=== PATIENT | male | born 1940 | race Caucasian/White ===

== ENCOUNTER 2018-01-19 05:56 | Observation (INO) | payer OTHER, MEDICARE ==
--- OUTSIDE RECORDS SUMMARY | 2018-01-19 06:02 | XMS REPORT | Clinical Summary ---
:1940 Author Organization [facility] Address [address] [place] [address] Care Team Providers Name Role Phone Boogie Fall MD Primary Care Provider Allergies No Known Allergies Medications Medication Sig Dispensed Refills Start Date End Date Status amLODIPine (NORVASC) 10 Take 10 mg by 0 Active mg tablet mouth daily. gabapentin (NEURONTIN) Take 100 mg by 0 Active 100 mg capsule mouth 3 (three) times a day. levothyroxine Take 100 mcg by 0 Active (SYNTHROID, LEVOXYL) 100 mouth daily. mcg tablet lisinopril-hydrochloroth Take 1 tablet by 0 Active iazide mouth daily. (PRINZIDE,ZESTORETIC) 20-25 mg per tablet metoprolol tartrate Take 50 mg by 0 Active (LOPRESSOR) 50 mg tablet mouth 2 (two) times a day. rivaroxaban (XARELTO Take by mouth. 0 Active ORAL) Active Problems Problem Noted Date Spinal stenosis of lumbar region 11/17/2017 Encounters Date Type Specialty Care Team Description 12/22/2017 Office Visit Orthopedic Peter Ellison Spinal Noemi GUZMAN MD lumbar region without neurogenic claudication (Primary Dx) 12/15/2017 Documentation Orthopedic Peter Ellison III, MD 12/15/2017 Documentation Orthopedic Peter Ellison III, MD 12/06/2017 Office Visit Orthopedic Peter Ellison III, MD lumbar region without neurogenic claudication (Primary Dx) 12/06/2017 Documentation Orthopedic Surgery Franchesca Morin MA 11/24/2017 Documentation Orthopedic Peter Ellison III, MD 11/19/2017 Documentation Orthopedic Surgery Franchesca Morin MA 11/17/2017 Office Visit Orthopedic Peter Ellison Spinal stenosis Pili GUZMAN MD lumbar region, unspecified whether neurogenic claudication present (Primary Dx) 11/10/2017 Documentation Orthopedic Surgery Peter Aden III, MD 11/03/2017 Documentation Orthopedic Surgery Franchesca Morin MA 11/02/2017 Hospital Encounter Radiology Peter Aden III, MD 11/02/2017 Office Visit Orthopedic Surgery Peter Aden Spinal stenosis of Dustin GUZMAN MD lumbar region, unspecified whether neurogenic claudication present (Primary Dx) after 01/18/2017 Family History Medical History Relation Name Comments Cancer Brother prostate cancer Heart disease Father Relation Name Status Comments Brother Father Social History Tobacco Use Types Packs/Day Years Used Date Never Smoker Smokeless Tobacco: Never Used Sex Assigned at Date Recorded Not on file Job Start Date Occupation Industry Not on file Not on file Not on file Travel History Travel Start Travel End No recent travel history available. Last Filed Vital Signs Vital Sign Reading Time Taken Blood Pressure 155/89 11/02/2017 2:20 PM CDT Pulse 62 11/02/2017 2:20 PM CDT Temperature - - Respiratory Rate - - Oxygen Saturation - - Inhaled Oxygen Concentration - - Weight 110 kg (243 lb) 11/02/2017 2:20 PM CDT Height 177.8 cm (5' 10") 11/02/2017 2:20 PM CDT Body Mass Index 34.87 11/02/2017 2:20 PM CDT Plan of Treatment Health Maintenance Due Date Last Done Comments SHINGRIX VACCINE (1 of 2) 1990 ZOSTER VACCINE 2000 PNEUMOCOCCAL POLYSACCHARIDE VACCINE AGE 65 AND OVER 2005 PNEUMOCOCCAL-13 2005 INFLUENZA VACCINE 2017 Procedures Procedure Name Priority Date/Time Associated Diagnosis Comments MRI SPINE EXTERNAL Routine 10/22/2017 12:59 PM Results for this STUDY CDT procedure are in the results section. after 01/18/2017 Results MRI Spine External Study (10/22/2017 12:59 PM CDT) Narrative Performed At This exam was not acquired at a [facility] facility and has not been [facility] interpreted by a [facility] Provider.The exam was imported into our imaging system for comparisons purposes. Performing Organization Address City/State/Zipcode Phone Number [facility] [address] [place] [address] after 01/18/2017 Insurance Payer Benefit Plan / Group Subscriber ID Type Phone Address MEDICARE MEDICARE PART A AND B xxxxxxxxxx Medicare [place], [place] AARP AARP SUPPLEMENT xxxxxxxxx Commercial Advance Directives Patient has advance care planning documents on file. For more information, please contact:Jesús Gupta[address] [place] [address]
[2018-01-19 06:32] LABS: Absolute Lymphocytes (CBC) 1.6 K/uL (0.7-4.9); Absolute Monocytes 1.3 K/uL (0.1-1.3); Absolute Neutrophil 7.5 K/uL (1.8-8.0); Basophils % 0.7 % (0-1.3); Eosinophils % 0.9 % (0-4.4); Hematocrit 40.2 % (39.6-49.0); Lymphocytes % 15.2 % (15.3-44.8); MCH 32.5 pg (27.0-35.0); MPV 10.7 fL (7.6-11.3); Monocytes % 11.9 % (3.3-12.3); RBC Red Blood Cell Count 4.19 M/uL (4.33-5.43)
[2018-01-19] MEDS ORDERED: ASPIRIN 81 MG CHEWABLE TABLET ONE (06:34)
[2018-01-19 06:43] LABS: Protime INR 2.13
[2018-01-19 06:46] LABS: ALT/SGPT 24 U/L (12-78); AST/SGOT 16 U/L (15-37); Albumin 3.3 g/dL (3.4-5.0); Alkaline Phosphatase 60 U/L (45-117); BUN Blood Urea Nitrogen 17 mg/dL (7-18); Bicarbonate 27 mmol/L (21-32); Bilirubin Direct 0.2 mg/dL (0-0.2); Bilirubin Total 0.6 mg/dL (0.2-1.0); Glucose Level 162 mg/dL (74-106); Magnesium 2.1 mg/dL (1.8-2.4); NT PRO-BNP 648 pg/mL (<450); Potassium 3.8 mmol/L (3.5-5.1); Protein, Total 7.9 g/dL (6.4-8.2); Sodium Level 141 mmol/L (136-145); Troponin (Emerg Dept Use Only) < 0.02 ng/mL (0.0-0.045)
--- NOTE | 2018-01-19 08:10 | RAD REPORT ---
EXAM DESCRIPTION: CT - Head Brain Wo Cont - 01/19/2018 6:56 am CLINICAL HISTORY: DIZZINESS Drowsiness COMPARISON: Sinus Wo Cont dated 07/05/2017; Head Brain Wo Cont dated 12/01/2016; Spine Lumbar Wo Con d ated 08/16/2017; Spine Lumbar W/Wo Cont dated 10/22/2017 TECHNIQUE: All CT scans are performed using dose optimization technique as appropriate and may inclu de automated exposure control or mA/KV adjustment according to patient size. FINDINGS: No intracranial hemorrhage, hydrocephalus or extra-axial fluid collection.Moderate general ized brain atrophy is present with moderate periventricular and deep white matter chronic microvascul ar ischemic changes.No areas of brain edema or evidence of midline shift. The paranasal sinuses and mastoids are clear. The calvarium is intact. Vertebrobasilar atherosclerosi s is noted. IMPRESSION: No acute intracranial abnormality. Prominent vertebrobasilar atherosclerosis.
--- NOTE | 2018-01-19 08:18 | ER ---
Nurse's Notes [facility] Name: Jose Armando Caldera Age: 77 yrs Sex: Male : 1940 Arrival Date: 01/19/2018 Time: 05:58 Bed 8 Private MD: LILA SPEARS Diagnosis: Chest pain, unspecified Presentation: 01/19 06:15 Presenting complaint: Patient states: he woke up this morning and was feeling a little bb dizzy with chest pain and has been having left shoulder pain for several days on arrival to ED chest pain has resolved but he is having really bad indigestion and is short of breath. Transition of care: patient was not received from another setting of care. Onset of symptoms was January 19, 2018. Risk Assessment: Do you want to hurt yourself or someone else? Patient reports no desire to harm self or others. Initial Sepsis Screen: Does the patient meet any 2 criteria? No. Patient's initial sepsis screen is negative. Does the patient have a suspected source of infection? No. Patient's initial sepsis screen is negative. Care prior to arrival: None. 06:15 Method Of Arrival: Ambulatory bb 06:15 Acuity: HARPER 3 bb Triage Assessment: 06:39 General: Appears in no apparent distress. Behavior is calm, cooperative. Respiratory: ak1 Reports shortness of breath at rest Onset: The symptoms/episode began/occurred this morning, the patient has mild shortness of breath. Historical: - Allergies: 06:20 No Known Allergies; bb - Home Meds: 06:42 amlodipine 10 mg tab 1 tab once daily [Active]; Crestor 5 mg Oral tab 1 tab once daily ak1 [Active]; lisinopril-hydrochlorothiazide 20-25 mg Oral tab 1 tab once daily [Active]; metoprolol tartrate 50 mg Oral tab 1 tab 2 times per day [Active]; Xarelto 20 mg Oral tab 1 tab once daily [Active]; - PMHx: 06:20 Atrial Fib; cardiac stent; Hyperlipidemia; Hypertension; Myocardial infarction; bb - PSHx: 06:20 bilateral TKR; back surgery; bb - Immunization history:: Adult Immunizations up to date. - Social history:: Smoking status: Patient/guardian denies using tobacco, Patient/guardian denies using alcohol, street drugs. - Ebola Screening: : No symptoms or risks identified at this time. Screenin:26 Abuse screen: Denies threats or abuse. Nutritional screening: No deficits noted. ea Tuberculosis screening: No symptoms or risk factors identified. Fall Risk None identified. Assessment: 06:24 General: Appears in no apparent distress. Pain: Denies pain. Neuro: Level of ea Consciousness is awake, alert, obeys commands, Oriented to person, place, time, situation. Cardiovascular: Heart tones S1 S2 present Patient's skin is warm and dry. Respiratory: Airway is patent Respiratory effort is even, unlabored, Respiratory pattern is regular, symmetrical, Breath sounds are clear bilaterally. GI: Abdomen is obese, Bowel sounds present X 4 quads. Derm: Skin is dry, Skin is pale, Skin temperature is warm. 06:40 Cardiovascular: Rhythm is. ak1 07:08 General: Appears comfortable, Behavior is calm, cooperative, Pt reports SOB had aa5 improved. Denies dizziness and chest pain at this time. Bruising that is yellow noted to left shoulder, pt states "I don't know how I got that bruise", denies fall. Awaiting radiology results at this time, pt notified of wait time. . Pain: Denies pain. Neuro: Level of Consciousness is awake, alert, obeys commands, Oriented to person, place, time, situation, Battery Checker are equal bilaterally Moves all extremities. Speech is normal, Facial symmetry appears normal, Pupils are PERRLA. Cardiovascular: Heart tones S1 S2 present Rhythm is sinus rhythm. Respiratory: Airway is patent Respiratory effort is even, unlabored, Respiratory pattern is regular, symmetrical, Breath sounds are clear bilaterally. GI: Abdomen is round Bowel sounds present X 4 quads. Abd is soft and non tender X 4 quads. : No signs and/or symptoms were reported regarding the genitourinary system. EENT: No signs and/or symptoms were reported regarding the EENT system. Derm: Skin is pink, warm \\T\\ dry. Musculoskeletal: Range of motion: intact in all extremities. 08:30 Reassessment: Patient is alert, oriented x 3, equal unlabored respirations, skin aa5 warm/dry/pink. Patient denies pain at this time. Pt sitting up in bed. Pt's family at bedside. Awaiting room assignment, pt notified of wait time. . 10:00 Reassessment: Patient is alert, oriented x 3, equal unlabored respirations, skin aa5 warm/dry/pink. Patient denies pain at this time. Breakfast tray given to pt, urinal provided. Awaiting room assignment at this time. Pt sitting up in bed. . 11:00 Reassessment: Patient is alert, oriented x 3, equal unlabored respirations, skin aa5 warm/dry/pink. Pt sitting up in bed. Awaiting room assignment. . 11:45 Reassessment: Report given to NEGRITA Duarte (admitting nurse). Pt currently in radiology. . aa5 12:10 Reassessment: Patient is alert, oriented x 3, equal unlabored respirations, skin aa5 warm/dry/pink. Vital Signs: 06:20 BP 110 / 63; Pulse 74; Resp 14; Pulse Ox 96% on R/A; Weight 104.33 kg (R); Height 5 ft. bb 10 in. (177.80 cm) (R); 06:38 Temp 98.6; ak1 07:10 BP 118 / 74; Pulse 65; Resp 18 S; Temp 97.8(O); Pulse Ox 96% on R/A; Pain 0/10; aa5 08:00 BP 137 / 78; Pulse 62; Resp 18 S; Pulse Ox 96% on R/A; Pain 0/10; aa5 09:00 BP 139 / 75; Pulse 66; Resp 16 S; Pulse Ox 96% on R/A; Pain 0/10; aa5 10:00 BP 155 / 74; Pulse 85; Resp 18 S; Temp 97.6(TE); Pulse Ox 96% on R/A; Pain 0/10; aa5 11:00 BP 136 / 68; Pulse 70; Resp 16 S; Pulse Ox 97% on R/A; aa5 06:20 Body Mass Index 33.00 (104.33 kg, 177.80 cm) bb ED Course: 05:58 Patient arrived in ED. am2 05:58 LILA SPEARS is Private Physician. am2 06:10 Inserted saline lock: 20 gauge in right antecubital area, using aseptic technique. ea Blood collected. 06:13 Nicole Carpenter FNP-C is PHCP. kb 06:13 Bassem Vo MD is Attending Physician. kb 06:18 Triage completed. bb 06:20 Arm band placed on Patient placed in an exam room, on a stretcher, on quality assurance monitor chassis, bb on pulse oximetry. Family accompanied patient. 06:26 Patient has correct armband on for positive identification. Placed in gown. Bed in low ea position. Call light in reach. Side rails up X2. 06:35 Vickie Shepard, RN is Primary Nurse. ak1 06:40 X-ray completed. Portable x-ray completed in exam room. Patient tolerated procedure kw well. 06:41 XRAY Chest (1 view) In Process Unspecified. EDMS 06:56 CT Head Brain wo Cont In Process Unspecified. EDMS 07:00 Report received from Vickie RN and NEGRITA Page. aa5 08:18 Robb Marquez MD is Hospitalizing Provider. kb 11:24 Patient taken to ultrasound. via wheelchair. aa4 12:00 No provider procedures requiring assistance completed. aa5 12:00 Patient admitted, IV remains in place. aa5 12:13 Ultrasound completed. Patient tolerated well. Patient moved back from ultrasound. aa4 Administered Medications: 06:37 Drug: Aspirin Chewable Tablet 324 mg Route: PO; ak1 Outcome: 08:18 Decision to Hospitalize by Provider. kb 12:10 Admitted to Tele accompanied by tech, via wheelchair, with chart. aa5 12:10 Condition: stable 12:10 Discharge instructions given to patient, Instructed on the need for admit, Demonstrated understanding of instructions. 12:14 Patient left the ED. aa5 Signatures: Dispatcher [employer] EDMS Nicole Carpenter, DECKHAND-C DECKHAND-CkNiyah Barnes RN RN Lora Chun aa4 Pat Escobedo RN RN aa5 Isabell Barragan Amber, RN RN ak1 Lora Lind am2 Kaylee Roca, NEGRITA RN ea Corrections: (The following items were deleted from the chart) 06:42 06:20 Home Meds: Unable to obtain; dinah ak1 12:03 11:45 Reassessment: Report given to NEGRITA Duarte. Pt currently in radiology. . aa5 aa5 12:06 08:30 Reassessment: Patient is alert, oriented x 3, equal unlabored respirations, skin aa5 warm/dry/pink. Patient denies pain at this time. Pt sitting up in bed. Pt's family at bedside. . aa5 15:12 10:00 Reassessment: Patient is alert, oriented x 3, equal unlabored respirations, skin aa5 warm/dry/pink. Breakfast tray given to pt, urinal provided. Awaiting room assignment at this time. Pt sitting up in bed. . aa5 15:12 08:30 Reassessment: Patient is alert, oriented x 3, equal unlabored respirations, skin aa5 warm/dry/pink. Patient denies pain at this time. Pt sitting up in bed. Pt's family at bedside. Awaiting room assignment, pt notified of wait time. . aa5
--- NOTE | 2018-01-19 08:19 | EDPHYS ---
Physician Documentation [facility] Name: Jose Armando Caldera Age: 77 yrs Sex: Male : 1940 Arrival Date: 01/19/2018 Time: 05:58 Bed 8 Private MD: LILA SPEARS ED Physician Bassem Vo HPI: 01/19 06:21 This 77 yrs old Male presents to ER via Ambulatory with complaints of kb Breathing Difficulty, Dizziness, Chest Pain. 06:24 The patient or guardian reports chest pain that is located primarily in the anterior kb chest wall, left. Onset: this morning. The pain does not radiate. Associated signs and symptoms: Pertinent positives: dizziness, shortness of breath, Pertinent negatives: abdominal pain, cough, diaphoresis, headache, lower extremity pain, lower extremity swelling, lightheadedness, nausea, near syncope, palpitations, recent travel, syncope, vomiting. The chest pain is described as a pressure. Duration: The patient or guardian reports a single episode, that is now resolved. Modifying factors: The symptoms are alleviated by nothing. the symptoms are aggravated by nothing. Severity of pain: At its worst the pain was moderate in the emergency department the pain has resolved and did so earlier today. The patient has not experienced similar symptoms in the past. The patient has not recently seen a physician. Pt reports he was getting dressed and started having chest pain, shortness of breath and dizziness. All symptoms have resolved at this time. Bulkhead Carpenter is Dr Chambers. Had CO 10 years ago and had a stent placed at that time. . Historical: - Allergies: 06:20 No Known Allergies; bb - Home Meds: 06:42 amlodipine 10 mg tab 1 tab once daily [Active]; Crestor 5 mg Oral tab 1 tab once daily ak1 [Active]; lisinopril-hydrochlorothiazide 20-25 mg Oral tab 1 tab once daily [Active]; metoprolol tartrate 50 mg Oral tab 1 tab 2 times per day [Active]; Xarelto 20 mg Oral tab 1 tab once daily [Active]; - PMHx: 06:20 Atrial Fib; cardiac stent; Hyperlipidemia; Hypertension; Myocardial infarction; bb - PSHx: 06:20 bilateral TKR; back surgery; bb - Immunization history:: Adult Immunizations up to date. - Social history:: Smoking status: Patient/guardian denies using tobacco, Patient/guardian denies using alcohol, street drugs. - Ebola Screening: : No symptoms or risks identified at this time. ROS: 06:22 Constitutional: Negative for fever, chills, and weight loss, ENT: Negative for injury, kb pain, and discharge, Neck: Negative for injury, pain, and swelling, Abdomen/GI: Negative for abdominal pain, nausea, vomiting, diarrhea, and constipation, Back: Negative for injury and pain, MS/Extremity: Negative for injury and deformity, Skin: Negative for injury, rash, and discoloration. 06:22 Cardiovascular: Positive for chest pain, Negative for edema, orthopnea, palpitations, paroxysmal nocturnal dyspnea. 06:22 Respiratory: Positive for shortness of breath, Negative for cough, dyspnea on exertion, hemoptysis, orthopnea, pleurisy, sputum production, wheezing. 06:22 Neuro: Positive for dizziness, Negative for altered mental status, gait disturbance, headache, hearing loss, loss of consciousness, numbness, seizure activity, speech changes, syncope, near syncope, tingling, tinnitus, tremor, visual changes, weakness. Exam: 06:24 Constitutional: This is a well developed, well nourished patient who is awake, alert, kb and in no acute distress. Head/Face: Normocephalic, atraumatic. ENT: Nares patent. No nasal discharge, no septal abnormalities noted. Tympanic membranes are normal and external auditory canals are clear. Oropharynx with no redness, swelling, or masses, exudates, or evidence of obstruction, uvula midline. Mucous membranes moist. Neck: Trachea midline, no thyromegaly or masses palpated, and no cervical lymphadenopathy. Supple, full range of motion without nuchal rigidity, or vertebral point tenderness. No Meningismus. Chest/axilla: Normal chest wall appearance and motion. Nontender with no deformity. No lesions are appreciated. Cardiovascular: Regular rate and rhythm with a normal S1 and S2. No gallops, murmurs, or rubs. Normal PMI, no JVD. No pulse deficits. Respiratory: Lungs have equal breath sounds bilaterally, clear to auscultation and percussion. No rales, rhonchi or wheezes noted. No increased work of breathing, no retractions or nasal flaring. Abdomen/GI: Soft, non-tender, with normal bowel sounds. No distension or tympany. No guarding or rebound. No evidence of tenderness throughout. Skin: Warm, dry with normal turgor. Normal color with no rashes, no lesions, and no evidence of cellulitis. MS/ Extremity: Pulses equal, no cyanosis. Neurovascular intact. Full, normal range of motion. Neuro: Awake and alert, GCS 15, oriented to person, place, time, and situation. Cranial nerves II-XII grossly intact. Motor strength 5/5 in all extremities. Sensory grossly intact. Cerebellar exam normal. Normal gait. Vital Signs: 06:20 BP 110 / 63; Pulse 74; Resp 14; Pulse Ox 96% on R/A; Weight 104.33 kg (R); Height 5 ft. bb 10 in. (177.80 cm) (R); 06:38 Temp 98.6; ak1 07:10 BP 118 / 74; Pulse 65; Resp 18 S; Temp 97.8(O); Pulse Ox 96% on R/A; Pain 0/10; aa5 08:00 BP 137 / 78; Pulse 62; Resp 18 S; Pulse Ox 96% on R/A; Pain 0/10; aa5 09:00 BP 139 / 75; Pulse 66; Resp 16 S; Pulse Ox 96% on R/A; Pain 0/10; aa5 10:00 BP 155 / 74; Pulse 85; Resp 18 S; Temp 97.6(TE); Pulse Ox 96% on R/A; Pain 0/10; aa5 11:00 BP 136 / 68; Pulse 70; Resp 16 S; Pulse Ox 97% on R/A; aa5 06:20 Body Mass Index 33.00 (104.33 kg, 177.80 cm) MDM: 06:13 Patient medically screened. kb 06:24 The patient was given aspirin in the Emergency Department. Data reviewed: vital signs, kb nurses notes. Data interpreted: Pulse oximetry: on room air is 96 %. Interpretation: normal. 08:17 Counseling: I had a detailed discussion with the patient and/or guardian regarding: the kb historical points, exam findings, and any diagnostic results supporting the discharge/admit diagnosis, lab results, radiology results, the need for further work-up and treatment in the hospital. Physician consultation: Robb Marquez MD was contacted at 08:17, regarding admission, to the telemetry unit. patient's condition, and will see patient in ED, shortly. 01/19 06:13 Order name: Basic Metabolic Panel; Complete Time: 06:47 kb 01/19 06:13 Order name: CBC with Diff; Complete Time: 06:41 kb 01/19 06:13 Order name: LFT's; Complete Time: 06:47 kb 01/19 06:13 Order name: Magnesium; Complete Time: 06:47 kb 01/19 06:13 Order name: NT PRO-BNP; Complete Time: 06:47 kb 01/19 06:13 Order name: PT-INR; Complete Time: 06:54 kb 01/19 06:13 Order name: Troponin (emerg Dept Use Only); Complete Time: 06:47 kb 01/19 06:13 Order name: XRAY Chest (1 view); Complete Time: 08:59 kb 01/19 06:13 Order name: EKG; Complete Time: 06:15 kb 01/19 06:13 Order name: Cardiac monitoring; Complete Time: 06:37 kb 01/19 06:13 Order name: EKG - Nurse/Tech; Complete Time: 06:37 kb 01/19 06:22 Order name: CT Head Brain wo Cont; Complete Time: 08:13 kb 01/19 08:44 Order name: Diet Heart Healthy; Complete Time: 08:44 aa5 01/19 06:13 Order name: IV Saline Lock; Complete Time: 06:37 kb 01/19 06:13 Order name: Labs collected and sent; Complete Time: 06:37 kb 01/19 06:13 Order name: O2 Per Protocol; Complete Time: 06:38 kb 01/19 06:13 Order name: O2 Sat Monitoring; Complete Time: 06:59 kb Administered Medications: 06:37 Drug: Aspirin Chewable Tablet 324 mg Route: PO; ak1 Disposition: 01/19/18 08:18 Hospitalization ordered by Robb Marquez for Observation. Preliminary diagnosis is Chest pain, unspecified. - Bed requested for Telemetry/MedSurg (observation). - Status is Observation. aa5 - Condition is Stable. - Problem is new. - Symptoms are resolved. UTI on Admission? No Addendum: 01/22/2018 06:44 Co-signature as Attending Physician, Bassem Vo MD. g s Signatures: Dispatcher [employer] EDNicole Whiting FNP-C AIRLINE MECHANIC-Ckb GeneLiz daniel bd Niyah Billy, RN RN bb Pat Escobedo, RN RN aa5 Vickie Shepard, RN RN ak1 Bassem Vo MD MD gs Corrections: (The following items were deleted from the chart) 01/19 06:42 06:20 Home Meds: Unable to obtain; dinah ak1 10:28 08:18 Hospitalization Ordered by Robb Marquez MD for Observation. Preliminary diagnosis bd is Chest pain, unspecified. Bed requested for Telemetry/MedSurg (observation). Status is Observation. Condition is Stable. Problem is new. Symptoms are resolved. UTI on Admission? No. kb 12:14 10:28 01/19/2018 08:18 Hospitalization Ordered by Robb Marquez MD for Observation. aa5 Preliminary diagnosis is Chest pain, unspecified. Bed requested for Telemetry/MedSurg (observation). Status is Observation. Condition is Stable. Problem is new. Symptoms are resolved. UTI on Admission? No. bd
--- NOTE | 2018-01-19 08:21 | RAD REPORT ---
EXAM DESCRIPTION: RAD - Chest Single View - 01/19/2018 7:02 am CLINICAL HISTORY: CHEST PAIN Chest pain. COMPARISON: Chest Single View dated 12/01/2016; Abdomen 1 View (KUB) dated 11/18/2015; CHEST SINGLE EW dated 08/19/2007; CHEST PA AND LAT 2 VIEW dated 08/05/2007 FINDINGS: Portable technique limits examination quality. The lungs are grossly clear. The heart is normal in size. No displaced fractures. IMPRESSION: No acute intrathoracic process suspected.
[2018-01-19] MEDS ORDERED: NITROGLYCERIN 0.4 MG/TAB SL PRN (09:11)
[2018-01-19] MEDS ORDERED: MORPHINE 4 MG/ML SYR IV PRN (09:11)
[2018-01-19] MEDS ORDERED: ACETAMINOPHEN 500 MG TAB PO PRN (09:11)
--- NOTE | 2018-01-19 10:09 | EKG ---
Test Date: 2018-01-19 Test Time: 06:08:44 Senior Operations Manager: JUAN MEASUREMENT RESULTS: Intervals: Rate: 74 UT: 174 QRSD: 96 QT: 408 QTc: 452 [place]: P: 41 UT: 174 QRS: 3 T: 65 INTERPRETIVE STATEMENTS: Normal sinus rhythm Normal ECG Compared to ECG 12/01/2016 12:35:41 Atrial fibrillation no longer present Electronically Signed On 01-19-18 10:08:44 SENIOR RESEARCH MANAGER by Panda Chambers
--- NOTE | 2018-01-19 12:27 | RAD REPORT ---
EXAM DESCRIPTION: USCarotid Artery Nlazdoucx51/14/2018 12:05 pm CLINICAL HISTORY: Syncope COMPARISON: None FINDINGS: The velocity of the right internal carotid artery equals 120 cm/sec. The right ICA/CCA ratio 0.8 The velocity of the left internal carotid artery equals 111 cm/sec. The left ICA/CCA ratio 0.8 Mild plaque is present within the carotid arteries. Vertebral arteries demonstrate antegrade flow. IMPRESSION: Mild plaque within the carotid arteries without evidence of a hemodynamically significan t stenosis NASCET criteria used. Mild 0-49% stenosis Moderate 50-69% stenosis Severe 70-99% stenosis
[2018-01-19 13:07] VITALS: BMI 33.0
--- NOTE | 2018-01-19 15:04 | RAD REPORT ---
EXAM DESCRIPTION: RAD - Shoulder Left 2 View - 01/19/2018 2:53 pm CLINICAL HISTORY: Left shoulder pain FINDINGS: No fracture or dislocation is seen. The bones are osteoporotic. The humeral head is high riding which may indicate a chronic rotator cuff tear. Mild osteoarthritis involves the AC joint
--- NOTE | 2018-01-19 15:15 | CON ---
CARDIOLOGY CONSULT Chief Complaint: Dizziness, near loss of consciousness. History Of Present Illness: Mr. Caldera was sleeping. He had awakened at 4 a.m. When he got out of b ed, his sensorium clouded and he felt very dizzy. He leaned against a wall, slumped to the floor, di d not actually fall and strike the floor or hurt himself. For a while he was unable to get up, then later he was able to stand. He has come to the emergency room and has had normal rhythm, normal look ing EKG, and feels pretty much back to normal. He has dementia with pretty severe memory loss. He h as had coronary heart disease with a stent placed in one of his arteries, very remotely. He has had intermittent AFib, but seems to be in sinus rhythm now. Home Medications: Amlodipine 10, Crestor 5, lisinopril 20, hydrochlorothiazide 25, metoprolol 50, Xa relto 20. Past Surgical History: He has had knee replacement bilaterally, back surgery. Social History: He was a cigarette smoker, but quit quite a few years ago. Physical Examination: General: He is alert, oriented to person, place, and time. Obese, not in distress. Vital Signs: Blood pressure is 154/70, heart rate 80, when I saw him. HEENT: Unremarkable. Lungs: Clear. Cardiac: Regular rate and rhythm. Laboratory Data: EKG normal. Laboratory exam reveals normal troponin and N-terminal proBNP is 648, blood sugar 162. Impression: The patient probably had relative hypotension, sleeping and then waking up at 4 a.m. and standing is a pretty severe stress on the autonomic nervous system and it seems to have failed him. We will monitor him. I will recommend, we do an echocardiogram and carotid Doppler and orthostatic vital signs. If nothing seems to come up on this, we might take him off the diuretic and leave him o n lisinopril, amlodipine, metoprolol, and Xarelto. SH/MODL Voice ID: [id number] Report ID: [id number]
--- NOTE | 2018-01-19 15:28 | ECHO ---
HEIGHT: 5 ft 10 in WEIGHT: 230 lb 0 oz DATE OF STUDY: 01/19/[address]: Robb Marquez MD 2-DIMENSIONAL: YES M.MODE: YES DOPPLER: YES COLOR FLOW: YES TDS: YES PORTABLE: NO DEFINITY: NO BUBBLE STUDY: NO DIAGNOSIS: CHEST PAIN, CORONARY ARTERY DISEASE CARDIAC HISTORY: CATHERIZATION: NO SURGERY: NO PROSTHETIC VALVE: NO PACEMAKER: NO MEASUREMENTS (cm) DIASTOLIC (NORMALS) SYSTOLIC (NORMALS) IVSd 1.1 (0.6-1.2) LA Diam 4.2 (1.9-4.0) LVEF 71% LVIDd 4.6 (3.5-5.7) LVIDs 2.7 (2.0-3.5) %FS 41% LVPWd 1.1 (0.6-1.2) Ao Diam 3.1 (2.0-3.7) 2 DIMENSIONAL ASSESSMENT: RIGHT ATRIUM: NORMAL LEFT ATRIUM: DILATED RIGHT VENTRICLE: NORMAL LEFT VENTRICLE: NORMAL TRICUSPID VALVE: NORMAL MITRAL VALVE: NORMAL PULMONIC VALVE: NORMAL AORTIC VALVE: NORMAL PERICARDIAL EFFUSION: NONE AORTIC ROOT: NORMAL LEFT VENTRICULAR WALL MOTION: NORMAL. DOPPLER/COLOR FLOW: IMPAIRED LEFT VENTRICULAR EJECTION FRACTION. COMMENTS: NORMAL LEFT VENTRICULAR EJECTION FRACTION. DILATED LEFT ATRIUM. IMPAIRED LEFT VENTRICULAR RELAXATION. TECHNOLOGIST: VERONICA SANZ
[2018-01-19] MEDS ORDERED: HYDRALAZINE HCL 20 MG/ML VIAL IV PRN (17:03)
[2018-01-19] MEDS ORDERED: ROSUVASTATIN 10 MG TAB PO SCH (21:00)
[2018-01-19] MEDS: METOPROLOL TAR 50 MG TAB PO SCH (21:00)
[2018-01-19] MEDS ORDERED: ATORVASTATIN 40 MG TAB PO SCH (21:00)
[2018-01-19] MEDS ORDERED: HOME MED 1 EA UNK (Rosuvastatin [Crestor*] 5 MG) PO SCH (21:00)
--- NOTE | 2018-01-20 00:57 | HP ---
Date of Admission: 01/19/2018 Chief Complaint: Chest pain, dizziness. Code Status: Full. History Of Present Illness: The patient is a 77-year-old male with past medical history of hypertension, hyperlipidemia, atrial fibrillation on Xarelto , pulmonary artery disease, status post stent, who was in his usual state of health until day of admission when the patient had onset of dizziness and shortness of breath. The patient felt that he was going to pass out. He did experience chest tightness on the left side, which was nonradiating. The patient has reported some nausea and headache. Denies any diaphoresis, palpitations. Did not fall and did not hit his head, the patient did not lose consciousness. The patient's symptoms are constant, moderate, progressively worsening. Therefore came into the ER for further evaluation. There are no alleviating factors. Upon arrival, the patient's workup revealed negative troponin level. White count was normal. The patient's EKG did not show any acute changes. Chest x-ray was normal. The patient was then referred for admission for chest pain. Dr. Chambers with Cardiology was also consulted. Of note, the patient's symptoms occurred after he took his blood pressure medication. Past Medical History: Hypertension, hyperlipidemia, coronary artery disease status post stent, history of NM, atrial fibrillation on Xarelto. Surgical History: Bilateral total knee replacement, back surgery. Allergies: NO KNOWN DRUG ALLERGIES. Medications: List reviewed. Social History: The patient denies any tobacco use, alcohol use, or illicit drug use. Family History: The patient denies any history of premature coronary artery disease in the family. Review of Systems: An 11-point system reviewed, negative except as per HPI. Physical Examination: Vital Signs: Blood pressure 110/62, respirations 14, pulse 74, O2 96% on room air, temperature 98.6. General: Awake, alert, oriented x3, in some mild distress. Elderly male. HEENT: Normocephalic, atraumatic. PERRLA. EOMI. Moist mucous membranes. Oropharynx is clear. Conjunctivae anicteric. Neck: Supple. No JVD. Trachea midline. CV: S1, S2. Irregularly irregular. Peripheral pulses present. No murmurs. Respiratory: Clear to auscultation bilaterally. No wheezing or stridor. No use of accessory muscles. Gastrointestinal: Abdomen is soft, nontender, nondistended. Positive bowel sounds. Extremities: No clubbing, cyanosis, or edema. No calf tenderness. NEURO: Cranial nerves 2 through 12 intact grossly. No focal neurological deficit. Speech is normal. Skin: No rashes, normal skin turgor. The patient does have some ecchymosis on the left shoulder. Musculoskeletal: Left shoulder tenderness to palpation. Decreased range of motion due to pain. Psych: Mood is okay. Affect is full. Insight and judgment are good. Laboratory Data: INR 2.13. Sodium 141, potassium 3.8, chloride 103, CO2 27, BUN 17, creatinine 1.2, glucose 162, calcium 8.6. Troponins less than 0.02. BNP 648. WBC 10.6, H and H 13.6/40.2, platelets 206. Arterial ultrasound shows mild plaque within the carotid arteries without evidence of hemodynamically significant stenosis. Chest x-ray, personally reviewed, shows no acute process identified. EKG shows normal sinus rhythm, rate of 74. When compared to previous atrial fibrillation, not present. Assessment And Plan: A 77-year-old male with: 1. Chest pain, rule out acute coronary syndrome. 2. Dizziness and near syncopal episode, likely related to medication side effect. We will continue to monitor. Carotid ultrasound is negative. We will check orthostatic vital signs. Blood pressure is improved since being in the ER. Continue with IV fluid hydration. Check echocardiogram. 3. Essential hypertension. 4. Mixed hyperlipidemia. Continue statin. 5. Coronary artery disease status post stent [place] artery, [place] heart with angina. 6. Gastrointestinal and deep venous thrombosis prophylaxis addressed. 7. Obesity, BMI 33. Plan: Admit the patient to [facility], [facility] as observation. Cardiology is being consulted. We will obtain echocardiogram. /CLEMENTINE Voice ID: [id number] MTDD
[2018-01-20 04:07] LABS: Absolute Lymphocytes (CBC) 1.8 K/uL (0.7-4.9); Absolute Monocytes 1.2 K/uL (0.1-1.3); Absolute Neutrophil 5.7 K/uL (1.8-8.0); Eosinophils % 1.8 % (0-4.4); Hematocrit 37.8 % (39.6-49.0); Lymphocytes % 20.6 % (15.3-44.8); MCH 32.5 pg (27.0-35.0); MCV 95.5 fL (80-100); MPV 10.8 fL (7.6-11.3); Monocytes % 13.1 % (3.3-12.3); RBC Red Blood Cell Count 3.95 M/uL (4.33-5.43)
[2018-01-20 04:20] LABS: Potassium 3.7 mmol/L (3.5-5.1)
[2018-01-20] MEDS ORDERED: LEVOTHYROXINE SOD 0.1 MG TAB PO SCH (06:00)
[2018-01-20] MEDS: METOPROLOL TAR 50 MG TAB PO SCH (08:35)
[2018-01-20] MEDS ORDERED: HOME MED 1 EA UNK (Lisinopril/Hydrochlorothiazide [Lisinopril-Hctz 20-12.5 Mg Tab] 1 TAB) PO SCH (09:00)
[2018-01-20] MEDS ORDERED: hydroCHLOROthiazide 12.5 MG CAP PO SCH (09:00)
[2018-01-20] MEDS ORDERED: TAMSULOSIN 0.4 MG SR CAP PO SCH (09:00)
[2018-01-20] MEDS ORDERED: ASPIRIN EC 81 MG TAB PO SCH (09:00)
[2018-01-20] MEDS ORDERED: LISINOPRIL 20 MG TAB PO SCH ×2 (09:00)
[2018-01-20] MEDS ORDERED: METOPROLOL TAR 50 MG TAB PO SCH (09:00)
[2018-01-20] MEDS ORDERED: AMLODIPINE 5 MG TAB PO SCH (09:00)
[2018-01-20 12:38] VITALS: BP 116/65; TEMP 98
[2018-01-20 12:57] VITALS: O2SAT 97
[2018-01-20] MEDS ORDERED: RIVAROXABAN 20 MG TABLET PO SCH (17:00)
--- NOTE | 2018-01-21 05:02 | DS ---
Date of Discharge: 01/20/2018 Safety Deposit Clerk: Panda Chambers M.D., with Cardiology. Procedures: None. Discharge Diagnoses: 1.Unstable angina. Acute coronary syndrome ruled out. 2.Dizziness with near-syncopal episode, resolved. 3.Essential hypertension, stable. 4.Hyperlipidemia. Statins. 5.Coronary artery disease, status post stent, robinson artery and robinson heart, with angina. 6.Obesity, body mass index 33. Hospital Course: The patient is a 77-year-old male who came in to the hospital with chest pain, dizz iness, and near-syncopal episode. The patient was admitted for further workup. The patient did repo rt some pain to the left side of his shoulder as he slid down the wall, but he did not have a fall or hit his head. The patient's workup revealed negative cardiac enzymes. His cholesterol panel was no rmal. WBC count was also normal. The patient was seen by [employer] outside sales representative, Dr. Chambers. Echocardiogram was done, which showed EF of 71%, did show some dilated left atrium and impaired left ventricular rel axation. The patient was ruled out for ACS. Regarding his dizziness and near-syncopal episode, this was likely thought to be due to orthostatic hypotension. Carotid artery ultrasound was done, which showed mild plaque, but no hemodynamically significant stenosis. The patient's medications were adju sted. He will no longer continue his diuretic. The patient was then cleared for discharge. His blo od pressure was stable. He was able to get up without difficulty. No further dizziness or near-sync opal episodes. Medications: Per medication reconciliation list. Followup: Follow up with primary care physician in 2 to 3 days. Follow up with [employer] outside sales representative, Dr. Camden reyes, in 2 weeks. Return to ER for worsening condition. Diet: Heart healthy. Activity: Fall precautions. Physical Examination: General: Awake, alert, oriented x3, obese, elderly male. CV: S1, S2. Peripheral pulses present. Respiratory: Moving air well bilaterally. No wheezing. Gastrointestinal: Abdomen is soft, nontender, nondistended. Positive bowel sounds. Extremities: No clubbing, cyanosis, or edema. Neurologic: Nonfocal. SA/MODL Voice ID: [id number] Report ID: [id number]
--- NOTE | 2018-01-24 10:58 | PN ---
Date of Progress Note: 01/20/2018 Mr. Caldera was admitted on 01/19/[address] Dr[address] Chambers for chest pain. The patient has a hi story of CAD, dementia, and atrial fibrillation. The echocardiogram that was done showed an ejection fraction that was normal. Decreased left ventricular compliance. No regional wall motion abnormali ties. A carotid Doppler that was done was also negative. I think, the patient can go home. We will suggest lowering the dose of diuretic. We will follow up with him as an outpatient. CHRISTOPH/CLEMENTINE Voice ID: [id number] Report ID: [id number]
== END 2018-01-20 13:00 | disposition home or self-care (01) ==
LOC: ER 05:56 → ERHOLD 08:22 → 4TH 11:37
PROVIDERS: ADMIT Family Medicine; ATTEND Family Medicine
DX: I25.110 Atherosclerotic heart disease of native coronary artery with unstable angina pectoris (principal); R42 Dizziness and giddiness; I10 Essential (primary) hypertension; E78.5 Hyperlipidemia, unspecified; E66.9 Obesity, unspecified; Z68.33 Body mass index [BMI] 33.0-33.9, adult; Z95.5 Presence of coronary angioplasty implant and graft; I48.91 Unspecified atrial fibrillation; Z79.01 Long term (current) use of anticoagulants; Z96.653 Presence of artificial knee joint, bilateral
CPT/HCPCS: 36415; 70450; 71045; 73030; 80048 ×2; 80061; 80076; 83735; 83880; 84484 ×2; 85025 ×2; 85610; 93005; 93306; 93880; 94760 ×3; 99285; G0378 ×2; J0360

== ENCOUNTER 2018-02-11 09:34 | Emergency (ER) | payer OTHER, MEDICARE ==
--- OUTSIDE RECORDS SUMMARY | 2018-02-11 09:36 | XMS REPORT | Clinical Summary ---
:1940 Author Organization [facility] Address [address] [place] [address] Care Team Providers Name Role Phone Boogie [...] whether neurogenic claudication present (Primary Dx) after 02/10/2017 Family History Medical History Relation Name Comments [...] procedure are in the results section. after 02/10/2017 Results MRI Spine External Study (10/22/2017 12:59 PM CDT) Narrative Performed At This exam was not acquired at a [facility] facility and has not been [facility] interpreted by a [facility] Provider.The exam was imported into our imaging system for comparisons purposes. Performing Organization Address City/State/Zipcode Phone Number [facility] [address] [place] [address] after 02/10/2017 Insurance Payer Benefit Plan / Group Subscriber ID Type Phone Address MEDICARE MEDICARE PART A AND B xxxxxxxxxx Medicare [place], [place] AARP AARP SUPPLEMENT xxxxxxxxx Commercial Advance Directives Patient has advance care planning documents on file. For more information, please contact:Jesús Gupta[address] [place] [address]
[2018-02-11 10:43] LABS: Protime INR 1.55
[2018-02-11 11:03] LABS: ALT/SGPT 22 U/L (12-78); AST/SGOT 15 U/L (15-37); Albumin 3.2 g/dL (3.4-5.0); Alkaline Phosphatase 52 U/L (45-117); BUN Blood Urea Nitrogen 34 mg/dL (7-18); Bicarbonate 27 mmol/L (21-32); Bilirubin Direct 0.2 mg/dL (0-0.2); Bilirubin Total 0.4 mg/dL (0.2-1.0); Glucose Level 146 mg/dL (74-106); Magnesium 1.8 mg/dL (1.8-2.4); NT PRO-BNP 2645 pg/mL (<450); Potassium 3.5 mmol/L (3.5-5.1); Protein, Total 7.3 g/dL (6.4-8.2); Sodium Level 141 mmol/L (136-145); Troponin (Emerg Dept Use Only) < 0.02 ng/mL (0.0-0.045)
[2018-02-11 11:09] LABS: Absolute Lymphocytes (CBC) 1.7 K/uL (0.7-4.9); Absolute Monocytes 0.9 K/uL (0.1-1.3); Absolute Neutrophil 4.7 K/uL (1.8-8.0); Basophils % 1.2 % (0-1.3); Eosinophils % 1.5 % (0-4.4); Hematocrit 38.8 % (39.6-49.0); Lymphocytes % 23.1 % (15.3-44.8); MCH 32.8 pg (27.0-35.0); MCV 93.9 fL (80-100); MPV 11.7 fL (7.6-11.3); Monocytes % 11.4 % (3.3-12.3); RBC Red Blood Cell Count 4.13 M/uL (4.33-5.43)
--- NOTE | 2018-02-11 11:16 | RAD REPORT ---
EXAM DESCRIPTION: RAD - Chest Single View - 02/11/2018 11:09 am CLINICAL HISTORY: Dizziness Chest pain. COMPARISON: Chest Single View dated 01/19/2018; Chest Single View dated 12/01/2016; Abdomen 1 View (K UB) dated 11/18/2015; CHEST SINGLE VIEW dated 08/19/2007 FINDINGS: Portable technique limits examination quality. The lungs are grossly clear. The heart is normal in size. No displaced fractures. IMPRESSION: No acute intrathoracic process suspected.
[2018-02-11 12:09] LABS: Urine Blood TRACE (NEG); Urine Glucose NEGATIVE (NEG); Urine Protein NEGATIVE (NEG); Urine pH 5.5 (5.0-7.0)
--- NOTE | 2018-02-11 12:49 | EDPHYS ---
Physician Documentation [facility] Name: Jose Armando Caldera Age: 77 yrs Sex: Male : 1940 Arrival Date: 02/11/2018 Time: 09:37 Bed 6 Private MD: LILA SPEARS ED Physician Simon Wilson HPI: 02/11 11:00 This 77 yrs old Male presents to ER via Ambulatory with complaints of pm1 Dizziness. 11:00 The patient presents to the emergency department with Dizziness. Onset: The pm1 symptoms/episode began/occurred 2 week(s) ago. Context: Reports dizziness onset after walking 30 yards. Associated signs and symptoms: Pertinent negatives: altered mental status, fever, nausea, syncope, near-syncope, vomiting, chest pain. Severity of symptoms: in the emergency department the symptoms have resolved Pain is currently a 0 / 10. Patient's baseline: Neuro: alert and fully oriented, Motor: no deficits, Ambulation: walks without assistance, Speech: normal. Current symptoms: Currently, the patient is not experiencing any symptoms. The patient has not experienced similar symptoms in the past. The patient has not recently seen a physician. Patient with dizziness after he walks approximately 30 yards. When the dizziness happens, he sits down and it goes away. No chest pain, shortness of breath, nausea, vomiting, sweating when dizziness starts. he has had the symptoms for 2 weeks but reports increased the past [address] Chambers' office yesterday and was instructed to hold the amlodipine. He was told the dizziness would improve in about 1-2 days. Patient came in to the ER today because the dizziness is still the same. Historical: - Allergies: :57 No Known Allergies; hb - Home Meds: :57 amlodipine 10 mg tab 1 tab once daily [Active]; Crestor 5 mg Oral tab 1 tab once daily hb [Active]; lisinopril-hydrochlorothiazide 20-25 mg Oral tab 1 tab once daily [Active]; metoprolol tartrate 50 mg Oral tab 1 tab 2 times per day [Active]; Xarelto 20 mg Oral tab 1 tab once daily [Active]; - PMHx: 09:57 Atrial Fib; cardiac stent; Hyperlipidemia; Hypertension; Myocardial infarction; hb - PSHx: : bilateral TKR; back surgery; hb - Immunization history:: Adult Immunizations up to date. - Social history:: Smoking status: Patient/guardian denies using tobacco. - Ebola Screening: : No symptoms or risks identified at this time. ROS: 11:00 Constitutional: Negative for fever, chills, and weight loss, Eyes: Negative for injury, pm1 pain, redness, and discharge, ENT: Negative for injury, pain, and discharge, Neck: Negative for injury, pain, and swelling, Cardiovascular: Negative for chest pain, palpitations, and edema, Respiratory: Negative for shortness of breath, cough, wheezing, and pleuritic chest pain, Abdomen/GI: Negative for abdominal pain, nausea, vomiting, diarrhea, and constipation, Back: Negative for injury and pain, : Negative for injury, bleeding, discharge, and swelling, MS/Extremity: Negative for injury and deformity, Skin: Negative for injury, rash, and discoloration. 11:00 Neuro: Positive for dizziness, Negative for altered mental status, headache, seizure activity, syncope, near syncope. Exam: 11:00 Constitutional: This is a well developed, well nourished patient who is awake, alert, pm1 and in no acute distress. Head/Face: Normocephalic, atraumatic. Eyes: Pupils equal round and reactive to light, extra-ocular motions intact. Lids and lashes normal. Conjunctiva and sclera are non-icteric and not injected. Cornea within normal limits. Periorbital areas with no swelling, redness, or edema. ENT: Nares patent. No nasal discharge, no septal abnormalities noted. Tympanic membranes are normal and external auditory canals are clear. Oropharynx with no redness, swelling, or masses, exudates, or evidence of obstruction, uvula midline. Mucous membranes moist. Neck: Trachea midline, no thyromegaly or masses palpated, and no cervical lymphadenopathy. Supple, full range of motion without nuchal rigidity, or vertebral point tenderness. No Meningismus. Chest/axilla: Normal chest wall appearance and motion. Nontender with no deformity. No lesions are appreciated. Cardiovascular: Regular rate and rhythm with a normal S1 and S2. No gallops, murmurs, or rubs. Normal PMI, no JVD. No pulse deficits. Respiratory: Lungs have equal breath sounds bilaterally, clear to auscultation and percussion. No rales, rhonchi or wheezes noted. No increased work of breathing, no retractions or nasal flaring. Abdomen/GI: Soft, non-tender, with normal bowel sounds. No distension or tympany. No guarding or rebound. No evidence of tenderness throughout. Back: No spinal tenderness. No costovertebral tenderness. Full range of motion. Skin: Warm, dry with normal turgor. Normal color with no rashes, no lesions, and no evidence of cellulitis. MS/ Extremity: Pulses equal, no cyanosis. Neurovascular intact. Full, normal range of motion. 11:00 Neuro: Orientation: is normal, Cranial nerves: CN II- XII are normal as tested, Motor: is normal, moves all fours, strength is normal, strength is 5/5 in all extremities, Sensation: is normal, no obvious gross deficits. Vital Signs: 09:53 BP 132 / 65; Pulse 82; Resp 20; Temp 97.8; Pulse Ox 96% on R/A; Pain 0/10; hb 11:00 BP 122 / 87; Pulse 74; Resp 16 S; Pulse Ox 96% on R/A; jl7 12:00 BP 141 / 92; Pulse 72; Resp 16 S; Pulse Ox 96% on R/A; jl7 13:00 BP 148 / 84; Pulse 74; Resp 14 S; Pulse Ox 96% on R/A; jl7 MDM: 10:02 Patient medically screened. pm1 11:00 Data reviewed: vital signs. Data interpreted: Pulse oximetry: on room air is 96 %. pm1 Interpretation: normal. 12:12 ED course: Patient without any urinary symptoms. Positive nitrites on urine dip. Will pm1 send sample for urine microscopic with reflex culture if needed. Will not provide patient with antibiotics pending culture results. 12:38 ED course: Patient ambulated around the ER without any difficulty. Reports slight pm1 dizziness that resolved with rest. V/S reassessed and within normal limits post exertion. Patient ambulated more than 30 yards in the ER. Patient offered admission to ER but patient wants to go home because he feels fine. Family, son and daughter present at bedside and support his decision. Instructed patient to follow up with Reyes on Wednesday. Given return precautions to ER for worsening of symptoms. 02/11 09:52 Order name: Glucose, Ancillary Testing; Complete Time: 10:02 EDMS 02/11 10:16 Order name: Basic Metabolic Panel; Complete Time: 11:06 pm1 02/11 10:16 Order name: CBC with Diff; Complete Time: 11:12 pm1 02/11 10:16 Order name: LFT's; Complete Time: 11:06 pm1 02/11 10:16 Order name: Magnesium; Complete Time: 11:06 pm1 02/11 10:16 Order name: NT PRO-BNP; Complete Time: 11:06 pm1 02/11 10:16 Order name: PT-INR; Complete Time: 11:06 pm1 02/11 10:16 Order name: Troponin (emerg Dept Use Only); Complete Time: 11:06 pm1 02/11 10:16 Order name: XRAY Chest (1 view); Complete Time: 11:32 pm1 02/11 10:16 Order name: EKG; Complete Time: 10:16 pm1 02/11 10:16 Order name: Cardiac monitoring; Complete Time: 10:26 pm1 02/11 10:16 Order name: EKG - Nurse/Tech; Complete Time: 10:26 pm1 02/11 12:06 Order name: Urine Dipstick--Ancillary (enter results); Complete Time: 12:10 bd 02/11 12:56 Order name: Urine Microscopic Only pm1 02/11 10:16 Order name: IV Saline Lock; Complete Time: 10:32 pm1 02/11 10:16 Order name: Labs collected and sent; Complete Time: 10:32 pm1 02/11 10:16 Order name: O2 Per Protocol; Complete Time: 10:32 pm1 02/11 10:16 Order name: O2 Sat Monitoring; Complete Time: 10:33 pm1 Administered Medications: No medications were administered Point of Care Testing: Blood Glucose: 09:52 Blood Glucose: 152 mg/dL; hb Ranges: Critical Glucose Levels:Adult <50 mg/dl or >400 mg/dl <40 mg/dl or >180 mg/dl Disposition: 17:39 Co-signature as Attending Physician, Simon Wilson MD I agree with the assessment and kdr plan of care. Disposition: 02/11/18 12:48 Discharged to Home. Impression: Dizziness and giddiness. - Condition is Stable. - Discharge Instructions: Dizziness. - Medication Reconciliation Form, Thank You Letter form. - Follow up: Emergency Department; When: As needed; Reason: Worsening of condition. Follow up: Panda Chambers MD; When: 2 - 3 days; Reason: Recheck today's complaints, Continuance of care, Re-evaluation by your physician. - Problem is new. - Symptoms have improved. Signatures: Dispatcher [employer] EDMS Simon Wilson MD MD [facility] Benja Brito, REVENUE TAX SPECIALIST REVENUE TAX SPECIALIST pm1 Chana Schaefer RN RN Petey Potts RN RN jl7 Corrections: (The following items were deleted from the chart) 13:12 12:48 02/11/2018 12:48 Discharged to Home. Impression: Dizziness and giddiness. jl7 Condition is Stable. Forms are Medication Reconciliation Form, Thank You Letter, Antibiotic Education, Prescription Opioid Use. Follow up: Emergency Department; When: As needed; Reason: Worsening of condition. Follow up: Panda Chambers; When: 2 - 3 days; Reason: Recheck today's complaints, Continuance of care, Re-evaluation by your physician. Problem is new. Symptoms have improved. pm1
--- NOTE | 2018-02-11 12:49 | ER ---
Nurse's Notes [facility] Name: Jose Armando Caldera Age: 77 yrs Sex: Male : 1940 Arrival Date: 02/11/2018 Time: 09:37 Bed 6 Private MD: LILA SPEARS Diagnosis: Dizziness and giddiness Presentation: 02/11 09:51 Presenting complaint: Patient states: Dizziness and intermittent headache x 2 weeks, hb worse over last 2 days. Transition of care: patient was not received from another setting of care. No acute neurological deficit is noted. The patients blood glucose was checked before arriving to the hospital and was found to be normal. Onset of symptoms is unknown. Risk Assessment: Do you want to hurt yourself or someone else? Patient reports no desire to harm self or others. Care prior to arrival: None. 09:51 Method Of Arrival: Ambulatory hb 09:51 Acuity: HARPER 3 hb 09:57 Initial Sepsis Screen: Does the patient meet any 2 criteria? No. Patient's initial hb sepsis screen is negative. Does the patient have a suspected source of infection? No. Patient's initial sepsis screen is negative. Stroke Activation: Symptom onset > 6 hours Physician: Stroke Attending; Name: ; Notified At: ; Arrived At: Physician: Chief Stroke Resident; Name: ; Notified At: ; Arrived At: Physician: Stroke Resident; Name: ; Notified At: ; Arrived At: Physician: ED Attending; Name: ; Notified At: ; Arrived At: Physician: ED Resident; Name: ; Notified At: ; Arrived At: Historical: - Allergies: :57 No Known Allergies; hb - Home Meds: :57 amlodipine 10 mg tab 1 tab once daily [Active]; Crestor 5 mg Oral tab 1 tab once daily hb [Active]; lisinopril-hydrochlorothiazide 20-25 mg Oral tab 1 tab once daily [Active]; metoprolol tartrate 50 mg Oral tab 1 tab 2 times per day [Active]; Xarelto 20 mg Oral tab 1 tab once daily [Active]; - PMHx: 09:57 Atrial Fib; cardiac stent; Hyperlipidemia; Hypertension; Myocardial infarction; hb - PSHx: :57 bilateral TKR; back surgery; hb - Immunization history:: Adult Immunizations up to date. - Social history:: Smoking status: Patient/guardian denies using tobacco. - Ebola Screening: : No symptoms or risks identified at this time. Screenin:57 Abuse screen: Denies threats or abuse. Denies injuries from another. Nutritional hb screening: No deficits noted. Tuberculosis screening: No symptoms or risk factors identified. Fall Risk Total Jiang Fall Scale indicates Low Risk Score (25-44 pts). Fall prevention measures have been instituted. Side Rails Up X 2 Frequent Obs/Assesments occuring Family Present and informed to notify staff if they need to leave bedside As available Patient and Family Educated on Fall Prevention Program and strategies. 10:41 Patient has been NPO before screening. The patient is alert, able to follow commands. hb The patient does not exhibit slurred or garbled speech The patient is not exhibiting difficulty speaking. The patient does not exhibit difficulty understanding words. The patient is able to swallow own secretions with no drooling or need for suction. Patient tolerated one teaspoon of water. No drooling, immediate coughing, gurgling, or clearing of the throat was noted. The patient tolerated 90mL of water. No drooling, immediate coughing, gurgling, or clearing of the throat was noted. The patient passed the bedside swallow screening. Oral medications may be given as ordered. Contact Physician for further diet orders. Assessment: 10:00 General: Appears in no apparent distress. Behavior is calm, cooperative. Pain: Denies hb pain. Neuro: Level of Consciousness is awake, alert, obeys commands, Oriented to person, place, time, situation. Neuro: Software Packaging Engineer are equal bilaterally Moves all extremities. Gait is steady, Speech is normal, Facial symmetry appears normal, Pupils are PERRLA, Intact. Cardiovascular: Heart tones S1 S2 present Capillary refill < 3 seconds Patient's skin is warm and dry. Respiratory: Airway is patent Trachea midline Respiratory effort is even, unlabored, Respiratory pattern is regular, symmetrical, Breath sounds are clear bilaterally. GI: No signs and/or symptoms were reported involving the gastrointestinal system. : No signs and/or symptoms were reported regarding the genitourinary system. EENT: No signs and/or symptoms were reported regarding the EENT system. Derm: Skin is intact, is healthy with good turgor, Skin is pink, warm \T\ dry. Musculoskeletal: No signs and/or symptoms reported regarding the musculoskeletal system. 11:00 Reassessment: Patient appears in no apparent distress at this time. Patient and/or jl7 family updated on plan of care and expected duration. Pain level reassessed. Patient is alert, oriented x 3, equal unlabored respirations, skin warm/dry/pink. 12:00 Reassessment: Patient appears in no apparent distress at this time. No changes from jl7 previously documented assessment. Patient and/or family updated on plan of care and expected duration. Pain level reassessed. Patient is alert, oriented x 3, equal unlabored respirations, skin warm/dry/pink. Vital Signs: 09:53 BP 132 / 65; Pulse 82; Resp 20; Temp 97.8; Pulse Ox 96% on R/A; Pain 0/10; hb 11:00 BP 122 / 87; Pulse 74; Resp 16 S; Pulse Ox 96% on R/A; jl7 12:00 BP 141 / 92; Pulse 72; Resp 16 S; Pulse Ox 96% on R/A; jl7 13:00 BP 148 / 84; Pulse 74; Resp 14 S; Pulse Ox 96% on R/A; jl7 ED Course: 09:37 Patient arrived in ED. mr 09:37 LILA SPEARS is Private Physician. mr 09:44 Petey Potts, NEGRITA is Primary Nurse. jl 09:52 Triage completed. hb 09:57 Arm band placed on. hb 09:57 Patient has correct armband on for positive identification. Placed in gown. Bed in low hb position. Call light in reach. Side rails up X 1. cardiac monitor on. Pulse ox on. NIBP on. 09:59 Initial lab(s) drawn, by wv, sent to lab. Inserted saline lock: 20 gauge in right jl7 forearm, using aseptic technique. Blood collected. 10:01 Benja Brtio NP is PHCP. pm1 10:01 Simon Wilson MD is Attending Physician. pm1 10:16 EKG done, by perinatal technician. reviewed by Benja Brito NP. at1 10:40 Chana Schaefer, NEGRITA is Primary Nurse. hb 11:09 XRAY Chest (1 view) In Process Unspecified. EDMS 11:16 X-ray completed. Portable x-ray completed in exam room. Patient tolerated procedure mh1 well. 11:18 Urine collected: clean catch specimen, cloudy. 5 11:19 Warm blanket given. [facility] 12:48 Panda Chambers MD is Referral Physician. pm1 13:08 No provider procedures requiring assistance completed. IV discontinued, intact, jl7 bleeding controlled, No redness/swelling at site. Pressure dressing applied. Administered Medications: No medications were administered Point of Care Testing: Blood Glucose: 09:52 Blood Glucose: 152 mg/dL; hb Ranges: Outcome: 12:48 Discharge ordered by MD. pm1 13:12 Discharged to home ambulatory. jl7 13:12 Condition: stable 13:12 Discharge instructions given to patient, family, Instructed on discharge instructions, follow up and referral plans. Demonstrated understanding of instructions, follow-up care. 13:12 Patient left the ED. jl7 Signatures: Dispatcher [employer] MARYCARMENStormy CasperYesenia mh1 Lora Morin, machine slat basket maker EKG Tat1 Benja Brito, LINING CLOSER LINING CLOSER pm1 Chana Schaefer RN RN hb Martinez, Maria 5 Petey Potts RN RN jl7
[2018-02-11 13:56] VITALS: TEMP 97.8; O2SAT 96
[2018-02-11 14:00] VITALS: BP 148/84
[2018-02-11 14:01] LABS: Urine Bacteria >50 /HPF (NONE SEEN)
[2018-02-11 14:07] LABS: Urine Culture Reflex Order REFLEXED; Urine RBC <5 /HPF (NONE SEEN)
--- NOTE | 2018-02-11 15:12 | EKG ---
Test Date: 2018-02-11 Test Time: 10:06:39 Sash Installer: BERNADINE MEASUREMENT RESULTS: Intervals: Rate: 89 RI: QRSD: 98 QT: 382 QTc: 464 [place]: P: RI: QRS: 16 T: 8 INTERPRETIVE STATEMENTS: Atrial fibrillation Abnormal ECG Compared to ECG 01/19/2018 06:08:44 Sinus rhythm no longer present Electronically Signed On 02-11-18 15:10:30 FACTORY MAINTENANCE MANAGER by Neno Ware
== END 2018-02-11 13:12 | disposition home or self-care (01) ==
LOC: ER 09:34
DX: R42 Dizziness and giddiness (principal); R94.31 Abnormal electrocardiogram [ECG] [EKG]; I48.91 Unspecified atrial fibrillation; E78.5 Hyperlipidemia, unspecified; I10 Essential (primary) hypertension; I25.2 Old myocardial infarction; Z79.01 Long term (current) use of anticoagulants; Z79.899 Other long term (current) drug therapy; Z95.5 Presence of coronary angioplasty implant and graft
CPT/HCPCS: 36415; 71045; 80048; 80076; 81003; 81015; 82962; 83735; 83880; 84484; 85025; 85610; 87077; 87086; 87088; 87186; 93005; 99284

== ENCOUNTER 2018-05-01 07:33 | Emergency (ER) | payer OTHER, MEDICARE ==
--- OUTSIDE RECORDS SUMMARY | 2018-05-01 07:36 | XMS REPORT | Clinical Summary ---
:1940 Author Organization [facility] Address [address] [place] [address] Care Team Providers Name Role Phone Boogie [...] whether neurogenic claudication present (Primary Dx) after 04/30/2017 Family History Medical History Relation Name Comments [...] Health Maintenance Due Date Last Done Comments SHINGLES VACCINES (#1) 1990 65+ PNEUMOCOCCAL VACCINE (1 of 2 - PCV13) 2005 PNEUMOCOCCAL POLYSACCHARIDE VACCINE AGE 65 AND OVER 2005 INFLUENZA VACCINE 2017 Procedures Procedure Name Priority Date/Time Associated Diagnosis Comments MRI SPINE EXTERNAL Routine 10/22/2017 12:59 PM Results for this STUDY CDT procedure are in the results section. after 04/30/2017 Results MRI Spine External Study (10/22/2017 12:59 PM CDT) Narrative Performed At This exam was not acquired at a [facility] facility and has not been [facility] interpreted by a [facility] Provider.The exam was imported into our imaging system for comparisons purposes. Performing Organization Address City/State/Zipcode Phone Number [facility] [address] [place] [address] after 04/30/2017 Insurance Payer Benefit Plan / Group Subscriber ID Type Phone Address MEDICARE MEDICARE PART A AND B xxxxxxxxxx Medicare [place], [place] AARP AARP SUPPLEMENT xxxxxxxxx Commercial Advance Directives Patient has advance care planning documents on file. For more information, please contact:Jesús Gupta[address] [place] [address]
[2018-05-01 08:08] LABS: Absolute Lymphocytes (CBC) 1.3 K/uL (0.7-4.9); Absolute Monocytes 0.7 K/uL (0.1-1.3); Eosinophils % 1.5 % (0-4.4); Hematocrit 40.7 % (39.6-49.0); MPV 11.1 fL (7.6-11.3); Monocytes % 9.6 % (3.3-12.3); RBC Red Blood Cell Count 4.34 M/uL (4.33-5.43)
[2018-05-01 08:12] LABS: Protime INR 1.78
[2018-05-01 08:28] LABS: ALT/SGPT 20 U/L (12-78); AST/SGOT 16 U/L (15-37); Albumin 3.4 g/dL (3.4-5.0); Alkaline Phosphatase 67 U/L (45-117); BUN Blood Urea Nitrogen 18 mg/dL (7-18); Bicarbonate 28 mmol/L (21-32); Bilirubin Direct 0.2 mg/dL (0-0.2); Bilirubin Total 0.5 mg/dL (0.2-1.0); C-Reactive Protein 4.46 mg/L (<3.00); Glucose Level 252 mg/dL (74-106); Magnesium 1.8 mg/dL (1.8-2.4); NT PRO-BNP 414 pg/mL (<450); Potassium 3.7 mmol/L (3.5-5.1); Protein, Total 7.9 g/dL (6.4-8.2); Sodium Level 139 mmol/L (136-145); Troponin (Emerg Dept Use Only) < 0.02 ng/mL (0.0-0.045)
--- NOTE | 2018-05-01 08:35 | RAD REPORT ---
EXAM DESCRIPTION: CT - Head Brain Wo Cont - 05/01/2018 8:23 am CLINICAL HISTORY: Right facial numbness/dizziness COMPARISON: January 2018 TECHNIQUE: Computed axial tomography of the head was obtained. IV contrast was not requested. All CT scans are performed using dose optimization technique as appropriate and may include automated exposure control or mA/KV adjustment according to patient size. FINDINGS: An intracranial bleed is not seen . The ventricles are normal in caliber. No extra-axial fluid collection is noted. Moderate low-density areas within periventricular, deep and subcortical white matter likely represent ischemic changes secondary to small vessel disease. Prominent vascular calcifications Fluid within the sinuses not seen. Partial opacification mastoids unchanged IMPRESSION: No acute intracranial abnormality is seen. If patient's symptoms persist MRI of the bra in would be recommended.
--- NOTE | 2018-05-01 08:37 | EDPHYS ---
Physician Documentation [facility] Name: Jose Armando Caldera Age: 77 yrs Sex: Male : 1940 Arrival Date: 05/01/2018 Time: 07:37 Bed 8 Private MD: ED Physician David Parks HPI: 05/01 08:08 This 77 yrs old Male presents to ER via Ambulatory with complaints of dizzy benedicto since last night , right face, arm and leg weak this morning. 08:08 The patient's problem is reported as a facial droop, paresthesias, in right upper benedicto extremity, weakness, in the right upper extremity, in the right lower extremity, in the right side of face. Onset: The symptoms/episode began/occurred 1 day(s) ago. Duration: The episode is continuous. Context: occurred at home. The patient presents with dizziness. Onset: The symptoms/episode began/occurred last night. Context: occurred at home. Historical: - Allergies: 07:47 No Known Allergies; hb - Home Meds: 07:47 amlodipine 10 mg tab 1 tab once daily [Active]; Crestor 5 mg Oral tab 1 tab once daily hb [Active]; lisinopril-hydrochlorothiazide 20-25 mg Oral tab 1 tab once daily [Active]; metoprolol tartrate 50 mg Oral tab 1 tab 2 times per day [Active]; Xarelto 20 mg Oral tab 1 tab once daily [Active]; - PMHx: 07:47 cardiac stent; Atrial Fib; Hyperlipidemia; Hypertension; Myocardial infarction; hb - PSHx: 07:47 bilateral TKR; back surgery; hb - Immunization history:: Adult Immunizations up to date. - Social history:: Smoking status: Patient/guardian denies using tobacco. - Ebola Screening: : No symptoms or risks identified at this time. - Family history:: not pertinent. ROS: 08:08 Constitutional: Negative for fever, chills, and weight loss, Eyes: Negative for injury, benedicto pain, redness, and discharge, ENT: Negative for injury, pain, and discharge, Neck: Negative for injury, pain, and swelling, Cardiovascular: Negative for chest pain, palpitations, and edema, Respiratory: Negative for shortness of breath, cough, wheezing, and pleuritic chest pain, Abdomen/GI: Negative for abdominal pain, nausea, vomiting, diarrhea, and constipation, Back: Negative for injury and pain, : Negative for injury, bleeding, discharge, and swelling, MS/Extremity: Negative for injury and deformity, Skin: Negative for injury, rash, and discoloration, Psych: Negative for depression, anxiety, suicide ideation, homicidal ideation, and hallucinations, Allergy/Immunology: Negative for hives, rash, and allergies, Endocrine: Negative for neck swelling, polydipsia, polyuria, polyphagia, and marked weight changes, Hematologic/Lymphatic: Negative for swollen nodes, abnormal bleeding, and unusual bruising. 08:08 Neuro: Positive for dizziness, gait disturbance, weakness. Exam: 08:08 Constitutional: This is a well developed, well nourished patient who is awake, alert, benedicto and in no acute distress. Head/Face: Normocephalic, atraumatic. Eyes: Pupils equal round and reactive to light, extra-ocular motions intact. Lids and lashes normal. Conjunctiva and sclera are non-icteric and not injected. Cornea within normal limits. Periorbital areas with no swelling, redness, or edema. ENT: Nares patent. No nasal discharge, no septal abnormalities noted. Tympanic membranes are normal and external auditory canals are clear. Oropharynx with no redness, swelling, or masses, exudates, or evidence of obstruction, uvula midline. Mucous membranes moist. Neck: Trachea midline, no thyromegaly or masses palpated, and no cervical lymphadenopathy. Supple, full range of motion without nuchal rigidity, or vertebral point tenderness. No Meningismus. Chest/axilla: Normal chest wall appearance and motion. Nontender with no deformity. No lesions are appreciated. Cardiovascular: Regular rate and rhythm with a normal S1 and S2. No gallops, murmurs, or rubs. Normal PMI, no JVD. No pulse deficits. Respiratory: Lungs have equal breath sounds bilaterally, clear to auscultation and percussion. No rales, rhonchi or wheezes noted. No increased work of breathing, no retractions or nasal flaring. Abdomen/GI: Soft, non-tender, with normal bowel sounds. No distension or tympany. No guarding or rebound. No evidence of tenderness throughout. Back: No spinal tenderness. No costovertebral tenderness. Full range of motion. Male : Normal genitalia with no discharge or lesions. Skin: Warm, dry with normal turgor. Normal color with no rashes, no lesions, and no evidence of cellulitis. MS/ Extremity: Pulses equal, no cyanosis. Neurovascular intact. Full, normal range of motion. Psych: Awake, alert, with orientation to person, place and time. Behavior, mood, and affect are within normal limits. 08:08 Neuro: Orientation: is normal, appropriate for stated age, no acute changes, Mentation: is normal, appropriate for stated age, no acute changes, Memory: is normal, appropriate for stated age, no acute changes, Cranial nerves: grossly normal, is grossly normal based on the patient's age, no acute changes, Cerebellar function: is grossly normal based on the patient's age, no acute changes, Motor: strength is 4/5 in the right leg, Sensation: no obvious gross deficits, appropriate Gait: not tested. seizure activity, is not displayed by the patient. 08:17 Radiologist reports: see report [facility] Vital Signs: 07:45 BP 185 / 94; Pulse 73; Resp 16; Temp 97.8; Pulse Ox 97% on R/A; Pain 0/10; hb 09:00 BP 172 / 88; Pulse 77; Resp 17; Pulse Ox 98% on R/A; Weight 104.33 kg (R); Pain 0/10; sg 10:30 BP 198 / 90; Pulse 64; Resp 18; Pulse Ox 97% on R/A; aj1 NIH Stroke Scale Scores: 08:30 NIHSS Score: 2 benedicto MDM: 07:44 Patient medically screened. [facility] 08:17 Data reviewed: vital signs, nurses notes, lab test result(s), EKG, radiologic studies, [facility] CT scan, plain films. 08:56 Physician consultation: dr arechiga, not a tpa candidate, symptoms upon awaking , dizzy benedicto at bedtime, on xarelto. 05/01 07:47 Order name: Basic Metabolic Panel 05/01 07:47 Order name: CBC with Diff 05/01 07:47 Order name: LFT's 05/01 07:47 Order name: Magnesium [facility] 05/01 07:47 Order name: NT PRO-BNP 05/01 07:47 Order name: PT-INR [facility] 05/01 07:47 Order name: Troponin (emerg Dept Use Only) benedicto 05/01 07:47 Order name: Sed Rate 05/01 07:47 Order name: CRP 05/01 07:47 Order name: Urine Culture [facility] 05/01 08:15 Order name: CBC with Automated Diff; Complete Time: 09:49 EDUT 05/01 08:17 Order name: Protime (+INR); Complete Time: 08:34 EDMS 05/01 08:28 Order name: Basic Metabolic Panel; Complete Time: 08:34 ED05/01 08:28 Order name: Liver (Hepatic) Function; Complete Time: 08:34 EDUT 05/01 07:47 Order name: XRAY Chest (1 view) 05/01 07:47 Order name: EKG; Complete Time: 07:48 [facility] 05/01 07:47 Order name: Cardiac monitoring; Complete Time: 08:04 [facility] 05/01 07:47 Order name: EKG - Nurse/Tech; Complete Time: 08:04 benedicto 05/01 07:47 Order name: CT Head Brain wo Cont 05/01 08:28 Order name: Troponin (Emerg Dept Use Only); Complete Time: 08:34 EDUT 05/01 08:28 Order name: NT PRO-BNP; Complete Time: 08:34 ED05/01 08:28 Order name: C-Reactive Protein; Complete Time: 08:34 EDUT 05/01 08:28 Order name: Magnesium; Complete Time: 08:34 EDUT 05/01 08:35 Order name: CT; Complete Time: 08:46 ED05/01 08:59 Order name: Sedimentation Rate, Westergren; Complete Time: 09:49 ED05/01 10:36 Order name: RAD UT 05/01 07:47 Order name: IV Saline Lock; Complete Time: 08:04 [facility] 05/01 07:47 Order name: Labs collected and sent; Complete Time: 08:04 [facility] 05/01 07:47 Order name: O2 Per Protocol; Complete Time: 08:04 [facility] 05/01 07:47 Order name: O2 Sat Monitoring; Complete Time: 08:04 [facility] 05/01 07:47 Order name: Urine Dipstick-Ancillary (obtain specimen); Complete Time: 10:01 [facility] Administered Medications: 08:48 Drug: foLIC Acid 1 mg Route: IVPB; Site: right forearm; sg 11:24 Follow up: IV Status: Completed infusion aj1 08:48 Drug: NS 0.9% 1000 ml Route: IV; Rate: 1 bolus; Site: right forearm; 11:24 Follow up: IV Status: Completed infusion; IV Intake: 1000ml 11:30 Not Given (Pt took PM dose): Xarelto 20 mg PO once hb Disposition: 05/01/18 08:36 Transfer ordered to [facility]. Diagnosis are Cerebral infarction, Dizziness and giddiness, Atrial fibrillation and flutter - hx of, on xarelto, Type 2 diabetes mellitus. - Reason for transfer: Higher level of care. - Accepting physician is to [facility], neuro tele. - Condition is Fair. - Problem is new. - Symptoms have improved. NIH Stroke Scale - NIH Stroke Score Date: 05/01/2018 Time: 08:30 Total Score = 2 1a. Level of Consciousness (LOC) - 0(Alert) 1b. Level of Consciousness (LOC) (Year \T\ Age) - 0(Both) 1c. LOC Commands (Open \T\ Closes Eyes/Unhairer) - 0(Both) 2. Best Gaze (Lateral Gaze Paresis) - 0(Normal) 3. Visual Field Loss - 0(No visual loss) 4. Facial Palsy - 1(Minor Paralysis) 5a. Left Arm: Motor (10-second hold) - 0(No drift) 5b. Right Arm: Motor (10-second hold) - 0(No drift) 6a. Left Leg: Motor (5-second hold - always test supine) - 0(No drift) 6b. Right Leg: Motor (5-second hold - always test supine) - 0(No drift) 7. Limb Ataxia (finger/nose \T\ heel/espino - test with eyes open) - 0(Absent) 8. Sensory Loss (pinprick arms/legs/face) - 1(Mild to moderate loss) 9. Best Language: Aphasia (description/naming/reading) - 0(No aphasia) 10. Dysarthria (speech clarity - read or repeat words) - 0(Normal) 11. Extinction and Inattention (visual/tactile/auditory/spatial/personal) - 0(No abnormality) Initials: benedicto Signatures: Dispatcher [employer] Haley Lopez RN RN aj1 Eusebio Franks RN RN sg Anderson, Corey, MD MD cha Baxter, Heather, RN RN Corrections: (The following items were deleted from the chart) 08:55 08:36 05/01/2018 08:36 Transfer ordered to [facility]. benedicto Diagnosis is Cerebral infarction; Dizziness and giddiness; Atrial fibrillation and flutter - hx of, on xarelto. Reason for transfer: Higher level of care. Accepting physician is to [facility], neuro [facility]. Condition is Fair. Problem is new. Symptoms have improved. benedicto 11:25 08:55 05/01/2018 08:36 Transfer ordered to [facility]. aj1 Diagnosis is Cerebral infarction; Dizziness and giddiness; Atrial fibrillation and flutter - hx of, on xarelto; Type 2 diabetes mellitus. Reason for transfer: Higher level of care. Accepting physician is to [facility], neuro [facility]. Condition is Fair. Problem is new. Symptoms have improved. benedicto
--- NOTE | 2018-05-01 08:37 | ER ---
Nurse's Notes [facility] Name: Jose Armando Caldera Age: 77 yrs Sex: Male : 1940 Arrival Date: 05/01/2018 Time: 07:37 Bed 8 Private MD: Diagnosis: Cerebral infarction;Dizziness and giddiness;Atrial fibrillation and flutter-hx of, on xarelto;Type 2 diabetes mellitus Presentation: 05/01 07:43 Presenting complaint: Dizziness and trouble walking upon waking this morning, right hb facial numbness and right hand numbness during breakfast today. Last known normal was last night at 1900. Transition of care: patient was not received from another setting of care. Onset of symptoms was May 01, 2018. Risk Assessment: Do you want to hurt yourself or someone else? Patient reports no desire to harm self or others. Care prior to arrival: None. 07:43 Method Of Arrival: Ambulatory hb 07:43 Acuity: HARPER 3 hb 11:21 Initial Sepsis Screen: Does the patient meet any 2 criteria? No. Patient's initial aj1 sepsis screen is negative. Does the patient have a suspected source of infection? No. Patient's initial sepsis screen is negative. Historical: - Allergies: 07:47 No Known Allergies; hb - Home Meds: 07:47 amlodipine 10 mg tab 1 tab once daily [Active]; Crestor 5 mg Oral tab 1 tab once daily hb [Active]; lisinopril-hydrochlorothiazide 20-25 mg Oral tab 1 tab once daily [Active]; metoprolol tartrate 50 mg Oral tab 1 tab 2 times per day [Active]; Xarelto 20 mg Oral tab 1 tab once daily [Active]; - PMHx: 07:47 cardiac stent; Atrial Fib; Hyperlipidemia; Hypertension; Myocardial infarction; hb - PSHx: 07:47 bilateral TKR; back surgery; hb - Immunization history:: Adult Immunizations up to date. - Social history:: Smoking status: Patient/guardian denies using tobacco. - Ebola Screening: : No symptoms or risks identified at this time. - Family history:: not pertinent. Screenin:14 Abuse screen: Denies threats or abuse. Denies injuries from another. Nutritional sg screening: No deficits noted. Tuberculosis screening: No symptoms or risk factors identified. Never had TB. Fall Risk None identified. Assessment: 08:10 General: Appears in no apparent distress. comfortable, well groomed, well developed, sg well nourished, Behavior is calm, cooperative, appropriate for age. Pain: Denies pain. Neuro: Level of Consciousness is awake, alert, obeys commands, Oriented to person, place, time, Cake Knocker are equal bilaterally Moves all extremities. Speech is normal, Reports dizziness. Cardiovascular: Capillary refill is brisk in bilateral fingers Patient's skin is warm and dry. Chest pain is denied. Respiratory: Airway is patent Respiratory effort is even, unlabored, Respiratory pattern is regular, symmetrical. GI: Abdomen is round non-distended, Reports normal bowel habits, tolerance of fluids, tolerance of food. : No signs and/or symptoms were reported regarding the genitourinary system. EENT: No signs and/or symptoms were reported regarding the EENT system. Derm: Skin is pink, warm \T\ dry. Bruising that is brown, green, yellow, on right jaw. Musculoskeletal: Circulation, motion, and sensation intact. Range of motion: intact in all extremities, Swelling absent. 08:59 Reassessment: Patient appears in no apparent distress at this time. Spoke with Nahun Caldera per pt request, updated on POC and need for transfer, Nahun to come to ER prior to pt leaving facility, pt stated understanding Patient denies pain at this time. 09:16 Reassessment: Patient appears in no apparent distress at this time. Patient and/or sg family updated on plan of care and expected duration. Pain level reassessed. Patient is alert, oriented x 3, equal unlabored respirations, skin warm/dry/pink. no dizziness or weakness reports at this time Patient denies pain at this time. Patient states feeling better. 09:18 Reassessment: updated pt attempt to call report to receiving facility, instructed by zhane Rainey to please call back to give report, pt stated understanding, will continue to monitor. 09:46 Reassessment: Felicia for room 2409 instructed me to call back to give pt report due to sg staffing issues within the department, pt updated on POC and reason for delay, approx wait time provided, pt stated understanding, will continue to monitor Patient denies pain at this time. 10:30 Reassessment: Patient and/or family updated on plan of care and expected duration. Pain aj1 level reassessed. General: Appears in no apparent distress. comfortable, Behavior is calm, cooperative, appropriate for age. Pain: Denies pain. Neuro: Level of Consciousness is awake, alert, obeys commands, Oriented to person, place, time, situation, Cake Knocker are equal bilaterally Speech is normal, Facial symmetry appears normal. Cardiovascular: Patient's skin is warm and dry. Respiratory: Airway is patent Respiratory effort is even, unlabored, Respiratory pattern is regular, symmetrical. GI: Abdomen is round non-distended. Derm: Bruising that is brown, green, yellow, on right jaw. Musculoskeletal: Range of motion: intact in all extremities. 10:50 Reassessment: Report given to NEGRITA Vargas at [facility]. aj1 11:19 Reassessment: Patient appears in no apparent distress at this time. No changes from aj1 previously documented assessment. Patient and/or family updated on plan of care and expected duration. Pain level reassessed. Patient is alert, oriented x 3, equal unlabored respirations, skin warm/dry/pink. Vital Signs: 07:45 BP 185 / 94; Pulse 73; Resp 16; Temp 97.8; Pulse Ox 97% on R/A; Pain 0/10; hb 09:00 BP 172 / 88; Pulse 77; Resp 17; Pulse Ox 98% on R/A; Weight 104.33 kg (R); Pain 0/10; sg 10:30 BP 198 / 90; Pulse 64; Resp 18; Pulse Ox 97% on R/A; aj1 NIH Stroke Scale Scores: 08:30 NIHSS Score: 2 benedicto ED Course: 07:37 Patient arrived in ED. sg 07:44 David Parks MD is Attending Physician. benedicto 07:45 Triage completed. hb 07:46 Arm band placed on. hb 07:59 Initial lab(s) drawn, by ia, sent to lab. Inserted saline lock: 20 gauge in right dh3 forearm, using aseptic technique. Blood collected. 08:19 X-ray completed. Portable x-ray completed in exam room. Patient tolerated procedure sg4 well. 08:22 Eusebio Franks, NEGRITA is Primary Nurse. sg 08:23 CT completed. Patient tolerated procedure well. Patient moved back from CT. bq 09:16 transfer transportation to receiving facility. sg 10:20 Report received from NEGRITA Kaplan. aj1 10:20 Patient has correct armband on for positive identification. aj1 11:21 No provider procedures requiring assistance completed. Patient transferred, IV remains aj1 in place. Administered Medications: 08:48 Drug: foLIC Acid 1 mg Route: IVPB; Site: right forearm; sg 11:24 Follow up: IV Status: Completed infusion aj1 08:48 Drug: NS 0.9% 1000 ml Route: IV; Rate: 1 bolus; Site: right forearm; sg 11:24 Follow up: IV Status: Completed infusion; IV Intake: 1000ml aj1 11:30 Not Given (Pt took PM dose): Xarelto 20 mg PO once hb Intake: 11:24 IV: 1000ml; Total: 1000ml. aj1 Outcome: 08:36 ER care complete, transfer ordered by . benedicto 11:23 Transferred by ground EMS to [facility]. aj1 11:23 Condition: stable 11:23 Discharge instructions given to patient, family, Instructed on the need for transfer, Demonstrated understanding of instructions. 11:25 Patient left the ED. aj1 NIH Stroke Scale - NIH Stroke Score Date: 05/01/2018 Time: 08:30 Total Score = 2 1a. Level of Consciousness (LOC) - 0(Alert) 1b. Level of Consciousness (LOC) (Year \T\ Age) - 0(Both) 1c. LOC Commands (Open \T\ Closes Eyes/Protocol Manager) - 0(Both) 2. Best Gaze (Lateral Gaze Paresis) - 0(Normal) 3. Visual Field Loss - 0(No visual loss) 4. Facial Palsy - 1(Minor Paralysis) 5a. Left Arm: Motor (10-second hold) - 0(No drift) 5b. Right Arm: Motor (10-second hold) - 0(No drift) 6a. Left Leg: Motor (5-second hold - always test supine) - 0(No drift) 6b. Right Leg: Motor (5-second hold - always test supine) - 0(No drift) 7. Limb Ataxia (finger/nose \T\ heel/espino - test with eyes open) - 0(Absent) 8. Sensory Loss (pinprick arms/legs/face) - 1(Mild to moderate loss) 9. Best Language: Aphasia (description/naming/reading) - 0(No aphasia) 10. Dysarthria (speech clarity - read or repeat words) - 0(Normal) 11. Extinction and Inattention (visual/tactile/auditory/spatial/personal) - 0(No abnormality) Initials: benedicto Signatures: Haley Alex RN RN aj1 Eusebio Franks RN RN sg David Parks MD MD cha Quilty, Betty bq Baxter, Heather, RN RN Mcdowell, Cydney 3 Lindsey Richards sg4 Corrections: (The following items were deleted from the chart) 07:46 07:43 Presenting complaint: Dizziness and trouble walking upon waking this morning, right facial numbness and right hand numbness during breakfast today. hb
[2018-05-01] MEDS ORDERED: NA CHLORIDE 0.9% 1,000 ML ONE (08:59)
[2018-05-01] MEDS ORDERED: FOLIC ACID 5 MG/ML VIAL ONE (08:59)
[2018-05-01] MEDS ORDERED: RIVAROXABAN 20 MG TABLET PO ONE (09:00)
--- NOTE | 2018-05-01 10:36 | RAD REPORT ---
EXAM DESCRIPTION: Derrick Single View05/01/2018 8:20 am CLINICAL HISTORY: cough COMPARISON: February 2018 FINDINGS: The lungs appear clear of acute infiltrate. The heart is normal size IMPRESSION: No acute abnormalities displayed
[2018-05-01 11:32] VITALS: TEMP 97.8
[2018-05-01 11:34] VITALS: BP 198/90; O2SAT 97
--- NOTE | 2018-05-01 12:34 | EKG ---
Test Date: 2018-05-01 Test Time: 08:00:33 Harness Preparer: SWG MEASUREMENT RESULTS: Intervals: Rate: 57 [place]: 154 QRSD: 100 QT: 448 QTc: 436 [place]: P: 38 [place]: 154 QRS: 38 T: 44 INTERPRETIVE STATEMENTS: Sinus bradycardia Otherwise normal ECG Compared to ECG 02/11/2018 10:06:39 Atrial fibrillation no longer present Electronically Signed On 05-01-18 12:33:40 TERRA COTTA SETTER by Panda Chambers
== END 2018-05-01 11:25 | disposition short-term general hospital (02) ==
LOC: ER 07:33
DX: I63.9 Cerebral infarction, unspecified (principal); I48.91 Unspecified atrial fibrillation; E11.9 Type 2 diabetes mellitus without complications; E78.5 Hyperlipidemia, unspecified; I10 Essential (primary) hypertension; I25.2 Old myocardial infarction; Z79.01 Long term (current) use of anticoagulants
CPT/HCPCS: 36415; 70450; 71045; 80048; 80076; 83735; 83880; 84484; 85025; 85610; 85652; 86140; 87086; 87088; 93005; J7030; 87077; 87186; 96365; 96366; 99285

== ENCOUNTER 2018-05-04 12:00 | Emergency (ER) | payer OTHER, MEDICARE ==
--- OUTSIDE RECORDS SUMMARY | 2018-05-04 12:03 | XMS REPORT | Clinical Summary ---
:1940 Author Organization [facility] Address [address] [place] [address] Care Team Providers Name Role Phone Unavailable Primary Care Provider Unavailable Allergies No Known Allergies Medications Medication Sig Dispensed Refills Start Date End Date Status lisinopril-hydroCHLOROt Take 1 tablet by 0 Active hiazide mouth daily. (PRINZIDE,ZESTORETIC) 20-25 mg per tablet metoprolol (LOPRESSOR) Take 50 mg by 0 Active 50 MG tablet mouth 2 (two) times daily. levothyroxine Take 100 mcg by 0 Active (SYNTHROID, LEVOTHROID) mouth Every 100 MCG tablet morning on an empty stomach. tamsulosin (FLOMAX) 0.4 Take 0.4 mg by 0 Active mg Cap 24 hr capsule mouth 2 (two) times daily. rosuvastatin (CRESTOR) Take 5 mg by 0 Active 5 MG tablet mouth nightly. rivaroxaban (XARELTO) Take 20 mg by 0 Active 20 mg Tab tablet mouth daily with dinner. Active Problems Problem Noted Date TIA (transient ischemic attack) 05/01/2018 Encounters Date Type Specialty Care Team Description 05/01/2018 - Hospital Encounter Cardiology Naty Mars TIA (transient ischemic attack); 05/03/2018 MD Jono Cerebrovascular accident (CVA), unspecified mechanism (HCC); Norma Kapoor MD Numbness of right hand; Alfredo, Right arm numbness; Evgeny Becerra MD Facial numbness 05/01/2018 Travel after 05/03/2017 Social History Tobacco Use Types Packs/Day Years Used Date Never Assessed Sex Assigned at Date Recorded Not on file Job Start Date Occupation Industry Not on file Not on file Not on file Travel History Travel Start Travel End No recent travel history available. Last Filed Vital Signs Vital Sign Reading Time Taken Blood Pressure 123/62 05/03/2018 11:00 AM [employer] Pulse 64 05/03/2018 11:00 AM [employer] Temperature 36.4 C (97.6 F) 05/03/2018 11:00 AM [employer] Respiratory Rate 18 05/03/2018 11:00 AM [employer] Oxygen Saturation 93% 05/03/2018 11:00 AM [employer] Inhaled Oxygen Concentration - - Weight 107.6 kg (237 lb 4.8 oz) 05/01/2018 1:00 PM [employer] Height 175.3 cm (5' 9") 05/01/2018 1:00 PM [employer] Body Mass Index 35.04 05/01/2018 1:00 PM [employer] Plan of Treatment Not on file Procedures Procedure Name Priority Date/Time Associated Comments Diagnosis BASIC METABOLIC PANEL Routine 05/03/2018 5:02 Results for this (7) AM [employer] procedure are in the results section. ECHOCARDIOGRAM REPORT - 05/02/2018 9:22 SCAN PM [employer] CT/CTA CAROTID STAT 05/02/2018 5:34 Results for this PM [employer] procedure are in the results section. CT/CTA BRAIN STAT 05/02/2018 5:34 Results for this PM [employer] procedure are in the results section. LIPID PANEL Routine 05/02/2018 6:00 Results for this AM [employer] procedure are in the results section. BASIC METABOLIC PANEL Routine 05/02/2018 6:00 Results for this (7) AM [employer] procedure are in the results section. MR BRAIN WITHOUT IV Routine 05/01/2018 10:03 Results for this CONTRAST PM [employer] procedure are in the results section. CBC W/PLT COUNT & AUTO Routine 05/01/2018 6:47 Results for this DIFFERENTIAL PM [employer] procedure are in the results section. HEMOGLOBIN A1C Routine 05/01/2018 6:47 Results for this PM [employer] procedure are in the results section. COMPREHENSIVE METABOLIC Routine 05/01/2018 6:47 Results for this PANEL PM [employer] procedure are in the results section. CBC W/PLT COUNT & AUTO Routine 05/01/2018 6:47 Results for this DIFFERENTIAL PM [employer] procedure are in the results section. 2D ECHO W/ DOPPLER STAT 05/01/2018 5:26 Results for this (CW/PW/COLOR) PM [employer] procedure are in the results section. after 05/03/2017 Results Basic metabolic panel (05/03/2018 5:02 AM [employer])Only the most recent of2 resultswithin the time period is included. Sodium 141 136 - 145 meq/L [facility] Potassium 3.8 3.5 - 5.1 meq/L [facility] Chloride 106 98 - 107 meq/L [facility] CO2 25 22 - 29 meq/L [facility] BUN 21 7 - 21 mg/dL [facility] Creatinine 0.96 0.57 - 1.25 mg/dL [facility] Glucose 150 (H) 70 - 105 mg/dL [facility] Calcium 9.1 8.4 - 10.2 mg/dL [facility] EGFR 76Comment: ESTIMATED GFR IS mL/min/1.73 sq m [facility] NOT ACCURATE CREATININE [facility] CLEARANCE IN PREDICTING GLOMERULAR FILTRATION RATE. ESTIMATED GFR IS NOT APPLICABLE FOR DIALYSIS PATIENTS. Specimen Blood - Line, Venous Performing Organization Address City/State/Zipcode Phone Number [facility] [address] [place] [address] CENTER ECHOCARDIOGRAM REPORT - SCAN (05/02/2018 9:22 PM [employer]) Narrative Performed At CTA carotid (05/02/2018 5:34 PM [employer]) Narrative Performed At FINAL REPORT amBX CT angiogram of the upper chest, neck, and head Comparison:No priors Reason for exam: Stroke Discussion: Multiple axial CT images of the upper chest, neck, and head were obtained using CT angiography technique. 2-Dreconstructed images were provided.Please note that CTA is inherently insensitive in evaluating the cavernous and skullbase portions of the internal carotid arteries because of adjacent bone and venous opacification. This exam was performed according to our departmental dose optimization program which includes automated exposure control, adjustment of the mA and/or kV according to patient's size and/or use of iterative reconstructive technique. Evaluation of the lower neck and upper thorax is suboptimal due to motion degradation. There is mild vascular calcification at the aortic arch, great vessel origins are unremarkable. Heavy calcification is noted at the origin of the left vertebral artery, suspect mild or moderate degree of stenosis. The left vertebral artery is dominant. The right vertebral artery essentially terminates in PICA. There are calcified plaques at the carotid bifurcation bilaterally, causing mild (approximately 25% or less by NASCET criteria) narrowing of the ICA origins bilaterally. Intracranially, there is calcification of the carotid siphons bilaterally, causing mild multifocal narrowing. There is also mild to moderate stenosis of the mid to distal distal intracranial portion of the left vertebral artery, and mild narrowing of the proximal basilar artery due to calcified plaques. No evidence of major branch vessel occlusion or aneurysm. There is no mass or abnormal enhancement. No evidence for lymphadenopathy. The salivary glands and thyroid gland are unremarkable There is involutional, and chronic microvascular ischemic changes in the supratentorial brain. No evidence of acute hemorrhage, hydrocephalus, or extra-axial collection. The visualized orbits, paranasal sinuses are without worrisome finding. Moderate to severe degenerative changes are present in the cervical spine with mild reversal of the cervical lordosis. The visualized lung apices are unremarkable. There is a protuberant skin lesion arising from the right frontal scalp. Impression: Mild stenosis of the ICA origins bilaterally. Suspect mild or moderate stenosis at the left vertebral artery origin. There is also [id number] stenosis of the mid to distal intracranial left vertebral artery and mild narrowing of the proximal basilar artery. Multifocal mild narrowing of the carotid siphons. Involutional, and chronic microvascular ischemic changes of the brain. Small exophytic skin lesion arising from the right frontal scalp. Signed: Stone Rivera MD Report Verified Date/Time:05/02/2018 18:07:55 Reading Location: [facility] Radiology Reading Room Procedure Note Interface, External Ris In - 05/02/2018 6:10 PM [employer] FINAL REPORT CT angiogram of the upper chest, neck, and head Comparison: No priors Reason for exam: Stroke Discussion: Multiple axial CT images of the upper chest, neck, and head were obtained using CT angiography technique. 2-D reconstructed images were provided. Please note that CTA is inherently insensitive in evaluating the cavernous and skullbase portions of the internal carotid arteries because of adjacent bone and venous opacification. This exam was performed according to our departmental dose optimization program which includes automated exposure control, adjustment of the mA and/or kV according to patient's size and/or use of iterative reconstructive technique. Evaluation of the lower neck and upper thorax is suboptimal due to motion degradation. There is mild vascular calcification at the aortic arch, great vessel origins are unremarkable. Heavy calcification is noted at the origin of the left vertebral artery, suspect mild or moderate degree of stenosis. The left vertebral artery is dominant. The right vertebral artery essentially terminates in PICA. There are calcified plaques at the carotid bifurcation bilaterally, causing mild (approximately 25% or less by NASCET criteria) narrowing of the ICA origins bilaterally. Intracranially, there is calcification of the carotid siphons bilaterally, causing mild multifocal narrowing. There is also mild to moderate stenosis of the mid to distal distal intracranial portion of the left vertebral artery, and mild narrowing of the proximal basilar artery due to calcified plaques. No evidence of major branch vessel occlusion or aneurysm. There is no mass or abnormal enhancement. No evidence for lymphadenopathy. The salivary glands and thyroid gland are unremarkable There is involutional, and chronic microvascular ischemic changes in the supratentorial brain. No evidence of acute hemorrhage, hydrocephalus, or extra-axial collection. The visualized orbits, paranasal sinuses are without worrisome finding. Moderate to severe degenerative changes are present in the cervical spine with mild reversal of the cervical lordosis. The visualized lung apices are unremarkable. There is a protuberant skin lesion arising from the right frontal scalp. Impression: Mild stenosis of the ICA origins bilaterally. Suspect mild or moderate stenosis at the left vertebral artery origin. There is also [id number] stenosis of the mid to distal intracranial left vertebral artery and mild narrowing of the proximal basilar artery. Multifocal mild narrowing of the carotid siphons. Involutional, and chronic microvascular ischemic changes of the brain. Small exophytic skin lesion arising from the right frontal scalp. Signed: Stone Rivera MD Report Verified Date/Time: 05/02/2018 18:07:55 Reading Location: [facility] Radiology Reading Room Performing Organization Address City/State/Zipcode Phone Number [email or web address] CTA brain (05/02/2018 5:34 PM [employer]) Narrative Performed At FINAL REPORT amBX CT angiogram of the upper chest, neck, and head Comparison:No priors Reason for exam: Stroke Discussion: Multiple axial CT images of the upper chest, neck, and head were obtained using CT angiography technique. 2-Dreconstructed images were provided.Please note that CTA is inherently insensitive in evaluating the cavernous and skullbase portions of the internal carotid arteries because of adjacent bone and venous opacification. This exam was performed according to our departmental dose optimization program which includes automated exposure control, adjustment of the mA and/or kV according to patient's size and/or use of iterative reconstructive technique. Evaluation of the lower neck and upper thorax is suboptimal due to motion degradation. There is mild vascular calcification at the aortic arch, great vessel origins are unremarkable. Heavy calcification is noted at the origin of the left vertebral artery, suspect mild or moderate degree of stenosis. The left vertebral artery is dominant. The right vertebral artery essentially terminates in PICA. There are calcified plaques at the carotid bifurcation bilaterally, causing mild (approximately 25% or less by NASCET criteria) narrowing of the ICA origins bilaterally. Intracranially, there is calcification of the carotid siphons bilaterally, causing mild multifocal narrowing. There is also mild to moderate stenosis of the mid to distal distal intracranial portion of the left vertebral artery, and mild narrowing of the proximal basilar artery due to calcified plaques. No evidence of major branch vessel occlusion or aneurysm. There is no mass or abnormal enhancement. No evidence for lymphadenopathy. The salivary glands and thyroid gland are unremarkable There is involutional, and chronic microvascular ischemic changes in the supratentorial brain. No evidence of acute hemorrhage, hydrocephalus, or extra-axial collection. The visualized orbits, paranasal sinuses are without worrisome finding. Moderate to severe degenerative changes are present in the cervical spine with mild reversal of the cervical lordosis. The visualized lung apices are unremarkable. There is a protuberant skin lesion arising from the right frontal scalp. Impression: Mild stenosis of the ICA origins bilaterally. Suspect mild or moderate stenosis at the left vertebral artery origin. There is also [id number] stenosis of the mid to distal intracranial left vertebral artery and mild narrowing of the proximal basilar artery. Multifocal mild narrowing of the carotid siphons. Involutional, and chronic microvascular ischemic changes of the brain. Small exophytic skin lesion arising from the right frontal scalp. Signed: Stone Rivera MD Report Verified Date/Time:05/02/2018 18:07:55 Reading Location: [facility] Radiology Reading Room Procedure Note Interface, External Ris In - 05/02/2018 6:10 PM [employer] FINAL REPORT CT angiogram of the upper chest, neck, and head Comparison: No priors Reason for exam: Stroke Discussion: Multiple axial CT images of the upper chest, neck, and head were obtained using CT angiography technique. 2-D reconstructed images were provided. Please note that CTA is inherently insensitive in evaluating the cavernous and skullbase portions of the internal carotid arteries because of adjacent bone and venous opacification. This exam was performed according to our departmental dose optimization program which includes automated exposure control, adjustment of the mA and/or kV according to patient's size and/or use of iterative reconstructive technique. Evaluation of the lower neck and upper thorax is suboptimal due to motion degradation. There is mild vascular calcification at the aortic arch, great vessel origins are unremarkable. Heavy calcification is noted at the origin of the left vertebral artery, suspect mild or moderate degree of stenosis. The left vertebral artery is dominant. The right vertebral artery essentially terminates in PICA. There are calcified plaques at the carotid bifurcation bilaterally, causing mild (approximately 25% or less by NASCET criteria) narrowing of the ICA origins bilaterally. Intracranially, there is calcification of the carotid siphons bilaterally, causing mild multifocal narrowing. There is also mild to moderate stenosis of the mid to distal distal intracranial portion of the left vertebral artery, and mild narrowing of the proximal basilar artery due to calcified plaques. No evidence of major branch vessel occlusion or aneurysm. There is no mass or abnormal enhancement. No evidence for lymphadenopathy. The salivary glands and thyroid gland are unremarkable There is involutional, and chronic microvascular ischemic changes in the supratentorial brain. No evidence of acute hemorrhage, hydrocephalus, or extra-axial collection. The visualized orbits, paranasal sinuses are without worrisome finding. Moderate to severe degenerative changes are present in the cervical spine with mild reversal of the cervical lordosis. The visualized lung apices are unremarkable. There is a protuberant skin lesion arising from the right frontal scalp. Impression: Mild stenosis of the ICA origins bilaterally. Suspect mild or moderate stenosis at the left vertebral artery origin. There is also [id number] stenosis of the mid to distal intracranial left vertebral artery and mild narrowing of the proximal basilar artery. Multifocal mild narrowing of the carotid siphons. Involutional, and chronic microvascular ischemic changes of the brain. Small exophytic skin lesion arising from the right frontal scalp. Signed: Stone Rivera MD Report Verified Date/Time: 05/02/2018 18:07:55 Reading Location: [facility] Radiology Reading Room Performing Organization Address City/State/Zipcode Phone Number [email or web address] Lipid panel (05/02/2018 6:00 AM [employer]) Triglycerides 93 mg/dL [facility] Cholesterol 137 mg/dL [facility] HDL 43 mg/dL [facility] LDL Calculated 75 mg/dL [facility] Specimen Blood Narrative Performed At Triglyceride Reference Range: [facility] Low Risk <150 [id number] High Risk 200-499 Very High Risk>=500 Cholesterol Reference Range: Low Risk <200 [id number] High Risk>240 HDL Cholesterol Reference Range: Low Risk >=60 High Risk <40 LDL Cholesterol Reference Range: Optimal<100 Near [id number] Very High >=190 Performing Organization Address City/State/Zipcode Phone Number [facility] [phone] [place] [address] CENTER MR brain without IV contrast (05/01/2018 10:03 PM [employer]) Narrative Performed At FINAL REPORT amBX MRI Brain without contrast Clinical History: Stroke Technique: MRI of the brain utilizing axial T2, FLAIR, GRE, DWI; sagittal and coronal T1-weighted images. Comparisons: None Findings: Examination limited by motion artifact on multiple sequences. There is no evidence of acute infarct or hemorrhage. Multiple bilateral T2 and FLAIR hyperintense white matter foci likely represent chronic white matter microvascular disease.. Generalized parenchymal volume loss.There is no hydrocephalus or midline shift. There are no extra-axial fluid collections. The craniocervical junction is preserved. The major intracranial flow-voids appear patent. Paranasal sinuses are clear. Middle ears and mastoid air cells are clear. Intraorbital contents are unremarkable. No aggressive osseous or soft tissue lesions identified. 7 mm soft tissue nodule over the right frontal scalp, may represent an epidermal inclusion cyst however correlate with physical exam. IMPRESSION: Examination limited by motion artifact on multiple sequences. No evidence of acute infarct, hemorrhage, or hydrocephalus. Chronic ischemic and embolization changes as described above. 7 mm soft tissue nodule over the right frontal scalp, may represent an epidermal inclusion cyst however correlate with physical exam. Signed: Radha Enriquez MD Report Verified Date/Time:05/02/2018 01:55:42 Reading Location: [address] Transitional Reading Room Procedure Note Interface, External Ris In - 05/02/2018 1:57 AM [employer] FINAL REPORT MRI Brain without contrast Clinical History: Stroke Technique: MRI of the brain utilizing axial T2, FLAIR, GRE, DWI; sagittal and coronal T1-weighted images. Comparisons: None Findings: Examination limited by motion artifact on multiple sequences. There is no evidence of acute infarct or hemorrhage. Multiple bilateral T2 and FLAIR hyperintense white matter foci likely represent chronic white matter microvascular disease.. Generalized parenchymal volume loss. There is no hydrocephalus or midline shift. There are no extra-axial fluid collections. The craniocervical junction is preserved. The major intracranial flow-voids appear patent. Paranasal sinuses are clear. Middle ears and mastoid air cells are clear. Intraorbital contents are unremarkable. No aggressive osseous or soft tissue lesions identified. 7 mm soft tissue nodule over the right frontal scalp, may represent an epidermal inclusion cyst however correlate with physical exam. IMPRESSION: Examination limited by motion artifact on multiple sequences. No evidence of acute infarct, hemorrhage, or hydrocephalus. Chronic ischemic and embolization changes as described above. 7 mm soft tissue nodule over the right frontal scalp, may represent an epidermal inclusion cyst however correlate with physical exam. Signed: Radha Enriquez MD Report Verified Date/Time: 05/02/2018 01:55:42 Reading Location: [address] Transitional Reading Room Performing Organization Address City/State/Zipcode Phone Number [facility] CBC with platelet count + automated diff (05/01/2018 6:47 PM [employer]) WBC 11.0 (H) 3.5 - 10.5 K/L [facility] RBC 4.30 (L) 4.63 - 6.08 M/L [facility] Hemoglobin 13.5 (L) 13.7 - 17.5 GM/DL [facility] Hematocrit 41.0 40.1 - 51.0 % [facility] MCV 95.3 (H) 79.0 - 92.2 fL [facility] MCH 31.4 25.7 - 32.2 pg [facility] MCHC 32.9 32.3 - 36.5 GM/DL [facility] RDW 14.3 11.6 - 14.4 % [facility] Platelets 179 150 - 450 K/CU MM [facility] MPV 12.1 9.4 - 12.4 fL [facility] nRBC 0 0 - 0 /100 WBC [facility] % Neutros 73 % [facility] % Lymphs 15 % [facility] % Monos 10 % [facility] % Eos 1 % [facility] % Baso 1 % [facility] # Neutros 7.95 (H) 1.78 - 5.38 K/L [facility] # Lymphs 1.66 1.32 - 3.57 K/L [facility] # Monos 1.12 (H) 0.30 - 0.82 K/L [facility] # Eos 0.09 0.04 - 0.54 K/L [facility] # Baso 0.08 0.01 - 0.08 K/L [facility] Immature Granulocytes-Relative 1 0 - 1 % [facility] Specimen Blood Performing Organization Address City/State/Zipcode Phone Number [facility] [address] [place] [address] [place] Hemoglobin A1c (05/01/2018 6:47 PM [employer]) Hemoglobin A1C 8.0 (H) 4.3 - 6.1 % [facility] Specimen Blood Performing Organization Address City/State/Zipcode Phone Number [facility] [phone] [place] [address] [place] Comprehensive metabolic panel (05/01/2018 6:47 PM [employer]) Protein, Total 8.0 6.0 - 8.3 gm/dL [facility] Albumin 4.0 3.5 - 5.0 g/dL [facility] Alkaline Phosphatase 59 40 - 150 U/L [facility] Total Bilirubin 0.6 0.2 - 1.2 mg/dL [facility] Sodium 143 136 - 145 meq/L [facility] Potassium 3.5 3.5 - 5.1 meq/L [facility] Chloride 106 98 - 107 meq/L [facility] CO2 24 22 - 29 meq/L [facility] BUN 14 7 - 21 mg/dL [facility] Creatinine 0.81 0.57 - 1.25 mg/dL [facility] Glucose 136 (H) 70 - 105 mg/dL [facility] Calcium 9.3 8.4 - 10.2 mg/dL [facility] AST 17 5 - 34 U/L [facility] ALT 17 6 - 55 U/L [facility] EGFR 92Comment: ESTIMATED GFR mL/min/1.73 sq m [facility] IS NOT ACCURATE [facility] CREATININE CLEARANCE IN PREDICTING GLOMERULAR FILTRATION RATE. ESTIMATED GFR IS NOT APPLICABLE FOR DIALYSIS PATIENTS. 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 Needs to be Pre Physician Read John Parr MD Procedure Type of Study TTE procedure:2DECHO W DOPPLER(CW/PW/COLOR) (STAT) Indications:Shortness of breath. Clinical History Atrial Fibrillation/flutter Hyperlipidemia Hypertension Myocardial Infarction Contrast Medium: Definity. Amount - 2 ml Height: 70 inches Weight: 107.5 kg (237 lbs) BSA: 2.24 m^2 BMI: 34.01 kg/m^2 HR: 61 bpm BP: 220/99 mmHg Summary The left ventricle is chamber size (by PSLAX dimension) is normal (male - LVIDd 4.2-5.8cm) . Mfvu-ma-kfozzlwx concentric LV hypertrophy. All of the LV segments contract normally . Estimated LVEF by qualitative assessment is normal (>60%) . Grade 1 diastolic dysfunction (impaired relaxation and low-normal LA pressure). Unable to estimate peak systolic PA pressure; inadequate TR velocity signal. No pericardial effusion is visualized. Signature Findings Left Ventricle The left ventricle is chamber size (by PSLAX di mension) is normal (male - LVIDd 4.2-5.8cm) . Mi iy-gh-zcqjdmcw concentric LV hypertrophy. All of th e LV segments contract normally . Estimated LVEF by qualitative assessment is normal (>60%) . Gr doug 1 diastolic dysfunction (impaired relaxation an d low-normal LA pressure). Left AtriumLA size is normal (16-34 ml/m2) . Right VentricleThe right ventricular chamber size and systolic fu nction are within normal limits. Right Atrium RA size is normal. Aortic Valve Mild AoV cusp thickening. Mi ld AoV cusp calcification. Mitral Valve Mild MV leaflet thickening. Mi ld mitral annular calcification. Tricuspid ValveTV is partially visualized. Un able to estimate peak systolic PA pressure; in adequate TR velocity signal. Pulmonic Valve PV is not well visualized; function appears normal by Doppler visualized. AortaAortic root size (SInus of Valsalva diameter) is mi ldly dilated . PericardiumNo pericardial effusion is visualized. IVC/SVC/PA/PV/PleuralThe estimated RA pressure by IVC dynamics 5-10mmHg . Chambers/Structures Left Atrium LA Dimension: 4.29 cmLA Area: 21.75 cm^2 LA Volume: 67.36 ml LA Vol. Index: 30 ml/m^2 Left Ventricle LVIDd: 4.34 cm LVIDs: 2.54 cm LV Septum Diastolic: 1.54 cm LV PW Diastolic: 1.28 cm LV FS: 41.5 % LVOT Diameter: 2.13 cm Aorta Ao Root S of Lucrecia.: 3.62 cm Doppler/Quantitative Measurements LVOT Peak Velocity: 1.32 m/s Peak Gradient: 6.95 mmHg Mean Velocity: 0.84 m/s Mean Gradient: 3.37 mmHg LVOT Diameter: 2.13 cmLVOT VTI: 30.99 cm LVOT Area: 3.56 cm^2LVOT SV:110.37 ml LVOT CO: 6.73 l/min LVOT CI: 3 l/min/m^2 Procedure Note Interface, External Ris In - 05/02/2018 10:18 AM [employer] WINDER MACHINE Transthoracic Echocardiography Report (TTE) Demographics Patient Name KATY ACOSTA Date of Study 05/01/2018 A Gender Male Visit Number [id number] Race Unknown Room Number [id number] Number Date of 1940 Referring Physician Age 77 year(s) Closing Supervisor Esteban Babb RDCS Interpreting [facility] Needs to be Pre Physician Read John Parr MD Procedure Type of Study TTE procedure:2DECHO W DOPPLER(CW/PW/COLOR) (STAT) Indications:Shortness of breath. Clinical History Atrial Fibrillation/flutter Hyperlipidemia Hypertension Myocardial Infarction Contrast Medium: Definity. Amount - 2 ml Height: 70 inches Weight: 107.5 kg (237 lbs) BSA: 2.24 m^2 BMI: 34.01 kg/m^2 HR: 61 bpm BP: 220/99 mmHg Summary The left ventricle is chamber size (by PSLAX dimension) is normal (male - LVIDd 4.2-5.8cm) . Jcfn-yc-rulupkxp concentric LV hypertrophy. All of the LV segments contract normally . Estimated LVEF by qualitative assessment is normal (>60%) . Grade 1 diastolic dysfunction (impaired relaxation and low-normal LA pressure). Unable to estimate peak systolic PA pressure; inadequate TR velocity signal. No pericardial effusion is visualized. Signature Findings Left Ventricle The left ventricle is chamber size (by PSLAX dimension) is normal (male - LVIDd 4.2-5.8cm) . Gqyi-ef-cmyvgzso concentric LV hypertrophy. All of the LV segments contract normally . Estimated LVEF by qualitative assessment is normal (>60%) . Grade 1 diastolic dysfunction (impaired relaxation and low-normal LA pressure). Left Atrium LA size is normal (16-34 ml/m2) . Right Ventricle The right ventricular chamber size and systolic function are within normal limits. Right Atrium RA size is normal. Aortic Valve Mild AoV cusp thickening. Mild AoV cusp calcification. Mitral Valve Mild MV leaflet thickening. Mild mitral annular calcification. Tricuspid Valve TV is partially visualized. Unable to estimate peak systolic PA pressure; inadequate TR velocity signal. Pulmonic Valve PV is not well visualized; function appears normal by Doppler visualized. Aorta Aortic root size (SInus of Valsalva diameter) is mildly dilated . Pericardium No pericardial effusion is visualized. IVC/SVC/PA/PV/Pleural The estimated RA pressure by IVC dynamics 5-10mmHg . Chambers/Structures Left Atrium LA Dimension: 4.29 cm LA Area: 21.75 cm^2 LA Volume: 67.36 ml LA Vol. Index: 30 ml/m^2 Left Ventricle LVIDd: 4.34 cm LVIDs: 2.54 cm LV Septum Diastolic: 1.54 cm LV PW Diastolic: 1.28 cm LV FS: 41.5 % LVOT Diameter: 2.13 cm Aorta Ao Root S of Lucrecia.: 3.62 cm Doppler/Quantitative Measurements LVOT Peak Velocity: 1.32 m/s Peak Gradient: 6.95 mmHg Mean Velocity: 0.84 m/s Mean Gradient: 3.37 mmHg LVOT Diameter: 2.13 cm LVOT VTI: 30.99 cm LVOT Area: 3.56 cm^2 LVOT SV:110.37 ml LVOT CO: 6.73 l/min LVOT CI: 3 l/min/m^2 Performing Organization Address City/State/Zipcode Phone Number [facility] after 05/03/2017 Insurance Payer Benefit Plan / Group Subscriber ID Type Phone Address MEDICARE MEDICARE A B xxxxxxxxxx Medicare Advance Directives For more information, please contact:[address] [phone] Code Status Date Activated Date Inactivated Comments Full Code 05/01/2018 1:27 PM 05/03/2018 5:15 PM This code status was determined by: Patient
--- OUTSIDE RECORDS SUMMARY | 2018-05-04 12:03 | XMS REPORT | Clinical Summary ---
:1940 Author Organization [facility] Address [address] [place] [address] Care Team Providers Name Role Phone Boogie [...] whether neurogenic claudication present (Primary Dx) after 05/03/2017 Family History Medical History Relation Name Comments [...] in the results section. after 05/03/2017 Results MRI Spine External Study (10/22/2017 12:59 PM CDT) Narrative Performed At This exam was not acquired at a [facility] facility and has not been [facility] interpreted by a [facility] Provider.The exam was imported into our imaging system for comparisons purposes. Performing Organization Address City/State/Zipcode Phone Number [facility] [address] [place] [address] after 05/03/2017 Insurance Payer Benefit Plan / Group Subscriber ID Type Phone Address MEDICARE MEDICARE PART A AND B xxxxxxxxxx Medicare [place], [place] AARP AARP SUPPLEMENT xxxxxxxxx Commercial Advance Directives Patient has advance care planning documents on file. For more information, please contact:Jesús Gupta[address] [place] [address]
--- NOTE | 2018-05-04 12:31 | RAD REPORT ---
EXAM DESCRIPTION: RAD - Chest Single View - 05/04/2018 12:26 pm CLINICAL HISTORY: SOB Chest pain. COMPARISON: Chest Single View dated 05/01/2018; Chest Single View dated 02/11/2018; Chest Single View dated 01/19/2018; Chest Single View dated 12/01/2016 FINDINGS: Portable technique limits examination quality. The lungs are grossly clear. The heart is normal in size. No displaced fractures. IMPRESSION: No acute intrathoracic process suspected.
[2018-05-04 12:36] LABS: Absolute Lymphocytes (CBC) 1.2 K/uL (0.7-4.9); Absolute Monocytes 0.8 K/uL (0.1-1.3); Absolute Neutrophil 5.5 K/uL (1.8-8.0); Basophils % 0.9 % (0-1.3); Eosinophils % 1.4 % (0-4.4); Hematocrit 41.7 % (39.6-49.0); Lymphocytes % 16.1 % (15.3-44.8); MPV 11.2 fL (7.6-11.3); Monocytes % 10.4 % (3.3-12.3); RBC Red Blood Cell Count 4.37 M/uL (4.33-5.43)
[2018-05-04 12:44] LABS: Protime INR 1.22
[2018-05-04 13:01] LABS: ALT/SGPT 19 U/L (12-78); AST/SGOT 15 U/L (15-37); Albumin 3.4 g/dL (3.4-5.0); Alkaline Phosphatase 66 U/L (45-117); BUN Blood Urea Nitrogen 24 mg/dL (7-18); Bicarbonate 27 mmol/L (21-32); Bilirubin Direct 0.2 mg/dL (0-0.2); Bilirubin Total 0.6 mg/dL (0.2-1.0); Glucose Level 170 mg/dL (74-106); NT PRO-BNP 137 pg/mL (<450); Potassium 3.7 mmol/L (3.5-5.1); Protein, Total 7.9 g/dL (6.4-8.2); Sodium Level 143 mmol/L (136-145); Troponin (Emerg Dept Use Only) < 0.02 ng/mL (0.0-0.045)
--- NOTE | 2018-05-04 14:02 | RAD REPORT ---
EXAM DESCRIPTION: CT - Head Brain Wo Cont - 05/04/2018 1:53 pm CLINICAL HISTORY: CONFUSED Drowsiness, headache, syncope. COMPARISON: Head Brain Wo Cont dated 05/01/2018; Head Brain Wo Cont dated 01/19/2018 TECHNIQUE: All CT scans are performed using dose optimization technique as appropriate and may inclu de automated exposure control or mA/KV adjustment according to patient size. FINDINGS: No intracranial hemorrhage, hydrocephalus or extra-axial fluid collection.Mild generalized brain atrophy is present with mild periventricular and deep white matter chronic microvascular ische tutu changes.No areas of brain edema or evidence of midline shift. The paranasal sinuses and mastoids are clear. Vertebrobasilar atherosclerosis. The calvarium is intac t. IMPRESSION: No acute intracranial abnormality.
--- NOTE | 2018-05-04 15:45 | EKG ---
Test Date: 2018-05-04 Test Time: 12:03:00 Barbed Wire Machine Operator: BERNADINE MEASUREMENT RESULTS: Intervals: Rate: 91 IN: QRSD: 90 QT: 372 QTc: 457 [place]: P: IN: QRS: 1 T: 30 INTERPRETIVE STATEMENTS: Atrial fibrillation Cannot rule out Inferior infarct, age undetermined Abnormal ECG Compared to ECG 05/01/2018 08:00:33 Myocardial infarct finding now present Sinus bradycardia no longer present Electronically Signed On 05-04-18 15:44:33 ANIMAL SERVICES OFFICER by Panda Chambers
--- NOTE | 2018-05-04 16:41 | ER ---
Nurse's Notes [facility] Name: Jose Armando Caldera Age: 77 yrs Sex: Male : 1940 Arrival Date: 05/04/2018 Time: 12:02 Bed 3 Private MD: Diagnosis: Unresponisve Presentation: 05/04 12:08 Presenting complaint: EMS states: He was eating breakfast with his when he aj1 suddenly passed out and became unresponsive. Patient was still unresponsive upon EMS arrival, but woke up shortly there after and was alert and oriented x4. Patient was recently transferred to [facility] for possible CVA, was discharged yesterday. They told him they believe his symptoms are due to his blood pressure dropping. Patient's BP was 80/30 upon EMS arrival. Patient reports "I have some indigestion." Reports substernal pain that he describes as "burning". Transition of care: patient was not received from another setting of care. Onset of symptoms was May 04, 2018. Risk Assessment: Do you want to hurt yourself or someone else? Patient reports no desire to harm self or others. Initial Sepsis Screen: Does the patient meet any 2 criteria? HR > 90 bpm. No. Patient's initial sepsis screen is negative. Does the patient have a suspected source of infection? No. Patient's initial sepsis screen is negative. Care prior to arrival: IV initiated. 20 GA, in the left forearm. 12:08 Acuity: HARPER 2 aj1 12:08 Method Of Arrival: EMS: [facility] aj1 Triage Assessment: 12:13 General: Appears in no apparent distress. comfortable, Behavior is calm, cooperative, aj1 appropriate for age. Pain: Complains of pain in mid-sternal area. Historical: - Allergies: 12:13 No Known Allergies; aj1 - Home Meds: 12:13 amlodipine 10 mg tab 1 tab once daily [Active]; Crestor 5 mg Oral tab 1 tab once daily aj1 [Active]; lisinopril-hydrochlorothiazide 20-25 mg Oral tab 1 tab once daily [Active]; metoprolol tartrate 50 mg Oral tab 1 tab 2 times per day [Active]; Xarelto 20 mg Oral tab 1 tab once daily [Active]; - PMHx: 12:13 Atrial Fib; cardiac stent; Hyperlipidemia; Hypertension; Myocardial infarction; aj1 - Immunization history:: Adult Immunizations up to date. - Social history:: Smoking status: Patient/guardian denies using tobacco. - Ebola Screening: : Patient denies travel to an Ebola-affected area in the 21 days before illness onset. Screenin:20 The patient has not been NPO before screening. The patient is alert, able to follow sg commands. The patient does not exhibit slurred or garbled speech The patient is not exhibiting difficulty speaking. The patient does not exhibit difficulty understanding words. The patient is able to swallow own secretions with no drooling or need for suction. Patient tolerated one teaspoon of water. No drooling, immediate coughing, gurgling, or clearing of the throat was noted. The patient tolerated 90mL of water. No drooling, immediate coughing, gurgling, or clearing of the throat was noted. The patient passed the bedside swallow screening. Oral medications may be given as ordered. Contact Physician for further diet orders. Provider notified of bedside swallow screening results: David Parks MD. 12:19 Abuse screen: Denies threats or abuse. Denies injuries from another. Nutritional aj1 screening: No deficits noted. Tuberculosis screening: No symptoms or risk factors identified. 19:41 Fall Risk Fall in past 12 months (25 points). Secondary diagnosis (15 points) syncope, aj1 hypotension. IV access (20 points). Ambulatory Aid- None/Bed Rest/Nurse Assist (0 pts). Gait- Weak (10 pts.). Mental Status- Oriented to own ability (0 pts). Total Jiang Fall Scale indicates High Risk Score (45 or more points). As available patient and family educated on Fall Prevention Program and Strategies. Assessment: 12:19 General: Appears in no apparent distress. comfortable, Behavior is calm, cooperative, aj1 appropriate for age. Pain: Complains of pain in mid-sternal area Pain does not radiate. Pain currently is 7 out of 10 on a pain scale. Quality of pain is described as burning. Neuro: Level of Consciousness is awake, alert, obeys commands, Oriented to person, place, time, situation. Cardiovascular: Reports chest pain, Denies shortness of breath, Heart tones S1 S2 S4 Patient's skin is warm and dry. Rhythm is atrial fibrillation. Respiratory: Airway is patent Respiratory effort is even, unlabored, Respiratory pattern is regular, symmetrical, Breath sounds are clear bilaterally. GI: No signs and/or symptoms were reported involving the gastrointestinal system. : No signs and/or symptoms were reported regarding the genitourinary system. EENT: No signs and/or symptoms were reported regarding the EENT system. Derm: Bruising that is bright red, green, yellow, on right jaw. Musculoskeletal: No signs and/or symptoms reported regarding the musculoskeletal system. Circulation, motion, and sensation intact. 13:20 Reassessment: Patient appears in no apparent distress at this time. No changes from aj1 previously documented assessment. Patient and/or family updated on plan of care and expected duration. Pain level reassessed. Patient is alert, oriented x 3, equal unlabored respirations, skin warm/dry/pink. 14:23 Reassessment: No changes from previously documented assessment. General: Appears in no aj1 apparent distress. comfortable, Behavior is calm, cooperative, appropriate for age. Neuro: Level of Consciousness is awake, alert, obeys commands, Oriented to person, place, time, situation. Cardiovascular: Heart tones S1 S2 present Patient's skin is warm and dry. Respiratory: Airway is patent Respiratory effort is even, unlabored, Respiratory pattern is regular, symmetrical. Derm: Skin is pink, warm \\T\\ dry. Musculoskeletal: Circulation, motion, and sensation intact. 15:22 Reassessment: Patient appears in no apparent distress at this time. No changes from aj1 previously documented assessment. Patient and/or family updated on plan of care and expected duration. Pain level reassessed. Patient is alert, oriented x 3, equal unlabored respirations, skin warm/dry/pink. 16:26 Reassessment: Patient appears in no apparent distress at this time. No changes from aj1 previously documented assessment. Patient and/or family updated on plan of care and expected duration. Pain level reassessed. Patient is alert, oriented x 3, equal unlabored respirations, skin warm/dry/pink. 17:30 Reassessment: Patient and/or family updated on plan of care and expected duration. Pain aj1 level reassessed. General: Appears in no apparent distress. comfortable, Behavior is calm, cooperative, appropriate for age. Pain: Denies pain. Neuro: Level of Consciousness is awake, alert, obeys commands, Oriented to person, place, time, situation. Cardiovascular: Denies chest pain, Patient's skin is warm and dry. Rhythm is atrial fibrillation. Respiratory: Airway is patent Respiratory effort is even, unlabored, Respiratory pattern is regular, symmetrical. Derm: Skin is pink, warm \\T\\ dry. Musculoskeletal: Circulation, motion, and sensation intact. 18:30 Reassessment: Patient appears in no apparent distress at this time. No changes from aj1 previously documented assessment. Patient and/or family updated on plan of care and expected duration. Pain level reassessed. Patient is alert, oriented x 3, equal unlabored respirations, skin warm/dry/pink. 19:30 Reassessment: Patient appears in no apparent distress at this time. No changes from aj1 previously documented assessment. Patient and/or family updated on plan of care and expected duration. Pain level reassessed. Patient is alert, oriented x 3, equal unlabored respirations, skin warm/dry/pink. Vital Signs: 12:11 BP 112 / 67; Pulse 108; Resp 13; Temp 98.7; Pulse Ox 92% on R/A; Weight 105.23 kg (R); aj1 Height 5 ft. 8 in. (172.72 cm) (R); Pain 7/10; 12:56 BP 109 / 51; Pulse 94; Resp 18; Pulse Ox 97% on R/A; aj1 13:57 BP 111 / 83; Pulse 95; Resp 13; Pulse Ox 96% on R/A; aj1 14:26 BP 110 / 84; Pulse 88; Resp 18; Pulse Ox 95% on R/A; aj1 15:30 BP 122 / 93; Pulse 89; Resp 20; Pulse Ox 94% on R/A; aj1 16:27 BP 127 / 95; Pulse 91; Resp 22; Pulse Ox 95% on R/A; aj1 17:30 BP 147 / 94; Pulse 86; Resp 18; Pulse Ox 95% on R/A; aj1 18:30 BP 116 / 82; Pulse 89; Resp 18; Pulse Ox 95% on R/A; aj1 19:08 BP 96 / 81; Pulse 80; Resp 16; Pulse Ox 94% on R/A; mt 12:11 Body Mass Index 35.28 (105.23 kg, 172.72 cm) aj1 NIH Stroke Scale Scores: 10:20 NIHSS Score: 2 sg ED Course: 12:02 Patient arrived in ED. em1 12:08 Haley Alex, RN is Primary Nurse. aj1 12:10 Simon Wilson MD is Attending Physician. kdr 12:10 EKG done, by facilities operations technician. reviewed by Simon Wilson MD. at1 12:11 Triage completed. aj1 12:15 Arm band placed on. aj1 12:19 No provider procedures requiring assistance completed. aj1 12:19 Patient has correct armband on for positive identification. Bed in low position. Call aj1 light in reach. Side rails up X 1. patient monitor on. Pulse ox on. NIBP on. 12:24 Initial lab(s) drawn, by ky, sent to lab. 3 12:25 X-ray completed. Portable x-ray completed in exam room. Patient tolerated procedure mh1 well. 12:26 XRAY Chest (1 view) In Process Unspecified. EDMS 13:53 CT Head Brain wo Cont In Process Unspecified. EDMS 19:41 Patient transferred, IV remains in place. aj1 Administered Medications: No medications were administered Outcome: 16:40 ER care complete, transfer ordered by . kdr 19:42 Transferred by ground EMS to [facility]. aj1 19:42 Condition: stable 19:42 Discharge instructions given to patient, family, Instructed on the need for transfer, Demonstrated understanding of instructions. 19:43 Patient left the ED. aj1 NIH Stroke Scale - NIH Stroke Score Date: 05/04/2018 Time: 10:20 Total Score = 2 1a. Level of Consciousness (LOC) - 0(Alert) 1b. Level of Consciousness (LOC) (Year \\T\\ Age) - 0(Both) 1c. LOC Commands (Open \\T\\ Closes Eyes/Fuels Engineer) - 0(Both) 2. Best Gaze (Lateral Gaze Paresis) - 0(Normal) 3. Visual Field Loss - 0(No visual loss) 4. Facial Palsy - 1(Minor Paralysis) 5a. Left Arm: Motor (10-second hold) - 0(No drift) 5b. Right Arm: Motor (10-second hold) - 0(No drift) 6a. Left Leg: Motor (5-second hold - always test supine) - 0(No drift) 6b. Right Leg: Motor (5-second hold - always test supine) - 0(No drift) 7. Limb Ataxia (finger/nose \\T\\ heel/espino - test with eyes open) - 0(Absent) 8. Sensory Loss (pinprick arms/legs/face) - 1(Mild to moderate loss) 9. Best Language: Aphasia (description/naming/reading) - 0(No aphasia) 10. Dysarthria (speech clarity - read or repeat words) - 0(Normal) 11. Extinction and Inattention (visual/tactile/auditory/spatial/personal) - 0(No abnormality) Initials: sg Signatures: Dispatcher [employer] EDHaley Jackson RN RN aj1 Eusebio Franks RN RN sg Simon Wilson MD MD kdr Harvey, Martha mh1 Juan Manuel, Lora Cha, staff command and control officer EKG Tat1 Juan Antonio, Jessica Mcdowell, Cydney 3 Corrections: (The following items were deleted from the chart) 12:15 12:08 Care prior to arrival: None. aj1 aj1
--- NOTE | 2018-05-04 16:41 | EDPHYS ---
Physician Documentation [facility] Name: Jose Armando Caldera Age: 77 yrs Sex: Male : 1940 Arrival Date: 05/04/2018 Time: 12:02 Bed 3 Private MD: ED Physician Simon Wilson HPI: 05/04 16:25 This 77 yrs old Male presents to ER via EMS with complaints of kdr AMS/Unresponsive. 16:25 The patient presents with confusion, decreased responsiveness. Onset: The kdr symptoms/episode began/occurred suddenly, just prior to arrival. Possible causes: CVA or TIA, seizure, unknown. Associated signs and symptoms: Pertinent positives: headache, Pertinent negatives: abdominal pain, agitation, ataxia, blurred vision, chest pain, combativeness, confusion, diaphoresis, diarrhea, dizziness, lightheadedness. Current symptoms: In the emergency department the patient's symptoms have resolved, the patient is alert and fully oriented, has normal speech, has normal responsiveness, has no confusion. Patient's baseline: Neuro: alert and fully oriented, Motor: no deficits, Ambulation: walks without assistance, Speech: normal for age. The patient has not experienced similar symptoms in the past. The patient was discharged from [facility] yesterday after evaluation for possible CVA. Historical: - Allergies: 12:13 No Known Allergies; aj1 - Home Meds: 12:13 amlodipine 10 mg tab 1 tab once daily [Active]; Crestor 5 mg Oral tab 1 tab once daily aj1 [Active]; lisinopril-hydrochlorothiazide 20-25 mg Oral tab 1 tab once daily [Active]; metoprolol tartrate 50 mg Oral tab 1 tab 2 times per day [Active]; Xarelto 20 mg Oral tab 1 tab once daily [Active]; - PMHx: 12:13 Atrial Fib; cardiac stent; Hyperlipidemia; Hypertension; Myocardial infarction; aj1 - Immunization history:: Adult Immunizations up to date. - Social history:: Smoking status: Patient/guardian denies using tobacco. - Ebola Screening: : Patient denies travel to an Ebola-affected area in the 21 days before illness onset. ROS: 16:25 Constitutional: Negative for fever, chills, and weight loss, Eyes: Negative for injury, kdr pain, redness, and discharge, ENT: Negative for injury, pain, and discharge, Neck: Negative for injury, pain, and swelling, Cardiovascular: Negative for chest pain, palpitations, and edema, Respiratory: Negative for shortness of breath, cough, wheezing, and pleuritic chest pain, Abdomen/GI: Negative for abdominal pain, nausea, vomiting, diarrhea, and constipation, Back: Negative for injury and pain, : Negative for injury, bleeding, discharge, and swelling, MS/Extremity: Negative for injury and deformity, Skin: Negative for injury, rash, and discoloration, Psych: Negative for depression, anxiety, suicide ideation, homicidal ideation, and hallucinations, Allergy/Immunology: Negative for hives, rash, and allergies, Endocrine: Negative for neck swelling, polydipsia, polyuria, polyphagia, and marked weight changes, Hematologic/Lymphatic: Negative for swollen nodes, abnormal bleeding, and unusual bruising. 16:25 Neuro: Positive for headache, syncope, Negative for altered mental status, dizziness, gait disturbance, hearing loss, loss of consciousness, numbness, seizure activity, speech changes, tingling, tinnitus, tremor. Exam: 16:25 Constitutional: This is a well developed, well nourished patient who is awake, alert, kdr and in no acute distress. Head/Face: Normocephalic, atraumatic. Eyes: Pupils equal round and reactive to light, extra-ocular motions intact. Lids and lashes normal. Conjunctiva and sclera are non-icteric and not injected. Cornea within normal limits. Periorbital areas with no swelling, redness, or edema. Neck: Trachea midline, no thyromegaly or masses palpated, and no cervical lymphadenopathy. Supple, full range of motion without nuchal rigidity, or vertebral point tenderness. No Meningismus. Chest/axilla: Normal chest wall appearance and motion. Nontender with no deformity. No lesions are appreciated. Cardiovascular: Regular rate and rhythm with a normal S1 and S2. No gallops, murmurs, or rubs. Normal PMI, no JVD. No pulse deficits. Respiratory: Lungs have equal breath sounds bilaterally, clear to auscultation and percussion. No rales, rhonchi or wheezes noted. No increased work of breathing, no retractions or nasal flaring. Abdomen/GI: Soft, non-tender, with normal bowel sounds. No distension or tympany. No guarding or rebound. No evidence of tenderness throughout. Back: No spinal tenderness. No costovertebral tenderness. Full range of motion. Skin: Warm, dry with normal turgor. Normal color with no rashes, no lesions, and no evidence of cellulitis. MS/ Extremity: Pulses equal, no cyanosis. Neurovascular intact. Full, normal range of motion. Neuro: Awake and alert, GCS 15, oriented to person, place, time, and situation. Cranial nerves II-XII grossly intact. Motor strength 5/5 in all extremities. Sensory grossly intact. Cerebellar exam normal. Normal gait. Psych: Awake, alert, with orientation to person, place and time. Behavior, mood, and affect are within normal limits. Vital Signs: 12:11 BP 112 / 67; Pulse 108; Resp 13; Temp 98.7; Pulse Ox 92% on R/A; Weight 105.23 kg (R); aj1 Height 5 ft. 8 in. (172.72 cm) (R); Pain 7/10; 12:56 BP 109 / 51; Pulse 94; Resp 18; Pulse Ox 97% on R/A; aj1 13:57 BP 111 / 83; Pulse 95; Resp 13; Pulse Ox 96% on R/A; aj1 14:26 BP 110 / 84; Pulse 88; Resp 18; Pulse Ox 95% on R/A; aj1 15:30 BP 122 / 93; Pulse 89; Resp 20; Pulse Ox 94% on R/A; aj1 16:27 BP 127 / 95; Pulse 91; Resp 22; Pulse Ox 95% on R/A; aj1 17:30 BP 147 / 94; Pulse 86; Resp 18; Pulse Ox 95% on R/A; aj1 18:30 BP 116 / 82; Pulse 89; Resp 18; Pulse Ox 95% on R/A; aj1 19:08 BP 96 / 81; Pulse 80; Resp 16; Pulse Ox 94% on R/A; mt 12:11 Body Mass Index 35.28 (105.23 kg, 172.72 cm) aj1 NIH Stroke Scale Scores: 10:20 NIHSS Score: 2 sg MDM: 16:25 Data reviewed: vital signs, nurses notes, lab test result(s), radiologic studies. kdr Counseling: I had a detailed discussion with the patient and/or guardian regarding: the historical points, exam findings, and any diagnostic results supporting the discharge/admit diagnosis, lab results, radiology results, the need to transfer to another facility. ED course: The patient was discharged from [facility] yesterday. 16:40 Patient medically screened. [facility] 05/04 12:12 Order name: Basic Metabolic Panel; Complete Time: 13: [facility] 05/04 12:12 Order name: CBC with Diff; Complete Time: 13: [facility] 05/04 12:12 Order name: LFT's; Complete Time: : [facility] 05/04 12:12 Order name: Magnesium; Complete Time: : [facility] 05/04 12:12 Order name: NT PRO-BNP; Complete Time: 13: [facility] 05/04 12:12 Order name: PT-INR; Complete Time: : [facility] 05/04 12:12 Order name: Troponin (emerg Dept Use Only); Complete Time: : [facility] 05/04 12:12 Order name: XRAY Chest (1 view); Complete Time: 13: [facility] 05/04 12:12 Order name: EKG; Complete Time: 12:13 [facility] 05/04 12:12 Order name: Cardiac monitoring; Complete Time: 12:15 [facility] 05/04 12:12 Order name: EKG - Nurse/Tech; Complete Time: 12:16 [facility] 05/04 12:12 Order name: IV Saline Lock; Complete Time: 12: [facility] 05/04 12:12 Order name: Labs collected and sent; Complete Time: 12: [facility] 05/04 13:20 Order name: CT Head Brain wo Cont; Complete Time: 14:40 [facility] 05/04 12:12 Order name: O2 Per Protocol; Complete Time: 12:15 [facility] 05/04 12:12 Order name: O2 Sat Monitoring; Complete Time: 12:15 kdr Administered Medications: No medications were administered Disposition: 05/04/18 16:40 Transfer ordered to [facility]. Diagnosis is Unresponisve. - Reason for transfer: Higher level of care. - Accepting physician is Dr. Dimas. - Condition is Fair. - Problem is new. - Symptoms have improved. NIH Stroke Scale - NIH Stroke Score Date: 05/04/2018 Time: 10:20 Total Score = 2 1a. Level of Consciousness (LOC) - 0(Alert) 1b. Level of Consciousness (LOC) (Year \T\ Age) - 0(Both) 1c. LOC Commands (Open \T\ Closes Eyes/Five Piece Expansion Maker Hand) - 0(Both) 2. Best Gaze (Lateral Gaze Paresis) - 0(Normal) 3. Visual Field Loss - 0(No visual loss) 4. Facial Palsy - 1(Minor Paralysis) 5a. Left Arm: Motor (10-second hold) - 0(No drift) 5b. Right Arm: Motor (10-second hold) - 0(No drift) 6a. Left Leg: Motor (5-second hold - always test supine) - 0(No drift) 6b. Right Leg: Motor (5-second hold - always test supine) - 0(No drift) 7. Limb Ataxia (finger/nose \T\ heel/espino - test with eyes open) - 0(Absent) 8. Sensory Loss (pinprick arms/legs/face) - 1(Mild to moderate loss) 9. Best Language: Aphasia (description/naming/reading) - 0(No aphasia) 10. Dysarthria (speech clarity - read or repeat words) - 0(Normal) 11. Extinction and Inattention (visual/tactile/auditory/spatial/personal) - 0(No abnormality) Initials: sg Signatures: Dispatcher [employer] EDHaley Jackson RN RN aj1 Simon Wilson MD MD kdr Corrections: (The following items were deleted from the chart) 16:55 16:40 05/04/2018 16:40 Transfer ordered to [facility]. kdr Diagnosis is Unresponisve. Reason for transfer: Higher level of care. Accepting physician is [facility]. Condition is Fair. Problem is new. Symptoms have improved. kdr 19:43 16:55 05/04/2018 16:40 Transfer ordered to [facility]. aj1 Diagnosis is Unresponisve. Reason for transfer: Higher level of care. Accepting physician is Dr. Dimas. Condition is Fair. Problem is new. Symptoms have improved. kdr
[2018-05-04 19:59] VITALS: TEMP 98.7
[2018-05-04 20:08] VITALS: BP 96/81; O2SAT 94
== END 2018-05-04 19:43 | disposition short-term general hospital (02) ==
LOC: ER 12:00
DX: R40.4 Transient alteration of awareness (principal); R41.0 Disorientation, unspecified; I48.91 Unspecified atrial fibrillation; E78.5 Hyperlipidemia, unspecified; I10 Essential (primary) hypertension; I25.2 Old myocardial infarction; Z79.01 Long term (current) use of anticoagulants
CPT/HCPCS: 36415; 70450; 71045; 80048; 80076; 83735; 83880; 84484; 85025; 85610; 93005; 99285

== ENCOUNTER 2018-05-18 19:09 | Emergency (ER) | payer OTHER, MEDICARE ==
--- OUTSIDE RECORDS SUMMARY | 2018-05-18 19:11 | XMS REPORT | Clinical Summary ---
:1940 Author Organization [facility] Address [address] [place] [address] Care Team Providers Name Role Phone Boogie [...] whether neurogenic claudication present (Primary Dx) after 05/17/2017 Family History Medical History Relation Name Comments [...] procedure are in the results section. after 05/17/2017 Results MRI Spine External Study (10/22/2017 12:59 PM CDT) Narrative Performed At This exam was not acquired at a [facility] facility and has not been [facility] interpreted by a [facility] Provider.The exam was imported into our imaging system for comparisons purposes. Performing Organization Address City/State/Zipcode Phone Number [facility] [address] [place] [address] after 05/17/2017 Insurance Payer Benefit Plan / Group Subscriber ID Type Phone Address MEDICARE MEDICARE PART A AND B xxxxxxxxxx Medicare [place], [place] AARP AARP SUPPLEMENT xxxxxxxxx Commercial Advance Directives Patient has advance care planning documents on file. For more information, please contact:Jesús Gupta[address] [place] [address]
--- OUTSIDE RECORDS SUMMARY | 2018-05-18 19:11 | XMS REPORT | Clinical Summary ---
:1940 Author Organization [facility] Address [address] [place] [address] Care Team Providers Name Role Phone Unavailable Primary Care Provider Unavailable Allergies No Known Allergies Medications Medication Sig Dispensed Refills Start Date End Date Status lisinopril-hydroCHLORO Take 1 tablet 0 Active thiazide by mouth daily. (PRINZIDE,ZESTORETIC) 20-25 mg per tablet metoprolol (LOPRESSOR) Take 50 mg by 0 Active 50 MG tablet mouth 2 (two) times daily. levothyroxine Take 100 mcg by 0 Active (SYNTHROID, mouth Every LEVOTHROID) 100 MCG morning on an tablet empty stomach. tamsulosin (FLOMAX) Take 0.4 mg by 0 Active 0.4 mg Cap 24 hr mouth 2 (two) capsule times daily. rosuvastatin (CRESTOR) Take 5 mg by 0 Active 5 MG tablet mouth nightly. rivaroxaban (XARELTO) Take 20 mg by 0 Active 20 mg Tab tablet mouth daily with dinner. ciprofloxacin HCl Take 1 tablet 14 tablet 0 05/05/2018 05/12/2018 (CIPRO) 500 MG tablet (500 mg total) by mouth 2 (two) times daily for 7 days. Active Problems Problem Noted Date Syncope and collapse 05/05/2018 Foul smelling urine 05/05/2018 Syncope 05/05/2018 TIA (transient ischemic attack) 05/01/2018 Encounters Date Type Specialty Care Team Description 05/04/2018 - Hospital General Internal Itz Dimas MD Syncope and collapse (Primary Dx); 05/05/2018 Encounter Medicine Mandi Jernigan smelling urine; MD Claudia Syncope, unspecified syncope type; TIA (transient ischemic attack); Hypotension, unspecified hypotension type 05/04/2018 Travel 05/01/2018 - Hospital Cardiology Naty Mars TIA (transient ischemic attack); 05/03/2018 Encounter MD Jono Cerebrovascular accident (CVA), unspecified mechanism (HCC); Norma Kapoor MD Numbness of right hand; Alfredo, Right arm numbness; Evgeny Becerra Facial numbness 05/01/2018 Travel after 05/17/2017 Social History Tobacco Use Types Packs/Day Years Used Date Never Smoker Sex Assigned at Date Recorded Not on file Job Start Date Occupation Industry Not on file Not on file Not on file Travel History Travel Start Travel End No recent travel history available. Last Filed Vital Signs Vital Sign Reading Time Taken Blood Pressure 143/64 05/05/2018 12:07 PM [employer] Pulse 71 05/05/2018 12:07 PM [employer] Temperature 37.1 C (98.7 F) 05/05/2018 12:07 PM [employer] Respiratory Rate 18 05/05/2018 12:07 PM [employer] Oxygen Saturation 92% 05/05/2018 12:07 PM [employer] Inhaled Oxygen Concentration - - Weight 105 kg (231 lb 7.7 oz) 05/04/2018 9:00 PM [employer] Height 175.3 cm (5' 9") 05/04/2018 9:00 PM [employer] Body Mass Index 34.18 05/04/2018 9:00 PM [employer] Plan of Treatment Not on file Procedures Procedure Name Priority Date/Time Associated Comments Diagnosis RHYTHM STRIP - SCAN 05/10/2018 10:52 AM [employer] RHYTHM STRIP - SCAN 05/10/2018 10:52 AM [employer] REPORT OF PROCEDURE - 05/10/2018 10:52 ENDOSCOPY SCAN AM [employer] RHYTHM STRIP - SCAN 05/10/2018 10:52 AM [employer] RHYTHM STRIP - SCAN 05/06/2018 6:20 AM [employer] REPORT OF PROCEDURE - 05/06/2018 6:20 ENDOSCOPY SCAN AM [employer] URINALYSIS W/ Routine 05/05/2018 10:17 Results for this MICROSCOPIC AM [employer] procedure are in the results section. EEG AWAKE AND DROWSY Routine 05/05/2018 9:34 Results for this AM [employer] procedure are in the results section. CBC (HEMOGRAM ONLY) Routine 05/05/2018 4:49 Results for this AM [employer] procedure are in the results section. MAGNESIUM Routine 05/05/2018 4:49 Results for this AM [employer] procedure are in the results section. BASIC METABOLIC PANEL Routine 05/05/2018 4:49 Results for this (7) AM [employer] procedure are in the results section. POCT-GLUCOSE METER Routine 05/04/2018 10:09 Results for this PM [employer] procedure are in the results section. BASIC METABOLIC PANEL Routine 05/03/2018 5:02 Results for this (7) AM [employer] procedure are in the results section. ECHOCARDIOGRAM REPORT - 05/02/2018 9:22 SCAN PM [employer] CT/CTA CAROTID STAT 05/02/2018 5:34 Results for this PM [employer] procedure are in the results section. CT/CTA BRAIN STAT 05/02/2018 5:34 Results for this PM [employer] procedure are in the results section. LIPID PANEL Routine 05/02/2018 6:00 Results for this AM [employer] procedure are in the results section. BASIC METABOLIC PANEL Routine 05/02/2018 6:00 Results for this (7) AM [employer] procedure are in the results section. MR BRAIN WITHOUT IV Routine 05/01/2018 10:03 Results for this CONTRAST [facility] [employer] procedure are in the results section. CBC W/PLT COUNT & AUTO Routine 05/01/2018 6:47 Results for this DIFFERENTIAL [facility] [employer] procedure are in the results section. HEMOGLOBIN A1C Routine 05/01/2018 6:47 Results for this PM [employer] procedure are in the results section. COMPREHENSIVE METABOLIC Routine 05/01/2018 6:47 Results for this PANEL [facility] [employer] procedure are in the results section. CBC W/PLT COUNT & AUTO Routine 05/01/2018 6:47 Results for this DIFFERENTIAL PM [employer] procedure are in the results section. 2D ECHO W/ DOPPLER STAT 05/01/2018 5:26 Results for this (CW/PW/COLOR) PM [employer] procedure are in the results section. after 05/17/2017 Results RHYTHM STRIP - SCAN (05/10/2018 10:52 AM [employer])Only the most recent of4 resultswithin the time period is included. Narrative Performed At EKG-SCANNED (05/10/2018 10:52 AM [employer])Only the most recent of2 resultswithin the time period is included. Narrative Performed At Urinalysis w/Microscopic (05/05/2018 10:17 AM [employer]) Color, UA Yellow [facility] [place] Clarity, UA Hazy [facility] Specific [place], UA 1.014 1.001 - 1.[address] [facility] pH, UA 5.0 5.0 - 8.[address] [facility] [place] Protein, UA 10 mg/dL (A) Negative [facility] [place] Glucose, UA 50 mg/dL (A) Negative [facility] Ketones, UA Negative Negative [facility] [place] Bilirubin, UA Negative Negative [facility] [place] Blood, UA Trace (A) Negative [facility] [place] Nitrite, UA Positive (A) Negative [facility] [place] Leukocytes, UA Large (A) Negative [facility] Urobilinogen, UA 0.2 0.2 - 1.0 mg/dL [facility] RBC, UA 1 /HPF [facility] WBC, UA 127 /HPF [facility] [place] Bacteria, UA Occasional [facility] [place] Squam Epithel, UA <1 /HPF [facility] Specimen Source Urine, Voided [facility] [place] Specimen Urine - Urine, Voided Performing Organization Address City/State/Zipcode Phone Number [facility] [address] [place] [address] CENTER EEG AWAKE AND DROWSY (05/05/2018 9:34 AM [employer]) Narrative Performed At [facility] DATE OF REPORT: 05/05/18 Date(s) of Study: 05/05/18 ACC: [id number] Start time: 0913 hrs on 05/05/18 Stop time: 0934 hrs on 05/05/18 ICD-10: R56.9 CPT Code: 39748 HISTORY: 77 yo male with PMHx of AFib, HTN, HLD, RI admitted for syncope vs seizure. MEDICATIONS THAT COULD AFFECT EEG: None TECHNICAL SUMMARY: This is a digital video EEG recorded with 32 input channels reviewed with bipolar and referential montages using the modified combinatorial system nomenclature. DESCRIPTION OF RECORD: This recording primarily occurred during the drowsy state.During the maximally alert state there was a 7-8 Hz posterior dominant rhythm and anterior to posterior voltage/frequency gradient.The background was symmetric, primarily composed of 6-8 Hz activity. More anteriorly, similar as well as faster 18-22 Hz activity was present.During drowsiness there was loss of the posterior dominant rhythm, increased frontocentral theta, and symmetric vertex waves. Stage II sleep not observed. EVENTS: None HV: Hyperventilation was not performed. PS: Photic stimulation with various frequencies of flickering lights was performed; photic driving was not observed; no photoparoxysmal response was elicited. ELECTROCARDIOGRAM EVENTS: None. IMPRESSION: Abnormal Awake & Drowsy EEG due to: 1. Slow posterior dominant rhythm 2. Generalized theta range slowing of the background rhythm CLINICAL COMMENT:Generalized slowing as seen in this recording is suggestive of a mild encephalopathy of a nonspecific etiology.The lack of epileptiform discharges does not necessarily preclude a diagnosis of epilepsy; clinical correlation is recommended. Amanda Hassan MD Epilepsy/Neurophysiology Fellow Kota Riddle M.D., WILEY, FLAKO, MARY Professor of Neurology, [facility] [employer] [facility] Director, [facility] [place] [facility] Head, [facility] Neurophysiology Lab Procedure Note Interface, External Ris In - 05/05/2018 2:01 PM [employer] DATE OF REPORT: 05/05/18 Date(s) of Study: 05/05/18 ACC: [id number] Start time: 0913 hrs on 05/05/18 Stop time: 0934 hrs on 05/05/18 ICD-10: R56.9 CPT Code: 36465 HISTORY: 77 yo male with PMHx of AFib, HTN, HLD, RI admitted for syncope vs seizure. MEDICATIONS THAT COULD AFFECT EEG: None TECHNICAL SUMMARY: This is a digital video EEG recorded with 32 input channels reviewed with bipolar and referential montages using the modified combinatorial system nomenclature. DESCRIPTION OF RECORD: This recording primarily occurred during the drowsy state. During the maximally alert state there was a 7-8 Hz posterior dominant rhythm and anterior to posterior voltage/frequency gradient. The background was symmetric, primarily composed of 6-8 Hz activity. More anteriorly, similar as well as faster 18-22 Hz activity was present. During drowsiness there was loss of the posterior dominant rhythm, increased frontocentral theta, and symmetric vertex waves. Stage II sleep not observed. EVENTS: None HV: Hyperventilation was not performed. PS: Photic stimulation with various frequencies of flickering lights was performed; photic driving was not observed; no photoparoxysmal response was elicited. ELECTROCARDIOGRAM EVENTS: None. IMPRESSION: Abnormal Awake & Drowsy EEG due to: 1. Slow posterior dominant rhythm 2. Generalized theta range slowing of the background rhythm CLINICAL COMMENT: Generalized slowing as seen in this recording is suggestive of a mild encephalopathy of a nonspecific etiology. The lack of epileptiform discharges does not necessarily preclude a diagnosis of epilepsy; clinical correlation is recommended. Amanda Hassan MD Epilepsy/Neurophysiology Fellow Kota Riddle M.D., WILEY, FAAN, MARY Professor of Neurology, [facility] Director, [facility] [place] [facility] Head, [facility] Neuro[facility] Lab Performing Organization Address City/State/Zipcode Phone Number GE RIS CBC (Hemogram only) (05/05/2018 4:49 AM [employer]) WBC 7.3 3.5 - 10.5 K/L [facility] [place] RBC 4.40 (L) 4.63 - 6.08 M/L [facility] [place] Hemoglobin 13.6 (L) 13.7 - 17.5 GM/DL [facility] [place] Hematocrit 42.3 40.1 - 51.0 % [facility] [place] MCV 96.1 (H) 79.0 - 92.[address] [facility] [place] MCH 30.9 25.7 - 32.[address] [facility] MCHC 32.2 (L) 32.3 - 36.5 GM/DL [facility] [place] RDW 14.4 11.6 - 14.4 % [facility] Platelets 180 150 - 450 K/CU MM [facility] MPV 12.6 (H) 9.4 - 12.[address] [facility] nRBC 0 0 - 0 /[address] [facility] Specimen Blood Performing Organization Address City/State/Zipcode Phone Number [address] [address] CENTER Magnesium (05/05/2018 4:49 AM [employer]) Magnesium 1.8 1.6 - 2.6 mg/dL [facility] Specimen Blood Performing Organization Address City/[facility] Phone Number [address] [address] CENTER Basic metabolic panel (05/05/2018 4:49 AM [employer])Only the most recent of3 resultswithin the time period is included. Sodium 140 136 - 145 meq/L [facility] [place] Potassium 3.5 3.5 - 5.1 meq/L [facility] [place] Chloride 104 98 - 107 meq/L [facility] CO2 25 22 - 29 meq/L [facility] BUN 22 (H) 7 - 21 mg/dL [facility] Creatinine 0.87 0.57 - 1.25 mg/dL [facility] Glucose 155 (H) 70 - 105 mg/dL [facility] [place] Calcium 9.1 8.4 - 10.2 mg/dL [facility] EGFR 85Comment: ESTIMATED GFR IS mL/min/1.73 sq m [facility] NOT ACCURATE CREATININE [facility] CENTER CLEARANCE IN PREDICTING GLOMERULAR FILTRATION RATE. ESTIMATED GFR IS NOT APPLICABLE FOR DIALYSIS PATIENTS. Specimen Blood Performing Organization Address City/[facility] Cent[facility]ode Phone Number [address] [address] [place] POC-Glucose meter (05/04/2018 10:09 PM [employer]) POC-Glucose Meter 151 (H)Comment: TESTED AT 70 - 110 mg/dL [facility] [address] [place] [id number] Specimen Blood Performing Organization Address City/State/Zipcode Phone Number [facility] [address] [place] [address] CENTER ECHOCARDIOGRAM REPORT - SCAN (05/02/2018 9:22 PM [employer]) Narrative Performed At CTA carotid (05/02/2018 5:34 PM [employer]) Narrative Performed At Addendum Begins [employer] REPORT STATUS:A Technique: Additional 3D imaging series were created using volume rendering technique on an independent workstation for optimal visualization of cervical and intracranial vasculature. Signed: Stone Rivera MD Report Verified Date/Time:05/11/2018 18:21:26 Reading Location: [address] Ortho Consult Reading Room Addendum Ends FINAL REPORT CT angiogram of the upper [...] left vertebral artery origin. 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 Multifocal mild narrowing of the carotid siphons. Involutional, and chronic microvascular ischemic changes of the brain. Small exophytic skin lesion arising from the right frontal scalp. Signed: Stone Rivera MD Report Verified Date/Time:05/02/2018 18:07:55 Reading Location: [facility] Radiology Reading Room Procedure Note Interface, External Ris In - 05/11/2018 6:23 PM [employer] Addendum Begins REPORT STATUS:A Technique: Additional 3D imaging series were created using volume rendering technique on an independent workstation for optimal visualization of cervical and intracranial vasculature. Signed: Stone Rivera MD Report Verified Date/Time: 05/11/2018 18:21:26 Reading Location: [facility] [id number] Ortho Consult Reading Room Addendum Ends FINAL REPORT CT angiogram of the upper [...] left vertebral artery origin. 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 Multifocal mild narrowing of the carotid siphons. Involutional, and chronic microvascular ischemic changes of the brain. Small exophytic skin lesion arising from the right frontal scalp. Signed: Stone Rivera MD Report Verified Date/Time: 05/02/2018 18:07:55 Reading Location: [facility] Radiology Reading Room Performing Organization Address City/State/Zipcode Phone Number [facility] CTA brain (05/02/2018 5:34 PM [employer]) Narrative Performed At Addendum Begins GE RIS REPORT STATUS:A Technique: Additional 3D imaging series were created using volume rendering technique on an independent workstation for optimal visualization of cervical and intracranial vasculature. Signed: Stone Rivera MD Report Verified Date/Time:05/11/2018 18:21:26 Reading Location: [facility] [id number] Ortho Consult Reading Room Addendum Ends FINAL REPORT CT angiogram of the upper [...] left vertebral artery origin. 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 Multifocal mild narrowing of the carotid siphons. Involutional, and chronic microvascular ischemic changes of the brain. Small exophytic skin lesion arising from the right frontal scalp. Signed: tSone Rivera MD Report Verified Date/Time:05/02/2018 18:07:55 Reading Location: [facility] Radiology Reading Room Procedure Note Interface, External Ris In - 05/11/2018 6:23 PM [employer] Addendum Begins REPORT STATUS:A Technique: Additional 3D imaging series were created using volume rendering technique on an independent workstation for optimal visualization of cervical and intracranial vasculature. Signed: Stone Rivera MD Report Verified Date/Time: 05/11/2018 18:21:26 Reading Location: [facility] [id number] Ortho Consult Reading Room Addendum Ends FINAL REPORT CT angiogram of the upper [...] left vertebral artery origin. 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 Multifocal mild narrowing of the carotid siphons. Involutional, and chronic microvascular ischemic changes of the brain. Small exophytic skin lesion arising from the right frontal scalp. Signed: Stone Rivera MD Report Verified Date/Time: 05/02/2018 18:07:55 Reading Location: [facility] Radiology Reading Room Performing Organization Address City/[facility] Phone Number [employer] Lipid panel (05/02/2018 6:00 AM [employer]) Triglycerides 93 mg/dL [facility] [place] Cholesterol 137 mg/dL [facility] HDL 43 mg/dL [facility] [place] LDL Calculated 75 mg/dL [facility] Specimen Blood Narrative Performed At Triglyceride Reference Range: [facility] [place] Low Risk <150 [id number] High Risk 200-499 Very High Risk>=500 Cholesterol Reference Range: Low Risk <200 [id number] High Risk>240 HDL Cholesterol Reference Range: Low Risk >=60 High Risk <40 LDL Cholesterol Reference Range: Optimal<100 Near [id number] [id number] Nteg019-594 Very High >=190 Performing Organization Address City/State/Zipcode Phone Number [place] [id number] [place] [address] [phone] CENTER MR brain without IV contrast (05/01/2018 10:03 PM [employer]) Narrative Performed At FINAL REPORT [employer] MRI Brain without contrast Clinical History: Stroke [...] MD Report Verified Date/Time:05/02/2018 01:55:42 Reading Location: [address] Transitional Reading Room Procedure Note Interface, External Ris In - 05/02/2018 1:57 AM [employer] FINAL REPORT MRI Brain without contrast Clinical [...] Report Verified Date/Time: 05/02/2018 01:55:42 Reading Location: [place] [id number] Transitional Reading Room Performing Organization Address City/State/Zipcode Phone Number GE RIS CBC with platelet count + automated diff (05/01/2018 6:47 PM [employer]) WBC 11.0 (H) 3.5 - 10.5 K/L [facility] [place] RBC 4.30 (L) 4.63 - 6.08 M/L [facility] [place] Hemoglobin 13.5 (L) 13.7 - 17.5 GM/DL [facility] [place] Hematocrit 41.0 40.1 - 51.0 % [facility] [place] MCV 95.3 (H) 79.0 - 92.[address] [facility] MCH 31.4 25.7 - 32.[address] [facility] MCHC 32.9 32.3 - 36.5 GM/DL [facility] RDW 14.3 11.6 - 14.4 % [facility] Platelets 179 150 - 450 K/CU MM [facility] MPV 12.1 9.4 - 12.[address] [facility] nRBC 0 0 - 0 /[address] [facility] % Neutros 73 % [facility] % Lymphs 15 % [facility] % Monos 10 % [facility] % Eos 1 % [facility] % Baso 1 % [facility] # Neutros 7.95 (H) 1.78 - 5.38 K/L [facility] [place] # Lymphs 1.66 1.32 - 3.57 K/L [facility] [place] # Monos 1.12 (H) 0.30 - 0.82 K/L [facility] [place] # Eos 0.09 0.04 - 0.54 K/L [facility] [place] # Baso 0.08 0.01 - 0.08 K/L [facility] [place] Immature Granulocytes-Relative 1 0 - 1 % [facility] Specimen Blood Performing Organization Address City/State/Zipcode Phone Number [address] [address] [phone] [place] Hemoglobin A1c (05/01/2018 6:47 PM [employer]) Hemoglobin A1C 8.0 (H) 4.3 - 6.1 % [facility] Specimen Blood Performing Organization Address City/State/Zipcode Phone Number [address] [address] [place] Comprehensive metabolic panel (05/01/2018 6:47 PM [employer]) Protein, Total 8.0 6.0 - 8.3 gm/dL [facility] [place] Albumin 4.0 3.5 - 5.0 g/dL [facility] [place] Alkaline Phosphatase 59 40 - 150 U/L [facility] [place] Total Bilirubin 0.6 0.2 - 1.2 mg/dL [facility] Sodium 143 136 - 145 meq/L [facility] Potassium 3.5 3.5 - 5.1 meq/L [facility] Chloride 106 98 - 107 meq/L [facility] CO2 24 22 - 29 meq/L [facility] BUN 14 7 - 21 mg/dL [facility] Creatinine 0.81 0.57 - 1.25 mg/dL [facility] Glucose 136 (H) 70 - 105 mg/dL [facility] Calcium 9.3 8.4 - 10.2 mg/dL [facility] AST 17 5 - 34 U/L [facility] ALT 17 6 - 55 U/L [facility] EGFR 92Comment: ESTIMATED GFR mL/min/1.73 sq m [facility] IS NOT ACCURATE [facility] CREATININE CLEARANCE IN PREDICTING GLOMERULAR FILTRATION RATE. ESTIMATED GFR IS NOT APPLICABLE FOR DIALYSIS PATIENTS. Specimen Blood Performing Organization Address City/State/Zipcode Phone Number [facility] [address] [place] [address] [phone] CENTER 2D Echo W/Doppler(CW/PW/Color) (05/01/2018 5:26 PM [employer]) Ejection Fraction [facility] ECHO 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 Slux-cr-abxqhqqp concentric LV hypertrophy. All of the LV [...] normal (male - LVIDd 4.2-5.8cm) . Mi qx-mo-cmfxicei concentric LV hypertrophy. All of th e [...] External Ris In - 05/02/2018 10:18 AM [employer]OUNDER [employer] CEO Transthoracic Echocardiography Report (TTE) Demographics Patient Name KATY ACOSTA Date of Study 05/01/2018 A Gender Male Visit Number [id number] Race Unknown Room Number [id number] Number Date of 1940 Referring Physician Age 77 year(s) Flower Grower Esteban Babb CS Interpreting [facility] Needs to be Pre Physician Read John [...] is normal (male - LVIDd 4.2-5.8cm) . Tibk-ev-xngrpdei concentric LV hypertrophy. All of the LV [...] is normal (male - LVIDd 4.2-5.8cm) . Qhjr-iw-tjtpnldi concentric LV hypertrophy. All of the LV [...] City/State/Zipcode Phone Number [facility] CP[facility] after 05/17/2017 Insurance Payer Benefit Plan / Group Subscriber ID Type Phone Address MEDICARE MEDICARE A B xxxxxxxxxx Medicare Advance Directives For more information, please contact:[address] [phone] Code Status Date Activated Date Inactivated Comments Full Code 05/04/2018 10:14 PM 05/05/2018 7:04 PM This code status was determined by: Patient Full Code 05/01/2018 1:27 PM 05/03/2018 5:15 PM This code status was determined by: Patient
--- OUTSIDE RECORDS SUMMARY | 2018-05-18 19:12 | XMS REPORT ---
:1940 [facility] Address [address] [place] [address] Care Team Providers Name Role Phone MIROSLAVA MCNEIL Unavailable Unavailable CHLOE YON BLAKEANGELJusto Unavailable Unavailable Problems This patient has no known problems. Allergies, Adverse Reactions, Alerts This patient has no known allergies or adverse reactions. Medications This patient has no known medications. Results Test Description Test Time Test Comments Text Results Atomic Results Result Comments CT, CTANGIO BRAIN 2018-05-11 18:21:00 Addendum BeginsREPORT STATUS:A Technique: Additional 3D imaging series were created using volume rendering technique on an independent workstation for optimal visualization of cervical and intracranial vasculature. Signed: Stone Rivera MDReport Verified Date/Time: 05/11/2018 18:21:26 Reading Location: [address] Ortho Consult Reading RoomAddendum EndsFINAL REPORT CT angiogram of the upper chest, [...] left vertebral artery origin. 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 Multifocal mild narrowing of the carotid siphons. Involutional, and chronic microvascular ischemic changes of the brain. Small exophytic skin lesion arising from the right frontal scalp. Signed: Stone Rivera Verified Date/Time: 05/02/2018 18:07:55 Reading Location: [facility] Radiology Reading Room , CAROTID, ANGIO 2018-05-11 18:21:00 Addendum BeginsREPORT STATUS:A Technique: Additional 3D imaging series were created using volume rendering technique on an independent workstation for optimal visualization of cervical and intracranial vasculature. Signed: Stone Rivera Verified Date/Time: 05/11/2018 18:21:26 Reading Location: [facility] [id number] Ortho Consult Reading RoomAddendum EndsFINAL REPORT CT angiogram of the upper chest, [...] left vertebral artery origin. 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 Multifocal mild narrowing of the carotid siphons. Involutional, and chronic microvascular ischemic changes of the brain. Small exophytic skin lesion arising from the right frontal scalp. Signed: Stone Rivera Verified Date/Time: 05/02/2018 18:07:55 Reading Location: [facility] Radiology Reading Room AWAKE AND 2018-05-05 14:01:00 Reason for DATE OF REPORT: 2/28/19 DROWSY exam:->syncope vs Date(s) of Study: 05/05/18 seizure ACC: [id number] Start time: 0913 hrs on 05/05/18 Stop time: 0934 hrs on 05/05/18 ICD-10: R56.9 CPT Code: 73539 HISTORY: 77 yo male with PMHx of AFib, HTN, HLD, SC admitted for syncope vs seizure. MEDICATIONS THAT [...] recommended. Amanda Hassan MD Epilepsy/Neurophysiology Fellow Kota Koroma M.D., FACNS, FAAN, MARY Professor of Neurology, [facility] [employer] Director, [facility] Comprehensive Epilepsy [facility] Head[facility] ALYSIS W/ MICROSCOPIC 2018-05-05 10:55:00 Test Item Value Reference Range Comments COLOR (BEAKER) (test bsnl=856) Yellow CLARITY (BEAKER) (test tfmv=478) Hazy SPECIFIC GRAVITY UA (BEAKER) (test onqx=532) 1.014 1.001-1.035 PH UA (BEAKER) (test zcal=772) 5.0 5.0-8.0 PROTEIN UA (BEAKER) (test drtz=465) 10 mg/dL Negative GLUCOSE UA (BEAKER) (test irfv=615) 50 mg/dL Negative KETONES UA (BEAKER) (test aojc=768) Negative Negative BILIRUBIN UA (BEAKER) (test flqh=743) Negative Negative BLOOD UA (BEAKER) (test cggw=365) Trace Negative NITRITE UA (BEAKER) (test zsut=761) Positive Negative LEUKOCYTE ESTERASE UA (BEAKER) (test ywws=289) Large Negative UROBILINOGEN UA (BEAKER) (test kcmq=402) 0.2 mg/dL 0.2-1.0 RBC UA (BEAKER) (test wmoa=466) 1 /HPF WBC UA (BEAKER) (test cosf=538) 127 /HPF BACTERIA (BEAKER) (test iuik=979) Occasional SQUAMOUS EPITHELIAL (BEAKER) (test ayfr=094) < /HPF SOURCE(BEAKER) (test qrgk=3208) Urine, Voided [id number] 06:06:00 Test Item Value Reference Range Comments MAGNESIUM (BEAKER) (test qfnk=273) 1.8 mg/dL 1.6-2.6 BASIC METABOLIC [id number] 06:06:00 Test Item Value Reference Range Comments SODIUM (BEAKER) (test 140 meq/L 136-145 ftyq=337) POTASSIUM (BEAKER) (test 3.5 meq/L 3.5-5.1 npuq=784) CHLORIDE (BEAKER) (test 104 meq/L 98-107 ibxj=448) CO2 (BEAKER) (test 25 meq/L 22-29 yxjv=106) BLOOD UREA NITROGEN 22 mg/dL 7-21 (BEAKER) (test sogo=396) CREATININE (BEAKER) (test 0.87 mg/dL 0.57-1.25 uayw=722) GLUCOSE RANDOM (BEAKER) 155 mg/dL 70-105 (test wieq=710) CALCIUM (BEAKER) (test 9.1 mg/dL 8.4-10.2 poan=736) EGFR (BEAKER) (test 85 mL/min/1.73 sq m ESTIMATED GFR IS NOT jphw=1683) ACCURATE CREATININE CLEARANCE IN PREDICTING GLOMERULAR FILTRATION RATE. ESTIMATED GFR IS NOT APPLICABLE FOR DIALYSIS PATIENTS. CBC (HEMOGRAM ONLY)2018-05-05 05:36:00 Test Item Value Reference Range Comments WHITE BLOOD CELL COUNT (BEAKER) (test rjxm=529) 7.3 K/ L 3.5-10.5 RED BLOOD CELL COUNT (BEAKER) (test iufn=899) 4.40 M/ L 4.63-6.08 HEMOGLOBIN (BEAKER) (test grmz=366) 13.6 GM/DL 13.7-17.5 HEMATOCRIT (BEAKER) (test lwcz=298) 42.3 % 40.1-51.0 MEAN CORPUSCULAR VOLUME (BEAKER) (test plvy=239) 96.1 fL 79.0-92.2 MEAN CORPUSCULAR HEMOGLOBIN (BEAKER) (test 30.9 pg 25.7-32.2 gypu=315) MEAN CORPUSCULAR HEMOGLOBIN CONC (BEAKER) (test 32.2 GM/DL 32.3-36.5 tfqs=390) RED CELL DISTRIBUTION WIDTH (BEAKER) (test 14.4 % 11.6-14.4 pxcf=660) PLATELET COUNT (BEAKER) (test kuhs=271) 180 K/CU MM 150-450 MEAN PLATELET VOLUME (BEAKER) (test dopv=001) 12.6 fL 9.4-12.4 NUCLEATED RED BLOOD CELLS (BEAKER) (test 0 /100 WBC 0-0 ffqr=974) POCT-GLUCOSE [id number] 22:13:00 Test Item Value Reference Range Comments POC-GLUCOSE METER (BEAKER) 151 mg/dL 70-110 TESTED AT [address] (test wmil=6366) [facility] [address] BASIC METABOLIC [id number] 05:43:00 Test Item Value Reference Range Comments SODIUM (BEAKER) (test 141 meq/L 136-145 zqjl=924) POTASSIUM (BEAKER) (test 3.8 meq/L 3.5-5.1 ekyc=933) CHLORIDE (BEAKER) (test 106 meq/L 98-107 dvzx=678) CO2 (BEAKER) (test 25 meq/L 22-29 ntws=865) BLOOD UREA NITROGEN 21 mg/dL 7-21 (BEAKER) (test srys=906) CREATININE (BEAKER) (test 0.96 mg/dL 0.57-1.25 swfg=667) GLUCOSE RANDOM (BEAKER) 150 mg/dL 70-105 (test ifjp=164) CALCIUM (BEAKER) (test 9.1 mg/dL 8.4-10.2 ywmn=342) EGFR (BEAKER) (test 76 mL/min/1.73 sq m ESTIMATED GFR IS NOT usjk=3349) ACCURATE CREATININE CLEARANCE IN PREDICTING GLOMERULAR FILTRATION RATE. ESTIMATED GFR IS NOT APPLICABLE FOR DIALYSIS PATIENTS. HEMOGLOBIN [id number] 10:54:00 Test Item Value Reference Range Comments HEMOGLOBIN A1C (BEAKER) (test gcze=991) 8.0 % 4.3-6.1 LIPID [id number] 07:20:00 Test Item Value Reference Range Comments TRIGLYCERIDES (BEAKER) (test fegl=710) 93 mg/dL CHOLESTEROL (BEAKER) (test lvfq=626) 137 mg/dL HDL CHOLESTEROL (BEAKER) (test pwkm=872) 43 mg/dL LDL CHOLESTEROL CALCULATED (BEAKER) (test 75 mg/dL allg=536) Triglyceride Reference Range: Low Risk <150 Borderline 150- 199 High Risk 200-499 Very High Risk >=500Cholesterol Reference Range: Low Risk <200 Borderline 200-239 High Risk > 240HDL Cholesterol Reference Range: Low Risk >=60 High Risk <40LDL Cholesterol Reference Range: Optimal <100 Near Optimal 100-129 Borderline 130-159 High 160-189 Very High >=190BASIC METABOLIC [id number] 07:20:00 Test Item Value Reference Range Comments SODIUM (BEAKER) (test 141 meq/L 136-145 wyym=120) POTASSIUM (BEAKER) (test 3.7 meq/L 3.5-5.1 qigi=270) CHLORIDE (BEAKER) (test 107 meq/L 98-107 aqly=006) CO2 (BEAKER) (test 22 meq/L 22-29 uuco=608) BLOOD UREA NITROGEN 15 mg/dL 7-21 (BEAKER) (test iphj=927) CREATININE (BEAKER) (test 0.82 mg/dL 0.57-1.25 evqh=624) GLUCOSE RANDOM (BEAKER) 157 mg/dL 70-105 (test etkr=580) CALCIUM (BEAKER) (test 9.2 mg/dL 8.4-10.2 fjly=635) EGFR (BEAKER) (test 91 mL/min/1.73 sq m ESTIMATED GFR IS NOT nshi=9877) ACCURATE CREATININE CLEARANCE IN PREDICTING GLOMERULAR FILTRATION RATE. ESTIMATED GFR IS NOT APPLICABLE FOR DIALYSIS PATIENTS. MR, BRAIN, WITHOUT [id number] 01:55:00FINAL REPORT MRI Brain without contrast Clinical History: Stroke Technique: MRI of the brain utilizing axial T2, FLAIR, GRE, DWI; sagittal and coronal T1-weighted images. Comparisons: None Findings:Examination limited by motion artifact on multiple sequences.There is no evidenceof acute infarct or hemorrhage. Multiple bilateral T2 and FLAIR hyperintense white matter foci likely represent chronic white matter microvascular disease.. Generalized parenchymal volume loss. There is no hydrocephalus or midline shift. There are no extra-axial fluid collections. The craniocervical junction is preserved. The major intracranial flow-voids appear patent. Paranasal sinuses are clear.Middle ears and mastoid air cells are clear. Intraorbital contents are unremarkable. No aggressive osseous or soft tissue lesions identified. 7 mm soft tissue nodule over the right frontal scalp, may represent an epidermal inclusion cyst however correlate with physical exam. IMPRESSION:Examination limited by motion artifact on multiple sequences. No evidence of acute infarct, hemorrhage, or hydrocephalus. Chronic ischemic and embolization changes as described above. 7 mm soft tissue nodule over the right frontal scalp, may represent an epidermal inclusion cyst however correlate with physical exam. Signed: Radha Enriquez [facility] Verified Date/Time: 05/02/2018 01:55:42 Reading Location: [address] Transitional Reading Room COMPREHENSIVE METABOLIC [id number] 19:13:00 Test Item Value Reference Range Comments TOTAL PROTEIN (BEAKER) 8.0 gm/dL 6.0-8.3 (test twcv=103) ALBUMIN (BEAKER) (test 4.0 g/dL 3.5-5.0 smtk=4859) ALKALINE PHOSPHATASE 59 U/L 40-150 (BEAKER) (test yhlv=566) BILIRUBIN TOTAL (BEAKER) 0.6 mg/dL 0.2-1.2 (test nzdg=449) SODIUM (BEAKER) (test 143 meq/L 136-145 dpte=327) POTASSIUM (BEAKER) (test 3.5 meq/L 3.5-5.1 bqqg=119) CHLORIDE (BEAKER) (test 106 meq/L 98-107 hzao=907) CO2 (BEAKER) (test 24 meq/L 22-29 jppd=992) BLOOD UREA NITROGEN 14 mg/dL 7-21 (BEAKER) (test ioxj=011) CREATININE (BEAKER) (test 0.81 mg/dL 0.57-1.25 xtmy=311) GLUCOSE RANDOM (BEAKER) 136 mg/dL 70-105 (test ynoi=002) CALCIUM (BEAKER) (test 9.3 mg/dL 8.4-10.2 txdq=449) AST (SGOT) (BEAKER) (test 17 U/L 5-34 ayrg=889) ALT (SGPT) (BEAKER) (test 17 U/L 6-55 buxu=893) EGFR (BEAKER) (test 92 mL/min/1.73 sq m ESTIMATED GFR IS NOT fvnx=7908) ACCURATE CREATININE CLEARANCE IN PREDICTING GLOMERULAR FILTRATION RATE. ESTIMATED GFR IS NOT APPLICABLE FOR DIALYSIS PATIENTS. CBC W/PLT COUNT & AUTO [id number] 18:54:00 Test Item Value Reference Range Comments WHITE BLOOD CELL COUNT (BEAKER) (test eofg=369) 11.0 K/ L 3.5-10.5 RED BLOOD CELL COUNT (BEAKER) (test jcrl=431) 4.30 M/ L 4.63-6.08 HEMOGLOBIN (BEAKER) (test nhwz=893) 13.5 GM/DL 13.7-17.5 HEMATOCRIT (BEAKER) (test lypg=847) 41.0 % 40.1-51.0 MEAN CORPUSCULAR VOLUME (BEAKER) (test abnk=972) 95.3 fL 79.0-92.2 MEAN CORPUSCULAR HEMOGLOBIN (BEAKER) (test 31.4 pg 25.7-32.2 sfcn=920) MEAN CORPUSCULAR HEMOGLOBIN CONC (BEAKER) (test 32.9 GM/DL 32.3-36.5 paad=093) RED CELL DISTRIBUTION WIDTH (BEAKER) (test 14.3 % 11.6-14.4 wyep=797) PLATELET COUNT (BEAKER) (test gdto=149) 179 K/CU MM 150-450 MEAN PLATELET VOLUME (BEAKER) (test fqdj=969) 12.1 fL 9.4-12.4 NUCLEATED RED BLOOD CELLS (BEAKER) (test 0 /100 WBC 0-0 lfxs=473) NEUTROPHILS RELATIVE PERCENT (BEAKER) (test 73 % lllj=157) LYMPHOCYTES RELATIVE PERCENT (BEAKER) (test 15 % lmao=590) MONOCYTES RELATIVE PERCENT (BEAKER) (test 10 % vfnz=276) EOSINOPHILS RELATIVE PERCENT (BEAKER) (test 1 % ropc=720) BASOPHILS RELATIVE PERCENT (BEAKER) (test 1 % cgle=881) NEUTROPHILS ABSOLUTE COUNT (BEAKER) (test 7.95 K/ L 1.78-5.38 ybso=262) LYMPHOCYTES ABSOLUTE COUNT (BEAKER) (test 1.66 K/ L 1.32-3.57 mzmu=418) MONOCYTES ABSOLUTE COUNT (BEAKER) (test 1.12 K/ L 0.30-0.82 asxa=323) EOSINOPHILS ABSOLUTE COUNT (BEAKER) (test 0.09 K/ L 0.04-0.54 jtmf=678) BASOPHILS ABSOLUTE COUNT (BEAKER) (test 0.08 K/ L 0.01-0.08 frpd=961) IMMATURE GRANULOCYTES-RELATIVE PERCENT (BEAKER) 1 % 0-1 (test skix=3826)
--- NOTE | 2018-05-18 19:34 | RAD REPORT ---
EXAM DESCRIPTION: CT - Ct Stroke Brain Wo Cont - 05/18/2018 7:24 pm CLINICAL HISTORY: Expressive aphasia CLINICAL HISTORY: May 04, 2018 TECHNIQUE: Axial 5 millimeter thick images of the head were obtained without IV contrast. All CT scans are performed using dose optimization technique as appropriate and may include automated exposure control or mA/KV adjustment according to patient size. FINDINGS: No intracranial hemorrhage, mass, or cerebral edema. No acute cortical based infarction id entifiable. Patient has mild atrophy and moderate chronic ischemic change. Ventricles are in proporti on to volume loss. Arterial and physiologic calcifications are present. No extra-axial fluid collecti ons. Humphries matter-white matter differentiation is preserved. No globe or orbital content abnormality seen. Visualized portions of the mastoid air cells, paranasal sinuses, and orbits are unremarkable. Findings telephoned to the referring physician 7:29 p.m. IMPRESSION: No CT evidence of acute intracranial process. Mild atrophy and moderate chronic ischemic change matches the prior study. Chronic ischemic changes can mask nonhemorrhagic acute infarction. MR brain followup can be obtained if there is ongoing concern for acute ischemia.
[2018-05-18 19:36] LABS: Absolute Lymphocytes (CBC) 1.8 K/uL (0.7-4.9); Absolute Monocytes 0.9 K/uL (0.1-1.3); Basophils % 1.3 % (0-1.3); Eosinophils % 1.3 % (0-4.4); Hematocrit 39.3 % (39.6-49.0); Lymphocytes % 26.1 % (15.3-44.8); MPV 11.1 fL (7.6-11.3); Monocytes % 13.3 % (3.3-12.3); RBC Red Blood Cell Count 4.22 M/uL (4.33-5.43)
[2018-05-18 19:38] LABS: Protime INR 1.18
--- NOTE | 2018-05-18 19:44 | RAD REPORT ---
EXAM DESCRIPTION: RAD - Chest Single View - 05/18/2018 7:32 pm CLINICAL HISTORY: Stroke protocol chest film COMPARISON: May 04 TECHNIQUE: AP portable chest image was obtained 1929 hours . FINDINGS: Lungs are clear. Heart size is prominent and increased slightly over comparison. No vascul ar engorgement or other findings of significant failure or volume overload. No measurable pleural eff usion and no pneumothorax. No acute bony abnormality seen. No acute aortic findings suspected. IMPRESSION: No acute lung parenchymal process. Mild cardiomegaly has developed with no other findings for failure or volume overload.
[2018-05-18 20:08] LABS: Potassium 3.7 mmol/L (3.5-5.1)
--- NOTE | 2018-05-18 20:41 | RAD REPORT ---
EXAM DESCRIPTION: CT - Head angio - 05/18/2018 8:29 pm TECHNIQUE: During dynamic enhancement using nonionic IV contrast, axial 1 millimeter thick images of the head were obtained. Sagittal and axial reconstruction images were generated using MIP protocol a nd reviewed. All CT scans are performed using dose optimization technique as appropriate and may include automated exposure control or mA/KV adjustment according to patient size. FINDINGS: No aneurysm or vascular malformation identified. Major venous sinuses are patent. No stenosis, named branch occlusion, vasculitis or other significant vascular finding identifiable. Moderately prominent internal carotid and basilar artery calcifications are present. IMPRESSION: Negative CT angio head examination for acute or significant finding. .
--- NOTE | 2018-05-18 20:44 | RAD REPORT ---
EXAM DESCRIPTION: CT - Neck Angio - 05/18/2018 8:30 pm TECHNIQUE: During dynamic enhancement using nonionic IV contrast, axial 2 mm thick images of the nec k were obtained. Sagittal and axial reconstruction images were generated using maximum intensity proj ection protocol and reviewed. All CT scans are performed using dose optimization technique as appropriate and may include automated exposure control or mA/KV adjustment according to patient size. COMPARISON: CT head same date, CT angio head same date FINDINGS: No aneurysm or vascular malformation identified. No carotid or vertebral dissection. No aortic arch or great vessel origin abnormality seen. Vertebral artery origins unremarkable as well . No stenosis, vasculitis or other significant carotid artery finding. No dissection findings. Vascul ar tortuosity is noted in the internal carotid and vertebrobasilar vessels. Left vertebral artery is dominant. Right vertebral artery terminates at the posterior inferior cerebellar artery as a normal v ariant. Vertebral and internal carotid artery calcifications are present. Prominent calcifications in each carotid bulb not appearing to cause significant stenosis. IMPRESSION: No aneurysm or vascular malformation. No dissection or focal stenosis identifiable. Prominent carotid bulb calcifications without significant luminal narrowing.
--- NOTE | 2018-05-18 21:16 | ER ---
Nurse's Notes [facility] Name: Jose Armando Caldera Age: 77 yrs Sex: Male : 1940 Arrival Date: 05/18/2018 Time: 19:16 Bed 2 Private MD: Diagnosis: Transient cerebral ischemic attacks and related syndromes Presentation: 05/18 19:09 Presenting complaint: Patient states: that he is having trouble speaking, swallowing fc and is weak on the left side. 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 Transition of care: patient was not received from another setting of care. Onset of symptoms was May 18, 2018 at 18:40. Risk Assessment: Do you want to hurt yourself or someone else? Patient reports no desire to harm self or others. Initial Sepsis Screen: Does the patient meet any 2 criteria? No. Patient's initial sepsis screen is negative. Does the patient have a suspected source of infection? No. Patient's initial sepsis screen is negative. Care prior to arrival: None. 19:09 Method Of Arrival: Wheelchair fc 19:09 Acuity: HARPER 2 fc Historical: - Allergies: 19:37 No Known Allergies; fc - Home Meds: 19:37 lisinopril-hydrochlorothiazide 20-25 mg Oral tab 1 tab once daily [Active]; metoprolol fc tartrate 50 mg Oral tab 1 tab 2 times per day [Active]; levothyroxine 100 mcg tab 1 tab once daily [Active]; Xarelto 20 mg Oral tab 1 tab once daily [Active]; tamsulosin 0.4 mg oral cp24 1 cap twice a day [Active]; Crestor 5 mg Oral tab 1 tab once daily [Active]; - PMHx: 19:37 Atrial Fib; Hyperlipidemia; Hypertension; cardiac stent; Myocardial infarction; CVA; fc Hypothyroidism; - PSHx: 19:37 Heart stents; fc - Immunization history:: Last tetanus immunization: up to date Flu vaccine is up to date. - Social history:: Smoking status: Patient/guardian denies using tobacco, Patient/guardian denies using alcohol, street drugs. - Ebola Screening: : Patient negative for fever greater than or equal to 101.5 degrees Fahrenheit, and additional compatible Ebola Virus Disease symptoms Patient denies exposure to infectious person. Screenin:09 Abuse screen: Denies threats or abuse. Nutritional screening: No deficits noted. fc Tuberculosis screening: No symptoms or risk factors identified. 19:41 Fall Risk IV access (20 points). Ambulatory Aid- None/Bed Rest/Nurse Assist (0 pts). jd3 Gait- Weak (10 pts.). Mental Status- Oriented to own ability (0 pts). Total Jiang Fall Scale indicates Low Risk Score (25-44 pts). Fall prevention measures have been instituted. Side Rails Up X 2 Placed close to Nursing Station Frequent Obs/Assesments occuring Family Present and informed to notify staff if they need to leave bedside. Assessment: 19:30 General: Appears comfortable, Behavior is calm, cooperative. Pain: Denies pain. Neuro: jd3 Level of Consciousness is awake, alert, obeys commands, Oriented to person, place, time, situation, Panel Installer are equal bilaterally Moves all extremities. Speech is slurred, Facial droop on left, Pupils are PERRLA, Intact. Cardiovascular: Denies chest pain, Capillary refill < 3 seconds Patient's skin is warm and dry. Rhythm is regular. Respiratory: Airway is patent Respiratory effort is even, unlabored, Respiratory pattern is regular, symmetrical, Denies shortness of breath. GI: No signs and/or symptoms were reported involving the gastrointestinal system. Abdomen is round non-distended. : No signs and/or symptoms were reported regarding the genitourinary system. EENT: No signs and/or symptoms were reported regarding the EENT system. Derm: Skin is intact, Skin is dry, Skin is normal, Skin temperature is warm. Musculoskeletal: Circulation, motion, and sensation intact. Range of motion: intact in all extremities. 20:18 Reassessment: Patient appears in no apparent distress at this time. Patient and/or jd3 family updated on plan of care and expected duration. Pain level reassessed. Patient is alert, oriented x 3, equal unlabored respirations, skin warm/dry/pink. family at bedside, pt to CT with remote broadcast technician. 21:20 Reassessment: Patient appears in no apparent distress at this time. Patient and/or jd3 family updated on plan of care and expected duration. Pain level reassessed. Patient is alert, oriented x 3, equal unlabored respirations, skin warm/dry/pink. assisted pt with urinal. bathroom needs met needs met. 21:49 Reassessment: report given to Lowell REES at [facility]. jd3 22:09 Reassessment: Patient appears in no apparent distress at this time. Patient and/or jd3 family updated on plan of care and expected duration. Pain level reassessed. Patient is alert, oriented x 3, equal unlabored respirations, skin warm/dry/pink. awaiting EMS for transfer. 22:36 Reassessment: report given to EMS. [facility] Vital Signs: 19:09 BP 162 / 93; Pulse 71; Resp 18; Temp 98.1(O); Pulse Ox 95% on R/A; Weight 104.33 kg fc (R); Height 5 ft. 8 in. (172.72 cm) (R); Pain 0/10; 20:19 BP 165 / 85; Pulse 65; Resp 18 S; Pulse Ox 95% on R/A; jd3 21:15 BP 178 / 86; Pulse 62; Resp 15 S; Pulse Ox 96% on R/A; jd3 22:10 BP 178 / 72; Pulse 66; Resp 20 S; Pulse Ox 94% on R/A; jd3 19:09 Body Mass Index 34.97 (104.33 kg, 172.72 cm) NIH Stroke Scale Scores: 19:20 NIHSS Score: 3 fc 21:11 NIHSS Score: 3 gs 22:37 NIHSS Score: 1 [facility] ED Course: 19:09 Arm band placed on Patient placed in an exam room, on a stretcher. fc 19:09 Patient has correct armband on for positive identification. Bed in low position. Call light in reach. Side rails up X2. monitoring engineer on. Pulse ox on. NIBP on. 19:09 No provider procedures requiring assistance completed. fc 19:16 Patient arrived in ED. es 19:19 Bassem Vo MD is Attending Physician. gs 19:20 Inserted saline lock: 20 gauge in right antecubital area, using aseptic technique. fc 19:22 EKG done, by ED staff, reviewed by Bassem Vo MD. fc 19:23 CT Stroke Brain w/o Contrast In Process Unspecified. EDMS 19:23 X-ray(s) taken. fc 19:31 Triage completed. fc 19:32 Stroke CXR 1 View In Process Unspecified. EDMS 19:35 Jose Manuel Aguayo RN is Primary Nurse. jd3 20:29 CT completed. Patient tolerated procedure well. Patient moved back from CT. vm2 20:30 Head angio In Process Unspecified. EDMS 20:30 Neck Angio In Process Unspecified. EDMS 22:37 Patient transferred, IV remains in place. jd3 Administered Medications: No medications were administered Point of Care Testing: Blood Glucose: 19:13 Blood Glucose: 141 mg/dL; fc Ranges: Outcome: 21:16 ER care complete, transfer ordered by . 22:36 Transferred by ground EMS to [facility], Transfer form completed. jd3 X-rays sent w/ patient. 22:36 Condition: stable 22:36 Instructed on the need for transfer, Demonstrated understanding of instructions. 22:38 Patient left the ED. jd3 NIH Stroke Scale - NIH Stroke Score Date: 05/18/2018 Time: 19:20 Total Score = 3 1a. Level of Consciousness (LOC) - 0(Alert) 1b. Level of Consciousness (LOC) (Year \T\ Age) - 1(One) 1c. LOC Commands (Open \T\ Closes Eyes/Smearer) - 0(Both) 2. Best Gaze (Lateral Gaze Paresis) - 0(Normal) 3. Visual Field Loss - 0(No visual loss) 4. Facial Palsy - 1(Minor Paralysis) 5a. Left Arm: Motor (10-second hold) - 0(No drift) 5b. Right Arm: Motor (10-second hold) - 0(No drift) 6a. Left Leg: Motor (5-second hold - always test supine) - 0(No drift) 6b. Right Leg: Motor (5-second hold - always test supine) - 0(No drift) 7. Limb Ataxia (finger/nose \T\ heel/espino - test with eyes open) - 0(Absent) 8. Sensory Loss (pinprick arms/legs/face) - 0(Normal) 9. Best Language: Aphasia (description/naming/reading) - 0(No aphasia) 10. Dysarthria (speech clarity - read or repeat words) - 1(Mild to Moderate) 11. Extinction and Inattention (visual/tactile/auditory/spatial/personal) - 0(No abnormality) Initials: NIH Stroke Scale - NIH Stroke Score Date: 05/18/2018 Time: 21:11 Total Score = 3 1a. Level of Consciousness (LOC) - 0(Alert) 1b. Level of Consciousness (LOC) (Year \T\ Age) - 0(Both) 1c. LOC Commands (Open \T\ Closes Eyes/Smearer) - 0(Both) 2. Best Gaze (Lateral Gaze Paresis) - 0(Normal) 3. Visual Field Loss - 0(No visual loss) 4. Facial Palsy - 2(Partial paralysis) 5a. Left Arm: Motor (10-second hold) - 1(Drift) 5b. Right Arm: Motor (10-second hold) - 0(No drift) 6a. Left Leg: Motor (5-second hold - always test supine) - 0(No drift) 6b. Right Leg: Motor (5-second hold - always test supine) - 0(No drift) 7. Limb Ataxia (finger/nose \T\ heel/espino - test with eyes open) - 0(Absent) 8. Sensory Loss (pinprick arms/legs/face) - 0(Normal) 9. Best Language: Aphasia (description/naming/reading) - 0(No aphasia) 10. Dysarthria (speech clarity - read or repeat words) - 0(Normal) 11. Extinction and Inattention (visual/tactile/auditory/spatial/personal) - 0(No abnormality) Initials: NIH Stroke Scale - NIH Stroke Score Date: 05/18/2018 Time: 22:37 Total Score = 1 1a. Level of Consciousness (LOC) - 0(Alert) 1b. Level of Consciousness (LOC) (Year \T\ Age) - 0(Both) 1c. LOC Commands (Open \T\ Closes Eyes/Smearer) - 0(Both) 2. Best Gaze (Lateral Gaze Paresis) - 0(Normal) 3. Visual Field Loss - 0(No visual loss) 4. Facial Palsy - 1(Minor Paralysis) 5a. Left Arm: Motor (10-second hold) - 0(No drift) 5b. Right Arm: Motor (10-second hold) - 0(No drift) 6a. Left Leg: Motor (5-second hold - always test supine) - 0(No drift) 6b. Right Leg: Motor (5-second hold - always test supine) - 0(No drift) 7. Limb Ataxia (finger/nose \T\ heel/espino - test with eyes open) - 0(Absent) 8. Sensory Loss (pinprick arms/legs/face) - 0(Normal) 9. Best Language: Aphasia (description/naming/reading) - 0(No aphasia) 10. Dysarthria (speech clarity - read or repeat words) - 0(Normal) 11. Extinction and Inattention (visual/tactile/auditory/spatial/personal) - 0(No abnormality) Initials: jd3 Signatures: Dispatcher [employer] Sherri Mendieta Felicia, RN RN Nadja Barahona [facility] Bassem Vo MD MD gs Davies, Jonathon, RN RN jd3 Corrections: (The following items were deleted from the chart) 19:43 19:30 Cardiovascular: Heart tones S1 S2 present Capillary refill < 3 seconds jd3 Patient's skin is warm and dry. Rhythm is regular jd3 19:43 19:30 Respiratory: Airway is patent Respiratory effort is even, unlabored, jd3 Respiratory pattern is regular, symmetrical, Breath sounds are clear bilaterally. jd3 20:19 20:18 Reassessment: Patient appears in no apparent distress at this time. jd3 Patient and/or family updated on plan of care and expected duration. Pain level reassessed. Patient is alert, oriented x 3, equal unlabored respirations, skin warm/dry/pink. family at bedside jd3
--- NOTE | 2018-05-18 21:16 | EDPHYS ---
Physician Documentation [facility] Name: Jose Armando Caldera Age: 77 yrs Sex: Male : 1940 Arrival Date: 05/18/2018 Time: 19:16 Bed 2 Private MD: ED Physician Bassem Vo HPI: 05/18 21:05 This 77 yrs old Male presents to ER via Wheelchair with complaints of gs weakness speech difficulty. 21:05 Onset: The symptoms/episode began/occurred today, at 18:50. Possible causes: CVA or gs TIA. Associated signs and symptoms: Pertinent positives: weakness, Pertinent negatives: chest pain. Current symptoms: In the emergency department the patient's symptoms have improved, mildly. The patient has experienced similar episodes in the past, a few times. Historical: - Allergies: 19:37 No Known Allergies; fc - Home Meds: 19:37 lisinopril-hydrochlorothiazide 20-25 mg Oral tab 1 tab once daily [Active]; metoprolol fc tartrate 50 mg Oral tab 1 tab 2 times per day [Active]; levothyroxine 100 mcg tab 1 tab once daily [Active]; Xarelto 20 mg Oral tab 1 tab once daily [Active]; tamsulosin 0.4 mg oral cp24 1 cap twice a day [Active]; Crestor 5 mg Oral tab 1 tab once daily [Active]; - PMHx: 19:37 Atrial Fib; Hyperlipidemia; Hypertension; cardiac stent; Myocardial infarction; CVA; fc Hypothyroidism; - PSHx: 19:37 Heart stents; fc - Immunization history:: Last tetanus immunization: up to date Flu vaccine is up to date. - Social history:: Smoking status: Patient/guardian denies using tobacco, Patient/guardian denies using alcohol, street drugs. - Ebola Screening: : Patient negative for fever greater than or equal to 101.5 degrees Fahrenheit, and additional compatible Ebola Virus Disease symptoms Patient denies exposure to infectious person. ROS: 21:05 All other systems are negative. gs Exam: 21:11 Head/Face: Normocephalic, atraumatic. Eyes: Pupils equal round and reactive to light, gs extra-ocular motions intact. Lids and lashes normal. Conjunctiva and sclera are non-icteric and not injected. Cornea within normal limits. Periorbital areas with no swelling, redness, or edema. ENT: Nares patent. No nasal discharge, no septal abnormalities noted. Tympanic membranes are normal and external auditory canals are clear. Oropharynx with no redness, swelling, or masses, exudates, or evidence of obstruction, uvula midline. Mucous membranes moist. Neck: Trachea midline, no thyromegaly or masses palpated, and no cervical lymphadenopathy. Supple, full range of motion without nuchal rigidity, or vertebral point tenderness. No Meningismus. Chest/axilla: Normal chest wall appearance and motion. Nontender with no deformity. No lesions are appreciated. Cardiovascular: Regular rate and rhythm with a normal S1 and S2. No gallops, murmurs, or rubs. Normal PMI, no JVD. No pulse deficits. Respiratory: Lungs have equal breath sounds bilaterally, clear to auscultation and percussion. No rales, rhonchi or wheezes noted. No increased work of breathing, no retractions or nasal flaring. Abdomen/GI: Soft, non-tender, with normal bowel sounds. No distension or tympany. No guarding or rebound. No evidence of tenderness throughout. Back: No spinal tenderness. No costovertebral tenderness. Full range of motion. Skin: Warm, dry with normal turgor. Normal color with no rashes, no lesions, and no evidence of cellulitis. MS/ Extremity: Pulses equal, no cyanosis. Neurovascular intact. Full, normal range of motion. 21:11 Constitutional: The patient appears alert, awake. 21:11 ECG was reviewed by the Attending Physician. 21:11 Neuro: Orientation: to person, place, time \T\ situation. Cranial nerves: facial droop noted on left, Cerebellar function: normal finger to nose testing, Motor: strength is 5/5 in all extremities, Sensation: no obvious gross deficits. Vital Signs: 19:09 BP 162 / 93; Pulse 71; Resp 18; Temp 98.1(O); Pulse Ox 95% on R/A; Weight 104.33 kg fc (R); Height 5 ft. 8 in. (172.72 cm) (R); Pain 0/10; 20:19 BP 165 / 85; Pulse 65; Resp 18 S; Pulse Ox 95% on R/A; jd3 21:15 BP 178 / 86; Pulse 62; Resp 15 S; Pulse Ox 96% on R/A; jd3 22:10 BP 178 / 72; Pulse 66; Resp 20 S; Pulse Ox 94% on R/A; jd3 19:09 Body Mass Index 34.97 (104.33 kg, 172.72 cm) fc NIH Stroke Scale Scores: 19:20 NIHSS Score: 3 fc 21:11 NIHSS Score: 3 gs 22:37 NIHSS Score: 1 jd3 MDM: 19:19 Patient medically screened. gs 21:11 Differential Diagnosis: CVA, electrolyte abnormality, hypoglycemia, intracranial bleed. Data reviewed: vital signs, nurses notes, old medical records, lab test result(s), EKG, radiologic studies. Counseling: I had a detailed discussion with the patient and/or guardian regarding: the historical points, exam findings, and any diagnostic results supporting the discharge/admit diagnosis, the need to transfer to another facility, [facility] does not immediately have the required specialist. Response to treatment: the patient's symptoms have markedly improved after treatment. 05/18 19:19 Order name: Basic Metabolic Panel; Complete Time: 21: 05/18 19:19 Order name: CBC with Diff; Complete Time: 20: 05/18 19:19 Order name: Protime (+inr) 05/18 19:19 Order name: Ptt, Activated; Complete Time: 20: 05/18 19:20 Order name: Protime (+INR); Complete Time: 20: [facility] 05/18 20:02 Order name: Glucose, Ancillary Testing; Complete Time: 21: [facility] 05/18 19:19 Order name: CT Stroke Brain w/o Contrast; Complete Time: 20: 05/18 19:19 Order name: Stroke CXR 1 View; Complete Time: 20: 05/18 19:19 Order name: EKG; Complete Time: 19: 05/18 19:19 Order name: Accucheck; Complete Time: : 05/18 19:19 Order name: Cardiac monitoring; Complete Time: : 05/18 19:19 Order name: EKG - Nurse/Tech; Complete Time: : 05/18 20:12 Order name: Head angio; Complete Time: 21: [facility] 05/18 20:12 Order name: Neck Angio; Complete Time: 21: [facility] 05/18 19:19 Order name: IV Saline Lock; Complete Time: : 05/18 19:19 Order name: Labs collected and sent; Complete Time: 05/18 19:19 Order name: NPO; Complete Time: : 05/18 19:19 Order name: O2 Per Protocol; Complete Time: : 05/18 19:19 Order name: O2 Sat Monitoring; Complete Time: : 05/18 19:19 Order name: Stroke Swallow Screen; Complete Time: 19:43 gs EC:11 Rate is 70 beats/min. Rhythm is regular. MN interval is normal. QRS interval is normal. gs Q waves are Old in leads III, aVF. Clinical impression: NSR w/ Non-specific ST/T Changes. Interpreted by me. Administered Medications: No medications were administered Point of Care Testing: Blood Glucose: : Blood Glucose: 141 mg/dL; fc Ranges: Critical Glucose Levels:Adult <50 mg/dl or >400 mg/dl <40 mg/dl or >180 mg/dl Disposition: 05/18/18 21:16 Transfer ordered to [facility]. Diagnosis is Transient cerebral ischemic attacks and related syndromes. - Reason for transfer: Higher level of care. - Accepting physician is agudelo. - Condition is Stable. - Problem is new. - Symptoms have improved. NIH Stroke Scale - NIH Stroke Score Date: 05/18/2018 Time: 19:20 Total Score = 3 1a. Level of Consciousness (LOC) - 0(Alert) 1b. Level of Consciousness (LOC) (Year \T\ Age) - 1(One) 1c. LOC Commands (Open \T\ Closes Eyes/Tubular Riveter) - 0(Both) 2. Best Gaze (Lateral Gaze Paresis) - 0(Normal) 3. Visual Field Loss - 0(No visual loss) 4. Facial Palsy - 1(Minor Paralysis) 5a. Left Arm: Motor (10-second hold) - 0(No drift) 5b. Right Arm: Motor (10-second hold) - 0(No drift) 6a. Left Leg: Motor (5-second hold - always test supine) - 0(No drift) 6b. Right Leg: Motor (5-second hold - always test supine) - 0(No drift) 7. Limb Ataxia (finger/nose \T\ heel/espino - test with eyes open) - 0(Absent) 8. Sensory Loss (pinprick arms/legs/face) - 0(Normal) 9. Best Language: Aphasia (description/naming/reading) - 0(No aphasia) 10. Dysarthria (speech clarity - read or repeat words) - 1(Mild to Moderate) 11. Extinction and Inattention (visual/tactile/auditory/spatial/personal) - 0(No abnormality) Initials: NIH Stroke Scale - NIH Stroke Score Date: 05/18/2018 Time: 21:11 Total Score = 3 1a. Level of Consciousness (LOC) - 0(Alert) 1b. Level of Consciousness (LOC) (Year \T\ Age) - 0(Both) 1c. LOC Commands (Open \T\ Closes Eyes/Tubular Riveter) - 0(Both) 2. Best Gaze (Lateral Gaze Paresis) - 0(Normal) 3. Visual Field Loss - 0(No visual loss) 4. Facial Palsy - 2(Partial paralysis) 5a. Left Arm: Motor (10-second hold) - 1(Drift) 5b. Right Arm: Motor (10-second hold) - 0(No drift) 6a. Left Leg: Motor (5-second hold - always test supine) - 0(No drift) 6b. Right Leg: Motor (5-second hold - always test supine) - 0(No drift) 7. Limb Ataxia (finger/nose \T\ heel/espino - test with eyes open) - 0(Absent) 8. Sensory Loss (pinprick arms/legs/face) - 0(Normal) 9. Best Language: Aphasia (description/naming/reading) - 0(No aphasia) 10. Dysarthria (speech clarity - read or repeat words) - 0(Normal) 11. Extinction and Inattention (visual/tactile/auditory/spatial/personal) - 0(No abnormality) Initials: NIH Stroke Scale - NIH Stroke Score Date: 05/18/2018 Time: 22:37 Total Score = 1 1a. Level of Consciousness (LOC) - 0(Alert) 1b. Level of Consciousness (LOC) (Year \T\ Age) - 0(Both) 1c. LOC Commands (Open \T\ Closes Eyes/Tubular Riveter) - 0(Both) 2. Best Gaze (Lateral Gaze Paresis) - 0(Normal) 3. Visual Field Loss - 0(No visual loss) 4. Facial Palsy - 1(Minor Paralysis) 5a. Left Arm: Motor (10-second hold) - 0(No drift) 5b. Right Arm: Motor (10-second hold) - 0(No drift) 6a. Left Leg: Motor (5-second hold - always test supine) - 0(No drift) 6b. Right Leg: Motor (5-second hold - always test supine) - 0(No drift) 7. Limb Ataxia (finger/nose \T\ heel/espino - test with eyes open) - 0(Absent) 8. Sensory Loss (pinprick arms/legs/face) - 0(Normal) 9. Best Language: Aphasia (description/naming/reading) - 0(No aphasia) 10. Dysarthria (speech clarity - read or repeat words) - 0(Normal) 11. Extinction and Inattention (visual/tactile/auditory/spatial/personal) - 0(No abnormality) Initials: jd3 Signatures: Dispatcher [employer] EDHananh Santamaria RN RN Bassem Vo MD MD Jose Manuel Aguayo RN RN jd3 Corrections: (The following items were deleted from the chart) 22:38 21:16 05/18/2018 21:16 Transfer ordered to [facility]. jd3 Diagnosis is Transient cerebral ischemic attacks and related syndromes. Reason for transfer: Higher level of care. Accepting physician is jammie. Condition is Stable. Problem is new. Symptoms have improved.
[2018-05-19 02:00] VITALS: TEMP 98.1
[2018-05-19 02:03] VITALS: BP 178/72; O2SAT 94
--- NOTE | 2018-05-19 10:38 | EKG ---
Test Date: 2018-05-18 Test Time: 19:22:18 Aviation Medicine Specialist: LANE MEASUREMENT RESULTS: Intervals: Rate: 70 GA: 192 QRSD: 92 QT: 406 QTc: 438 Zebulon: P: 29 GA: 192 QRS: -14 T: 41 INTERPRETIVE STATEMENTS: Normal sinus rhythm Inferior infarct, age undetermined Cannot rule out Anterior infarct, age undetermined Abnormal ECG Compared to ECG 05/04/2018 12:03:00 Atrial fibrillation no longer present Myocardial infarct finding still present Electronically Signed On 05-19-18 08:14:07 CDT by Panda Chambers
== END 2018-05-18 22:38 | disposition short-term general hospital (02) ==
LOC: ER 19:09
DX: G45.8 Other transient cerebral ischemic attacks and related syndromes (principal); R29.703 NIHSS score 3; I10 Essential (primary) hypertension; I48.91 Unspecified atrial fibrillation; E03.9 Hypothyroidism, unspecified; E78.5 Hyperlipidemia, unspecified; I25.2 Old myocardial infarction; Z79.01 Long term (current) use of anticoagulants; Z86.73 Personal history of transient ischemic attack (TIA), and cerebral infarction without residual deficits; Z95.818 Presence of other cardiac implants and grafts
CPT/HCPCS: 85025; 80048; 36415; 85610; 82962; 85730; 70496; 70498; 70450; 71045; Q9967; 93005

== ENCOUNTER 2018-08-18 14:46 | Observation (INO) | payer OTHER, MEDICARE ==
--- OUTSIDE RECORDS SUMMARY | 2018-08-18 14:48 | XMS REPORT | Clinical Summary ---
:1940 Author Organization [facility] Address [address] [place] [address] Care Team Providers Name Role Phone Boogie [...] claudication (Primary Dx) 12/06/2017 Documentation Orthopedic Surgery Franchseca Morin MA 11/24/2017 Documentation Orthopedic Peter Ellison [...] whether neurogenic claudication present (Primary Dx) after 08/17/2017 Family History Medical History Relation Name Comments [...] VACCINE (1 of 2 - PCV13) 2005 INFLUENZA VACCINE 2018 Procedures Procedure Name Priority Date/Time Associated Diagnosis Comments MRI SPINE EXTERNAL Routine 10/22/2017 12:59 PM Results for this STUDY CDT procedure are in the results section. after 08/17/2017 Results MRI Spine External Study (10/22/2017 12:59 PM CDT) Specimen Narrative Performed At This exam was not acquired at a [facility] facility and has not been [facility] interpreted by a [facility] Provider.The exam was imported into our imaging system for comparisons purposes. Performing Organization Address City/State/Zipcode Phone Number [facility] [address] [place] [address] after 08/17/2017 Insurance Payer Benefit Plan / Subscriber ID Effective Dates Phone Address Type Group MEDICARE MEDICARE PART A xxxxxxxxxx 2005-Present [place], [place] Medicare AND B AARP AARP SUPPLEMENT xxxxxxxxx 2009-Present Commercial Advance Directives Patient has advance care planning documents on file. For more information, please contact:Jesús Gupta[address] [place] [address]
--- OUTSIDE RECORDS SUMMARY | 2018-08-18 14:49 | XMS REPORT | Clinical Summary ---
:1940 Author Organization [facility] Address [address] [place] [address] Care Team Providers Name Role Phone Unavailable Primary Care Provider Unavailable Allergies No Known Allergies Medications Medication Sig Dispensed Refills Start Date End Date Status lisinopril-hydroCHLOR Take 1 tablet 0 Active Othiazide by mouth daily. (PRINZIDE,ZESTORETIC) 20-25 mg per tablet metoprolol Take 50 mg by 0 Active (LOPRESSOR) 50 MG mouth 2 (two) tablet times daily. levothyroxine Take 100 mcg by 0 Active (SYNTHROID, mouth Every LEVOTHROID) 100 MCG morning on an tablet empty stomach. tamsulosin (FLOMAX) Take 0.4 mg by 0 Active 0.4 mg Cap 24 hr mouth 2 (two) capsule times daily. rosuvastatin Take 5 mg by 0 Active (CRESTOR) 5 MG tablet mouth nightly. rivaroxaban (XARELTO) Take 20 mg by 0 Active 20 mg Tab tablet mouth daily with dinner. ciprofloxacin HCl Take 1 tablet 14 tablet 0 05/05/2018 05/12/2018 (CIPRO) 500 MG tablet (500 mg total) by mouth 2 (two) times daily for 7 days. levoFLOXacin Take 1 tablet 10 tablet 0 05/20/2018 05/30/2018 (LEVAQUIN) 500 MG (500 mg total) tablet by mouth daily for 10 days. cefdinir (OMNICEF) Take 1 capsule 20 capsule 0 05/29/2018 06/08/2018 300 MG capsule (300 mg total) by mouth 2 (two) times daily for 10 days. Active Problems Problem Noted Date Numbness of left hand 05/19/2018 Syncope and collapse 05/05/2018 Foul smelling urine 05/05/2018 Syncope 05/05/2018 TIA (transient ischemic attack) 05/01/2018 Encounters Date Type Specialty Care Team Description 05/19/2018 Travel 05/18/2018 - Hospital General Internal Sharron Borrero Numbness of left hand; 05/20/2018 Encounter Medicine Alyssa Goldstein, Syncope and collapse; TIA (transient ischemic attack); Donna Chacon, Urinary tract infection without hematuria, site unspecified 05/04/2018 - Hospital General Internal Itz Dimas MD Syncope and collapse (Primary Dx); 05/05/2018 Encounter Medicine Mandi Jernigan Foul smelling urine; MD Claudia Syncope, unspecified syncope type; TIA (transient ischemic attack); Hypotension, unspecified hypotension type 05/04/2018 Travel 05/01/2018 - Hospital Cardiology Naty Mars TIA (transient ischemic attack); 05/03/2018 Encounter MD Jono Cerebrovascular accident (CVA), unspecified mechanism (HCC); Norma Kapoor MD Numbness of right hand; Alfredo, Right arm numbness; Evgeny Becerra, Facial numbness 05/01/2018 Travel after 08/17/2017 Social History Tobacco Use Types Packs/Day Years Used Date Never Smoker Sex Assigned at Date Recorded Not on file Job Start Date Occupation Industry Not on file Not on file Not on file Travel History Travel Start Travel End No recent travel history available. Last Filed Vital Signs Vital Sign Reading Time Taken Blood Pressure 177/79 05/20/2018 4:04 PM CDT Pulse 61 05/20/2018 4:04 PM CDT Temperature 35.7 C (96.2 F) 05/20/2018 4:04 PM CDT Respiratory Rate 19 05/20/2018 4:04 PM CDT Oxygen Saturation 95% 05/20/2018 4:04 PM CDT Inhaled Oxygen Concentration 21% 05/19/2018 10:00 PM CDT Weight 105 kg (231 lb 7.7 oz) 05/04/2018 9:00 PM ANIMAL TECH Height 172.7 cm (5' 8") 05/19/2018 1:00 AM CDT Body Mass Index 34.18 05/04/2018 9:00 PM ANIMAL TECH Plan of Treatment Not on file Procedures Procedure Name Priority Date/Time Associated Comments Diagnosis RHYTHM STRIP - SCAN 06/06/2018 3:31 PM CDT REPORT OF PROCEDURE - 05/23/2018 1:00 ENDOSCOPY SCAN PM CDT RHYTHM STRIP - SCAN 05/23/2018 1:00 PM CDT MR BRAIN WITHOUT IV Routine 05/20/2018 10:50 Results for this CONTRAST AM CDT procedure are in the results section. XR CHEST 1 VIEW FAITH 05/19/2018 2:15 Results for this PORTABLE/BEDSIDE PM CDT procedure are in the results section. XR ABDOMEN 1 VIEW FAITH 05/19/2018 2:15 Results for this PM CDT procedure are in the results section. ECG 12-LEAD Routine 05/19/2018 8:23 Results for this AM CDT procedure are in the results section. URINALYSIS W/ REFLEX Routine 05/19/2018 7:15 Results for this URINE CULTURE AM CDT procedure are in the results section. URINE CULTURE Routine 05/19/2018 7:15 Results for this AM CDT procedure are in the results section. CBC W/PLT COUNT & AUTO Routine 05/19/2018 3:00 Results for this DIFFERENTIAL AM CDT procedure are in the results section. CBC W/PLT COUNT & AUTO Routine 05/19/2018 3:00 Results for this DIFFERENTIAL AM CDT procedure are in the results section. BASIC METABOLIC PANEL Routine 05/19/2018 3:00 Results for this (7) AM CDT procedure are in the results section. TSH/FREE T4 IF Routine 05/19/2018 3:00 Results for this INDICATED AM CDT procedure are in the results section. RHYTHM STRIP - SCAN 05/10/2018 10:52 AM ANIMAL TECH RHYTHM STRIP - SCAN 05/10/2018 10:52 AM ANIMAL TECH REPORT OF PROCEDURE - 05/10/2018 10:52 ENDOSCOPY SCAN AM ANIMAL TECH RHYTHM STRIP - SCAN 05/10/2018 10:52 AM ANIMAL TECH RHYTHM STRIP - SCAN 05/06/2018 6:20 AM ANIMAL TECH REPORT OF PROCEDURE - 05/06/2018 6:20 ENDOSCOPY SCAN AM ANIMAL TECH URINALYSIS W/ Routine 05/05/2018 10:17 Results for this MICROSCOPIC AM ANIMAL TECH procedure are in the results section. EEG AWAKE AND DROWSY Routine 05/05/2018 9:34 Results for this AM ANIMAL TECH procedure are in the results section. CBC (HEMOGRAM ONLY) Routine 05/05/2018 4:49 Results for this AM ANIMAL TECH procedure are in the results section. MAGNESIUM Routine 05/05/2018 4:49 Results for this AM ANIMAL TECH procedure are in the results section. BASIC METABOLIC PANEL Routine 05/05/2018 4:49 Results for this (7) AM ANIMAL TECH procedure are in the results section. POCT-GLUCOSE METER Routine 05/04/2018 10:09 Results for this PM ANIMAL TECH procedure are in the results section. BASIC METABOLIC PANEL Routine 05/03/2018 5:02 Results for this (7) AM ANIMAL TECH procedure are in the results section. ECHOCARDIOGRAM REPORT - 05/02/2018 9:22 SCAN PM ANIMAL TECH CT/CTA CAROTID STAT 05/02/2018 5:34 Results for this PM ANIMAL TECH procedure are in the results section. CT/CTA BRAIN STAT 05/02/2018 5:34 Results for this PM ANIMAL TECH procedure are in the results section. LIPID PANEL Routine 05/02/2018 6:00 Results for this AM ANIMAL TECH procedure are in the results section. BASIC METABOLIC PANEL Routine 05/02/2018 6:00 Results for this (7) AM ANIMAL TECH procedure are in the results section. MR BRAIN WITHOUT IV Routine 05/01/2018 10:03 Results for this CONTRAST PM ANIMAL TECH procedure are in the results section. CBC W/PLT COUNT & AUTO Routine 05/01/2018 6:47 Results for this DIFFERENTIAL PM ANIMAL TECH procedure are in the results section. HEMOGLOBIN A1C Routine 05/01/2018 6:47 Results for this PM ANIMAL TECH procedure are in the results section. COMPREHENSIVE METABOLIC Routine 05/01/2018 6:47 Results for this PANEL PM ANIMAL TECH procedure are in the results section. CBC W/PLT COUNT & AUTO Routine 05/01/2018 6:47 Results for this DIFFERENTIAL PM ANIMAL TECH procedure are in the results section. 2D ECHO W/ DOPPLER STAT 05/01/2018 5:26 Results for this (CW/PW/COLOR) PM ANIMAL TECH procedure are in the results section. after 08/17/2017 Results RHYTHM STRIP - SCAN (06/06/2018 3:31 PM CDT)Only the most recent of6 resultswithin the time period is included. Narrative Performed At EKG-SCANNED (05/23/2018 1:00 PM CDT)Only the most recent of3 resultswithin the time period is included. Narrative Performed At MR brain without IV contrast (05/20/2018 10:50 AM CDT)Only the most recent of2 resultswithin the time period is included. Specimen Narrative Performed At FINAL REPORT [facility] MR, BRAIN, WITHOUT CONTRAST INDICATION: Focal neuro deficit, new, fixed or worsening, >6 hours Stroke TECHNIQUE: Multiplanar, multisequence MR imaging of the brain without intravenous contrast. COMPARISON: May 01, 2018 FINDINGS: There is no restricted diffusion.Redemonstration of a white matter changes both scattered and periventricular distribution, most likely representing sequela of chronic microvascular disease. There is no parenchymal or extra-axial hemorrhage. The midline is normally positioned. The ventricles are normal in size and configuration. The larger intracranial vascular flow-voids are preserved. Paranasal sinuses and mastoid air cells are clear. There is normal bone marrow signal intensity within the calvarium and skull base. IMPRESSION: No acute or subacute ischemic change. No intracranial hemorrhage. Signed: JR Donaldson Robert MD Report Verified Date/Time:05/20/2018 11:09:50 Reading Location: [address] Neuro Reading Room Procedure Note Interface, External Ris In - 05/20/2018 11:12 AM CDT FINAL REPORT MR, BRAIN, WITHOUT CONTRAST INDICATION: Focal neuro deficit, new, fixed or worsening, >6 hours Stroke TECHNIQUE: Multiplanar, multisequence MR imaging of the brain without intravenous contrast. COMPARISON: May 01, 2018 FINDINGS: There is no restricted diffusion. Redemonstration of a white matter changes both scattered and periventricular distribution, most likely representing sequela of chronic microvascular disease. There is no parenchymal or extra-axial hemorrhage. The midline is normally positioned. The ventricles are normal in size and configuration. The larger intracranial vascular flow-voids are preserved. Paranasal sinuses and mastoid air cells are clear. There is normal bone marrow signal intensity within the calvarium and skull base. IMPRESSION: No acute or subacute ischemic change. No intracranial hemorrhage. Signed: JR Donaldson Robert MD Report Verified Date/Time: 05/20/2018 11:09:50 Reading Location: [address] Neuro Reading Room Performing Organization Address City/State/Zipcode Phone Number [facility] XR chest 1 view portable / bedside (05/19/2018 2:15 PM CDT) Specimen Narrative Performed At FINAL REPORT [facility] Clinical History: for eval for metal object for MRI Comparison Study: None Findings:The heart and lungs are within normal limits.The pleural spaces are clear. Degenerative changes are seen. A high-density structure, possibly a battery projects over the upper thorax. Impression: No active cardiopulmonary disease. Signed: Gagan Nguyễn MD Report Verified Date/Time:05/19/2018 17:21:53 Reading Location: [address] Consult Reading Room Procedure Note Interface, External Ris In - 05/19/2018 5:24 PM CDT FINAL REPORT Clinical History: for eval for metal object for MRI Comparison Study: None Findings: The heart and lungs are within normal limits. The pleural spaces are clear. Degenerative changes are seen. A high-density structure, possibly a battery projects over the upper thorax. Impression: No active cardiopulmonary disease. Signed: Gagan Nguyễn MD Report Verified Date/Time: 05/19/2018 17:21:53 Reading Location: [address] Consult Reading Room Performing Organization Address City/State/Zipcode Phone Number [facility] XR abdomen / KUB 1 view (05/19/2018 2:15 PM CDT) Specimen Narrative Performed At FINAL REPORT [facility] Abdomen. HISTORY: Evaluate for metallic object for MRI. COMPARISON STUDY: None available. FINDINGS: Two supine views of the abdomen demonstrate a 5 mm high attenuation structure projecting to the left of L1 of uncertain etiology. No dilated loops of bowel are seen. This film is insensitive for the detection of free air. Degenerative changes are seen. IMPRESSION: Questionable 5 mm metallic body projecting in the left of L1. This can be correlated with CT scan. Signed: Gagan Nguyễn MD Report Verified Date/Time:05/19/2018 19:20:29 Reading Location: [address] Consult Reading Room Procedure Note Interface, External Ris In - 05/19/2018 7:22 PM CDT FINAL REPORT Abdomen. HISTORY: Evaluate for metallic object for MRI. COMPARISON STUDY: None available. FINDINGS: Two supine views of the abdomen demonstrate a 5 mm high attenuation structure projecting to the left of L1 of uncertain etiology. No dilated loops of bowel are seen. This film is insensitive for the detection of free air. Degenerative changes are seen. IMPRESSION: Questionable 5 mm metallic body projecting in the left of L1. This can be correlated with CT scan. Signed: Gagan Nguyễn MD Report Verified Date/Time: 05/19/2018 19:20:29 Reading Location: [address] Consult Reading Room Performing Organization Address City/[facility] Phone Number [facility] ECG 12 lead (05/19/2018 8:23 AM CDT) Specimen Narrative Performed At Ventricular Rate 55 BPM GE MUSE Atrial Rate 55 BPM P-R Interval 196 ms QRS Duration 98 ms Q-T Interval 448 ms QTC Calculation(Bazett) 428 ms P [place] 31 degrees R [place] -1 degrees T [place] 33 degrees Sinus bradycardia Otherwise normal ECG When compared with ECG of 06-AUG-2008 19:10, Vent. rate has decreased BY33 BPM Confirmed by MD Oneill Roberto ([id number]) on 05/19/2018 2:13:52 PM Procedure Note Interface, External Ris In - 05/19/2018 2:13 PM CDT Ventricular Rate 55 BPM Atrial Rate 55 BPM P-R Interval 196 ms QRS Duration 98 ms Q-T Interval 448 ms QTC Calculation(Bazett) 428 ms P [place] 31 degrees R [place] -1 degrees T [place] 33 degrees Sinus bradycardia Otherwise normal ECG When compared with ECG of 06-AUG-2008 19:10, Vent. rate has decreased BY 33 BPM Confirmed by MD Oneill Roberto ([id number]) on 05/19/2018 2:13:52 PM Performing Organization Address [facility] Phone Number [employer] Urinalysis w/Microscopic + Reflex to Culture (05/19/2018 7:15 AM CDT) Color, UA Light Yellow [facility] Clarity, UA Hazy [facility] Specific [place], UA 1.021 1.001 - 1.035 [facility] pH, UA 5.0 5.0 - 8.0 [facility] Protein, UA Negative Negative [facility] Glucose, UA Negative Negative [facility] Ketones, UA Negative Negative [facility] Bilirubin, UA Negative Negative [facility] Blood, UA Trace (A) Negative [facility] Nitrite, UA Positive (A) Negative [facility] Leukocytes, UA Large (A) Negative [facility] Urobilinogen, UA 0.2 0.2 - 1.0 mg/dL [facility] RBC, UA 2 /HPF [facility] WBC, UA 50 /HPF [facility] Bacteria, UA Few [facility] Squam Epithel, UA <1 /HPF [facility] Hyaline Casts, UA 2 /LPF [facility] Specimen Source [facility] Specimen Urine Performing Organization Address City/State/Zipcode Phone Number [facility] [address] [place] [address] [phone] CENTER Urine culture (05/19/2018 7:15 AM CDT) Result ESCHERICHIA COLI (A) [facility] Result ESCHERICHIA COLI (A)Comment: of a [facility] second type MEDICAL CENTER Specimen Urine Narrative Performed At 40-49,000 col/mL skin kacey [facility] Organism Antibiotic Method Susceptibility Escherichia coli Amikacin <=2: Susceptible Escherichia coli Ampicillin + Sulbactam 16: Resistant Escherichia coli Aztreonam <=1: Susceptible Escherichia coli Cefepime <=1: Susceptible Escherichia coli Cefoxitin <=4: Susceptible Escherichia coli Ceftazidime <=1: Susceptible Escherichia coli Ceftriaxone <=1: Susceptible Escherichia coli Ertapenem <=0.5: Susceptible Escherichia coli Gentamicin <=1: Susceptible Escherichia coli Levofloxacin >=8: Resistant Escherichia coli Meropenem <=0.25: Susceptible Escherichia coli Nitrofurantoin <=16: Susceptible Escherichia coli Piperacillin + Tazobactam <=4: Susceptible Escherichia coli Tetracycline >=16: Resistant Escherichia coli Tobramycin <=1: Susceptible Escherichia coli Trimethoprim + Sulfamethoxazole >=320: Resistant Escherichia coli Amikacin <=2: Susceptible Escherichia coli Ampicillin + Sulbactam 16: Resistant Escherichia coli Aztreonam <=1: Susceptible Escherichia coli Cefepime <=1: Susceptible Escherichia coli Cefoxitin <=4: Susceptible Escherichia coli Ceftazidime <=1: Susceptible Escherichia coli Ceftriaxone <=1: Susceptible Escherichia coli Ertapenem <=0.5: Susceptible Escherichia coli Gentamicin <=1: Susceptible Escherichia coli Levofloxacin >=8: Resistant Escherichia coli Meropenem <=0.25: Susceptible Escherichia coli Nitrofurantoin <=16: Susceptible Escherichia coli Piperacillin + Tazobactam <=4: Susceptible Escherichia coli Tetracycline >=16: Resistant Escherichia coli Tobramycin <=1: Susceptible Escherichia coli Trimethoprim + Sulfamethoxazole >=320: Resistant Performing Organization Address City/[facility] Phone Number [address] [address] [phone] CENTER TSH/Free T4 If Indicated (05/19/2018 3:00 AM CDT) TSH 1.94 0.35 - 4.94 uIU/mL [facility] Specimen Blood Performing Organization Address [facility] Phone Number [address] [address] [phone] CENTER CBC with platelet count + automated diff (05/19/2018 3:00 AM CDT)Only the most recent of2 resultswithin the time period is included. WBC 7.3 3.5 - 10.5 K/L [facility] RBC 3.91 (L) 4.63 - 6.08 M/L [facility] Hemoglobin 12.3 (L) 13.7 - 17.5 GM/DL [facility] Hematocrit 37.7 (L) 40.1 - 51.0 % [facility] MCV 96.4 (H) 79.0 - 92.2 fL [facility] MCH 31.5 25.7 - 32.2 pg [facility] MCHC 32.6 32.3 - 36.5 GM/DL [facility] RDW 14.5 (H) 11.6 - 14.4 % [facility] Platelets 161 150 - 450 K/CU MM [facility] MPV 12.0 9.4 - 12.4 fL [facility] nRBC 0 0 - 0 /100 WBC [facility] % Neutros 58 % [facility] % Lymphs 26 % [facility] % Monos 12 % [facility] % Eos 2 % [facility] % Baso 1 % [facility] # Neutros 4.27 1.78 - 5.38 K/L [facility] # Lymphs 1.91 1.32 - 3.57 K/L [facility] # Monos 0.88 (H) 0.30 - 0.82 K/L [facility] # Eos 0.13 0.04 - 0.54 K/L [facility] # Baso 0.07 0.01 - 0.08 K/L [facility] Immature Granulocytes-Relative 1 0 - 1 % [facility] Specimen Blood Performing Organization Address City/State/Zipcode Phone Number [facility] [address] [place] [address] CENTER Basic Metabolic Panel (05/19/2018 3:00 AM CDT)Only the most recent of4 resultswithin the time period is included. Sodium 140 136 - 145 meq/L [facility] Potassium 3.4 (L) 3.5 - 5.1 meq/L [facility] Chloride 103 98 - 107 meq/L [facility] CO2 25 22 - 29 meq/L [facility] BUN 18 7 - 21 mg/dL [facility] Creatinine 0.83 0.57 - 1.25 mg/dL [facility] Glucose 134 (H) 70 - 105 mg/dL [facility] Calcium 9.2 8.4 - 10.2 mg/dL [facility] EGFR 90Comment: ESTIMATED GFR IS mL/min/1.73 sq m [facility] NOT ACCURATE [facility]ININE [facility] CLEARANCE IN PREDICTING GLOMERULAR FILTRATION RATE. ESTIMATED GFR IS NOT APPLICABLE FOR DIALYSIS PATIENTS. Specimen Blood Performing Organization Address City/State/Zipcode Phone Number [facility] [address] [place] [address] CENTER Urinalysis w/Microscopic (05/05/2018 10:17 AM ANIMAL TECH) Color, UA Yellow [facility] Clarity, UA Hazy [facility] Specific [place], UA 1.014 1.001 - 1.035 [facility] pH, UA 5.0 5.0 - 8.0 [facility] Protein, UA 10 mg/dL (A) Negative [facility] Glucose, UA 50 mg/dL (A) Negative [facility] Ketones, UA Negative Negative [facility] Bilirubin, UA Negative Negative [facility] Blood, UA Trace (A) Negative [facility] Nitrite, UA Positive (A) Negative [facility] Leukocytes, UA Large (A) Negative [facility] Urobilinogen, UA 0.2 0.2 - 1.0 mg/dL [facility] RBC, UA 1 /HPF [facility] WBC, UA 127 /HPF [facility] Bacteria, UA Occasional [facility] Squam Epithel, UA <1 /HPF [facility] Specimen Source Urine, Voided [facility] Specimen Urine Performing Organization Address City/State/Zipcode Phone Number [facility] [address] [place] [address] [phone] CENTER EEG AWAKE AND DROWSY (05/05/2018 9:34 AM ANIMAL TECH) Specimen Narrative Performed At [employer] DATE OF REPORT: 05/05/18 Date(s) of Study: 05/05/18 ACC: [id number] Start time: 0913 hrs on 05/05/18 Stop time: 0934 hrs on 05/05/18 ICD-10: R56.9 CPT Code: 00589 HISTORY: 77 yo male with PMHx of AFib, HTN, HLD, [place] admitted for syncope vs seizure. MEDICATIONS THAT [...] Hassan MD Epilepsy/Neurophysiology Fellow Kota Koroma M.D., FLAKO JAMA FAES Professor of Neurology, [facility] Director, [facility] [place], [facility] Procedure Note Interface, External Ris In - 05/05/2018 2:01 PM ANIMAL TECH DATE OF REPORT: 05/05/18 Date(s) of Study: 05/05/18 ACC: [id number] Start time: 0913 hrs on 05/05/18 Stop time: 0934 hrs on 05/05/18 ICD-10: R56.9 CPT Code: 84132 HISTORY: 77 yo male with PMHx of AFib, HTN, HLD, [place] admitted for syncope vs seizure. MEDICATIONS THAT [...] Hassan MD Epilepsy/Neurophysiology Fellow Kota Koroma M.D., FLAKO JAMA FAES Professor of Neurology, [employer] Director, [facility] Epilepsy [place], [place] Neurophysiology Lab Performing Organization Address City/State/Zipcode Phone Number GE RIS CBC (Hemogram only) (05/05/2018 4:49 AM ANIMAL TECH) WBC 7.3 3.5 - 10.5 K/L [facility] RBC 4.40 (L) 4.63 - 6.08 M/L [facility] Hemoglobin 13.6 (L) 13.7 - 17.5 GM/DL [facility] Hematocrit 42.3 40.1 - 51.0 % [facility] MCV 96.1 (H) 79.0 - 92.2 fL [facility] MCH 30.9 25.7 - 32.2 pg [facility] MCHC 32.2 (L) 32.3 - 36.5 GM/DL [facility] RDW 14.4 11.6 - 14.4 % [facility] Platelets 180 150 - 450 K/CU MM [facility] MPV 12.6 (H) 9.4 - 12.4 fL [facility] nRBC 0 0 - 0 /100 WBC [facility] Specimen Blood Performing Organization Address City/[facility] Phone Number [address] [address] CENTER Magnesium (05/05/2018 4:49 AM ANIMAL TECH) Magnesium 1.8 1.6 - 2.6 mg/dL [facility] Specimen Blood Performing Organization Address City/[facility] Phone Number [address] [address] CENTER POC-Glucose meter (05/04/2018 10:09 PM ANIMAL TECH) POC-Glucose Meter 151 (H)Comment: TESTED AT 70 - 110 mg/dL [facility] [address] [facility] [address] Specimen Blood Performing Organization Address City/State/Zipcode Phone Number [facility] [address] [place], [place] [address] [phone] CENTER ECHOCARDIOGRAM REPORT - SCAN (05/02/2018 9:22 PM ANIMAL TECH) Narrative Performed At CTA carotid (05/02/2018 5:34 PM ANIMAL TECH) Specimen Narrative Performed At Addendum Begins [facility] REPORT STATUS:A Technique: Additional 3D imaging series were created using volume rendering technique on an independent workstation for optimal visualization of cervical and intracranial vasculature. Signed: Stone Rivera MD Report Verified Date/Time:05/11/2018 18:21:26 Reading Location: [facility] C013X Ortho Consult Reading Room Addendum Ends [...] left vertebral artery origin. 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 Multifocal mild narrowing of the carotid siphons. Involutional, and chronic microvascular ischemic changes of the brain. Small exophytic skin lesion arising from the right frontal scalp. Signed: Stone Rivera MD Report Verified Date/Time:05/02/2018 18:07:55 Reading Location: [facility] Radiology Reading Room Procedure Note Interface, External Ris In - 05/11/2018 6:23 PM ANIMAL TECH Addendum Begins REPORT STATUS:A Technique: Additional 3D imaging series were created using volume rendering technique on an independent workstation for optimal visualization of cervical and intracranial vasculature. Signed: Stone Rivera MD Report Verified Date/Time: 05/11/2018 18:21:26 Reading Location: [facility] C013X Ortho Consult Reading Room Addendum Ends [...] left vertebral artery origin. 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 Multifocal mild narrowing of the carotid siphons. Involutional, and chronic microvascular ischemic changes of the brain. Small exophytic skin lesion arising from the right frontal scalp. Signed: Stone Rivera MD Report Verified Date/Time: 05/02/2018 18:07:55 Reading Location: [facility] Radiology Reading Room Performing Organization Address City/State/Zipcode Phone Number [employer] RIS CTA brain (05/02/2018 5:34 PM ANIMAL TECH) Specimen Narrative Performed At Addendum Begins GE RIS REPORT STATUS:A Technique: Additional 3D imaging series were created using volume rendering technique on an independent workstation for optimal visualization of cervical and intracranial vasculature. Signed: Stone Rivera MD Report Verified Date/Time:05/11/2018 18:21:26 Reading Location: [facility] C013X Ortho Consult Reading Room Addendum Ends [...] left vertebral artery origin. 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 Multifocal mild narrowing of the carotid siphons. Involutional, and chronic microvascular ischemic changes of the brain. Small exophytic skin lesion arising from the right frontal scalp. Signed: Stone Rivera MD Report Verified Date/Time:05/02/2018 18:07:55 Reading Location: [facility] Radiology Reading Room Procedure Note Interface, External Ris In - 05/11/2018 6:23 PM ANIMAL TECH Addendum Begins REPORT STATUS:A Technique: Additional 3D imaging series were created using volume rendering technique on an independent workstation for optimal visualization of cervical and intracranial vasculature. Signed: Stone Rivera MD Report Verified Date/Time: 05/11/2018 18:21:26 Reading Location: [facility] B1 C013X Ortho Consult Reading Room Addendum Ends [...] left vertebral artery origin. There is also faul-ty-dmclqntc stenosis of the mid to distal intracranial left vertebral artery and mild narrowing of the proximal basilar artery. Multifocal mild narrowing of the carotid siphons. Involutional, and chronic microvascular ischemic changes of the brain. Small exophytic skin lesion arising from the right frontal scalp. Signed: Stone Rivera MD Report Verified Date/Time: 05/02/2018 18:07:55 Reading Location: [facility] Radiology Reading Room Performing Organization Address City/[facility]/Zipcode Phone Number [facility] Lipid panel (05/02/2018 6:00 AM ANIMAL TECH) Triglycerides 93 mg/dL [facility] Cholesterol 137 mg/dL [facility] HDL 43 mg/dL [facility] LDL Calculated 75 mg/dL [facility] Specimen Blood Narrative Performed At Triglyceride Reference Range: [facility] Low Risk <150 [id number] High Risk 200-499 Very High Risk>=500 Cholesterol Reference Range: Low Risk <200 [id number] High Risk>240 HDL Cholesterol Reference Range: Low Risk >=60 High Risk <40 LDL Cholesterol Reference Range: Optimal<100 Near Ubofrss507-371 [id number] [id number] Very High >=190 Performing Organization Address City/State/Zipcode Phone Number [address] [address] [phone] CENTER Hemoglobin A1c (05/01/2018 6:47 PM ANIMAL TECH) Hemoglobin A1C 8.0 (H) 4.3 - 6.1 % [facility] Specimen Blood Performing Organization Address City/[facility]/Zipcode Phone Number [facility] [address] [place] [address] [phone] [facility] Comprehensive metabolic panel (05/01/2018 6:47 PM ANIMAL TECH) Protein, Total 8.0 6.0 - 8.3 gm/dL [facility] Albumin 4.0 3.5 - 5.0 g/dL [facility] Alkaline Phosphatase 59 40 - 150 U/L [facility] Total Bilirubin 0.6 0.2 - 1.2 mg/dL [facility] Sodium 143 136 - 145 meq/L [facility] Potassium 3.5 3.5 - 5.1 meq/L [facility] Chloride 106 98 - 107 meq/L [facility] CO2 24 22 - 29 meq/L [facility] BUN 14 7 - 21 mg/dL [facility] Creatinine 0.81 0.57 - 1.25 mg/dL [facility] Glucose 136 (H) 70 - 105 mg/dL [facility] Calcium 9.3 8.4 - 10.2 mg/dL [facility] AST 17 5 - 34 U/L [facility] ALT 17 6 - 55 U/L [facility] EGFR 92Comment: ESTIMATED GFR mL/min/1.73 sq m [facility] IS NOT ACCURATE [facility] CREATININE CLEARANCE IN PREDICTING GLOMERULAR FILTRATION RATE. ESTIMATED GFR IS NOT APPLICABLE FOR DIALYSIS PATIENTS. Specimen Blood Performing Organization Address City/State/Zipcode Phone Number [facility] [address] [place] [address] [phone] [facility] 2D Echo W/Doppler(CW/PW/Color) (05/01/2018 5:26 PM ANIMAL TECH) Ejection Fraction [facility] CPACS Specimen Narrative Performed At Transthoracic Echocardiography Report (TTE) [facility] Demographics Patient Name Jaquan DSOUZA of Study 05/01/2018 A [id number] GenderMale Visit Number [id number] Adamn [id number] Number [id number] Number Date of Birth1940 Referring Physician Age77 year(s) [employer] Esteban Babb [facility] Pre Physician Read John [...] is normal (male - LVIDd 4.2-5.8cm) . Muhd-mt-nzwdbdii concentric LV hypertrophy. All of the LV [...] normal (male - LVIDd 4.2-5.8cm) . Mi so-dm-ngjqrooe concentric LV hypertrophy. All of th e [...] External Ris In - 05/02/2018 10:18 AM ANIMAL TECH Transthoracic Echocardiography Report (TTE) Demographics Patient Name KATY DSOUZA Date of Study 05/01/2018 A Gender Male Visit Number [id number] Race Unknown Room Number [id number] Number Date of 1940 Referring Physician Age 77 year(s) [employer] Esteban Babb RDCS Interpreting [facility] Needs to be Pre Physician Read John [...] is normal (male - LVIDd 4.2-5.8cm) . Sxzr-nk-crneojlv concentric LV hypertrophy. All of the LV [...] is normal (male - LVIDd 4.2-5.8cm) . Nlyn-va-fmbhxmmq concentric LV hypertrophy. All of the LV [...] Performing Organization Address City/State/Zipcode Phone Number [facility] [employer] [facility] CPACS after 08/17/2017 Insurance Payer Benefit Plan / Group Subscriber ID Type Phone Address MEDICARE MEDICARE A B xxxxxxxxxxx Medicare MCR SUPPLEMENT/INDIVIDUAL AARP/[facility] xxxxxxxxxxx [employer] Advance Directives For more information, please contact:[address] [phone] Code Status Date Activated Date Inactivated Comments Full Code 05/19/2018 1:05 AM 05/20/2018 8:26 PM This code status was determined by: Patient Full Code 05/19/2018 1:05 AM 05/19/2018 1:05 AM This code status was determined by: Patient Full Code 05/04/2018 10:14 PM 05/05/2018 7:04 PM This code status was determined by: Patient Full Code 05/01/2018 1:27 PM 05/03/2018 5:15 PM This code status was determined by: Patient
--- OUTSIDE RECORDS SUMMARY | 2018-08-18 14:50 | XMS REPORT ---
:1940 [facility] [address] [place] [address] Care Team Providers Name Role Phone VAN GUZMAN Unavailable Unavailable TARUN, UMAR Unavailable Unavailable YON CORONA Unavailable Unavailable Problems This patient has no known problems. Allergies, Adverse Reactions, Alerts This patient has no known allergies or adverse reactions. Medications This patient has no known medications. Results Test Description Test Time Test Comments Text Results Atomic Results Result Comments MR, BRAIN, 2018-05-20 Reason for FINAL REPORT PATIENT WITHOUT CONTRAST 11:09:00 exam:->StrokeWhat is the ID: [id number] MR, patient's sedation BRAIN, WITHOUT CONTRAST requirement?->No Sedation INDICATION: Focal neuro deficit, new, fixed or worsening, >6 hoursStroke TECHNIQUE: Multiplanar, multisequence MR imaging of the [...] No intracranial hemorrhage. Signed: JR Donaldson Robert MDReport Verified Date/Time: 05/20/2018 11:09:50 Reading Location: [facility] B1 C013V Neuro Reading Room , ABDOMEN/KUB, 2018-05-19 Reason for exam:->for FINAL REPORT PATIENT 1 VIEW AP 19:20:00 eval for metal object for ID: [id number] Abdomen. MRIShould this be HISTORY: Evaluate for performed at the metallic object for bedside?->Yes MRI. COMPARISON STUDY: None available. FINDINGS: Two [...] be correlated with CT scan. Signed: Gagan Nguyễneport Verified Date/Time: 05/19/2018 19:20:29 Reading Location: [address] Consult Reading Room , CHEST, 1 2018-05-19 Reason for exam:->for FINAL REPORT PATIENT VIEW, NON DEPT 17:21:00 eval for metal object for ID: [id number] Clinical MRIShould this be History: for eval for performed at the metal object for MRI bedside?->Yes Comparison Study: None Findings: The heart and lungs are within normal limits. The pleural spaces are clear. Degenerative changes are seen. A high-density structure, possibly a battery projects over the upper thorax. Impression: No active cardiopulmonary disease. Signed: Gagan Nguyễnort Verified Date/Time: 05/19/2018 17:21:53 Reading Location: [address] Consult Reading Room ALYSIS W/ REFLEX URINE CULTURE 2018-05-19 09:06:00 Test Item Value Reference Range Comments COLOR (BEAKER) (test xhdb=649) Light Yellow CLARITY (BEAKER) (test nnyh=132) Hazy SPECIFIC GRAVITY UA (BEAKER) (test viwf=791) 1.021 1.001-1.035 PH UA (BEAKER) (test zaff=893) 5.0 5.0-8.0 PROTEIN UA (BEAKER) (test yjvc=989) Negative Negative GLUCOSE UA (BEAKER) (test pidx=323) Negative Negative KETONES UA (BEAKER) (test vhvo=806) Negative Negative BILIRUBIN UA (BEAKER) (test nekv=537) Negative Negative BLOOD UA (BEAKER) (test awyw=596) Trace Negative NITRITE UA (BEAKER) (test efnk=939) Positive Negative LEUKOCYTE ESTERASE UA (BEAKER) (test veoy=874) Large Negative UROBILINOGEN UA (BEAKER) (test nsqp=905) 0.2 mg/dL 0.2-1.0 RBC UA (BEAKER) (test qytw=209) 2 /HPF WBC UA (BEAKER) (test echw=785) 50 /HPF BACTERIA (BEAKER) (test glef=369) Few SQUAMOUS EPITHELIAL (BEAKER) (test iqug=794) < /HPF HYALINE CASTS (BEAKER) (test pewp=820) 2 /LPF SOURCE(BEAKER) (test dvhc=8393) BASIC METABOLIC [id number] 07:48:00 Test Item Value Reference Range Comments SODIUM (BEAKER) (test 140 meq/L 136-145 leyf=712) POTASSIUM (BEAKER) (test 3.4 meq/L 3.5-5.1 vsau=484) CHLORIDE (BEAKER) (test 103 meq/L 98-107 fmdt=635) CO2 (BEAKER) (test 25 meq/L 22-29 zzaz=636) BLOOD UREA NITROGEN 18 mg/dL 7-21 (BEAKER) (test sruv=041) CREATININE (BEAKER) (test 0.83 mg/dL 0.57-1.25 rqph=643) GLUCOSE RANDOM (BEAKER) 134 mg/dL 70-105 (test lokz=074) CALCIUM (BEAKER) (test 9.2 mg/dL 8.4-10.2 lxeq=348) EGFR (BEAKER) (test 90 mL/min/1.73 sq m ESTIMATED GFR IS NOT ypht=2152) ACCURATE CREATININE CLEARANCE IN PREDICTING GLOMERULAR FILTRATION RATE. ESTIMATED GFR IS NOT APPLICABLE FOR DIALYSIS PATIENTS. TSH/FREE T4 IF [id number] 04:16:00 Test Item Value Reference Range Comments THYROID STIMULATING HORMONE (BEAKER) (test 1.94 uIU/mL 0.35-4.94 gplc=372) CBC W/PLT COUNT & AUTO [id number] 03:07:00 Test Item Value Reference Range Comments WHITE BLOOD CELL COUNT (BEAKER) (test bimh=407) 7.3 K/ L 3.5-10.5 RED BLOOD CELL COUNT (BEAKER) (test ybwb=864) 3.91 M/ L 4.63-6.08 HEMOGLOBIN (BEAKER) (test tssd=852) 12.3 GM/DL 13.7-17.5 HEMATOCRIT (BEAKER) (test rgle=581) 37.7 % 40.1-51.0 MEAN CORPUSCULAR VOLUME (BEAKER) (test lirz=236) 96.4 fL 79.0-92.2 MEAN CORPUSCULAR HEMOGLOBIN (BEAKER) (test 31.5 pg 25.7-32.2 pkdy=234) MEAN CORPUSCULAR HEMOGLOBIN CONC (BEAKER) (test 32.6 GM/DL 32.3-36.5 qiex=706) RED CELL DISTRIBUTION WIDTH (BEAKER) (test 14.5 % 11.6-14.4 ccmz=551) PLATELET COUNT (BEAKER) (test xrpx=873) 161 K/CU MM 150-450 MEAN PLATELET VOLUME (BEAKER) (test dmpw=929) 12.0 fL 9.4-12.4 NUCLEATED RED BLOOD CELLS (BEAKER) (test 0 /100 WBC 0-0 rsnx=426) NEUTROPHILS RELATIVE PERCENT (BEAKER) (test 58 % gdvp=124) LYMPHOCYTES RELATIVE PERCENT (BEAKER) (test 26 % jumt=562) MONOCYTES RELATIVE PERCENT (BEAKER) (test 12 % qguo=146) EOSINOPHILS RELATIVE PERCENT (BEAKER) (test 2 % nmwh=726) BASOPHILS RELATIVE PERCENT (BEAKER) (test 1 % iuvh=234) NEUTROPHILS ABSOLUTE COUNT (BEAKER) (test 4.27 K/ L 1.78-5.38 kctn=065) LYMPHOCYTES ABSOLUTE COUNT (BEAKER) (test 1.91 K/ L 1.32-3.57 tvoj=848) MONOCYTES ABSOLUTE COUNT (BEAKER) (test 0.88 K/ L 0.30-0.82 clqi=146) EOSINOPHILS ABSOLUTE COUNT (BEAKER) (test 0.13 K/ L 0.04-0.54 nxpk=041) BASOPHILS ABSOLUTE COUNT (BEAKER) (test 0.07 K/ L 0.01-0.08 hbhq=132) IMMATURE GRANULOCYTES-RELATIVE PERCENT (BEAKER) 1 % 0-1 (test nsdy=4702) VERONIQUE SWAIN [id number] 18:21:00Addendum BeginsREPORT STATUS:A Technique: Additional 3D imaging series were created using volume rendering technique on an independent workstation for optimal visualization of cervical and intracranial vasculature. Signed: Stone Rivera MDReport Verified Date/ Time: 05/11/2018 18:21:26 Reading Location: [address] Ortho Consult Reading RoomAddendum EndsFINAL REPORT CT angiogram of the upper chest, neck, and head Comparison: No priors Reason for exam: Stroke Discussion : Multiple axial CT images of the upper [...] degradation. There is mild vascular calcification at theaortic arch, great vessel origins are unremarkable. Heavy calcification is noted at the origin of the left vertebral artery, suspect mild or moderate degree of stenosis. The left vertebral artery is dominant. The right vertebral artery essentially terminates in PICA. There are calcified plaques at thecarotid bifurcation bilaterally, causing mild (approximately 25% or [...] Suspect mild or moderate stenosis at the leftvertebral artery origin. There is also dyif-if-qrbuykvv stenosis of the mid to distal intracranial left vertebral artery and mild narrowing of the proximal basilar artery. Multifocal mild narrowing of the carotid siphons. Involutional, and chronic microvascular ischemic changes of the brain. Small exophytic skin lesion arising from the right frontal scalp. Signed: Stone Rivera MDReport Verified Date/Time: 05/02/2018 18:07:55 Reading Location: [facility] Radiology Reading Room 06: 21 PMCT, CAROTID, [id number] 18:21:00Addendum BeginsREPORT STATUS:A Technique: Additional 3D imaging series were created using volume rendering technique on an independent workstation for optimal visualization of cervical and intracranial vasculature. Signed: Stone Riveraeport Verified Date/Time: 05/11/2018 18:21:26 Reading Location: [facility] C013X Ortho Consult Reading RoomAddendum EndsFINAL REPORT CT angiogram of the upper chest, neck, and head Comparison: No priors Reason for exam: Stroke Discussion: Multiple axial CT images of the upper chest , neck, and head were obtained using CT [...] degradation. There is mild vascular calcification at theaortic arch, great vessel origins are unremarkable. Heavy calcification is noted at the origin of the left vertebral artery, suspect mild or moderate degree of stenosis. The left vertebral artery is dominant. The right vertebral artery essentially terminates in PICA. There are calcified plaques at thecarotid bifurcation bilaterally, causing mild (approximately 25% or [...] Suspect mild or moderate stenosis at the leftvertebral artery origin. There is also qqbv-pd-rhsgcmji stenosis of the mid to distal intracranial left vertebral artery and mild narrowing of the proximal basilar artery. Multifocal mild narrowing of the carotid siphons. Involutional, and chronic microvascular ischemic changes of the brain. Small exophytic skin lesion arising from the right frontal scalp. Signed: Stone Riveraeport Verified Date/Time: 05/02/2018 18:07:55 Reading Location: [facility] Radiology Reading Room EEG AWAKE AND [id number] 14:01:00Reason for exam:-> syncope vs seizure DATE OF REPORT: 05/05/18 Date(s) of Study: 05/05/18 ACC: [id number] Start time: 0913 hrs on 05/05/18 Stop time: 0934 hrs on ICD-10: R56.9 CPT Code: 54933 HISTORY: 77 yo male with PMHx of AFib, HTN , HLD, [place] admitted for syncope vs seizure. MEDICATIONS THAT [...] in this recording is suggestive of a mildencephalopathy of a nonspecific etiology. The lack of epileptiform discharges does not necessarily preclude a diagnosis of epilepsy; clinical correlation is recommended. Amanda Hassan MD Epilepsy/Neurophysiology Fellow Kota Koroma M.D., WILEY, LYLEN, MARY Professor of Neurology, [facility] Director, [facility] Head, [facility] Neurophysiology Lab URINALYSIS W/ [id number] 10:55:00 Test Item Value Reference Range Comments COLOR (BEAKER) (test mvya=180) Yellow CLARITY (BEAKER) (test dkbz=468) Hazy SPECIFIC GRAVITY UA (BEAKER) (test rwak=936) 1.014 1.001-1.035 PH UA (BEAKER) (test axhh=348) 5.0 5.0-8.0 PROTEIN UA (BEAKER) (test kkvy=210) 10 mg/dL Negative GLUCOSE UA (BEAKER) (test xqji=743) 50 mg/dL Negative KETONES UA (BEAKER) (test wquk=145) Negative Negative BILIRUBIN UA (BEAKER) (test yswg=778) Negative Negative BLOOD UA (BEAKER) (test zzow=835) Trace Negative NITRITE UA (BEAKER) (test ojcj=530) Positive Negative LEUKOCYTE ESTERASE UA (BEAKER) (test jsdq=819) Large Negative UROBILINOGEN UA (BEAKER) (test hsll=757) 0.2 mg/dL 0.2-1.0 RBC UA (BEAKER) (test zqfk=614) 1 /HPF WBC UA (BEAKER) (test yeov=688) 127 /HPF BACTERIA (BEAKER) (test fnus=667) Occasional SQUAMOUS EPITHELIAL (BEAKER) (test urhi=683) < /HPF SOURCE(BEAKER) (test qngv=1483) Urine, Voided [id number] 06:06:00 Test Item Value Reference Range Comments MAGNESIUM (BEAKER) (test gnhg=007) 1.8 mg/dL 1.6-2.6 BASIC METABOLIC [id number] 06:06:00 Test Item Value Reference Range Comments SODIUM (BEAKER) (test 140 meq/L 136-145 zhwz=766) POTASSIUM (BEAKER) (test 3.5 meq/L 3.5-5.1 ybew=297) CHLORIDE (BEAKER) (test 104 meq/L 98-107 cvnf=806) CO2 (BEAKER) (test 25 meq/L 22-29 wagx=398) BLOOD UREA NITROGEN 22 mg/dL 7-21 (BEAKER) (test tytj=415) CREATININE (BEAKER) (test 0.87 mg/dL 0.57-1.25 dpuu=436) GLUCOSE RANDOM (BEAKER) 155 mg/dL 70-105 (test tkst=584) CALCIUM (BEAKER) (test 9.1 mg/dL 8.4-10.2 tpro=886) EGFR (BEAKER) (test 85 mL/min/1.73 sq m ESTIMATED GFR IS NOT gnyv=9063) ACCURATE CREATININE CLEARANCE IN PREDICTING GLOMERULAR FILTRATION RATE. ESTIMATED GFR IS NOT APPLICABLE FOR DIALYSIS PATIENTS. CBC (HEMOGRAM ONLY)2018-05-05 05:36:00 Test Item Value Reference Range Comments WHITE BLOOD CELL COUNT (BEAKER) (test wtuo=906) 7.3 K/ L 3.5-10.5 RED BLOOD CELL COUNT (BEAKER) (test izol=148) 4.40 M/ L 4.63-6.08 HEMOGLOBIN (BEAKER) (test balb=847) 13.6 GM/DL 13.7-17.5 HEMATOCRIT (BEAKER) (test tdwl=292) 42.3 % 40.1-51.0 MEAN CORPUSCULAR VOLUME (BEAKER) (test iqup=264) 96.1 fL 79.0-92.2 MEAN CORPUSCULAR HEMOGLOBIN (BEAKER) (test 30.9 pg 25.7-32.2 wtvt=911) MEAN CORPUSCULAR HEMOGLOBIN CONC (BEAKER) (test 32.2 GM/DL 32.3-36.5 grkp=398) RED CELL DISTRIBUTION WIDTH (BEAKER) (test 14.4 % 11.6-14.4 jipz=773) PLATELET COUNT (BEAKER) (test ujsg=630) 180 K/CU MM 150-450 MEAN PLATELET VOLUME (BEAKER) (test vnjv=634) 12.6 fL 9.4-12.4 NUCLEATED RED BLOOD CELLS (BEAKER) (test 0 /100 WBC 0-0 pdit=202) POCT-GLUCOSE [id number] 22:13:00 Test Item Value Reference Range Comments POC-GLUCOSE METER (BEAKER) 151 mg/dL 70-110 TESTED AT [facility] [address] [facility] (test vwhs=8277) [facility] [address] BASIC METABOLIC [id number] 05:43:00 Test Item Value Reference Range Comments SODIUM (BEAKER) (test 141 meq/L 136-145 wxlq=584) POTASSIUM (BEAKER) (test 3.8 meq/L 3.5-5.1 fsnt=392) CHLORIDE (BEAKER) (test 106 meq/L 98-107 tocr=339) CO2 (BEAKER) (test 25 meq/L 22-29 vdfy=522) BLOOD UREA NITROGEN 21 mg/dL 7-21 (BEAKER) (test tdtv=188) CREATININE (BEAKER) (test 0.96 mg/dL 0.57-1.25 ywgv=875) GLUCOSE RANDOM (BEAKER) 150 mg/dL 70-105 (test hixx=340) CALCIUM (BEAKER) (test 9.1 mg/dL 8.4-10.2 ppdq=074) EGFR (BEAKER) (test 76 mL/min/1.73 sq m ESTIMATED GFR IS NOT lqoz=1807) ACCURATE CREATININE CLEARANCE IN PREDICTING GLOMERULAR FILTRATION RATE. ESTIMATED GFR IS NOT APPLICABLE FOR DIALYSIS PATIENTS. HEMOGLOBIN [id number] 10:54:00 Test Item Value Reference Range Comments HEMOGLOBIN A1C (BEAKER) (test ayfg=077) 8.0 % 4.3-6.1 LIPID [id number] 07:20:00 Test Item Value Reference Range Comments TRIGLYCERIDES (BEAKER) (test ewvv=763) 93 mg/dL CHOLESTEROL (BEAKER) (test kcgd=427) 137 mg/dL HDL CHOLESTEROL (BEAKER) (test uigy=675) 43 mg/dL LDL CHOLESTEROL CALCULATED (BEAKER) (test 75 mg/dL ocom=495) Triglyceride Reference Range: Low Risk <150 Borderline 150- 199 High Risk 200-499 Very High Risk >=500Cholesterol Reference Range: Low Risk <200 Borderline 200-239 High Risk > 240HDL Cholesterol Reference Range: Low Risk >=60 High Risk <40LDL Cholesterol Reference Range: Optimal <100 Near Optimal 100-129 Borderline 130-159 High 160-189 Very High >=190BASIC METABOLIC [id number] 07:20:00 Test Item Value Reference Range Comments SODIUM (BEAKER) (test 141 meq/L 136-145 xnzv=931) POTASSIUM (BEAKER) (test 3.7 meq/L 3.5-5.1 zepq=397) CHLORIDE (BEAKER) (test 107 meq/L 98-107 moay=577) CO2 (BEAKER) (test 22 meq/L 22-29 owkf=403) BLOOD UREA NITROGEN 15 mg/dL 7-21 (BEAKER) (test npvw=916) CREATININE (BEAKER) (test 0.82 mg/dL 0.57-1.25 khdy=007) GLUCOSE RANDOM (BEAKER) 157 mg/dL 70-105 (test dade=325) CALCIUM (BEAKER) (test 9.2 mg/dL 8.4-10.2 togx=293) EGFR (BEAKER) (test 91 mL/min/1.73 sq m ESTIMATED GFR IS NOT zakx=0954) ACCURATE CREATININE CLEARANCE IN PREDICTING GLOMERULAR FILTRATION RATE. ESTIMATED GFR IS NOT APPLICABLE FOR DIALYSIS PATIENTS. MR, BRAIN, WITHOUT [id number] 01:55:00FINAL REPORT MRI Brain without contrast Clinical [...] correlate with physical exam. Signed: Radha Enriquez MDReport Verified Date/Time: 05/02/2018 01:55:42 Reading Location: [address] Transitional Reading Room COMPREHENSIVE METABOLIC [id number] 19:13:00 Test Item Value Reference Range Comments TOTAL PROTEIN (BEAKER) 8.0 gm/dL 6.0-8.3 (test arrc=524) ALBUMIN (BEAKER) (test 4.0 g/dL 3.5-5.0 bthi=0161) ALKALINE PHOSPHATASE 59 U/L 40-150 (BEAKER) (test lhaw=430) BILIRUBIN TOTAL (BEAKER) 0.6 mg/dL 0.2-1.2 (test aewz=653) SODIUM (BEAKER) (test 143 meq/L 136-145 meyy=265) POTASSIUM (BEAKER) (test 3.5 meq/L 3.5-5.1 mixf=126) CHLORIDE (BEAKER) (test 106 meq/L 98-107 thpp=493) CO2 (BEAKER) (test 24 meq/L 22-29 rxsz=675) BLOOD UREA NITROGEN 14 mg/dL 7-21 (BEAKER) (test nfto=579) CREATININE (BEAKER) (test 0.81 mg/dL 0.57-1.25 zshz=521) GLUCOSE RANDOM (BEAKER) 136 mg/dL 70-105 (test nunp=742) CALCIUM (BEAKER) (test 9.3 mg/dL 8.4-10.2 kddk=384) AST (SGOT) (BEAKER) (test 17 U/L 5-34 ywqc=482) ALT (SGPT) (BEAKER) (test 17 U/L 6-55 bmqe=474) EGFR (BEAKER) (test 92 mL/min/1.73 sq m ESTIMATED GFR IS NOT zlxs=0159) ACCURATE CREATININE CLEARANCE IN PREDICTING GLOMERULAR FILTRATION RATE. ESTIMATED GFR IS NOT APPLICABLE FOR DIALYSIS PATIENTS. CBC W/PLT COUNT & AUTO [id number] 18:54:00 Test Item Value Reference Range Comments WHITE BLOOD CELL COUNT (BEAKER) (test aaks=417) 11.0 K/ L 3.5-10.5 RED BLOOD CELL COUNT (BEAKER) (test jxoy=901) 4.30 M/ L 4.63-6.08 HEMOGLOBIN (BEAKER) (test qpfg=154) 13.5 GM/DL 13.7-17.5 HEMATOCRIT (BEAKER) (test ngpp=967) 41.0 % 40.1-51.0 MEAN CORPUSCULAR VOLUME (BEAKER) (test tvum=935) 95.3 fL 79.0-92.2 MEAN CORPUSCULAR HEMOGLOBIN (BEAKER) (test 31.4 pg 25.7-32.2 vtct=670) MEAN CORPUSCULAR HEMOGLOBIN CONC (BEAKER) (test 32.9 GM/DL 32.3-36.5 rsdp=739) RED CELL DISTRIBUTION WIDTH (BEAKER) (test 14.3 % 11.6-14.4 cjeh=253) PLATELET COUNT (BEAKER) (test drjh=389) 179 K/CU MM 150-450 MEAN PLATELET VOLUME (BEAKER) (test otiq=339) 12.1 fL 9.4-12.4 NUCLEATED RED BLOOD CELLS (BEAKER) (test 0 /100 WBC 0-0 hdvz=164) NEUTROPHILS RELATIVE PERCENT (BEAKER) (test 73 % mitq=290) LYMPHOCYTES RELATIVE PERCENT (BEAKER) (test 15 % yrui=393) MONOCYTES RELATIVE PERCENT (BEAKER) (test 10 % nbkx=219) EOSINOPHILS RELATIVE PERCENT (BEAKER) (test 1 % iytk=992) BASOPHILS RELATIVE PERCENT (BEAKER) (test 1 % jmfm=690) NEUTROPHILS ABSOLUTE COUNT (BEAKER) (test 7.95 K/ L 1.78-5.38 tweh=637) LYMPHOCYTES ABSOLUTE COUNT (BEAKER) (test 1.66 K/ L 1.32-3.57 unyi=978) MONOCYTES ABSOLUTE COUNT (BEAKER) (test 1.12 K/ L 0.30-0.82 yxhr=999) EOSINOPHILS ABSOLUTE COUNT (BEAKER) (test 0.09 K/ L 0.04-0.54 mvln=493) BASOPHILS ABSOLUTE COUNT (BEAKER) (test 0.08 K/ L 0.01-0.08 oyas=995) IMMATURE GRANULOCYTES-RELATIVE PERCENT (BEAKER) 1 % 0-1 (test ktzn=5272)
[2018-08-18 16:09] LABS: Absolute Lymphocytes (CBC) 1.7 K/uL (0.7-4.9); Absolute Monocytes 0.9 K/uL (0.1-1.3); Absolute Neutrophil 5.6 K/uL (1.8-8.0); Basophils % 0.7 % (0-1.3); Hematocrit 39.3 % (39.6-49.0); Lymphocytes % 20.4 % (15.3-44.8); MPV 11.5 fL (7.6-11.3); Monocytes % 11.2 % (3.3-12.3); RBC Red Blood Cell Count 4.11 M/uL (4.33-5.43)
[2018-08-18 16:10] LABS: Protime INR 1.37
[2018-08-18 16:27] LABS: ALT/SGPT 20 U/L (12-78); AST/SGOT 19 U/L (15-37); Albumin 3.1 g/dL (3.4-5.0); Alkaline Phosphatase 43 U/L (45-117); BUN Blood Urea Nitrogen 28 mg/dL (7-18); Bicarbonate 25 mmol/L (21-32); Bilirubin Direct < 0.1 mg/dL (0-0.2); Bilirubin Total 0.3 mg/dL (0.2-1.0); Glucose Level 158 mg/dL (74-106); NT PRO-BNP 2714 pg/mL (<450); Potassium 3.9 mmol/L (3.5-5.1); Protein, Total 7.2 g/dL (6.4-8.2); Sodium Level 139 mmol/L (136-145); Troponin (Emerg Dept Use Only) < 0.02 ng/mL (0.0-0.045)
[2018-08-18] MEDS ORDERED: NA CHLORIDE 0.9% 1,000 ML ONE (16:33)
--- NOTE | 2018-08-18 16:42 | RAD REPORT ---
EXAM DESCRIPTION: RAD - Chest Single View - 08/18/2018 4:16 pm CLINICAL HISTORY: numbness Chest pain. COMPARISON: Chest Single View dated 05/18/2018; Chest Single View dated 05/04/2018; Chest Single View dated 05/01/2018; Chest Single View dated 02/11/2018 FINDINGS: Portable technique limits examination quality. The lungs are grossly clear. The heart is normal in size. No displaced fractures. IMPRESSION: No acute intrathoracic process suspected.
[2018-08-18 16:44] LABS: Thyroid Stimulating Hormone 3.37 uIU/mL (0.360-3.740)
--- NOTE | 2018-08-18 16:57 | RAD REPORT ---
EXAM DESCRIPTION: CT - Head Brain Wo Cont - 08/18/2018 4:50 pm CLINICAL HISTORY: Dizziness;Syncope Headache, drowsiness COMPARISON: Head angio dated 05/18/2018; Ct Stroke Brain Wo Cont dated 05/18/2018 TECHNIQUE: All CT scans are performed using dose optimization technique as appropriate and may inclu de automated exposure control or mA/KV adjustment according to patient size. FINDINGS: No intracranial hemorrhage, hydrocephalus or extra-axial fluid collection.Mild generalized brain atrophy is present with moderate periventricular and deep white matter chronic microvascular i schemic changes.No areas of brain edema or evidence of midline shift. The paranasal sinuses and mastoids are clear. The calvarium is intact. Vertebral arteries are heavily calcified. IMPRESSION: No acute intracranial abnormality.
[2018-08-18 18:04] LABS: Urine Blood NEGATIVE (NEG); Urine Glucose NEGATIVE (NEG); Urine Protein NEGATIVE (NEG)
--- NOTE | 2018-08-18 18:08 | ER ---
Nurse's Notes [facility] Name: Jose Armando Caldera Age: 77 yrs Sex: Male : 1940 Arrival Date: 08/18/2018 Time: 14:50 Bed 5 Private MD: Diagnosis: Syncope and collapse-near;Atrial fibrillation and flutter;Orthostatic hypotension;Obesity, unspecified Presentation: 08/18 14:51 Presenting complaint: Patient states: I dont feel well, I feel like I was going to pass ch out today three times today after walking. I have a headache as well. started at 0600. my R hand went numb around 0630 but that's gone now. I just dont feel right. Transition of care: patient was not received from another setting of care. Onset of symptoms was August 18, 2018 at 06:00. Risk Assessment: Do you want to hurt yourself or someone else? Patient reports no desire to harm self or others. Initial Sepsis Screen: Does the patient meet any 2 criteria? No. Patient's initial sepsis screen is negative. Does the patient have a suspected source of infection? No. Patient's initial sepsis screen is negative. Care prior to arrival: None. 14:51 Method Of Arrival: Wheelchair 14:51 Acuity: HARPER 2 ch 15:03 Note BP in triage was 81/42 pt HR was 115. when pt placed in bed in room and layed ch back, bp and HR improve. Triage Assessment: 19:21 Headache History: The patient has had previous headaches. General: Appears in no mg2 apparent distress. comfortable, Behavior is calm, cooperative. Pain: Complains of pain in left ear and right ear. 19:21 Pain: Pain currently is 1 out of 10 on a pain scale. Pain began gradually, 1 day ago. mg2 Also complains of no other associated symptoms. Historical: - Allergies: 14:54 No Known Allergies; ch - Home Meds: 14:54 Crestor 5 mg Oral tab 1 tab once daily [Active]; levothyroxine 100 mcg tab 1 tab once ch daily [Active]; lisinopril-hydrochlorothiazide 20-25 mg Oral tab 1 tab once daily [Active]; metoprolol tartrate 50 mg Oral tab 1 tab 2 times per day [Active]; tamsulosin 0.4 mg Oral cp24 1 cap twice a day [Active]; Xarelto 20 mg Oral tab 1 tab once daily [Active]; nitrofurantoin macrocrystal 50 mg Oral cap 1 cap once daily [Active]; rosuvastatin 5 mg oral tab 1 tab once daily [Active]; - PMHx: 14:54 Atrial Fib; cardiac stent; Hyperlipidemia; Hypertension; Hypothyroidism; Myocardial ch infarction; UTI; - PSHx: 14:54 Heart stents; ch - Immunization history:: Adult Immunizations up to date. - Social history:: Smoking status: Patient/guardian denies using tobacco. - Ebola Screening: : Patient negative for fever greater than or equal to 101.5 degrees Fahrenheit, and additional compatible Ebola Virus Disease symptoms Patient denies exposure to infectious person Patient denies travel to an Ebola-affected area in the 21 days before illness onset No symptoms or risks identified at this time. Screenin:35 Abuse screen: Denies threats or abuse. Denies injuries from another. Nutritional mg2 screening: No deficits noted. Tuberculosis screening: No symptoms or risk factors identified. Fall Risk None identified. Assessment: 15:35 General: Appears in no apparent distress. comfortable, Behavior is calm, cooperative. mg2 Pain: Complains of pain in head. Neuro: Level of Consciousness is awake, alert, obeys commands, Oriented to person, place, time, situation, Reports numbness in right hand since morning. Cardiovascular: Capillary refill < 3 seconds Patient's skin is warm and dry. Respiratory: Airway is patent Respiratory effort is even, unlabored, Respiratory pattern is regular, symmetrical. GI: No signs and/or symptoms were reported involving the gastrointestinal system. : No signs and/or symptoms were reported regarding the genitourinary system. EENT: No signs and/or symptoms were reported regarding the EENT system. Derm: Skin is intact, is healthy with good turgor, Skin is pink, warm \T\ dry. normal. Musculoskeletal: Circulation, motion, and sensation intact. Capillary refill < 3 seconds. 16:23 Reassessment: patient sent to ct scan via stretcher. mg2 19:20 Reassessment: patient informed about the need for hospitalization and he agreed. meal mg2 served. Vital Signs: 14:54 Pulse 86; Resp 22; Pulse Ox 95% on R/A; Weight 113.4 kg; Height 5 ft. 8 in. (172.72 ch cm); Pain 8/10; 14:56 BP 81 / 42; Pulse 115; ch 15:03 BP 111 / 75; ch 16:45 BP 128 / 81; Pulse 86; Resp 18; Pulse Ox 95% on R/A; mg2 17:24 BP 140 / 83 Supine; Pulse 66; jb1 17:24 BP 127 / 89 Sitting; Pulse 90; jb1 17:24 BP 127 / 81 Standing; Pulse 96; jb1 19:20 BP 155 / 104; Pulse 93; Resp 18; Temp 98; Pulse Ox 97% on R/A; Pain 0/10; mg2 14:54 Body Mass Index 38.01 (113.40 kg, 172.72 cm) ch 14:56 pt sitting upright in triage, taken back to room and layed flat on bed. pt states he ch feels like he needs to pass out. ED Course: 14:50 Patient arrived in ED. mr 14:52 Triage completed. ch 14:54 Arm band placed on left wrist. Patient placed in an exam room, on a stretcher. ch 15:03 David Parks MD is Attending Physician. benedicto 15:06 EKG done, by radiology tech. reviewed by David Parks MD. sm3 15:26 Christopher Romero, NEGRITA is Primary Nurse. mg2 16:18 XRAY Chest (1 view) In Process Unspecified. EDMS 16:19 No provider procedures requiring assistance completed. Inserted saline lock: 20 gauge mg2 in right forearm, using aseptic technique. Blood collected. 16:22 X-ray completed. Portable x-ray completed in exam room. Patient tolerated procedure sw well. 16:50 CT Head Brain wo Cont In Process Unspecified. EDMS 17:31 Patient has correct armband on for positive identification. mg2 18:06 Robb Marquez MD is Hospitalizing Provider. benedicto 19:59 Patient admitted, IV remains in place. mg2 Administered Medications: 16:41 Drug: NS 0.9% 500 ml Route: IV; Rate: bolus; Site: right forearm; hb 17:32 Follow up: Response: No adverse reaction; IV Status: Completed infusion; IV Intake: mg2 500ml 17:31 Drug: NS 0.9% 1000 ml Route: IV; Rate: 125 ml/hr; Site: right forearm; mg2 Intake: 17:32 IV: 500ml; Total: 500ml. mg2 Outcome: 18:07 Decision to Hospitalize by Provider. benedicto 19:59 Admitted to Tele accompanied by tech, via wheelchair, room 423, with chart, Report mg2 called to NEGRITA Siegel 19:59 Condition: stable 19:59 Instructed on the need for admit, Demonstrated understanding of instructions. 20:20 Patient left the ED. mg2 Signatures: Dispatcher [employer] EDMS Louie Sifuentes1 Franchesca Brandt, David Dolan RN, ch, MD MD cha Rivera, Stormy sutton Adrian, Chana Blount RN RN Christopher Romero RN RN mg2 Ingris Burgess 3 Corrections: (The following items were deleted from the chart) 14:55 14:51 Acuity: HARPER 3 ch
--- NOTE | 2018-08-18 18:08 | EDPHYS ---
Physician Documentation [facility] Name: Jose Armando Caldera Age: 77 yrs Sex: Male : 1940 Arrival Date: 08/18/2018 Time: 14:50 Bed 5 Private MD: ED Physician David Parks HPI: 08/18 15:57 This 77 yrs old Male presents to ER via Wheelchair with complaints of benedicto Headache, Ear Pain. 15:57 The patient complains of pain to the right ear, left ear, left occipital area and right benedicto occipital area. The patient describes the headache as aching. Historical: - Allergies: 14:54 No Known Allergies; ch - Home Meds: 14:54 Crestor 5 mg Oral tab 1 tab once daily [Active]; levothyroxine 100 mcg tab 1 tab once ch daily [Active]; lisinopril-hydrochlorothiazide 20-25 mg Oral tab 1 tab once daily [Active]; metoprolol tartrate 50 mg Oral tab 1 tab 2 times per day [Active]; tamsulosin 0.4 mg Oral cp24 1 cap twice a day [Active]; Xarelto 20 mg Oral tab 1 tab once daily [Active]; nitrofurantoin macrocrystal 50 mg Oral cap 1 cap once daily [Active]; rosuvastatin 5 mg oral tab 1 tab once daily [Active]; - PMHx: 14:54 Atrial Fib; cardiac stent; Hyperlipidemia; Hypertension; Hypothyroidism; Myocardial ch infarction; UTI; - PSHx: 14:54 Heart stents; ch - Immunization history:: Adult Immunizations up to date. - Social history:: Smoking status: Patient/guardian denies using tobacco. - Ebola Screening: : Patient negative for fever greater than or equal to 101.5 degrees Fahrenheit, and additional compatible Ebola Virus Disease symptoms Patient denies exposure to infectious person Patient denies travel to an Ebola-affected area in the 21 days before illness onset No symptoms or risks identified at this time. ROS: 15:58 Constitutional: Negative for fever, chills, and weight loss, Eyes: Negative for injury, benedicto pain, redness, and discharge, ENT: Negative for injury, pain, and discharge, Neck: Negative for injury, pain, and swelling, Cardiovascular: Negative for chest pain, palpitations, and edema, Respiratory: Negative for shortness of breath, cough, wheezing, and pleuritic chest pain, Abdomen/GI: Negative for abdominal pain, nausea, vomiting, diarrhea, and constipation, Back: Negative for injury and pain, : Negative for injury, bleeding, discharge, and swelling, MS/Extremity: Negative for injury and deformity, Skin: Negative for injury, rash, and discoloration, Psych: Negative for depression, anxiety, suicide ideation, homicidal ideation, and hallucinations, Allergy/Immunology: Negative for hives, rash, and allergies, Endocrine: Negative for neck swelling, polydipsia, polyuria, polyphagia, and marked weight changes, Hematologic/Lymphatic: Negative for swollen nodes, abnormal bleeding, and unusual bruising. 15:58 Neuro: Positive for near syncope, weakness. Exam: 15:58 Constitutional: This is a well developed, well nourished patient who is awake, alert, benedicto and in no acute distress. Head/Face: Normocephalic, atraumatic. Eyes: Pupils equal round and reactive to light, extra-ocular motions intact. Lids and lashes normal. Conjunctiva and sclera are non-icteric and not injected. Cornea within normal limits. Periorbital areas with no swelling, redness, or edema. ENT: Nares patent. No nasal discharge, no septal abnormalities noted. Tympanic membranes are normal and external auditory canals are clear. Oropharynx with no redness, swelling, or masses, exudates, or evidence of obstruction, uvula midline. Mucous membranes moist. Neck: Trachea midline, no thyromegaly or masses palpated, and no cervical lymphadenopathy. Supple, full range of motion without nuchal rigidity, or vertebral point tenderness. No Meningismus. Chest/axilla: Normal chest wall appearance and motion. Nontender with no deformity. No lesions are appreciated. Respiratory: Lungs have equal breath sounds bilaterally, clear to auscultation and percussion. No rales, rhonchi or wheezes noted. No increased work of breathing, no retractions or nasal flaring. Abdomen/GI: Soft, non-tender, with normal bowel sounds. No distension or tympany. No guarding or rebound. No evidence of tenderness throughout. Back: No spinal tenderness. No costovertebral tenderness. Full range of motion. Male : Normal genitalia with no discharge or lesions. Skin: Warm, dry with normal turgor. Normal color with no rashes, no lesions, and no evidence of cellulitis. MS/ Extremity: Pulses equal, no cyanosis. Neurovascular intact. Full, normal range of motion. Neuro: Awake and alert, GCS 15, oriented to person, place, time, and situation. Cranial nerves II-XII grossly intact. Motor strength 5/5 in all extremities. Sensory grossly intact. Cerebellar exam normal. Normal gait. Psych: Awake, alert, with orientation to person, place and time. Behavior, mood, and affect are within normal limits. 15:58 Cardiovascular: Rate: normal, Rhythm: irregularly irregular, Pulses: Pulses are 4+ in bilateral radial, brachial, femoral, popliteal, posterior tibial and and dorsalis pedis arteries.. Heart sounds: normal, Edema: is not appreciated, JVD: is not appreciated. Vital Signs: 14:54 Pulse 86; Resp 22; Pulse Ox 95% on R/A; Weight 113.4 kg; Height 5 ft. 8 in. (172.72 ch cm); Pain 8/10; 14:56 BP 81 / 42; Pulse 115; ch 15:03 BP 111 / 75; ch 16:45 BP 128 / 81; Pulse 86; Resp 18; Pulse Ox 95% on R/A; mg2 17:24 BP 140 / 83 Supine; Pulse 66; jb1 17:24 BP 127 / 89 Sitting; Pulse 90; jb1 17:24 BP 127 / 81 Standing; Pulse 96; jb1 19:20 BP 155 / 104; Pulse 93; Resp 18; Temp 98; Pulse Ox 97% on R/A; Pain 0/10; mg2 14:54 Body Mass Index 38.01 (113.40 kg, 172.72 cm) ch 14:56 pt sitting upright in triage, taken back to room and layed flat on bed. pt states he ch feels like he needs to pass out. MDM: 15:04 Patient medically screened. [facility] 16:06 Data reviewed: vital signs, nurses notes, lab test result(s), EKG, radiologic studies. [facility] 08/18 15:39 Order name: Basic Metabolic Panel; Complete Time: 17:01 mg2 08/18 15:39 Order name: CBC with Diff; Complete Time: 17:01 mg2 08/18 15:39 Order name: LFT's; Complete Time: 17: mg2 08/18 15:39 Order name: Magnesium; Complete Time: 17:01 mg2 08/18 15:39 Order name: NT PRO-BNP; Complete Time: 17:01 mg2 08/18 15:39 Order name: PT-INR; Complete Time: 17:01 mg2 08/18 15:39 Order name: Troponin (emerg Dept Use Only); Complete Time: 17:01 mg2 08/18 15:39 Order name: XRAY Chest (1 view); Complete Time: 17:01 mg2 08/18 15:56 Order name: Urine Culture benedicto 08/18 15:56 Order name: Lipase; Complete Time: 17:01 benedicto 08/18 15:56 Order name: TSH; Complete Time: 17:01 benedicto 08/18 15:56 Order name: CT Head Brain wo Cont; Complete Time: 17:01 benedicto 08/18 18:00 Order name: Urine Dipstick--Ancillary (enter results); Complete Time: 18:07 ms 08/18 15:39 Order name: EKG; Complete Time: 15:43 mg2 08/18 15:39 Order name: Cardiac monitoring; Complete Time: 16:03 mg2 08/18 15:39 Order name: EKG - Nurse/Tech; Complete Time: 16:03 mg2 08/18 15:39 Order name: IV Saline Lock; Complete Time: 16:05 mg2 08/18 15:39 Order name: Labs collected and sent; Complete Time: 16:05 mg2 08/18 15:39 Order name: O2 Per Protocol; Complete Time: 16:03 mg2 08/18 15:39 Order name: O2 Sat Monitoring; Complete Time: 16:03 mg2 08/18 15:56 Order name: Urine Dipstick-Ancillary (obtain specimen); Complete Time: 17:20 benedicto 08/18 17:03 Order name: Orthostatics; Complete Time: 17:20 benedicto Administered Medications: 16:41 Drug: NS 0.9% 500 ml Route: IV; Rate: bolus; Site: right forearm; hb 17:32 Follow up: Response: No adverse reaction; IV Status: Completed infusion; IV Intake: mg2 500ml 17:31 Drug: NS 0.9% 1000 ml Route: IV; Rate: 125 ml/hr; Site: right forearm; mg2 Disposition: 08/18/18 18:07 Hospitalization ordered by Robb Marquez for Observation. Preliminary diagnosis are Syncope and collapse - near, Atrial fibrillation and flutter, Orthostatic hypotension, Obesity, unspecified. - Bed requested for Telemetry/MedSurg (observation). - Status is Observation. mg2 - Condition is Stable. - Problem is new. - Symptoms have improved. UTI on Admission? No Signatures: Dispatcher [employer] EDMS Franchesca Brandt RN RN David Day MD MD cha Garcia, Cindy, RN RN Chana Schaefer RN RN Christopher Romero RN RN mg2 Corrections: (The following items were deleted from the chart) 18:08 18:07 Hospitalization Ordered by Robb Marquez MD for Observation. Preliminary diagnosis benedicto is Syncope and collapse - near; Atrial fibrillation and flutter; Orthostatic hypotension. Bed requested for Telemetry/MedSurg (observation). Status is Observation. Condition is Stable. Problem is new. Symptoms have improved. UTI on Admission? No. benedicto 19:23 18:08 08/18/2018 18:07 Hospitalization Ordered by Robb Marquez MD for Observation. cg Preliminary diagnosis is Syncope and collapse - near; Atrial fibrillation and flutter; Orthostatic hypotension; Obesity, unspecified. Bed requested for Telemetry/MedSurg (observation). Status is Observation. Condition is Stable. Problem is new. Symptoms have improved. UTI on Admission? No. benedicto 20:20 19:23 08/18/2018 18:07 Hospitalization Ordered by Robb Marquez MD for Observation. mg2 Preliminary diagnosis is Syncope and collapse - near; Atrial fibrillation and flutter; Orthostatic hypotension; Obesity, unspecified. Bed requested for Telemetry/MedSurg (observation). Status is Observation. Condition is Stable. Problem is new. Symptoms have improved. UTI on Admission? No. cg
--- NOTE | 2018-08-18 20:18 | P.HP ---
Certification for Inpatient Patient admitted to: Observation With expected LOS: <2 Midnights Practitioner: I am a practitioner with admitting privileges, knowledge of patient current condition, hospital course, and medical plan of care. Services: Services provided to patient in accordance with Admission requirements found in Title 42 Section 412.3 of the Code of Federal Regulations Patient History Date of Service: 08/18/18 Reason for admission: near syncopal episode History of Present Illness: Mr Caldera is a 77 years old male with history of HTN, Chronic A.Fib rated controlled with metoprolol, anticoagulated with xarelto, CAD, dyslipidemia, BPH on Flomax, who came to ED complaining dizziness and weakness since this morning. He has had 3 episodes that was about to pass out. He felt some SOB, and also tightness in his chest, lasting for 15 minutes. He denied nausea, vomiting, or diaphoresis episode. He had similar episodes in the past, assumed as orthostatic hypotension episode. At arrival, his BP was on the lower side, 81 /42 HR 115. He was afebrile. Initial trop was negative, EKG A.fib without ST-T abnormalities. CT head shows no acute abnormalities either. WBC WNL. Allergies No Known Allergies Allergy (Verified 06/29/16 08:32) Home Medications: Amlodipine Besylate 5 mg PO DAILY 04/29/16 Metoprolol Tartrate [Lopressor*] 50 mg PO BID 04/29/16 Rivaroxaban [Xarelto*] 20 mg PO BEDTIME 04/29/16 Rosuvastatin [Crestor*] 5 mg PO BEDTIME 04/29/16 Levothyroxine Sodium 1 tab PO [id number] 01/19/18 Multivit-Min/FA/Lycopen/Lutein [Centrum Silver Men Tablet] 1 tab PO BEDTIME Tamsulosin [Flomax*] 1 tab PO DAILY 01/19/18 Lisinopril [Prinivil*] 20 mg PO DAILY #30 tab 01/20/18 - Past Medical/Surgical History Diabetic: No -: HTN -: High Cholesterol -: AFIB -: SD with cardiac stents -: Skin Cancer -: Umbilical hernia -: Ez Knee surgery -: Back surgery -: Umbilical Hernia repair - Family History Father -: Other (see notes) Notes: SD Mother -: Other (see notes) Notes: SD - Social History Smoking Status: Never smoker Alcohol use: No CD- Drugs: No Caffeine use: No Place of Residence: Home Review of Systems 10-point ROS is otherwise unremarkable Physical Examination - Physical Exam General: Alert, In no apparent distress HEENT: Atraumatic, PERRLA, Mucous membr. moist/pink, EOMI, Sclerae nonicteric Neck: Supple, 2+ carotid pulse no bruit, No LAD, Without JVD or thyroid abnormality Respiratory: Clear to auscultation bilaterally, Normal air movement Cardiovascular: Normal S1 S2, Irregular heart rate/rhythm Gastrointestinal: Normal bowel sounds, No tenderness Musculoskeletal: No tenderness Integumentary: No rashes Neurological: Normal speech, Normal strength at 5/5 x4 extr, Normal tone, Normal affect Lymphatics: No axilla or inguinal lymphadenopathy - Studies Laboratory Data (last 24 hrs) 08/18/18 15:56: Lipase 84 08/18/18 15:56: PT 16.0 H, INR 1.37 08/18/18 15:56: WBC 8.4, Hgb 13.1 L, Hct 39.3 L, Plt Count 174 08/18/18 15:56: Sodium 139, Potassium 3.9, BUN 28 H, Creatinine 1.15, Glucose 158 H, Magnesium 2.0, Total Bilirubin 0.3, AST 19, ALT 20, Alkaline Phosphatase 43 L Assessment and Plan - Problems (Diagnosis) (1) Near syncope Current Visit: Yes Status: Acute (2) Chronic a-fib Current Visit: Yes Status: Acute (3) CAD (coronary artery disease) Onset Date: 01/20/18 Current Visit: No Status: Acute Qualifiers: Coronary Disease-Associated Artery/Lesion type: [place] artery [place] vs. transplanted heart: [place] heart Associated angina: with unspecified angina Qualified Code(s): I25.119 - Atherosclerotic heart disease of [place] coronary artery with unspecified angina pectoris (4) Chest pain Onset Date: 01/20/18 Current Visit: No Status: Acute Qualifiers: Chest pain type: other chest pain Qualified Code(s): R07.89 - Other chest pain; R07.8 - Other chest pain (5) Dizziness Onset Date: 01/20/18 Current Visit: No Status: Acute (6) Essential hypertension Onset Date: 01/20/18 Current Visit: No Status: Acute - Plan Will admit the patient due to near syncope episode. This might be secondary to orthostatism, possible due to medication. However, he has had some chest pain. Will continue serial cardiac enzymes and EKG monitoring. Check orthostatic hypotension and document. - Advance Directives Does patient have a Living Will: No Does patient have a Durable POA for Healthcare: No - Code Status/Comfort Care Code Status Assessed: Yes Code Status: Full Code
[2018-08-18] MEDS ORDERED: NA CHLORIDE 0.9% 1,000 ML IV SCH (20:53)
[2018-08-18] MEDS ORDERED: ONDANSETRON 4 MG/2 ML VIAL IV PRN (20:53)
[2018-08-18] MEDS ORDERED: ACETAMINOPHEN 500 MG TAB PO PRN (20:53)
[2018-08-18 21:45] VITALS: BMI 34.0
[2018-08-18] MEDS ORDERED: POTASSIUM CL SA 10 MEQ TAB PO ONE (22:30)
[2018-08-19 06:07] LABS: Absolute Lymphocytes (CBC) 1.4 K/uL (0.7-4.9); Absolute Monocytes 0.8 K/uL (0.1-1.3); Absolute Neutrophil 5.2 K/uL (1.8-8.0); Basophils % 0.7 % (0-1.3); Eosinophils % 1.3 % (0-4.4); Hematocrit 37.1 % (39.6-49.0); Lymphocytes % 18.8 % (15.3-44.8); MPV 11.4 fL (7.6-11.3); Monocytes % 10.8 % (3.3-12.3); RBC Red Blood Cell Count 3.92 M/uL (4.33-5.43)
[2018-08-19 06:19] LABS: Albumin 3.2 g/dL (3.4-5.0); Bilirubin Total 0.6 mg/dL (0.2-1.0); Magnesium 2.1 mg/dL (1.8-2.4); Phosphorus 3.8 mg/dL (2.5-4.9); Potassium 3.8 mmol/L (3.5-5.1)
--- NOTE | 2018-08-19 08:03 | EKG ---
Test Date: 2018-08-19 Test Time: 01:07:20 Program Services Planner: RT Kemp MEASUREMENT RESULTS: Intervals: Rate: 57 MI: 174 QRSD: 100 QT: 448 QTc: 436 [place]: P: 54 MI: 174 QRS: 9 T: 44 INTERPRETIVE STATEMENTS: Sinus bradycardia Otherwise normal ECG Compared to ECG 08/18/2018 15:04:36 Atrial fibrillation no longer present Electronically Signed On 08-19-18 08:02:29 CDT by Panda Chambers
--- NOTE | 2018-08-19 08:05 | EKG ---
Test Date: 2018-08-18 Test Time: 15:04:36 Fuse Cup Expander: [employer] MEASUREMENT RESULTS: Intervals: Rate: 85 CA: QRSD: 92 QT: 370 QTc: 440 [place]: P: CA: QRS: -4 T: 43 INTERPRETIVE STATEMENTS: Atrial fibrillation Abnormal ECG Compared to ECG 05/18/2018 19:22:18 Sinus rhythm no longer present Myocardial infarct finding no longer present Electronically Signed On 08-19-18 08:04:39 CDT by Panda Chambers
[2018-08-19 08:25] VITALS: O2SAT 96
[2018-08-19] MEDS ORDERED: POTASSIUM CL SA 10 MEQ TAB PO ONE (09:00)
[2018-08-19] MEDS ORDERED: ENOXAPARIN 40 MG/0.4 ML SQ SCH (09:00)
[2018-08-19 12:38] VITALS: TEMP 97.6
[2018-08-19 18:04] VITALS: BP 145/85
--- NOTE | 2018-08-19 20:44 | CON ---
Reason For Consultation: Consultation called because of syncope. History Of Present Illness: Mr. Caldera is a 77-year-old, right-handed, patient with hyperte nsion, chronic atrial fibrillation on Xarelto and beta-rogers along with benign prostatic hypertroph y treated with Flomax, in addition to this, has coronary artery disease, who comes in after his third syncopal episode. He said earlier yesterday morning, he began to become lightheaded, had some tunne ling of vision, and his knees gave out, and he slid down a nearby wall. He denies hitting the floor. He was brought to [facility] where his blood pressure was 81/42 with a pulse of 115. He w as admitted for further evaluation and management. The patient said for his other syncopal episodes, he was actually evaluated at [facility] in [place], where it was initially felt he had a stroke, but a brain MRI ruled out a stroke just showin g small-vessel ischemic disease. He noted that the 3 syncopal episodes were very similar. He denies any seizure activity. He denies any focal numbness or weakness in the face, arm, or leg. Past Medical History: As indicated above, he did have myocardial infarction with multiple stents, an d skin cancer along with dyslipidemia, atrial fibrillation, and hypertension. Surgical History: Multiple cardiac stents, umbilical hernia treatment, bilateral knee surgery, back surgery. Family History: Myocardial infarction in father and mother. Social History: Denies alcohol, tobacco, or IV drug use. Allergies: NO KNOWN DRUG ALLERGIES. Medications: At home, amlodipine 5 mg daily, Lopressor 50 mg twice daily, Xarelto 20 mg daily, Crest or 5 mg at bedtime, levothyroxine daily, Centrum Silver daily, Flomax daily, and Prinivil 20 mg daily . Review of Systems: He denies any recent fevers or chills, nausea, vomiting, rash, psychiatric complaints, gastrointestin al complaints, genitourinary complaints. No active neurological issues or other positives on a 10-po int systems review. Physical Examination: Vital Signs: Blood pressure up to 188/90 from 160/96, pulse 16-66, respiratory rate 14-18, oxygen sa turation 99% on room air. He did have orthostatic blood pressures. His lying blood pressure was 146 /81, pulse of 66, sitting blood pressure 145/90, pulse of 70, and standing 145/81, pulse of 77. He w as asymptomatic. General: Mr. Caldera is lying comfortably in bed. He is in no acute distress. He is normocephalic, a traumatic. Sclerae were anicteric. Oropharynx is moist. Neck: Supple. Chest: Clear. Heart: Regular. Extremities: Show no significant cyanosis, edema, or clubbing. Neurological: Again alert, oriented to person, place, time, and situation. On cranial nerve examina tion, he has no focal deficits. On motor, in upper extremities and lower extremities, he has no foca l deficits, as well as proximally and distally in those extremities. Sensory examination, stocking-g love loss to light touch and temperature in the legs and arms. Reflexes are depressed at 1+ in the u pper extremities, trace at the patellae, 0 at the heels. Coordination is intact in the upper extremi ties and in the lower extremities. Laboratory Studies: White blood cell count 7.6, hemoglobin 12.8, hematocrit 37.1, INR 1.37. Calibration Checker jana; sodium 142, potassium 3.8, chloride 109, carbon dioxide 26, BUN 22, creatinine 0.88, glucose ra nged from 147-158, calcium 8.0. AST 11, ALT 18, TSH 3.37, lipase 84. Assessment: Mr. Caldera is a 77-year-old patient with multiple syncopal episodes, most likely of cardi ogenic etiology, potentially related to inappropriate heart rate changes. He does not appear to have autonomic dysfunction, in terms of his blood pressure changing appropriately with standing and sitti ng, it is more likely that he has a heart rate related issue that has led to his syncopal episodes. No further neurological workup is required at this time. He has actually had a recent brain MRI that shows no acute ischemic or hemorrhagic change, but small vessel ischemic disease. His head CT scan at this hospital is also unremarkable. Plan: 1.Continue with cardiac workup as per primary team. 2.He should continue with stroke risk factor reduction with the Xarelto given his history of atrial fibrillation. 3.Continue with Crestor at night. 4.Continue Synthroid for hypothyroidism. 5.Continue beta-rogers to help control heart rate. 6.After his discharge home, he may follow up in Dr. Conner's clinic for consideration of prolonged EEG depending on if the symptoms do show features consistent with neurogenic syncope. SYLVIA/MODEfren Voice ID: [id number] Report ID: [id number]
[2018-08-19] MEDS ORDERED: ROSUVASTATIN 10 MG TAB PO SCH (21:00)
[2018-08-19] MEDS ORDERED: METOPROLOL XL 25 MG TAB PO SCH (21:00)
[2018-08-19] MEDS ORDERED: RIVAROXABAN 20 MG TABLET PO SCH (21:00)
--- NOTE | 2018-08-19 23:53 | DS ---
Date of Discharge: 08/19/2018 Consultants: Dr. Conner with Neurology. Discharge Diagnoses: 1.Near syncope. 2.Chronic atrial fibrillation. 3.Coronary artery disease, [place] artery, [place] heart, without angina. 4.Chest pain. 5.Dizziness. 6.Essential hypertension. 7.Obesity, BMI 34. 8.BPH, on Flomax. Procedures: None. Hospital Course: The patient is a 77-year-old male with past medical history of hypertension; chroni c atrial fibrillation, on Xarelto; coronary artery disease; dyslipidemia; BPH, on Flomax 0.4 mg b.i.d ., who has been in and out of the hospital multiple times in the past few months, who was in [place] as well, in May, was worked up for stroke. MRI was reviewed from that hospital stay and was negati ve for any acute CVA, did show some chronic microvascular ischemic disease. The patient at this time is complaining of dizziness and some chest tightness as well. This was likely due to orthostatic hy potension. The patient is on multiple diuretics including tamsulosin twice a day and hydrochlorothia zide. Hydrochlorothiazide was discontinued in his previous visit in January, however, is currently listed as a home medication list as a combo drug with lisinopril. On admission, his blood pressure w as very low at 81/42. His EKG did not show any changes. CT scan of the head was done, which was neg ative. The patient was seen by Neurology for his recurrent syncopal episodes. Dr. Conner does not feel that this was related to CVA or seizure. Previous records were reviewed with him. He has had a stroke workup recently at [facility]. The patient diuretics were held. His blood pressure improve d. He was hydrated. His orthostatic vital signs were also negative. Upon further review, the patie nt and his agree that his symptoms occurred last time when he was bending over in the pantry and then he stood up, became dizzy and had fallen. Likely the patient does have orthostatic hypotension and he should cut back on his tamsulosin to once daily and may be to switch off alpha rogers comple tely, however, will need to be an alternative medication for his prostate. He will also need to stop his hydrochlorothiazide. Since this is part of a combo medicine drug, he will need to stop the pill completely and he will be given a new prescription for lisinopril by itself. The patient's urine cu lture did not show any growth. He did not have any infiltrates on his chest x-ray. The patient work ed well with physical therapy. He was able to ambulate without difficulty. The patient does use a w alker at times at home. The patient was then cleared for discharge. He was sent home in a stable co ndition. Activity: Ambulate with assist. Medications: As per medication reconciliation list. Followup: Follow up with primary care physician in 2-3 days. Follow up with neurologist, Dr. Han frey, in 2 weeks. Return to ER for worsening condition. Diet: Heart healthy. Physical Examination: General: Awake, alert, oriented x3. Elderly male, obese. CV: S1, S2. Respiratory: Moving air well bilaterally. Abdomen: Soft, nontender, nondistended. Positive bowel sounds. Extremities: No clubbing, cyanosis, edema. Neuro: Nonfocal. Code Status: Full. SA/MODL Voice ID: [id number] Report ID: [id number]
[2018-08-20] MEDS ORDERED: LEVOTHYROXINE SOD 0.1 MG TAB PO SCH (06:00)
[2018-08-20] MEDS ORDERED: NITROFURAN MACRO 50 MG CAP PO SCH (09:00)
[2018-08-20] MEDS ORDERED: LISINOPRIL 20 MG TAB PO SCH (09:00)
== END 2018-08-19 18:01 | disposition home or self-care (01) ==
LOC: ER 14:46 → ERHOLD 18:20 → 4TH 20:02
PROVIDERS: ADMIT Family Medicine; ATTEND Family Medicine
DX: I48.2 Chronic atrial fibrillation (principal); R55 Syncope and collapse; R07.9 Chest pain, unspecified; R42 Dizziness and giddiness; E78.5 Hyperlipidemia, unspecified; I25.10 Atherosclerotic heart disease of native coronary artery without angina pectoris; I10 Essential (primary) hypertension; I25.2 Old myocardial infarction; N40.0 Benign prostatic hyperplasia without lower urinary tract symptoms; E66.9 Obesity, unspecified; Z68.34 Body mass index [BMI] 34.0-34.9, adult; Z79.01 Long term (current) use of anticoagulants; Z79.899 Other long term (current) drug therapy; Z95.5 Presence of coronary angioplasty implant and graft
CPT/HCPCS: 93005 ×2; 85025 ×2; 87086; 80048; 36415; 83735 ×2; 84100; 85610; 80076; 84443; 81003; 84484 ×2; 83690; 80053; 83880; 70450; 71045; 97162; 94760 ×3; 96360; 99285; J7030 ×3; G0378 ×2; 87088

== ENCOUNTER 2018-11-27 10:33 | Observation (INO) | payer OTHER, MEDICARE ==
--- OUTSIDE RECORDS SUMMARY | 2018-11-27 10:35 | XMS REPORT | Clinical Summary ---
:1940 Author Organization [facility] Address [address] [place] [address] Care Team Providers Name Role Phone Boogie [...] Care Team Description 12/22/2017 Office Visit Orthopedic Surgery Peter Aden Spinal stenosis Pili GUZMAN MD lumbar region without neurogenic claudication (Primary Dx) 12/15/2017 Documentation Orthopedic Surgery Peter Aden III, MD 12/15/2017 Documentation Orthopedic Surgery Peter Aden III, MD 12/06/2017 Office Visit Orthopedic Peter Ellison Spinal stenosis Pili GUZMAN MD lumbar region without neurogenic claudication (Primary Dx) 12/06/2017 Documentation Orthopedic Surgery Franchesca Morin MA after 11/26/2017 Family History Medical History Relation Name Comments [...] travel history available. Last Filed Vital Signs Not on file Plan of Treatment Health Maintenance Due Date Last Done Comments SHINGLES VACCINES (#1) 1990 65+ PNEUMOCOCCAL VACCINE (1 of 2 - PCV13) 2005 INFLUENZA VACCINE 2018 Results Not on fileafter 11/26/2017 Insurance Payer Benefit Plan / Subscriber ID Effective Dates Phone Address Type Group MEDICARE MEDICARE PART A xxxxxxxxxx 2005-Present [place], [place] Medicare AND B AARP AARP SUPPLEMENT xxxxxxxxx 2009-Present Commercial Advance Directives For more information, please contact: [phone] Type Date Recorded Patient Brand Specialist Explanation Advance Directives, Living Will and Medical Power of Geology Professor
--- OUTSIDE RECORDS SUMMARY | 2018-11-27 10:36 | XMS REPORT | Clinical Summary ---
:1940 Author Organization [facility] Address [address] [place] [address] Care Team Providers Name Role Phone Unavailable [...] Evgeny Becerra, Facial numbness 05/01/2018 Travel after 11/26/2017 Social History Tobacco Use Types Packs/Day Years [...] (231 lb 7.7 oz) 05/04/2018 9:00 PM SECURITY INTELLIGENCE ANALYST Height 172.7 cm (5' 8") 05/19/2018 1:00 AM CDT Body Mass Index 34.18 05/04/2018 9:00 PM SECURITY INTELLIGENCE ANALYST Plan of Treatment Not on file Procedures Procedure Name Priority Date/Time Associated Comments Diagnosis RHYTHM STRIP - SCAN 06/06/2018 3:31 PM CDT REPORT OF PROCEDURE - 05/23/2018 1:00 ENDOSCOPY SCAN PM CDT RHYTHM STRIP - SCAN 05/23/2018 1:00 PM CDT MR BRAIN WITHOUT IV Routine 05/20/2018 10:50 Results for this CONTRAST AM CDT procedure are in the results section. XR CHEST [address] [facility] 05/19/2018 2:15 Results for this PORTABLE/BEDSIDE PM CDT procedure are in the results section. XR ABDOMEN / KUB [address] [facility] 05/19/2018 2:15 Results for this PM CDT [...] RHYTHM STRIP - SCAN 05/10/2018 10:52 AM SECURITY INTELLIGENCE ANALYST RHYTHM STRIP - SCAN 05/10/2018 10:52 AM SECURITY INTELLIGENCE ANALYST REPORT OF PROCEDURE - 05/10/2018 10:52 ENDOSCOPY SCAN AM SECURITY INTELLIGENCE ANALYST RHYTHM STRIP - SCAN 05/10/2018 10:52 AM SECURITY INTELLIGENCE ANALYST RHYTHM STRIP - SCAN 05/06/2018 6:20 AM SECURITY INTELLIGENCE ANALYST REPORT OF PROCEDURE - 05/06/2018 6:20 ENDOSCOPY SCAN AM SECURITY INTELLIGENCE ANALYST URINALYSIS W/ Routine 05/05/2018 10:17 Results for this MICROSCOPIC AM SECURITY INTELLIGENCE ANALYST procedure are in the results section. EEG AWAKE AND DROWSY Routine 05/05/2018 9:34 Results for this AM SECURITY INTELLIGENCE ANALYST procedure are in the results section. CBC (HEMOGRAM ONLY) Routine 05/05/2018 4:49 Results for this AM SECURITY INTELLIGENCE ANALYST procedure are in the results section. MAGNESIUM Routine 05/05/2018 4:49 Results for this AM SECURITY INTELLIGENCE ANALYST procedure are in the results section. BASIC METABOLIC PANEL Routine 05/05/2018 4:49 Results for this (7) AM SECURITY INTELLIGENCE ANALYST procedure are in the results section. POCT-GLUCOSE METER Routine 05/04/2018 10:09 Results for this PM SECURITY INTELLIGENCE ANALYST procedure are in the results section. BASIC METABOLIC PANEL Routine 05/03/2018 5:02 Results for this (7) AM SECURITY INTELLIGENCE ANALYST procedure are in the results section. ECHOCARDIOGRAM REPORT - 05/02/2018 9:22 SCAN PM SECURITY INTELLIGENCE ANALYST CT/CTA CAROTID STAT 05/02/2018 5:34 Results for this PM SECURITY INTELLIGENCE ANALYST procedure are in the results section. CTA BRAIN STAT 05/02/2018 5:34 Results for this PM SECURITY INTELLIGENCE ANALYST procedure are in the results section. LIPID PANEL Routine 05/02/2018 6:00 Results for this AM SECURITY INTELLIGENCE ANALYST procedure are in the results section. BASIC METABOLIC PANEL Routine 05/02/2018 6:00 Results for this (7) AM SECURITY INTELLIGENCE ANALYST procedure are in the results section. MR BRAIN WITHOUT IV Routine 05/01/2018 10:03 Results for this CONTRAST PM SECURITY INTELLIGENCE ANALYST procedure are in the results section. CBC W/PLT COUNT & AUTO Routine 05/01/2018 6:47 Results for this DIFFERENTIAL PM SECURITY INTELLIGENCE ANALYST procedure are in the results section. HEMOGLOBIN A1C Routine 05/01/2018 6:47 Results for this PM SECURITY INTELLIGENCE ANALYST procedure are in the results section. COMPREHENSIVE METABOLIC Routine 05/01/2018 6:47 Results for this PANEL PM SECURITY INTELLIGENCE ANALYST procedure are in the results section. CBC W/PLT COUNT & AUTO Routine 05/01/2018 6:47 Results for this DIFFERENTIAL PM SECURITY INTELLIGENCE ANALYST procedure are in the results section. 2D ECHO W/ DOPPLER STAT 05/01/2018 5:26 Results for this (CW/PW/COLOR) PM SECURITY INTELLIGENCE ANALYST procedure are in the results section. after 11/26/2017 Results RHYTHM STRIP - SCAN (06/06/2018 3:31 [...] included. Specimen Narrative Performed At FINAL REPORT [facility] MR, BRAIN, WITHOUT CONTRAST INDICATION: Focal neuro [...] MD Report Verified Date/Time:05/20/2018 11:09:50 Reading Location: [address] Neuro Reading Room Procedure Note Interface, [...] Report Verified Date/Time: 05/20/2018 11:09:50 Reading Location: [address] Neuro Reading Room Performing Organization Address City/State/Zipcode Phone Number [facility] [employer] XR chest 1 view portable / bedside (05/19/2018 2:15 PM CDT) Specimen Narrative Performed At FINAL REPORT [facility] [employer] Clinical History: for eval for metal object for MRI Comparison Study: None Findings:The heart and lungs are within normal limits.The pleural spaces are clear. Degenerative changes are seen. A high-density structure, possibly a battery projects over the upper thorax. Impression: No active cardiopulmonary disease. Signed: Gagan Nguyễn MD Report Verified Date/Time:05/19/2018 17:21:53 Reading Location: [address] Consult Reading Room Procedure Note Interface, [...] Report Verified Date/Time: 05/19/2018 17:21:53 Reading Location: [address] Consult Reading Room Performing Organization Address City/State/Zipcode Phone Number [facility] [employer] XR abdomen / KUB 1 view (05/19/2018 2:15 PM CDT) Specimen Narrative Performed At FINAL REPORT [facility] Abdomen. HISTORY: Evaluate for metallic object for [...] MD Report Verified Date/Time:05/19/2018 19:20:29 Reading Location: [address] Consult Reading Room Procedure Note Interface, [...] Report Verified Date/Time: 05/19/2018 19:20:29 Reading Location: [address] Consult Reading Room Performing Organization Address City/[facility] Phone Number [facility] ECG 12 lead (05/19/2018 8:23 AM CDT) Specimen Narrative Performed At Ventricular Rate 55 BPM GE MUSE Atrial Rate 55 BPM P-R Interval 196 ms QRS Duration 98 ms Q-T Interval 448 ms QTC Calculation(Bazett) 428 ms P [place] 31 degrees R [place] -1 degrees T [place] 33 degrees Sinus bradycardia Otherwise normal ECG [...] 448 ms QTC Calculation(Bazett) 428 ms P [place] 31 degrees R [place] -1 degrees T [place] 33 degrees Sinus bradycardia Otherwise normal ECG When compared with ECG of 06-AUG-2008 19:10, Vent. rate has decreased BY 33 BPM Confirmed by MD Oneill Roberto ([id number]) on 05/19/2018 2:13:52 PM Performing Organization Address City/[facility] Phone Number [facility] Urinalysis w/Microscopic + Reflex to Culture (05/19/2018 7:15 AM CDT) Color, UA Light Yellow [facility] Clarity, UA Hazy [facility] Specific [place], UA 1.021 1.001 - 1.035 [facility] pH, UA 5.0 5.0 - 8.0 [facility] Protein, UA Negative Negative [facility] Glucose, UA Negative Negative [facility] Ketones, UA Negative Negative [facility] Bilirubin, UA Negative Negative [facility] Blood, UA Trace (A) Negative [facility] Nitrite, UA Positive (A) Negative [facility] Leukocytes, UA Large (A) Negative [facility] Urobilinogen, UA 0.2 0.2 - 1.0 mg/dL [facility] RBC, UA 2 /HPF [facility] WBC, UA 50 /HPF [facility] Bacteria, UA Few [facility] Squam Epithel, UA <1 /HPF [facility] Hyaline Casts, UA 2 /LPF [facility] Specimen Source [facility] Specimen Urine Performing Organization Address City/State/Zipcode Phone Number [facility] [address] [place] [address] CENTER Urine culture (05/19/2018 7:15 AM CDT) Result >100,000 col/mL Escherichia coli [facility] () MEDICAL CENTER Result 70-79,000 col/mL Escherichia coli [facility])Comment: of a second type MEDICAL CENTER Specimen Urine Narrative Performed At 40-49,000 col/mL skin kacey [facility] Organism Antibiotic Method Susceptibility Escherichia coli Amikacin [...] + Sulfamethoxazole >=320: Resistant Performing Organization Address City/[facility] Phone Number [address] [address] CENTER TSH/Free T4 If Indicated (05/19/2018 3:00 AM CDT) TSH 1.94 0.35 - 4.94 uIU/mL [facility] Specimen Blood Performing Organization Address [facility] Phone Number [address] [address] [phone] CENTER CBC with platelet count + automated diff (05/19/2018 3:00 AM CDT)Only the most recent of2 resultswithin the time period is included. WBC 7.3 3.5 - 10.5 K/L [facility] RBC 3.91 (L) 4.63 - 6.08 M/L [facility] Hemoglobin 12.3 (L) 13.7 - 17.5 GM/DL [facility] Hematocrit 37.7 (L) 40.1 - 51.0 % [facility] MCV 96.4 (H) 79.0 - 92.2 fL [facility] MCH 31.5 25.7 - 32.2 pg [facility] MCHC 32.6 32.3 - 36.5 GM/DL [facility] RDW 14.5 (H) 11.6 - 14.4 % [facility] Platelets 161 150 - 450 K/CU MM [facility] MPV 12.0 9.4 - 12.4 fL [facility] nRBC 0 0 - 0 /100 WBC [facility] % Neutros 58 % [facility] % Lymphs 26 % [facility] % Monos 12 % [facility] % Eos 2 % [facility] % Baso 1 % [facility] # Neutros 4.27 1.78 - 5.38 K/L [facility] # Lymphs 1.91 1.32 - 3.57 K/L [facility] # Monos 0.88 (H) 0.30 - 0.82 K/L [facility] # Eos 0.13 0.04 - 0.54 K/L [facility] # Baso 0.07 0.01 - 0.08 K/L [facility] Immature Granulocytes-Relative 1 0 - 1 % [facility] Specimen Blood Performing Organization Address City/State/Zipcode Phone Number [facility] [address] [place] [address] CENTER Basic Metabolic Panel (05/19/2018 3:00 AM CDT)Only the most recent of4 resultswithin the time period is included. Sodium 140 136 - 145 meq/L [facility] Potassium 3.4 (L) 3.5 - 5.1 meq/L [facility] Chloride 103 98 - 107 meq/L [facility] CO2 25 22 - 29 meq/L [facility] BUN 18 7 - 21 mg/dL [facility] Creatinine 0.83 0.57 - 1.25 mg/dL [facility] Glucose 134 (H) 70 - 105 mg/dL [facility] Calcium 9.2 8.4 - 10.2 mg/dL [facility] EGFR 90Comment: ESTIMATED GFR IS mL/min/1.73 sq m [facility] NOT ACCURATE CREATININE [facility] CLEARANCE IN PREDICTING GLOMERULAR FILTRATION RATE. ESTIMATED GFR IS NOT APPLICABLE FOR DIALYSIS PATIENTS. Specimen Blood Performing Organization Address City/State/Zipcode Phone Number [facility] [address] [place] [address] CENTER Urinalysis w/Microscopic (05/05/2018 10:17 AM SECURITY INTELLIGENCE ANALYST) Color, UA Yellow [facility] Clarity, UA Hazy [facility] Specific [place], UA 1.014 1.001 - 1.035 [facility] pH, UA 5.0 5.0 - 8.0 [facility] Protein, UA 10 mg/dL (A) Negative [facility] Glucose, UA 50 mg/dL (A) Negative [facility] Ketones, UA Negative Negative [facility] Bilirubin, UA Negative Negative [facility] Blood, UA Trace (A) Negative [facility] Nitrite, UA Positive (A) Negative [facility] Leukocytes, UA Large (A) Negative [facility] Urobilinogen, UA 0.2 0.2 - 1.0 mg/dL [facility] RBC, UA 1 /HPF [facility] WBC, UA 127 /HPF [facility] Bacteria, UA Occasional [facility] Squam Epithel, UA <1 /HPF [facility] Specimen Source Urine, Voided [facility] Specimen Urine Performing Organization Address City/State/Zipcode Phone Number [facility] [address] [place] [address] [phone] CENTER EEG AWAKE AND DROWSY (05/05/2018 9:34 AM SECURITY INTELLIGENCE ANALYST) Specimen Narrative Performed At [facility] DATE OF REPORT: 05/05/18 Date(s) of Study: 05/05/18 ACC: [id number] Start time: 0913 hrs on 05/05/18 Stop time: 0934 hrs on 05/05/18 ICD-10: R56.9 CPT Code: 73674 HISTORY: 77 yo male with PMHx of AFib, HTN, HLD, [place] admitted for syncope vs seizure. MEDICATIONS THAT [...] MD Epilepsy/Neurophysiology Fellow Kota Koroma M.D., WILEY, MARY ARRIOLA Professor of Neurology, [facility] Director, [facility] Epilepsy [place], [facility] Procedure Note Interface, External Ris In - 05/05/2018 2:01 PM SECURITY INTELLIGENCE ANALYST DATE OF REPORT: 05/05/18 Date(s) of Study: 05/05/18 ACC: [id number] Start time: 0913 hrs on 05/05/18 Stop time: 0934 hrs on 05/05/18 ICD-10: R56.9 CPT Code: 01529 HISTORY: 77 yo male with PMHx of AFib, HTN, HLD, [place] admitted for syncope vs seizure. MEDICATIONS THAT [...] MD Epilepsy/Neurophysiology Fellow Kota Koroma M.D., WILEY, MARY ARRIOLA Professor of Neurology, [facility] [employer] Director, [facility] Epilepsy [place], [place] Neurophysiology Lab Performing Organization Address City/[facility] Cent[facility] Phone Number GE RIS CBC (Hemogram only) (05/05/2018 4:49 AM SECURITY INTELLIGENCE ANALYST) WBC 7.3 3.5 - 10.5 K/L [facility] RBC 4.40 (L) 4.63 - 6.08 M/L [facility] Hemoglobin 13.6 (L) 13.7 - 17.5 GM/DL [facility] Hematocrit 42.3 40.1 - 51.0 % [facility] MCV 96.1 (H) 79.0 - 92.2 fL [facility] MCH 30.9 25.7 - 32.2 pg [facility] MCHC 32.2 (L) 32.3 - 36.5 GM/DL [facility] RDW 14.4 11.6 - 14.4 % [facility] Platelets 180 150 - 450 K/CU MM [facility] MPV 12.6 (H) 9.4 - 12.4 fL [facility] nRBC 0 0 - 0 /100 WBC [facility] Specimen Blood Performing Organization Address City/[facility] Centercode Phone Number [facility] [address] [place] [address] [phone] CENTER Magnesium (05/05/2018 4:49 AM SECURITY INTELLIGENCE ANALYST) Magnesium 1.8 1.6 - 2.6 mg/dL [facility] Specimen Blood Performing Organization Address City/[facility] Cent[facility]ode Phone Number [address] [address] [phone] CENTER POC-Glucose meter (05/04/2018 10:09 PM SECURITY INTELLIGENCE ANALYST) POC-Glucose Meter 151 (H)Comment: TESTED AT 70 - 110 mg/dL [facility] [address] [facility] [address] Specimen Blood Performing Organization Address City/State/Zipcode Phone Number [facility] [address] [place], [place] [address] [phone] CENTER ECHOCARDIOGRAM REPORT - SCAN (05/02/2018 9:22 PM SECURITY INTELLIGENCE ANALYST) Narrative Performed At CTA carotid (05/02/2018 5:34 PM SECURITY INTELLIGENCE ANALYST) Specimen Narrative Performed At Addendum Begins [facility] [employer] REPORT STATUS:A Technique: Additional 3D imaging series were created using volume rendering technique on an independent workstation for optimal visualization of cervical and intracranial vasculature. Signed: Stone Rivera MD Report Verified Date/Time:05/11/2018 18:21:26 Reading Location: [address] Ortho Consult Reading Room Addendum Ends [...] left vertebral artery origin. 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 Multifocal mild narrowing of the carotid siphons. Involutional, and chronic microvascular ischemic changes of the brain. Small exophytic skin lesion arising from the right frontal scalp. Signed: Stone Rivera MD Report Verified Date/Time:05/02/2018 18:07:55 Reading Location: [facility] Radiology Reading Room Procedure Note Interface, External Ris In - 05/11/2018 6:23 PM SECURITY INTELLIGENCE ANALYST Addendum Begins REPORT STATUS:A Technique: Additional 3D imaging series were created using volume rendering technique on an independent workstation for optimal visualization of cervical and intracranial vasculature. Signed: Stone Rivera MD Report Verified Date/Time: 05/11/2018 18:21:26 Reading Location: [facility] [id number] Ortho Consult Reading Room Addendum Ends [...] left vertebral artery origin. 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 Multifocal mild narrowing of the carotid siphons. Involutional, and chronic microvascular ischemic changes of the brain. Small exophytic skin lesion arising from the right frontal scalp. Signed: Stone Rivera MD Report Verified Date/Time: 05/02/2018 18:07:55 Reading Location: [facility] Radiology Reading Room Performing Organization Address City/State/Zipcode Phone Number [employer] CTA brain (05/02/2018 5:34 PM SECURITY INTELLIGENCE ANALYST) Specimen Narrative Performed At Addendum Begins NXTM RIS REPORT STATUS:A Technique: Additional 3D imaging series were created using volume rendering technique on an independent workstation for optimal visualization of cervical and intracranial vasculature. Signed: Stone Rivera MD Report Verified Date/Time:05/11/2018 18:21:26 Reading Location: [facility] B1 [id number] Ortho Consult Reading Room Addendum [...] left vertebral artery origin. 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 Multifocal mild narrowing of the carotid siphons. Involutional, and chronic microvascular ischemic changes of the brain. Small exophytic skin lesion arising from the right frontal scalp. Signed: Stone Rivera MD Report Verified Date/Time:05/02/2018 18:07:55 Reading Location: [facility] Radiology Reading Room Procedure Note Interface, External Ris In - 05/11/2018 6:23 PM SECURITY INTELLIGENCE ANALYST Addendum Begins REPORT STATUS:A Technique: Additional 3D imaging series were created using volume rendering technique on an independent workstation for optimal visualization of cervical and intracranial vasculature. Signed: Stone Rivera MD Report Verified Date/Time: 05/11/2018 18:21:26 Reading Location: [facility] [id number] Ortho Consult Reading Room Addendum Ends [...] left vertebral artery origin. 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 Multifocal mild narrowing of the carotid siphons. Involutional, and chronic microvascular ischemic changes of the brain. Small exophytic skin lesion arising from the right frontal scalp. Signed: Stone Rivera MD Report Verified Date/Time: 05/02/2018 18:07:55 Reading Location: [facility] Radiology Reading Room Performing Organization Address City/[facility] Centercode Phone Number [facility] Lipid panel (05/02/2018 6:00 AM SECURITY INTELLIGENCE ANALYST) Triglycerides 93 mg/dL [facility] Cholesterol 137 mg/dL [facility] HDL 43 mg/dL [facility] LDL Calculated 75 mg/dL [facility] Specimen Blood Narrative Performed At Triglyceride Reference Range: [facility] Low Risk <150 [id number] High Risk 200-499 Very High Risk>=500 Cholesterol Reference Range: Low Risk <200 [id number] High Risk>240 HDL Cholesterol Reference Range: Low Risk >=60 High Risk <40 LDL Cholesterol Reference Range: Optimal<100 Near [id number] [id number] [id number] Very High >=190 Performing Organization Address City/State/[facility] Centercode Phone Number [address] [address] CENTER Hemoglobin A1c (05/01/2018 6:47 PM SECURITY INTELLIGENCE ANALYST) Hemoglobin A1C 8.0 (H) 4.3 - 6.1 % [facility] Specimen Blood Performing Organization Address City/State/Zipcode Phone Number [facility] [address] [place] [address] [phone] [place] Comprehensive metabolic panel (05/01/2018 6:47 PM SECURITY INTELLIGENCE ANALYST) Protein, Total 8.0 6.0 - 8.3 gm/dL [facility] Albumin 4.0 3.5 - 5.0 g/dL [facility] Alkaline Phosphatase 59 40 - 150 U/L [facility] Total Bilirubin 0.6 0.2 - 1.2 mg/dL [facility] Sodium 143 136 - 145 meq/L [facility] Potassium 3.5 3.5 - 5.1 meq/L [facility] Chloride 106 98 - 107 meq/L [facility] CO2 24 22 - 29 meq/L [facility] BUN 14 7 - 21 mg/dL [facility] Creatinine 0.81 0.57 - 1.25 mg/dL [facility] Glucose 136 (H) 70 - 105 mg/dL [facility] Calcium 9.3 8.4 - 10.2 mg/dL [facility] AST 17 5 - 34 U/L [facility] ALT 17 6 - 55 U/L [facility] EGFR 92Comment: ESTIMATED GFR mL/min/1.73 sq m [facility] IS NOT ACCURATE [facility] CREATININE CLEARANCE IN PREDICTING GLOMERULAR FILTRATION RATE. ESTIMATED GFR IS NOT APPLICABLE FOR DIALYSIS PATIENTS. Specimen Blood Performing Organization Address City/State/Zipcode Phone Number [facility] [address] [place] [address] [phone] [place] 2D Echo W/Doppler(CW/PW/Color) (05/01/2018 5:26 PM SECURITY INTELLIGENCE ANALYST) [facility] ECHO HEARTLAB [facility] Specimen Narrative Performed At Transthoracic Echocardiography Report (TTE) [facility] ECHO HEARTLAB [facility] Demographics Patient Name Jaquan DSOUZA of Study 05/01/2018 A [id number] GenderMale Visit Number [id number] Albertina [id number] Number 2409 Number Date of Birth1940 Referring Physician Age77 year(s) Magistrate Judge Esteban Babb [facility] Needs to be Pre Physician [...] is normal (male - LVIDd 4.2-5.8cm) . Mjvi-ws-adskbrhl concentric LV hypertrophy. All of the LV [...] normal (male - LVIDd 4.2-5.8cm) . Mi rt-te-wuqdfyba concentric LV hypertrophy. All of th e [...] External Ris In - 05/02/2018 10:18 AM SECURITY INTELLIGENCE ANALYST Transthoracic Echocardiography Report (TTE) Demographics Patient Name KATY DSOUZA Date of Study 05/01/2018 A Gender Male Visit Number [id number] Race Unknown Room Number 2409 Number Date of 1940 Referring Physician Age 77 year(s) Magistrate Judge Esteban Babb RDCS Interpreting [facility] Needs to [...] is normal (male - LVIDd 4.2-5.8cm) . Lfka-kw-oblvwrop concentric LV hypertrophy. All of the LV [...] is normal (male - LVIDd 4.2-5.8cm) . Udgb-nc-mugdriqk concentric LV hypertrophy. All of the LV [...] Performing Organization Address City/State/Zipcode Phone Number [facility] [employer] [facility] after 11/26/2017 Insurance Payer Benefit Plan / Group Subscriber ID Type Phone Address MEDICARE MEDICARE A B xxxxxxxxxxx Medicare MCR SUPPLEMENT/INDIVIDUAL AARP/[facility] xxxxxxxxxxx [facility] Advance Directives For more information, please contact:[address] [phone] Code Status Date Activated Date Inactivated Comments [...]
--- OUTSIDE RECORDS SUMMARY | 2018-11-27 10:37 | XMS REPORT ---
:1940 [facility] Address [address] [place] [address] Care Team Providers Name Role Phone VAN GUZMAN Unavailable Unavailable TARUN, UMAR Unavailable Unavailable CHLOE, NEJMUDIN RESHAD Unavailable Unavailable Payers Payer Name Policy Type Policy Number Effective Date Expiration Date Problems This patient has no known problems. Allergies, Adverse Reactions, Alerts Allergy Allergy Status Severity Reaction(s) Onset Inactive Treating Comments Name Type Date Date Clinician No Known DA Active U 2017-01 Allergies 00:00:0 0 Medications This patient has no known medications. Results Test Description Test Time Test Comments Text Results Atomic Results Result Comments BASIC METABOLIC PANEL 2018-10-20 04:43:00 Test Item Value Reference Range Comments SODIUM (test code=NA) 142 mmol/L 134-147 POTASSIUM (test code=K) 3.7 mmol/L 3.4-5.0 CHLORIDE (test code=CL) 107 mmol/L 100-108 CARBON DIOXIDE (test code=CO2) 28 mmol/L 21-32 ANION GAP (test code=GAP) 7.0 GAP calc 4.0-15.0 GLUCOSE (test code=GLU) 124 MG/DL 70-110 BLOOD UREA NITROGEN (test code=BUN) 14 MG/DL 7-18 GLOMERULAR FILTRATION RATE (test code=GFR) >=60 max estimate estGFR >60 CREATININE (test code=CREAT) 0.8 MG/DL 0.8-1.3 CALCIUM (test code=CA) 8.2 MG/DL 8.5-10.1 PROTHROMBIN [id number] 04:36:00 Test Item Value Reference Range Comments PT PATIENT (test code=PTP) 13.7 SECONDS 9.3-12.9 INTERNATIONAL NORMAL RATIO (test code=INR) 1.19 INR Unit 0.8-1.2 CBC W/AUTO [id number] 04:33:00 Test Item Value Reference Range Comments WHITE BLOOD CELL (test code=WBC) 6.8 K/mm3 3.5-11.0 RED BLOOD CELL (test code=RBC) 3.75 M/mm3 4.70-6.10 HEMOGLOBIN (test code=HGB) 12.2 G/DL 12.3-15.9 HEMATOCRIT (test code=HCT) 37.2 % 35.8-46.7 MEAN CELL VOLUME (test code=MCV) 99.2 Fl 86.3-98.9 MEAN CELL HGB (test code=MCH) 32.5 pg 28.9-34.4 MEAN CELL HGB CONCETRATION (test code=MCHC) 32.8 G/DL 32.1-34.5 RED CELL DISTRIBUTION WIDTH (test code=RDW) 14.4 SD 11.5-14.5 PLATELET COUNT (test code=PLT) 158.0 K/mm3 150-450 MEAN PLATELET VOLUME (test code=MPV) 12.10 fL 7.0-9.6 NEUTROPHIL % (test code=NT%) 57.4 % 40-76 LYMPHOCYTE % (test code=LY%) 24.7 % 20.5-51.1 MONOCYTE % (test code=MO%) 14.0 % 1.7-9.3 EOSINOPHIL % (test code=EO%) 2.6 % 0.0-6.0 BASOPHIL % (test code=BA%) 1.3 % 0.0-2.0 NEUTROPHIL # (test code=NT#) 3.90 K/mm3 1.8-7.6 LYMPHOCYTE # (test code=LY#) 1.7 K/mm3 0.6-3.0 MONOCYTE # (test code=MO#) 1.0 K/mm3 0.2-1.5 EOSINOPHIL # (test code=EO#) 0.2 K/mm3 0.0-0.4 BASOPHIL # (test code=BA#) 0.1 K/mm3 0.0-0.2 MANUAL DIFF REQUIRED (test code=MDIFF) NO DIFF/SCN CRITERIA - MRI BRAIN W/O [id number] 21:39:00 FAX: Boogie Tineo MD [phone] Camps: PM St: ADM FAX: Hannah Hu FAX: Mat Estrada MD [phone] Name: KATY DSOUZA [facility] : 1940 Age/S: 78/M [address] Unit #: [id number] Loc: [address] [place] [address] Phys: Mat Estrada MD Acct: [id number] Dis Date: Status: ADM IN PHONE #: [phone] Exam Date: 10/19/20182044 FAX #: Reason: AMS/CVA EXAMS: CPT: [id number] MRI BRAIN W/O CONTRAST 69[address] Dictation location: [facility]. MRI BRAIN WITHOUT CONTRAST HISTORY: AMS/CVA TECHNIQUE: Multiplanar and multiple pulse sequenceswere obtained throughout the brain without contrast. COMPARISON: CT head 10/18/18. FINDINGS: Diffusion weighted imaging shows no evidence of acute ischemia. Mild T2 and FLAIR signal hyperintensities in noted within the periventricular and deep white matter. Mild generalized atrophy. No hemorrhage, mass, mass effect, hydrocephalus, midline shift or extra- axial. Small bilateral parotid nodules and/or cysts measuring up to 6 mm. The paranasal sinuses are clear. The globes are unremarkable. IMPRESSION: No evidence of acute ischemia. Mild chronic microvascular ischemic changes and atrophy. at 1181 Reported and signed by: Salvador Dotson M.D. CC: Boogie Briscoe MD ; Hannah Hu MD; Mat Estrada MD Technologist: Katiuska White, RT(R)(MR) Transcribed Date/Time/By: 10/19/2018 (8335) : [email or web address] Orig Print D/T: S: 10/20/2018 (0039) PAGE 1 Signed ReportGLUCOSE BEDSIDE [id number] 12:26:00 Test Item Value Reference Range Comments GLUCOSE BEDSIDE TESTING (test code=GLUBED) 148 mg/dL 70-110 GLUCOSE BEDSIDE [id number] 08:52:00 Test Item Value Reference Range Comments GLUCOSE BEDSIDE TESTING (test code=GLUBED) 122 mg/dL 70-110 GLUCOSE BEDSIDE [id number] 08:48:00 Test Item Value Reference Range Comments GLUCOSE BEDSIDE TESTING (test code=GLUBED) 117 mg/dL 70-110 [id number] 04:11:00 Test Item Value Reference Range Comments GLYCOSYLATED HEMOGLOBIN (HA1C) (test 7.4 % A1C 4.2-6.3 code=GLYHGB) ESTIMATED AVERAGE GLUCOSE (test code=EAG) 166 MG/DLest BASIC METABOLIC [id number] 03:55:00 Test Item Value Reference Range Comments SODIUM (test code=NA) 142 mmol/L 134-147 POTASSIUM (test code=K) 3.6 mmol/L 3.4-5.0 CHLORIDE (test code=CL) 105 mmol/L 100-108 CARBON DIOXIDE (test code=CO2) 27 mmol/L 21-32 ANION GAP (test code=GAP) 10.0 GAP calc 4.0-15.0 GLUCOSE (test code=GLU) 111 MG/DL 70-110 BLOOD UREA NITROGEN (test code=BUN) 14 MG/DL 7-18 GLOMERULAR FILTRATION RATE (test >=60 max estimate estGFR >60 code=GFR) CREATININE (test code=CREAT) 0.8 MG/DL 0.8-1.3 CALCIUM (test code=CA) 8.1 MG/DL 8.5-10.1 Comment: FASTING IN AMLIPID PROFILE (CORONARY RISK)2018-10-19 03:55:00 Test Item Value Reference Range Comments TRIGLYCERIDES (test code=TRIG) 82 MG/DL 0-150 CHOLESTEROL (test code=CHOL) 106 MG/DL 133-200 CHOLESTEROL/HDL RATIO (test code=CHOLHDL) 2.65 RATIO >0 HDL CHOLESTEROL (test code=HDL) 40 MG/DL 40-59 NON-HDL CHOLESTEROL (test code=NHDL) 66 mg/dL <130 LIPOPROTEIN LDL (test code=LDL) 60 MG/DL 0-129 LDL/HDL (test code=LDL/HDL) 1.50 Ratio 1.48-3.22 Avg Comment: FASTING IN AMTHYROID STIMULATING [id number] 03:55:00 Test Item Value Reference Range Comments THYROID STIMULATING HORMONE (test code=TSH) 1.490 mcIU/ML 0.340-4.820 Comment: FASTING IN AMCBC W/AUTO [id number] 03:49:00 Test Item Value Reference Range Comments WHITE BLOOD CELL (test code=WBC) 6.7 K/mm3 3.5-11.0 RED BLOOD CELL (test code=RBC) 3.87 M/mm3 4.70-6.10 HEMOGLOBIN (test code=HGB) 12.6 G/DL 12.3-15.9 HEMATOCRIT (test code=HCT) 38.4 % 35.8-46.7 MEAN CELL VOLUME (test code=MCV) 99.2 Fl 86.3-98.9 MEAN CELL HGB (test code=MCH) 32.6 pg 28.9-34.4 MEAN CELL HGB CONCETRATION (test code=MCHC) 32.8 G/DL 32.1-34.5 RED CELL DISTRIBUTION WIDTH (test code=RDW) 14.3 SD 11.5-14.5 PLATELET COUNT (test code=PLT) 165.0 K/mm3 150-450 MEAN PLATELET VOLUME (test code=MPV) 13.00 fL 7.0-9.6 NEUTROPHIL % (test code=NT%) 53.1 % 40-76 LYMPHOCYTE % (test code=LY%) 30.0 % 20.5-51.1 MONOCYTE % (test code=MO%) 13.2 % 1.7-9.3 EOSINOPHIL % (test code=EO%) 2.7 % 0.0-6.0 BASOPHIL % (test code=BA%) 1.0 % 0.0-2.0 NEUTROPHIL # (test code=NT#) 3.57 K/mm3 1.8-7.6 LYMPHOCYTE # (test code=LY#) 2.0 K/mm3 0.6-3.0 MONOCYTE # (test code=MO#) 0.9 K/mm3 0.2-1.5 EOSINOPHIL # (test code=EO#) 0.2 K/mm3 0.0-0.4 BASOPHIL # (test code=BA#) 0.1 K/mm3 0.0-0.2 MANUAL DIFF REQUIRED (test code=MDIFF) NO DIFF/SCN CRITERIA PROTHROMBIN [id number] 03:39:00 Test Item Value Reference Range Comments PT PATIENT (test code=PTP) 17.6 SECONDS 9.3-12.9 INTERNATIONAL NORMAL RATIO (test code=INR) 1.52 INR Unit 0.8-1.2 - XR ABDOMEN 1 [id number] 20:16:00 Name: MEETKATY [facility] : 1940 Age/S: 78 / M [address] Unit #: [id number] Loc: [place] [address] Phys: Mat Estrada MD Acct: [id number] Dis Date: Status: ADM IN PHONE #: [phone] Exam Date: 10/18/20181929 FAX #: Reason: MRI SCREENING EXAMS: CPT: [id number] XR ABDOMEN 1 V 64245 Fluoro Time: DAP (Gy m2): Air Kerma (mGy): ABDOMINAL X-RAY PLAIN FILM, 1 VIEW Location: N13 CLINICAL HISTORY: MRI SCREENING there is a piece of "horseshoe" metal in the lower left abdomen COMPARISON: None. Technique: Frontal supine view the abdomen was obtained over 2 cassettes secondary to large body habitus. FINDINGS: Contrast material is seen in the bladder following an angiogram of the head and neck. Air is seen scattered in the large and small bowel in a nonspecific fashion. There is no evidence of bowel obstruction or ileus. There is no evidence of free intraperitoneal air. No abnormal soft tissue or calcific densities are present. There is a small 0.5 x 0.1 cm metallic density projecting at the lower left abdomen abdomen correlating to the horseshoemetal. IMPRESSION: The metallic foreign body in the abdomen is noted. The patient should NOT undergo MRI screening. Above findings were discussed with neuroradiologist Dr. Serrato. Electronically Signed by Nita Suárez on at 2016 Reported and signed by: Donna Suárez M.D. CC: Boogie Briscoe MD; Mat Estrada MD PAGE 1 Signed Report Name: KATY DSOUZA [place] : [birth year] Age/S: 78 / M [address] Unit #: [id number] Loc: [place] [address] Phys: Bennett Estrada MD Acct: [id number] Dis Date: Status: ADM IN PHONE #: [phone] Exam Date: 10/18/2018 1930 FAX #: Reason: MRI SCREENING EXAMS: CPT: [id number] XR ABDOMEN 1 V 13993 Fluoro Time: DAP (Gy m2): Air Kerma ( mGy): <Continued> Technologist: Yandel Gorman RT(R)(CT)(MRI) TrnscbDate/Time: 10/18/2018 (2015) Debbie Orig Print D/T: S: 10/18/2018 (2018) PAGE 2 Signed Report- CT ANGIO [id number] 17: 03:00 Name: KATY DSOUZA [place] : 1940 Age/S: 78 / M [address] Unit # : [id number] Loc: [place] [address] Phys: Mat Estrada MD Acct: [id number] Dis Date: Status: ADM IN PHONE #: [phone] Exam Date: 10/18/2018 1610 FAX #: Reason: AMS/CVA Report Has Been Amended EXAMS: CPT: [id number] CT ANGIO HEAD [address] Addendum - 10/18/2018 SIGNED 10/18/[address]: [id number]/CTANHDWWO ADDENDUM: Findingsof this code stroke case has been reviewed with Dr. Estrada the referring physician on 10/18/18 at 5:01 PM FOR INTERNAL CODING PURPOSES ONLY RESULT CODE: CVRMD at 1703 Reported and signed by: Marleny Serrato M.D. Transcribed: 10/18/2018 (3476) [email or web address] Report Location: T 18 CTA neck, 10/18/18 TECHNIQUE: CTA examination of the neck with contrast using vascular protocol performed on a helical scanner. Scanning conducted using ultrathin contiguous 0.6mm axial slice technique from aortic arch through skull base. Patient given 100 mL of Isovue 360 for contrast. High resolution sagittal and coronal reformatted images acquired on the PAC workstation. 3D volume rendering images also acquired by interpreting radiologist using VITREA software provided on the PAC system . The examination wasconducted on an updated helical CT scanner utilizing low- dose radiation technique. Automatic exposure technique was utilized to reduce radiation dose CLINICAL HISTORY: Alteration in mental status, CVA. Stroke assessment. Comparison exam: Head CT exam of 10/18/18 FINDINGS: No findings of concern for vasculitis. No findings of concern for PAGE 1 Signed Report (CONTINUED) Name: KATY DSOUZA [facility] : 1940 Age/S: 78 / M [address] Unit #: [id number] Loc: [place] [address] Phys: Mat Estrada MD Acct: [id number] Dis Date: Status: ADM IN PHONE #: [phone] Exam Date: 10/18/2018 1610 FAX #: Reason: AMS/CVA Report Has Been Amended EXAMS: CPT: [id number] CT ANGIO HEAD [address] <Continued> vascular dissection. No hemodynamically significant stenosis is seen in either carotid system with normal enhancement. There is less than 25% degree of carotid stenosis. Likewise there is normal enhancement seen in the vertebralarteries. Small degree of calcific plaque formation the left vertebral artery at the skull base but with less than 50% degree of narrowing. Dominance of the left vertebral artery noted. Normal branching pattern of the vessels arising from the aortic arch. No significantstenosis of the prebulbar portion of either carotid artery is seen. The brachiocephalic arteryand subclavian arteries exhibit normal enhancement. No significant atherosclerotic plaque formation is seen. IMPRESSION: Unremarkable CTA examination ofthe neck with less than 25% degree of carotid stenosis. No findings of concern for dissection Location: T 18 CTA of the brain 10/18/18 TECHNIQUE: CTA examination of the dknvzk-lc-Dgfpyh was performed on a helical scannerwith patient given 75 mL of Isovue 300. Vascular protocol performed. Ultrathin slice axial images acquired from skull base through vertex of brain utilizing contiguous 0.6mm slice thickness with coronal and sagittal reformatted images acquired on the PAC workstation. Post contrast only images acquired. 3D reformatted images also acquired of the intracranialvessels using VITREA software by the interpreting radiologist . The examination was performed on an updated helical CT scanner utilizing low-dose radiation technique. Automatic exposure technique was utilized to reduce radiation dose. CLINICAL HISTORY: Alteration in mental status, CVA. FINDINGS: Do not see any findings suggestive of an aneurysm or vascular malformation. No discrete area of stenosis or pruning of the vessels PAGE 2 Signed Report (CONTINUED) Name: KATY DSOUZA : 1940 Age/S: 78 / M [address] Unit #: [id number] Loc: [place] [address] Phys: Mat Estrada MD Acct: [id number] Dis Date: Status: ADM IN PHONE #: [phone] Exam Date: 10/18/2018 1610 FAX #: Reason: AMS/ CVA Report Has Been Amended EXAMS: CPT: [id number] CT ANGIO HEAD [address] < Continued> is seen. Minimal calcific plaque formation along the carotid siphons nonhemodynamically significant. No large branch occlusionis seen. No findings suggestive of vertebro basilar insufficiency is seen. No spaceoccupying process is seen. No midline shift or abnormal enhancement is seen. No intracranial hemorrhage is seen with assessment for subarachnoid hemorrhage limited since post contrast images only acquired. No evolving space-occupying process is seen. Chronic microvascular changes again noted. IMPRESSION: No large branch occlusion or significant intracranial arterial stenosis. at 1653 Reportedand signed by: Marleny Serrato M.D. CC: Boogie Briscoe MD; Hannah Hu MD; Mat Estrada MD Technologist:Yandel Gorman, RT(R )(CT)(MRI) CTDI: DLP: Trnscb Date/Time: 10/18/2018 (1653) [email or web address] Orig Print D/T: S: 10/18/2018 (9705) PAGE 3 Signed Report- CT ANGIO [id number] 17:03:00 Name: KATY DSOUZA : 1940 Age/S: 78 / M [address] Unit #: [id number] Loc: [place] [address] Phys: Mat Estrada MD Acct: [id number] Dis Date: Status: ADM IN PHONE #: [phone] Exam Date: 10/18/2018 1613 FAX #: Reason: AMS/ CVA Report Has Been Amended EXAMS: CPT: [id number] CT ANGIO NECK 60595 Addendum - 10/18/2018 SIGNED 10/18/[address]: [id number]/CTANNKWWO ADDENDUM: Findingsof this code stroke case has been reviewed with Dr. Estrada the referring physician on 10/18/18 at 5:01 PM FOR INTERNAL CODING PURPOSES ONLY RESULT CODE: CVRMD at 1703 Reported and signed by: Marleny Serrato M.D. Transcribed: (9967) [email or web address] Report Location: T 18 CTA neck, 10/18/18 TECHNIQUE: CTA examination of the neck with contrast using vascular protocol performed on a helical scanner. Scanning conducted using ultrathin contiguous 0.6mm axial slice technique from aortic arch through skull base. Patient given 100 mL of Isovue 360 for contrast. High resolution sagittal and coronal reformatted images acquired on the PAC workstation. 3D volume rendering images also acquired by interpreting radiologist using VITREA software provided on the PAC system . The examination wasconducted on an updated helical CT scanner utilizing low-dose radiation technique. Automatic exposure technique was utilized to reduce radiation dose CLINICAL HISTORY : Alteration in mental status, CVA. Stroke assessment. Comparison exam: Head CT exam of 10/18/18 FINDINGS: No findings of concern for vasculitis. No findings of concern for PAGE 1 Signed Report (CONTINUED) Name: KATY DSOUZA : 1940 Age/S: 78 / M [address] Unit #: [id number] Loc: [place] [address] Phys: Mat Estrada MD Acct: [id number] Dis Date: Status: ADM IN PHONE #: [phone] Exam Date: 10/18/2018 1613 FAX #: Reason : AMS/CVA Report Has Been Amended EXAMS: CPT: [id number] CT ANGIO NECK [address] <Continued> vascular dissection. No hemodynamically significant stenosis is seen in either carotid system with normal enhancement. There is less than 25% degree of carotid stenosis. Likewise there is normal enhancement seen in the vertebralarteries. Small degree of calcific plaque formation the left vertebral artery at the skull base but with less than 50% degree of narrowing. Dominance of the left vertebral artery noted. Normal branching pattern of the vessels arising from the aortic arch. No significantstenosis of the prebulbar portion of either carotid artery is seen. The brachiocephalic arteryand subclavian arteries exhibit normal enhancement. No significant atherosclerotic plaque formation is seen. IMPRESSION: Unremarkable CTA examination ofthe neck with less than 25% degree of carotid stenosis. No findings of concern for dissection Location: T 18 CTA of the brain 10/18/18 TECHNIQUE: CTA examination of the gkvpnp-lb-Bjdalx was performed on a helical scannerwith patient given 75 mL of Isovue 300. Vascular protocol performed. Ultrathin slice axial images acquired from skull base through vertex of brain utilizing contiguous 0.6mm slice thickness with coronal and sagittal reformatted images acquired on the PAC workstation. Post contrast only images acquired. 3D reformatted images also acquired of the intracranialvessels using VITREA software by the interpreting radiologist . The examination was performed on an updated helical CT scanner utilizing low-dose radiation technique. Automatic exposure technique was utilized to reduce radiation dose. CLINICAL HISTORY: Alteration in mental status, CVA. FINDINGS: Do not see any findings suggestive of an aneurysm or vascular malformation. No discrete area of stenosis or pruning of the vessels PAGE 2 Signed Report (CONTINUED) Name: KATY DSOUZA : 1940 Age/S: 78 / M [address] Unit #: [id number] Loc: [place] [address] Phys: Mat Estrada MD Acct: [id number] Dis Date: Status: ADM IN PHONE #: [phone] Exam Date: 10/18/2018 1613 FAX #: Reason: AMS/ CVA Report Has Been Amended EXAMS: CPT: [id number] CT ANGIO NECK 82020 < Continued> is seen. Minimal calcific plaque formation along the carotid siphons nonhemodynamically significant. No large branch occlusionis seen. No findings suggestive of vertebro basilar insufficiency is seen. No spaceoccupying process is seen. No midline shift or abnormal enhancement is seen. No intracranial hemorrhage is seen with assessment for subarachnoid hemorrhage limited since post contrast images only acquired. No evolving space-occupying process is seen. Chronic microvascular changes again noted. IMPRESSION: No large branch occlusion or significant intracranial arterial stenosis. at 1653 Reportedand signed by: Marleny Serrato M.D. CC: Boogie Briscoe MD; Hannah Hu MD; Mat Estrada MD Technologist:Yandel Gorman, RT(R )(CT)(MRI) CTDI: DLP: Trnscb Date/Time: 10/18/2018 (1653) [email or web address] Orig Print D/T: S: 10/18/2018 (1543) PAGE 3 Signed Report- CT ANGIO [id number] 16:53:00 Name: KATY DSOUZA [facility] [place] : 1940 Age/S: 78 / M [address] Unit #: [id number] Loc: [place] [address] Phys: Mat Estrada MD Acct: [id number] Dis Date: Status: ADM IN PHONE #: [phone] Exam Date: 10/18/2018 1610 FAX #: Reason: AMS/ CVA EXAMS: CPT: [id number] CT ANGIO HEAD [address] Location: T18 CTA neck, TECHNIQUE: CTA examination of the neck with contrast using vascular protocol performed on a helical scanner. Scanning conducted using ultrathin contiguous 0.6mm axial slice technique from aortic arch through skull base. Patient given 100 mL of Isovue 360 for contrast. High resolution sagittal and coronal reformatted imagesacquired on the PAC workstation. 3D volume rendering images also acquired by interpreting radiologist using VITREA software provided on the PAC system . The examination was conducted on an updated helical CT scanner utilizing low- dose radiation technique. Automatic exposure technique was utilized to reduce radiation dose CLINICAL HISTORY: Alteration in mental status, CVA. Stroke assessment. Comparison exam: Head CT exam of 10/18/18 FINDINGS: No findings of concern for vasculitis. No findings of concern for vascular dissection. No hemodynamically significant stenosis is seen in either carotid system with normal enhancement. There is less than 25% degree of carotid stenosis. Likewise there is normal enhancement seen in the vertebral arteries. Small degree of calcific plaque formation the left vertebral artery at the skull base but with less than 50% degree of narrowing. Dominance of the left vertebral artery noted. Normal branching pattern of the vessels arising from the aortic arch. No significant stenosis of the prebulbar portion of eithercarotid artery is seen. The brachiocephalic artery and subclavian arteries exhibit normal enhancement. No significant atherosclerotic plaque formation is seen. IMPRESSION: Unremarkable CTA examination of the neck with less than 25% degree of carotid stenosis. No findings of concern for dissection Location: T 18 CTA of the brain 10/18/18 PAGE 1 Signed Report (CONTINUED) [facility] 1940 [facility]S: 78 / M [address] [facility] Unit #: [id number] Loc: [place] [address] Phys: Mat Estrada MD Acct: [id number] Dis Date: Status: ADM IN PHONE #: [phone] Exam Date: 10/18/2018 1610 FAX #: Reason: AMS/CVA EXAMS: CPT: [id number] CT ANGIO HEAD [address] <Continued& gt; TECHNIQUE: CTA examination of the gdrncq-kj-Livyfg was performed on a helical scanner with patient given 75 mL of Isovue 300. Vascular protocol performed. Ultrathin slice axial images acquired from skull base through vertex of brain utilizing contiguous 0.6mm slice thickness with coronal and sagittal reformatted images acquired on the PAC workstation. Post contrast only images acquired. 3D reformatted images also acquired of the intracranial vessels using VITREA software by the interpreting radiologist . The examination was performed on an updated helical CT scanner utilizing low-dose radiation technique. Automatic exposure technique was utilized to reduce radiationdose. CLINICAL HISTORY: Alteration in mental status, CVA. FINDINGS: Do not see any findings suggestive of an aneurysm or vascular malformation. No discrete area of stenosis or pruning of the vessels is seen. Minimal calcific plaque formation along the carotid siphons nonhemodynamically significant. No large branch occlusion is seen. No findings suggestive of vertebro basilar insufficiency is seen. No space occupying process is seen. No midline shift or abnormal enhancement is seen. No intracranial hemorrhage is seen with assessment for subarachnoid hemorrhage limited since post contrast images only acquired. No evolving space-occupying process is seen. Chronic microvascular changes again noted. IMPRESSION: No large branch occlusionor significant intracranial arterial stenosis. PAGE 2 Signed Report ( CONTINUED) Name: KATY DSOUZA [facility] : 1940 Age/S: 78 / M [address] Unit #: [id number] Loc: [place] [address] Phys: Mat Estrada MD Acct: [id number] Dis Date: Status: ADM IN PHONE #: [phone] Exam Date: 10/18/2018 1610 FAX #:Reason: AMS/CVA EXAMS: CPT: [id number] CT ANGIO HEAD [address] <Continued> at 1653 Reported and signed by: Marleny Serrato M.D. CC: Boogie Briscoe MD; Hannah Hu MD; Mat Estrada MD Technologist:Yandel Gorman RT(R)(CT)(MRI) CTDI: DLP: Trnscb Date/Time: 10/18/2018 (1652) [email or web address] Orig Print D/T: S: 10/18/2018 (1656) PAGE 3 Signed Report- CT ANGIO [id number] 16:53:00 Name: KATY DSOUZA [facility] : 1940 Age/S: 78 / M [address] Unit #: [id number] Loc: [place] [address] Phys: Mat Estrada MD Acct: [id number] Dis Date: Status : ADM IN PHONE #: [phone] Exam Date: 10/18/2018 1613 FAX #: Reason: AMS/CVA EXAMS: CPT: [id number] CT ANGIO NECK [address] Location: T18 CTA neck, 10/18/18 TECHNIQUE: CTA examination of the neck with contrast using vascular protocol performed on a helical scanner. Scanning conducted using ultrathin contiguous 0.6mm axial slice technique from aortic arch through skull base. Patient given 100 mL of Isovue 360 for contrast. High resolution sagittal and coronal reformatted imagesacquired on the PAC workstation. 3D volume rendering images also acquired by interpreting radiologist using VITREA software provided on the PAC system . The examination was conducted on an updated helical CT scanner utilizing low- dose radiation technique. Automatic exposure technique was utilized to reduce radiation dose CLINICAL HISTORY: Alteration in mental status, CVA. Stroke assessment. Comparison exam: Head CT exam of 10/18/18 FINDINGS: No findings of concern for vasculitis. No findings of concern for vascular dissection. No hemodynamically significant stenosis is seen in either carotid system with normal enhancement. There is less than 25% degree of carotid stenosis. Likewise there is normal enhancement seen in the vertebral arteries. Small degree of calcific plaque formation the left vertebral artery at the skull base but with less than 50% degree of narrowing. Dominance of the left vertebral artery noted. Normal branching pattern of the vessels arising from the aortic arch. No significant stenosis of the prebulbar portion of eithercarotid artery is seen. The brachiocephalic artery and subclavian arteries exhibit normal enhancement. No significant atherosclerotic plaque formation is seen. IMPRESSION: Unremarkable CTA examination of the neck with less than 25% degree of carotid stenosis. No findings of concern for dissection Location: T 18 CTA of the brain 10/18/18 PAGE 1 Signed Report (CONTINUED) Name: KATY DSOUZA [facility]: 1940 Age/S: 78 / M [address] [address] Unit #: [id number] Loc: Mayela Burgos [address] Phys: Mat Estrada MD Acct: [id number] Dis Date: Status: ADM IN PHONE #: [phone] Exam Date: 10/18/2018 1613 FAX #: Reason: AMS/CVA EXAMS: CPT: [id number] CT ANGIO NECK 31353 <Continued& gt; TECHNIQUE: CTA examination of the cgqyyy-wr-Ymhutf was performed on a helical scanner with patient given 75 mL of Isovue 300. Vascular protocol performed. Ultrathin slice axial images acquired from skull base through vertex of brain utilizing contiguous 0.6mm slice thickness with coronal and sagittal reformatted images acquired on the PAC workstation. Post contrast only images acquired. 3D reformatted images also acquired of the intracranial vessels using VITREA software by the interpreting radiologist . The examination was performed on an updated helical CT scanner utilizing low-dose radiation technique. Automatic exposure technique was utilized to reduce radiationdose. CLINICAL HISTORY: Alteration in mental status, CVA. FINDINGS: Do not see any findings suggestive of an aneurysm or vascular malformation. No discrete area of stenosis or pruning of the vessels is seen. Minimal calcific plaque formation along the carotid siphons nonhemodynamically significant. No large branch occlusion is seen. No findings suggestive of vertebro basilar insufficiency is seen. No space occupying process is seen. No midline shift or abnormal enhancement is seen. No intracranial hemorrhage is seen with assessment for subarachnoid hemorrhage limited since post contrast images only acquired. No evolving space-occupying process is seen. Chronic microvascular changes again noted. IMPRESSION: No large branch occlusionor significant intracranial arterial stenosis. PAGE 2 Signed Report ( CONTINUED) Name: KATY DSOUZA : 1940 Age/S: 78 / M [address] [facility] Unit #: [id number] Loc: [place] [address] Phys: Mat Estrada MD Acct: [id number] Dis Date: Status: ADM IN PHONE #: [phone] Exam Date: 10/18/2018 1613 FAX #:Reason: AMS/CVA EXAMS: CPT: [id number] CT ANGIO NECK [address] <Continued> at 1653 Reported and signed by: Marleny Serrato M.D. CC: Boogie Briscoe MD; Hannah Hu MD; Mat Estrada MD Technologist:Yandel Gorman, RT(R)(CT)(MRI) CTDI: DLP: Trnscb Date/Time: 10/18/2018 (1273) [email or web address] Orig Print D/T: S: 10/18/2018 (9009) PAGE 3 Signed ReportCHEMISTRY 8 [id number] 14:58:00 Test Item Value Reference Range Comments ISTAT-SODIUM (test code=NAP) mmol/L 135-146 ISTAT-POTASSIUM (test code=KP) mmol/L 3.5-4.9 ISTAT-CHLORIDE (test code=CLP) mmol/L 98-109 ISTAT-CARBON DIOXIDE (test code=ISTAT-CO2) mmol/L 24-29 ISTAT CALCIUM IONIZED (test code=ISTAT-JUSTIN) mmol/L 1.12-1.32 ISTAT-GLUCOSE (test code=GLUP) mg/dL 70-105 ISTAT-BUN (test code=BUNP) mg/dL 8-26 BEDSIDE CREATININE (test code=CREATBED) mg/dL 0.6-1.3 GLOMERULAR FILTRATION RATE POC (test code=GFRBED) 87 42-98 CHEMISTRY 8 [id number] 14:58:00 Test Item Value Reference Range Comments ISTAT-SODIUM (test code=NAP) 138 mmol/L 135-146 ISTAT-POTASSIUM (test code=KP) 3.8 mmol/L 3.5-4.9 ISTAT-CHLORIDE (test code=CLP) 100 mmol/L 98-109 ISTAT-CARBON DIOXIDE (test code=ISTAT-CO2) 26 mmol/L 24-29 ISTAT CALCIUM IONIZED (test code=ISTAT-JUSTIN) 1.12 mmol/L 1.12-1.32 ISTAT-GLUCOSE (test code=GLUP) 128 mg/dL 70-105 ISTAT-BUN (test code=BUNP) 19 mg/dL 8-26 BEDSIDE CREATININE (test code=CREATBED) 0.9 mg/dL 0.6-1.3 GLOMERULAR FILTRATION RATE POC (test 87 42-98 code=GFRBED) PROTHROMBIN [id number] 14:35:00 Test Item Value Reference Range Comments PT PATIENT (test code=PTP) 31.2 SECONDS 9.3-12.9 INTERNATIONAL NORMAL RATIO (test code=INR) 2.66 INR Unit 0.8-1.2 THROMBOPLASTIN TIME [id number] 14:35:00 Test Item Value Reference Range Comments THROMBOPLASTIN TIME PARTIAL (test code=PTT) 42.0 SECONDS 26-35 TROPONIN I [id number] 14:17:00 Test Item Value Reference Range Comments TROPONIN I RAPID (test 0.00 ng/mL 0.00-0.08 - The use of serial sampling code=TROPIRAP) and testing protocol is a recommended practice- An elevated troponin level alone is often not sufficient for diagnosis of myocardial infarction. CBC W/O [id number] 14:10:00 Test Item Value Reference Range Comments WHITE BLOOD CELL (test code=WBC) 8.3 K/mm3 3.5-11.0 RED BLOOD CELL (test code=RBC) 3.96 M/mm3 4.70-6.10 HEMOGLOBIN (test code=HGB) 12.8 G/DL 12.3-15.9 HEMATOCRIT (test code=HCT) 38.9 % 35.8-46.7 MEAN CELL VOLUME (test code=MCV) 98.2 Fl 86.3-98.9 MEAN CELL HGB (test code=MCH) 32.3 pg 28.9-34.4 MEAN CELL HGB CONCETRATION (test code=MCHC) 32.9 G/DL 32.1-34.5 RED CELL DISTRIBUTION WIDTH (test code=RDW) 14.4 SD 11.5-14.5 PLATELET COUNT (test code=PLT) 170.0 K/mm3 150-450 MEAN PLATELET VOLUME (test code=MPV) 12.60 fL 7.0-9.6 - CT HEAD/BRAIN W/O [id number] 14:10:00 Name: KATY DSOUZA [facility] : 1940 Age/S: 78 / M [address] [address] Unit #: [id number] Loc: [place] [address] Phys: Hannah Hu MD Acct: [id number] Dis Date: Status : REG ER PHONE #: [phone] Exam Date: 10/18/2018 1405 FAX #: Reason: Code Stroke EXAMS: CPT: [id number] CT HEAD/BRAIN W/O CONT 41486 C3 TIME OF STUDY: 10/18/2018 2:00 PM REASON FOR EXAM: Code Stroke. Altered mental status and bilateral weakness. COMPARISON: None. TECHNIQUE: Routine non contrast enhanced axial images were obtained for the skull base to the vertex. Sagittal and coronal reformats were obtained and reviewed. One or more of the following radiation dose reduction techniques was used: automated exposure control, adjustment of mA and/or KV according to patient size, and/or utilization of iterative reconstruction technique. FINDINGS: The ventricles and cortical sulci demonstrate mild diffuse prominence, with generalized parenchymal volume loss. There is no midline shift or mass-effect. No acute intra- axialhemorrhage is present. There are nonspecific focal and confluent areas of abnormal low attenuation in the periventricular and subcortical white matter. Humphries-white matter differentiation is maintained. No evidence of acute cortical infarct is present. No extra-axial masses or collections are present. The bony calvarium is intact. The paranasal sinuses are clear. Mastoid air cells are patent. IMPRESSION: 1. No CT evidence of intracranial hemorrhage or acute cortical infarct. 2. Nonspecific white matter changes which may represent chronic small vessel ischemia. 3. Generalized parenchymal volume loss. Findings were discussed with Hannah Hu MD on 10/18/2018 2:07 PM approximately. FOR INTERNAL CODING PURPOSES ONLY RESULT CODE: CVR PAGE 1 Signed Report (CONTINUED) Name: KATY DSOUZA [facility] : 1940 Age/S: 78 / M [address] [facility] [address] Unit #: [id number] Loc: [place] [address] Phys: Hannah Hu MD Acct: [id number] Dis Date: Status: REG ER PHONE #: [phone] Exam Date: 10/18/2018 1405 FAX #: Reason: Code Stroke EXAMS: CPT: [id number] CT HEAD/BRAIN W/O CONT 55293 <Continued> at 1410 Reported and signed by: Cirilo Petty M.D. CC: Boogie Briscoe MD; Hannah Hu MD; Kell INTERIANO Technologist:ALANA MeridaR)(CT); Chilo CTDI: DLP: Trnscb Date/Time: 10/18/2018 (1410) [email or web address] Orig Print D/T: S : 10/18/2018 (1518) PAGE 2 Signed ReportMR, BRAIN, WITHOUT [id number] 11:09:00Reason for exam:->StrokeWhat is the patient's sedation requirement?->No SedationFINAL REPORT MR, BRAIN, WITHOUT CONTRAST INDICATION: Focal neuro deficit, new, fixed or worsening, >6 hoursStroke TECHNIQUE: Multiplanar, multisequence MR imaging of the brainwithout intravenous contrast. COMPARISON: May 01, 2018 FINDINGS: There is no restricted diffusion. Redemonstration of a white matter changes both scattered and periventricular distribution, most likely representing sequela of chronic microvascular disease. There is no parenchymal or extra-axial hemorrhage. The midline is normally positioned. The ventricles are normal in size and configuration. The larger intracranial vascular flow- voids are preserved. Paranasal sinuses and mastoid air cells are clear. There is normal bone marrow signal intensity within the calvarium and skull base. IMPRESSION: No acute or subacute ischemic change. No intracranial hemorrhage. Signed: JR Donaldson RobertMDReport Verified Date/Time: 05/20/2018 11:09: 50 Reading Location: [address] Neuro Reading Room RAD, ABDOMEN/KUB, 1 VIEW [id number] 19:20:00Reason for exam:->for eval for metal object for MRIShould this be performed at the bedside?->YesFINAL REPORT Abdomen. HISTORY: Evaluate for metallic object [...] correlated with CT scan. Signed: Gagan Nguyễn MDReport Verified Date/Time: 05/19/2018 19:20:29 Reading Location: [facility] C013 Consult Reading Room RAD, CHEST, 1 VIEW, NON [id number] 17 :21:00Reason for exam:->for eval for metal object for MRIShould this be performed at the bedside?->YesFINAL REPORT Clinical History: for eval for metal object for MRI Comparison Study: None Findings: The heart and lungs are within normal limits. The pleural spaces are clear. Degenerative changes are seen. A high-density structure, possibly a battery projects over the upper thorax. Impression: No active cardiopulmonary disease. Signed: Gagan Nguyễn MDReport Verified Date/Time: 05/19/2018 17:21:53 Reading Location: [facility] C013W Consult Reading Room URINALYSIS W/ REFLEX URINE [id number] 09:06:00 Test Item Value Reference Range Comments COLOR (BEAKER) (test ttsv=517) Light Yellow CLARITY (BEAKER) (test wmjx=071) Hazy SPECIFIC GRAVITY UA (BEAKER) (test cftn=618) 1.021 1.001-1.035 PH UA (BEAKER) (test zvoi=635) 5.0 5.0-8.0 PROTEIN UA (BEAKER) (test fqwg=299) Negative Negative GLUCOSE UA (BEAKER) (test hjzf=604) Negative Negative KETONES UA (BEAKER) (test ncec=993) Negative Negative BILIRUBIN UA (BEAKER) (test sesa=614) Negative Negative BLOOD UA (BEAKER) (test rgit=438) Trace Negative NITRITE UA (BEAKER) (test fcyc=324) Positive Negative LEUKOCYTE ESTERASE UA (BEAKER) (test wbqf=960) Large Negative UROBILINOGEN UA (BEAKER) (test clhk=121) 0.2 mg/dL 0.2-1.0 RBC UA (BEAKER) (test xvay=142) 2 /HPF WBC UA (BEAKER) (test mlgh=518) 50 /HPF BACTERIA (BEAKER) (test hxak=109) Few SQUAMOUS EPITHELIAL (BEAKER) (test nvau=073) < /HPF HYALINE CASTS (BEAKER) (test wgfu=224) 2 /LPF SOURCE(BEAKER) (test jtnu=3587) BASIC METABOLIC [id number] 07:48:00 Test Item Value Reference Range Comments SODIUM (BEAKER) (test 140 meq/L 136-145 icux=357) POTASSIUM (BEAKER) (test 3.4 meq/L 3.5-5.1 ncsu=676) CHLORIDE (BEAKER) (test 103 meq/L 98-107 vkbw=442) CO2 (BEAKER) (test 25 meq/L 22-29 azsv=170) BLOOD UREA NITROGEN 18 mg/dL 7-21 (BEAKER) (test gwtk=686) CREATININE (BEAKER) (test 0.83 mg/dL 0.57-1.25 bpef=364) GLUCOSE RANDOM (BEAKER) 134 mg/dL 70-105 (test uqxc=828) CALCIUM (BEAKER) (test 9.2 mg/dL 8.4-10.2 ktny=832) EGFR (BEAKER) (test 90 mL/min/1.73 sq m ESTIMATED GFR IS NOT pngy=8539) ACCURATE CREATININE CLEARANCE IN PREDICTING GLOMERULAR FILTRATION RATE. ESTIMATED GFR IS NOT APPLICABLE FOR DIALYSIS PATIENTS. TSH/FREE T4 IF [id number] 04:16:00 Test Item Value Reference Range Comments THYROID STIMULATING HORMONE (BEAKER) (test 1.94 uIU/mL 0.35-4.94 diiz=116) CBC W/PLT COUNT & AUTO [id number] 03:07:00 Test Item Value Reference Range Comments WHITE BLOOD CELL COUNT (BEAKER) (test tnvr=021) 7.3 K/ L 3.5-10.5 RED BLOOD CELL COUNT (BEAKER) (test auyg=229) 3.91 M/ L 4.63-6.08 HEMOGLOBIN (BEAKER) (test wrqu=916) 12.3 GM/DL 13.7-17.5 HEMATOCRIT (BEAKER) (test stgi=318) 37.7 % 40.1-51.0 MEAN CORPUSCULAR VOLUME (BEAKER) (test txdx=779) 96.4 fL 79.0-92.2 MEAN CORPUSCULAR HEMOGLOBIN (BEAKER) (test 31.5 pg 25.7-32.2 fawm=113) MEAN CORPUSCULAR HEMOGLOBIN CONC (BEAKER) (test 32.6 GM/DL 32.3-36.5 tgkq=676) RED CELL DISTRIBUTION WIDTH (BEAKER) (test 14.5 % 11.6-14.4 sifk=875) PLATELET COUNT (BEAKER) (test qssh=581) 161 K/CU MM 150-450 MEAN PLATELET VOLUME (BEAKER) (test qxsi=774) 12.0 fL 9.4-12.4 NUCLEATED RED BLOOD CELLS (BEAKER) (test 0 /100 WBC 0-0 rzsz=832) NEUTROPHILS RELATIVE PERCENT (BEAKER) (test 58 % rcth=502) LYMPHOCYTES RELATIVE PERCENT (BEAKER) (test 26 % xgfn=255) MONOCYTES RELATIVE PERCENT (BEAKER) (test 12 % fzqd=758) EOSINOPHILS RELATIVE PERCENT (BEAKER) (test 2 % dqsi=010) BASOPHILS RELATIVE PERCENT (BEAKER) (test 1 % vqoj=907) NEUTROPHILS ABSOLUTE COUNT (BEAKER) (test 4.27 K/ L 1.78-5.38 aomm=996) LYMPHOCYTES ABSOLUTE COUNT (BEAKER) (test 1.91 K/ L 1.32-3.57 qvsg=232) MONOCYTES ABSOLUTE COUNT (BEAKER) (test 0.88 K/ L 0.30-0.82 sihh=444) EOSINOPHILS ABSOLUTE COUNT (BEAKER) (test 0.13 K/ L 0.04-0.54 cxux=517) BASOPHILS ABSOLUTE COUNT (BEAKER) (test 0.07 K/ L 0.01-0.08 auob=916) IMMATURE GRANULOCYTES-RELATIVE PERCENT (BEAKER) 1 % 0-1 (test ooeg=5424) CT, CTANGIO [id number] 18:21:00Addendum BeginsREPORT STATUS:A Technique: Additional 3D imaging series were created using volume rendering technique on an independent workstation for optimal visualization of cervical and intracranial vasculature. Signed: Stone Rivera MDReport Verified Date/ Time: 05/11/2018 18:21:26 Reading Location: [address] Ortho Consult Reading RoomAddendum EndsFINAL REPORT [...] the leftvertebral artery origin. There is also yafx-cl-fklarnsc stenosis of the mid to distal intracranial left vertebral artery and mild narrowing of the proximal basilar artery. Multifocal mild narrowing of the carotid siphons. Involutional, and chronic microvascular ischemic changes of the brain. Small exophytic skin lesion arising from the right frontal scalp. Signed: Stone Rivera Verified Date/Time: 05/02/2018 18:07:55 Reading Location: [facility] Reading Room 06: 21 PMCT, CAROTID, [id number] 18:21:00Addendum BeginsREPORT STATUS:A Technique: Additional 3D imaging series were created using volume rendering technique on an independent workstation for optimal visualization of cervical and intracranial vasculature. Signed: Stone Rivera MDReport Verified Date/Time: 05/11/2018 18:21:26 Reading Location: [facility] C013X Ortho Consult Reading RoomAddendum EndsFINAL REPORT [...] the leftvertebral artery origin. There is also dqdm-uk-hctifyii stenosis of the mid to distal intracranial left vertebral artery and mild narrowing of the proximal basilar artery. Multifocal mild narrowing of the carotid siphons. Involutional, and chronic microvascular ischemic changes of the brain. Small exophytic skin lesion arising from the right frontal scalp. Signed: Stone Rivera MDReport Verified Date/Time: 05/02/2018 18:07:55 Reading Location: [facility] Radiology Reading Room EEG AWAKE AND [id number] 14:01:00Reason for exam:-> syncope vs seizure DATE OF REPORT: 05/05/18 Date(s) of Study: 05/05/18 ACC: [id number] Start time: 0913 hrs on 05/05/18 Stop time: 0934 hrs on ICD-10: R56.9 CPT Code: 76780 HISTORY: 77 yo male with PMHx of AFib, HTN , HLD, OR admitted for syncope vs seizure. MEDICATIONS THAT [...] M.D., FACNS, FAAN, MARY Professor of Neurology, [facility] Director, [facility] Epilepsy Center Head, [facility] Neurophysiology Lab URINALYSIS W/ [id number] 10:55:00 Test Item Value Reference Range Comments COLOR (BEAKER) (test clfu=075) Yellow CLARITY (BEAKER) (test wqys=945) Hazy SPECIFIC GRAVITY UA (BEAKER) (test pywu=610) 1.014 1.001-1.035 PH UA (BEAKER) (test httx=007) 5.0 5.0-8.0 PROTEIN UA (BEAKER) (test pwaz=598) 10 mg/dL Negative GLUCOSE UA (BEAKER) (test sagf=599) 50 mg/dL Negative KETONES UA (BEAKER) (test utux=108) Negative Negative BILIRUBIN UA (BEAKER) (test cuhf=602) Negative Negative BLOOD UA (BEAKER) (test zquh=290) Trace Negative NITRITE UA (BEAKER) (test qngx=980) Positive Negative LEUKOCYTE ESTERASE UA (BEAKER) (test uhwx=998) Large Negative UROBILINOGEN UA (BEAKER) (test ymhw=867) 0.2 mg/dL 0.2-1.0 RBC UA (BEAKER) (test lcjt=222) 1 /HPF WBC UA (BEAKER) (test jqca=519) 127 /HPF BACTERIA (BEAKER) (test rtap=873) Occasional SQUAMOUS EPITHELIAL (BEAKER) (test ithx=749) < /HPF SOURCE(BEAKER) (test ckzq=9568) Urine, Voided [id number] 06:06:00 Test Item Value Reference Range Comments MAGNESIUM (BEAKER) (test zpkh=100) 1.8 mg/dL 1.6-2.6 BASIC METABOLIC [id number] 06:06:00 Test Item Value Reference Range Comments SODIUM (BEAKER) (test 140 meq/L 136-145 yove=665) POTASSIUM (BEAKER) (test 3.5 meq/L 3.5-5.1 mdap=952) CHLORIDE (BEAKER) (test 104 meq/L 98-107 yhhe=673) CO2 (BEAKER) (test 25 meq/L 22-29 qjuv=706) BLOOD UREA NITROGEN 22 mg/dL 7-21 (BEAKER) (test oetq=994) CREATININE (BEAKER) (test 0.87 mg/dL 0.57-1.25 kula=534) GLUCOSE RANDOM (BEAKER) 155 mg/dL 70-105 (test gqzg=126) CALCIUM (BEAKER) (test 9.1 mg/dL 8.4-10.2 vidp=030) EGFR (BEAKER) (test 85 mL/min/1.73 sq m ESTIMATED GFR IS NOT phsm=0761) ACCURATE CREATININE CLEARANCE IN PREDICTING GLOMERULAR FILTRATION RATE. ESTIMATED GFR IS NOT APPLICABLE FOR DIALYSIS PATIENTS. CBC (HEMOGRAM ONLY)2018-05-05 05:36:00 Test Item Value Reference Range Comments WHITE BLOOD CELL COUNT (BEAKER) (test ypev=658) 7.3 K/ L 3.5-10.5 RED BLOOD CELL COUNT (BEAKER) (test bxei=319) 4.40 M/ L 4.63-6.08 HEMOGLOBIN (BEAKER) (test aaty=001) 13.6 GM/DL 13.7-17.5 HEMATOCRIT (BEAKER) (test ymsq=200) 42.3 % 40.1-51.0 MEAN CORPUSCULAR VOLUME (BEAKER) (test hcoi=491) 96.1 fL 79.0-92.2 MEAN CORPUSCULAR HEMOGLOBIN (BEAKER) (test 30.9 pg 25.7-32.2 mwva=383) MEAN CORPUSCULAR HEMOGLOBIN CONC (BEAKER) (test 32.2 GM/DL 32.3-36.5 tnlv=146) RED CELL DISTRIBUTION WIDTH (BEAKER) (test 14.4 % 11.6-14.4 wivw=328) PLATELET COUNT (BEAKER) (test meml=646) 180 K/CU MM 150-450 MEAN PLATELET VOLUME (BEAKER) (test vqdh=789) 12.6 fL 9.4-12.4 NUCLEATED RED BLOOD CELLS (BEAKER) (test 0 /100 WBC 0-0 nvhh=310) POCT-GLUCOSE [id number] 22:13:00 Test Item Value Reference Range Comments POC-GLUCOSE METER (BEAKER) 151 mg/dL 70-110 TESTED AT [facility] [address] (test qytz=2785) [facility] [address] BASIC METABOLIC [id number] 05:43:00 Test Item Value Reference Range Comments SODIUM (BEAKER) (test 141 meq/L 136-145 svdl=034) POTASSIUM (BEAKER) (test 3.8 meq/L 3.5-5.1 pdsi=390) CHLORIDE (BEAKER) (test 106 meq/L 98-107 sfzi=097) CO2 (BEAKER) (test 25 meq/L 22-29 cate=625) BLOOD UREA NITROGEN 21 mg/dL 7-21 (BEAKER) (test jfyt=070) CREATININE (BEAKER) (test 0.96 mg/dL 0.57-1.25 lfmt=087) GLUCOSE RANDOM (BEAKER) 150 mg/dL 70-105 (test qvob=064) CALCIUM (BEAKER) (test 9.1 mg/dL 8.4-10.2 milc=140) EGFR (BEAKER) (test 76 mL/min/1.73 sq m ESTIMATED GFR IS NOT urpm=7160) ACCURATE CREATININE CLEARANCE IN PREDICTING GLOMERULAR FILTRATION RATE. ESTIMATED GFR IS NOT APPLICABLE FOR DIALYSIS PATIENTS. HEMOGLOBIN [id number] 10:54:00 Test Item Value Reference Range Comments HEMOGLOBIN A1C (BEAKER) (test dyer=560) 8.0 % 4.3-6.1 LIPID [id number] 07:20:00 Test Item Value Reference Range Comments TRIGLYCERIDES (BEAKER) (test oeoi=466) 93 mg/dL CHOLESTEROL (BEAKER) (test ucfz=270) 137 mg/dL HDL CHOLESTEROL (BEAKER) (test vsdv=346) 43 mg/dL LDL CHOLESTEROL CALCULATED (BEAKER) (test 75 mg/dL bnky=925) Triglyceride Reference Range: Low Risk <150 Borderline 150- 199 High Risk 200-499 Very High Risk >=500Cholesterol Reference Range: Low Risk <200 Borderline 200-239 High Risk > 240HDL Cholesterol Reference Range: Low Risk >=60 High Risk <40LDL Cholesterol Reference Range: Optimal <100 Near Optimal 100-129 Borderline 130-159 High 160-189 Very High >=190BASIC METABOLIC [id number] 07:20:00 Test Item Value Reference Range Comments SODIUM (BEAKER) (test 141 meq/L 136-145 yigh=256) POTASSIUM (BEAKER) (test 3.7 meq/L 3.5-5.1 hxsr=586) CHLORIDE (BEAKER) (test 107 meq/L 98-107 lfia=946) CO2 (BEAKER) (test 22 meq/L 22-29 lksv=887) BLOOD UREA NITROGEN 15 mg/dL 7-21 (BEAKER) (test lavy=314) CREATININE (BEAKER) (test 0.82 mg/dL 0.57-1.25 sjaq=573) GLUCOSE RANDOM (BEAKER) 157 mg/dL 70-105 (test ndbr=019) CALCIUM (BEAKER) (test 9.2 mg/dL 8.4-10.2 cwet=677) EGFR (BEAKER) (test 91 mL/min/1.73 sq m ESTIMATED GFR IS NOT lpqn=8490) ACCURATE CREATININE CLEARANCE IN PREDICTING GLOMERULAR FILTRATION RATE. ESTIMATED GFR IS NOT APPLICABLE FOR DIALYSIS PATIENTS. MR, BRAIN, WITHOUT [id number] 01:55:00FINAL REPORT MRI Brain without contrast Clinical [...] however correlate with physical exam. Signed: Radha Enriquezeport Verified Date/Time: 05/02/2018 01:55:42 Reading Location: [facility] C013T Transitional Reading Room COMPREHENSIVE METABOLIC [id number] 19:13:00 Test Item Value Reference Range Comments TOTAL PROTEIN (BEAKER) 8.0 gm/dL 6.0-8.3 (test lnpe=004) ALBUMIN (BEAKER) (test 4.0 g/dL 3.5-5.0 kawk=4063) ALKALINE PHOSPHATASE 59 U/L 40-150 (BEAKER) (test zglk=918) BILIRUBIN TOTAL (BEAKER) 0.6 mg/dL 0.2-1.2 (test rswp=912) SODIUM (BEAKER) (test 143 meq/L 136-145 lqnm=392) POTASSIUM (BEAKER) (test 3.5 meq/L 3.5-5.1 llaq=076) CHLORIDE (BEAKER) (test 106 meq/L 98-107 akbs=331) CO2 (BEAKER) (test 24 meq/L 22-29 iacj=091) BLOOD UREA NITROGEN 14 mg/dL 7-21 (BEAKER) (test mlpd=450) CREATININE (BEAKER) (test 0.81 mg/dL 0.57-1.25 ehea=887) GLUCOSE RANDOM (BEAKER) 136 mg/dL 70-105 (test wmxm=587) CALCIUM (BEAKER) (test 9.3 mg/dL 8.4-10.2 uqyd=260) AST (SGOT) (BEAKER) (test 17 U/L 5-34 rcgx=191) ALT (SGPT) (BEAKER) (test 17 U/L 6-55 kkec=306) EGFR (BEAKER) (test 92 mL/min/1.73 sq m ESTIMATED GFR IS NOT qspw=8286) ACCURATE CREATININE CLEARANCE IN PREDICTING GLOMERULAR FILTRATION RATE. ESTIMATED GFR IS NOT APPLICABLE FOR DIALYSIS PATIENTS. CBC W/PLT COUNT & AUTO [id number] 18:54:00 Test Item Value Reference Range Comments WHITE BLOOD CELL COUNT (BEAKER) (test dnhs=920) 11.0 K/ L 3.5-10.5 RED BLOOD CELL COUNT (BEAKER) (test fgtp=028) 4.30 M/ L 4.63-6.08 HEMOGLOBIN (BEAKER) (test ybjc=487) 13.5 GM/DL 13.7-17.5 HEMATOCRIT (BEAKER) (test sgok=592) 41.0 % 40.1-51.0 MEAN CORPUSCULAR VOLUME (BEAKER) (test wfuq=341) 95.3 fL 79.0-92.2 MEAN CORPUSCULAR HEMOGLOBIN (BEAKER) (test 31.4 pg 25.7-32.2 vzpl=119) MEAN CORPUSCULAR HEMOGLOBIN CONC (BEAKER) (test 32.9 GM/DL 32.3-36.5 egrl=502) RED CELL DISTRIBUTION WIDTH (BEAKER) (test 14.3 % 11.6-14.4 lwuk=209) PLATELET COUNT (BEAKER) (test nywt=466) 179 K/CU MM 150-450 MEAN PLATELET VOLUME (BEAKER) (test dcsq=475) 12.1 fL 9.4-12.4 NUCLEATED RED BLOOD CELLS (BEAKER) (test 0 /100 WBC 0-0 cbvz=334) NEUTROPHILS RELATIVE PERCENT (BEAKER) (test 73 % bnzx=278) LYMPHOCYTES RELATIVE PERCENT (BEAKER) (test 15 % lnqd=210) MONOCYTES RELATIVE PERCENT (BEAKER) (test 10 % bkzf=223) EOSINOPHILS RELATIVE PERCENT (BEAKER) (test 1 % rzal=394) BASOPHILS RELATIVE PERCENT (BEAKER) (test 1 % rynq=856) NEUTROPHILS ABSOLUTE COUNT (BEAKER) (test 7.95 K/ L 1.78-5.38 chue=041) LYMPHOCYTES ABSOLUTE COUNT (BEAKER) (test 1.66 K/ L 1.32-3.57 gdqm=584) MONOCYTES ABSOLUTE COUNT (BEAKER) (test 1.12 K/ L 0.30-0.82 vupa=696) EOSINOPHILS ABSOLUTE COUNT (BEAKER) (test 0.09 K/ L 0.04-0.54 hntt=623) BASOPHILS ABSOLUTE COUNT (BEAKER) (test 0.08 K/ L 0.01-0.08 cnbr=804) IMMATURE GRANULOCYTES-RELATIVE PERCENT (BEAKER) 1 % 0-1 (test euyy=[id number])
[2018-11-27 11:35] LABS: Protime INR 1.89
[2018-11-27 11:36] LABS: Absolute Lymphocytes (CBC) 1.5 K/uL (0.7-4.9); Basophils % 0.9 % (0-1.3); Hematocrit 35.7 % (39.6-49.0); Lymphocytes % 15.6 % (15.3-44.8); MPV 11.5 fL (7.6-11.3); RBC Red Blood Cell Count 3.81 M/uL (4.33-5.43)
[2018-11-27] MEDS ORDERED: NA CHLORIDE 0.9% 1,000 ML ONE (11:45)
[2018-11-27] MEDS ORDERED: CEFTRIAXONE/SWI 1gm 1 GM/10 ML SYR ONE (11:45)
--- NOTE | 2018-11-27 12:11 | RAD REPORT ---
EXAM DESCRIPTION: CT - Head Brain Wo Cont - 11/27/2018 11:21 am CLINICAL HISTORY: Syncope, weakness COMPARISON: None. TECHNIQUE: Axial 5 mm thick images of the head were obtained without IV contrast. All CT scans are performed using dose optimization technique as appropriate and may include automated exposure control or mA/KV adjustment according to patient size. FINDINGS: No intracranial hemorrhage, mass, edema or shift of mid-line structures. No acute cortical infarction. No cortical edema or sulcal effacement. No abnormal extra-axial fluid collections. Advan jimi atrophy and chronic ischemic changes are present. Ventricles are in proportion to volume loss. Mastoid air cells and visualized portions of the paranasal sinuses are clear. No acute bony findings. IMPRESSION: Prominent atrophy and chronic ischemic change. No acute intracranial finding.
[2018-11-27 12:19] LABS: ALT/SGPT 22 U/L (12-78); AST/SGOT 28 U/L (15-37); Albumin 3.6 g/dL (3.4-5.0); Alkaline Phosphatase 60 U/L (45-117); BUN Blood Urea Nitrogen 27 mg/dL (7-18); Bicarbonate 27 mmol/L (21-32); Bilirubin Direct 0.3 mg/dL (0-0.2); Bilirubin Total 0.8 mg/dL (0.2-1.0); CKMB Creatine Kinase MB 6.2 ng/mL (0.3-3.6); Creatine Phosphokinase 568 U/L (39-308); Glucose Level 169 mg/dL (74-106); Lipase 152 U/L (73-393); Potassium 3.5 mmol/L (3.5-5.1); Sodium Level 140 mmol/L (136-145); Troponin (Emerg Dept Use Only) < 0.02 ng/mL (0.0-0.045)
--- NOTE | 2018-11-27 12:35 | RAD REPORT ---
EXAM DESCRIPTION: RAD - Chest Single View - 11/27/2018 11:54 am CLINICAL HISTORY: Weakness, syncope, wheezing COMPARISON: August 18 TECHNIQUE: AP portable chest image was obtained 1128 hour . FINDINGS: Lung volumes are low accentuating baseline interstitial pattern. Atelectasis is evident in each base. Shallow inspiration and motion limit assessment. Left base infiltrate is not excluded. He art and vasculature are normal. No measurable pleural effusion and no pneumothorax. No acute bony abn ormality seen. No acute aortic findings suspected. IMPRESSION: Limited examination. No significant chest finding seen. Left base infiltrate is not entirely excluded.
--- NOTE | 2018-11-27 12:46 | ER ---
Nurse's Notes [facility] Name: Jose Armando Caldera Age: 78 yrs Sex: Male : 1940 Arrival Date: 11/27/2018 Time: 10:38 Bed 4 Private MD: Diagnosis: Syncope and collapse Presentation: 11/27 10:55 Presenting complaint: EMS states: pt got up to breakfast, walked to bathroom, was iw sitting on toilet but was unable to get himself off toilet, pt was slumped to left, has hx of left sided weakness, EMS assisted pt to stand but pt was very weak, got pt up to chair and then he had a syncopal episode, BP 80's/60's placed on stretcher, fluids given, BP up to 90's/50's, EMS also reports pt had wheezes on right side, diminished on left, A\T\A bx treatment given, pt had fall 2 days ago, fell in driveway, bruising to right arm. Transition of care: patient was not received from another setting of care. Onset of symptoms was November 27, 2018. Risk Assessment: Do you want to hurt yourself or someone else? Patient reports no desire to harm self or others. Initial Sepsis Screen: Does the patient meet any 2 criteria? No. Patient's initial sepsis screen is negative. Does the patient have a suspected source of infection? No. Patient's initial sepsis screen is negative. Care prior to arrival: IV initiated. 20 GA, in the left wrist, Glucose check: 193 Med neb given. Oxygen administered. via a nebulizer mask. 10:55 Method Of Arrival: EMS: [facility] iw 10:55 Acuity: HARPER 2 iw Triage Assessment: 11:50 General: Behavior is calm. Pain: Denies pain. Neuro: Reports weakness. iw 14:24 General: Appears in no apparent distress. iw Historical: - Allergies: 11:02 No Known Allergies; iw - Home Meds: 11:02 Crestor 5 mg Oral tab 1 tab once daily [Active]; levothyroxine 100 mcg tab 1 tab once iw daily [Active]; lisinopril-hydrochlorothiazide 20-25 mg Oral tab 1 tab once daily [Active]; metoprolol tartrate 50 mg Oral tab 1 tab 2 times per day [Active]; nitrofurantoin macrocrystal 50 mg Oral cap 1 cap once daily [Active]; rosuvastatin 5 mg Oral tab 1 tab once daily [Active]; tamsulosin 0.4 mg Oral cp24 1 cap twice a day [Active]; Xarelto 20 mg Oral tab 1 tab once daily [Active]; - PMHx: 11:02 Atrial Fib; cardiac stent; CVA; Hyperlipidemia; Hypertension; Hypothyroidism; iw Myocardial infarction; UTI; - PSHx: 11:02 Heart stents; iw - Immunization history:: Adult Immunizations unknown. - Social history:: Patient/guardian denies using alcohol, street drugs, The patient lives with family, Smoking status: Patient/guardian denies using tobacco. - Ebola Screening: : Patient negative for fever greater than or equal to 101.5 degrees Fahrenheit, and additional compatible Ebola Virus Disease symptoms Patient denies exposure to infectious person Patient denies travel to an Ebola-affected area in the 21 days before illness onset No symptoms or risks identified at this time. - Family history:: not pertinent. Screenin:03 Abuse screen: Denies threats or abuse. Denies injuries from another. Nutritional iw screening: No deficits noted. Tuberculosis screening: No symptoms or risk factors identified. Fall Risk Fall in past 12 months (25 points). Secondary diagnosis (15 points) TIA, impaired mobility, IV access (20 points). Ambulatory Aid- Crutches/Cane/Walker (15 pts). Gait- Weak (10 pts.). Mental Status- Oriented to own ability (0 pts). Assessment: 11:00 General: Appears in no apparent distress. uncomfortable, obese, Behavior is calm, iw cooperative. Pain: Denies pain. Neuro: Level of Consciousness is awake, alert, obeys commands, Oriented to person, place, time, situation. Respiratory: Respiratory effort is even, unlabored, Respiratory pattern is. 11:57 Reassessment: Patient appears in no apparent distress at this time. Patient and/or iw family updated on plan of care and expected duration. Pain level reassessed. Patient is alert, oriented x 3, equal unlabored respirations, skin warm/dry/pink. 12:00 Cardiovascular: Rhythm is regular. iw Vital Signs: 11:01 BP 103 / 58; Pulse 81; Resp 20 S; Temp 97.1(TE); Pulse Ox 94% on R/A; Weight 112.49 kg; iw Height 5 ft. 9 in. (175.26 cm); 11:25 Resp 20 S; Pulse Ox 87% on R/A; iw 11:58 BP 119 / 69; Pulse 79; Resp 20 S; Pulse Ox 95% on 2 lpm NC; iw 13:47 BP 131 / 63; Pulse 81; Resp 20; Pulse Ox 94% on R/A; iw 11:01 Body Mass Index 36.62 (112.49 kg, 175.26 cm) iw ED Course: 10:38 Patient arrived in ED. iw 10:38 Luisa Falcon, NEGRITA is Primary Nurse. iw 11:01 Triage completed. iw 11:03 Arm band placed on. iw 11:03 Patient has correct armband on for positive identification. iw 11:03 Inserted saline lock: 20 gauge in left wrist, using aseptic technique. iw 11:03 Inserted saline lock: 20 gauge in right antecubital area, using aseptic technique. iw Blood collected. 11:04 Ashley Cassidy MD is Attending Physician. ma2 11:21 CT completed. Patient tolerated procedure well. Patient moved back from CT. mw3 11:22 CT Head Brain wo Cont In Process Unspecified. EDMS 12:12 Chest Single View XRAY In Process Unspecified. EDMS 12:44 Sarita Seals MD is Hospitalizing Provider. ma2 14:24 No provider procedures requiring assistance completed. Patient admitted, IV remains in iw place. Administered Medications: 11:56 Drug: Rocephin 1 grams Route: IV; Rate: calculated rate; Site: right antecubital; iw 12:05 Follow up: IV Status: Completed infusion iw 11:57 Drug: NS 0.9% (30 ml/kg) 30 ml/kg Route: IV; Rate: bolus; Site: right antecubital; iw 14:43 Follow up: IV Status: Completed infusion iw Point of Care Testing: Blood Glucose: 11:01 Blood Glucose: 193 mg/dL; iw Ranges: Outcome: 12:44 Decision to Hospitalize by Provider. ma2 14:41 Admitted to Med/surg accompanied by tech, family with patient, via wheelchair, room iw 204, on monitor, with chart, Report called to NEGRITA Burks 14:41 Condition: good 14:41 Discharge instructions given to patient, family, Instructed on the need for admit, Demonstrated understanding of instructions. 14:54 Patient left the ED. aa5 Signatures: Dispatcher [employer] Luisa Avalos RN RN iw Pat Escobedo RN RN aa5 Ashley Cassidy MD MD ma2 Kyara Sandoval mw3 Corrections: (The following items were deleted from the chart) 11:41 11:01 BP 103 / 58; Pulse 81bpm; Resp 20bpm; Spontaneous; Pulse Ox 94% RA; Temp 97.1F iw Temporal; iw
--- NOTE | 2018-11-27 12:47 | EDPHYS ---
Physician Documentation [facility] Name: Jose Armando Caldera Age: 78 yrs Sex: Male : 1940 Arrival Date: 11/27/2018 Time: 10:38 Bed 4 Private MD: ED Physician Ashley Cassidy HPI: 11/27 12:41 This 78 yrs old Male presents to ER via EMS with complaints of General ma2 Weakness, Syncope. 12:41 This 78 yrs old Male presents to ER via EMS with complaints of General ma2 Weakness, Syncope. 12:41 The patient has experienced syncope. Onset: The symptoms/episode began/occurred ma2 suddenly, gradually, 1 hour(s) ago, 1 day(s) ago. Duration: This was a single episode. Context: occurred at home. Associated signs and symptoms: Pertinent positives: weakness, Pertinent negatives: agitation, combativeness, diaphoresis, diarrhea. The patient has experienced similar episodes in the past. Historical: - Allergies: 11:02 No Known Allergies; iw - Home Meds: 11:02 Crestor 5 mg Oral tab 1 tab once daily [Active]; levothyroxine 100 mcg tab 1 tab once iw daily [Active]; lisinopril-hydrochlorothiazide 20-25 mg Oral tab 1 tab once daily [Active]; metoprolol tartrate 50 mg Oral tab 1 tab 2 times per day [Active]; nitrofurantoin macrocrystal 50 mg Oral cap 1 cap once daily [Active]; rosuvastatin 5 mg Oral tab 1 tab once daily [Active]; tamsulosin 0.4 mg Oral cp24 1 cap twice a day [Active]; Xarelto 20 mg Oral tab 1 tab once daily [Active]; - PMHx: 11:02 Atrial Fib; cardiac stent; CVA; Hyperlipidemia; Hypertension; Hypothyroidism; iw Myocardial infarction; UTI; - PSHx: 11:02 Heart stents; iw - Immunization history:: Adult Immunizations unknown. - Social history:: Patient/guardian denies using alcohol, street drugs, The patient lives with family, Smoking status: Patient/guardian denies using tobacco. - Ebola Screening: : Patient negative for fever greater than or equal to 101.5 degrees Fahrenheit, and additional compatible Ebola Virus Disease symptoms Patient denies exposure to infectious person Patient denies travel to an Ebola-affected area in the 21 days before illness onset No symptoms or risks identified at this time. - Family history:: not pertinent. ROS: 12:41 Constitutional: Negative for fever, chills, and weight loss. ma2 12:41 All other systems are negative. Exam: 12:41 Constitutional: This is a well developed, well nourished patient who is awake, alert, ma2 and in no acute distress. Head/Face: Normocephalic, atraumatic. Chest/axilla: Normal chest wall appearance and motion. Nontender with no deformity. No lesions are appreciated. Cardiovascular: initial bp was low, no wnl, after ivf.. Regular rate and rhythm with a normal S1 and S2. No gallops, murmurs, or rubs. Normal PMI, no JVD. No pulse deficits. Respiratory: Lungs have equal breath sounds bilaterally, clear to auscultation and percussion. No rales, rhonchi or wheezes noted. No increased work of breathing, no retractions or nasal flaring. Abdomen/GI: Soft, non-tender, with normal bowel sounds. No distension or tympany. No guarding or rebound. No evidence of tenderness throughout. MS/ Extremity: Pulses equal, no cyanosis. Neurovascular intact. Full, normal range of motion. Neuro: Awake and alert, GCS 15, oriented to person, place, time, and situation. Cranial nerves II-XII grossly intact. Motor strength 5/5 in all extremities. Sensory grossly intact. Cerebellar exam normal. Normal gait. Vital Signs: 11:01 BP 103 / 58; Pulse 81; Resp 20 S; Temp 97.1(TE); Pulse Ox 94% on R/A; Weight 112.49 kg; iw Height 5 ft. 9 in. (175.26 cm); 11:25 Resp 20 S; Pulse Ox 87% on R/A; iw 11:58 BP 119 / 69; Pulse 79; Resp 20 S; Pulse Ox 95% on 2 lpm NC; iw 13:47 BP 131 / 63; Pulse 81; Resp 20; Pulse Ox 94% on R/A; iw 11:01 Body Mass Index 36.62 (112.49 kg, 175.26 cm) iw MDM: 11:04 Patient medically screened. ma2 12:41 Differential Diagnosis: drug effect, sepsis, transient ischemic attack, vasovagal ma2 episode. Data reviewed: vital signs, nurses notes. Sepsis 6 hour Focused Exam: Focused assessment performed: November 27, 2018 at 12:43 Heart: Regular rate/rhythm. Lungs: noted to be clear bilaterally. Capillary refill examination performed. Capillary refill noted to be brisk. Skin examination performed. Skin noted to have normal turgor. Passive leg raise examination performed. Neuro: Patient's neurological exam has improved from previous exam. Counseling: I had a detailed discussion with the patient and/or guardian regarding: the historical points, exam findings, and any diagnostic results supporting the discharge/admit diagnosis, the presence of at least one elevated blood pressure reading (>120/80) during this emergency department visit, the need for outpatient follow up. Response to treatment: the patient's symptoms have markedly improved after treatment, the patient's symptoms have resolved after treatment. ED course: discussed with dr. paulino. 11/27 11:06 Order name: Basic Metabolic Panel; Complete Time: 12:25 [facility] 11/27 11:06 Order name: Blood Culture Adult (2) [facility] 11/27 11:06 Order name: CBC with Diff; Complete Time: 11:48 [facility] 11/27 11:06 Order name: Ckmb; Complete Time: 12:25 [facility] 11/27 11:06 Order name: CPK; Complete Time: 12:25 [facility] 11/27 11:06 Order name: Lactate; Complete Time: 12:25 [facility] 11/27 11:06 Order name: LFT's; Complete Time: 12:25 [facility] 11/27 11:06 Order name: Lipase; Complete Time: 12:25 [facility] 11/27 11:06 Order name: Procalcitonin; Complete Time: 12:41 [facility] 11/27 11:06 Order name: Protime (+inr); Complete Time: 11:48 [facility] 11/27 11:06 Order name: Ptt, Activated; Complete Time: 11:48 [facility] 11/27 11:06 Order name: Troponin (emerg Dept Use Only); Complete Time: 12:25 [facility] 11/27 11:06 Order name: Urine Microscopic Only [facility] 11/27 13:44 Order name: Urine Dipstick--Ancillary (enter results) 11/27 11:06 Order name: Chest Single View XRAY; Complete Time: 12:41 11/27 11:06 Order name: Accucheck; Complete Time: :11/27 11:06 Order name: Cardiac monitoring; Complete Time: 11/27 11:06 Order name: EKG - Nurse/Tech; Complete Time: 11/27 11:06 Order name: IV Saline Lock - Large Bore; Complete Time: 11/27 11:06 Order name: Labs collected and sent; Complete Time: 11/27 11:06 Order name: O2 Per Protocol; Complete Time: 11/27 11:06 Order name: O2 Sat Monitoring; Complete Time: 11/27 11:06 Order name: Urine Dipstick-Ancillary (obtain specimen); Complete Time: 13:54 11/27 11:06 Order name: CT Head Brain wo Cont; Complete Time: 12:11/27 14:15 Order name: Urine Dipstick-Ancillary EDMS Administered Medications: 11:56 Drug: Rocephin 1 grams Route: IV; Rate: calculated rate; Site: right antecubital; iw 12:05 Follow up: IV Status: Completed infusion iw 11:57 Drug: NS 0.9% (30 ml/kg) 30 ml/kg Route: IV; Rate: bolus; Site: right antecubital; iw 14:43 Follow up: IV Status: Completed infusion Point of Care Testing: Blood Glucose: 11:01 Blood Glucose: 193 mg/dL; Ranges: Critical Glucose Levels:Adult <50 mg/dl or >400 mg/dl <40 mg/dl or >180 mg/dl Disposition: 11/27/18 12:44 Hospitalization ordered by Sarita Paulino for Observation. Preliminary diagnosis is Syncope and collapse. - Bed requested for Telemetry/MedSurg (observation). - Status is Observation. aa5 - Condition is Stable. - Problem is new. - Symptoms are unchanged. UTI on Admission? Yes Signatures: Dispatcher [employer] EDMS Luisa Falcon RN RN iw Pat Escobedo RN RN aa5 Saman Villanueva RN RN ja1 Ashley Cassidy MD MD ma2 Rosanna Martinez Corrections: (The following items were deleted from the chart) 12:44 12:44 Hospitalization Ordered by Sarita Paulino MD for Inpatient Admission. Preliminary ma2 diagnosis is Syncope and collapse. Bed requested for Telemetry/MedSurg (observation). Status is Inpatient Admission. Condition is Stable. Problem is new. Symptoms are unchanged. UTI on Admission? Yes. ma2 13:32 12:44 11/27/2018 12:44 Hospitalization Ordered by Sarita Paulino MD for Observation. ja1 Preliminary diagnosis is Syncope and collapse. Bed requested for Telemetry/MedSurg (observation). Status is Observation. Condition is Stable. Problem is new. Symptoms are unchanged. UTI on Admission? Yes. ma2 14:03 13:32 11/27/2018 12:44 Hospitalization Ordered by Sarita Paulino MD for Observation. eb Preliminary diagnosis is Syncope and collapse. Bed requested for Telemetry/MedSurg (observation). Status is Observation. Condition is Stable. Problem is new. Symptoms are unchanged. UTI on Admission? Yes. [email or web address] 14:15 14:03 11/27/2018 12:44 Hospitalization Ordered by Sarita Paulino MD for Observation. ja1 Preliminary diagnosis is Syncope and collapse. Bed requested for Telemetry/MedSurg (observation). Status is Observation. Condition is Stable. Problem is new. Symptoms are unchanged. UTI on Admission? Yes. eb 14:54 14:15 11/27/2018 12:44 Hospitalization Ordered by Sarita Paulino MD for Observation. aa5 Preliminary diagnosis is Syncope and collapse. Bed requested for Telemetry/MedSurg (observation). Status is Observation. Condition is Stable. Problem is new. Symptoms are unchanged. UTI on Admission? Yes. yonas
[2018-11-27 14:09] LABS: Urine Bacteria <20 /HPF (NONE SEEN); Urine Culture Reflex Order REFLEXED; Urine Mucus SLIGHT /HPF (NONE SEEN); Urine RBC <5 /HPF (NONE SEEN)
[2018-11-27 14:12] LABS: Urine Blood TRACE (NEG); Urine Glucose TRACE (NEG); Urine Protein TRACE (NEG); Urine Specific Gravity 1.015 (1.005-1.030); Urine pH 5.5 (5.0-7.0)
[2018-11-27] MEDS ORDERED: ONDANSETRON 4 MG/2 ML VIAL IV PRN (15:23)
--- NOTE | 2018-11-27 16:21 | P.HP ---
Certification for Inpatient Patient admitted to: Observation With expected LOS: <2 Midnights Patient will require the following post-hospital care: None Practitioner: I am a practitioner with admitting privileges, knowledge of patient current condition, hospital course, and medical plan of care. Services: Services provided to patient in accordance with Admission requirements found in Title 42 Section 412.3 of the Code of Federal Regulations Patient History Date of Service: 11/27/18 Primary Care Provider: [place] History of Present Illness: Mr Caldera is a 78 years old male with history of HTN, Chronic A.Fib rated controlled with metoprolol, anticoagulated with xarelto, CAD, dyslipidemia, BPH on Flomax, who came to ED after having a near syncopal Episode at the house. EMS states: pt got up to breakfast and walked to bathroom, while he was sitting on toilet he was unable to get himself off toilet, pt was slumped to left/ Pt does have hx of left sided weakness, however this was different. 911 was called. EMS arrived and assisted pt to stand but pt was very weak, got pt up to chair and then he had a near syncopal episode. EMS got the vitals and BP 80's/60 's. Pt also had fall 2 days ago in driveway and sustained bruising to right arm. He had similar episodes in the past, assumed as orthostatic hypotension episode. At arrival, his BP was on the lower side, 81/42 HR 115. He was afebrile. Initial trop was negative, EKG A.fib without ST-T abnormalities. CT head shows no acute abnormalities either. WBC WNL Allergies No Known Allergies Allergy (Verified 08/18/18 22:20) Home Medications: Rivaroxaban [Xarelto*] 20 mg PO BEDTIME 04/29/16 Rosuvastatin [Crestor*] 5 mg PO BEDTIME 04/29/16 Levothyroxine Sodium 1 tab PO [id number] 01/19/18 Metoprolol Succinate [Toprol Xl*] 1 tab PO BID 08/19/18 Amlodipine Besylate 5 mg PO BEDTIME 11/27/18 Aspirin [Aspirin EC 81 MG] 1 tab PO DAILY 11/27/18 Famotidine [Pepcid] 20 mg PO DAILY 11/27/18 Lisinopril/Hydrochlorothiazide [Lisinopril-Hctz 20-25 mg Tab] 1 tab PO DAILY Tamsulosin [Flomax*] 1 tab PO BID 11/27/18 hydroCHLOROthiazide [Hydrodiuril*] 1 tab PO DAILY 11/27/18 - Past Medical/Surgical History Diabetic: No -: HTN -: High Cholesterol -: AFIB -: [place] with cardiac stents -: Skin Cancer -: Umbilical hernia -: Bladder Cancer -: Ez Knee surgery -: Back surgery -: Umbilical Hernia repair -: Bladder Surgery - Family History Father -: Other (see notes) Notes: [place] Mother -: Other (see notes) Notes: [place] Brother Notes: Prostate Cancer - Social History Alcohol use: No CD- Drugs: No Caffeine use: Yes Review of Systems 10-point ROS is otherwise unremarkable Physical Examination - Vital Signs Temperature: 98.1 F Blood Pressure: 149/70 Pulse: 69 Respirations: 20 Pulse Ox (%): 95 - Physical Exam General: Alert, In no apparent distress HEENT: Atraumatic, PERRLA, Mucous membr. moist/pink, EOMI, Sclerae nonicteric Neck: Supple, 2+ carotid pulse no bruit, No LAD, Without JVD or thyroid abnormality Respiratory: Clear to auscultation bilaterally, Normal air movement Cardiovascular: Regular rate/rhythm, Normal S1 S2 Gastrointestinal: Normal bowel sounds, No tenderness Musculoskeletal: No tenderness Integumentary: No rashes Neurological: Normal gait, Normal speech, Normal strength at 5/5 x4 extr, Normal tone, Normal affect Lymphatics: No axilla or inguinal lymphadenopathy - Studies Laboratory Data (last 24 hrs) 11/27/18 11:49: Sodium 140, Potassium 3.5, BUN 27 H, Creatinine 1.49 H, Glucose 169 H, Total Bilirubin 0.8, AST 28, ALT 22, Alkaline Phosphatase 60, Lipase 152 11/27/18 11:00: PT 21.8 H, INR 1.89, APTT 35.8 11/27/18 11:00: WBC 9.4, Hgb 12.6 L, Hct 35.7 L, Plt Count 174 Assessment and Plan - Problems (Diagnosis) (1) Near syncope Current Visit: No Status: Acute Plan: Near syncope with possible syncopal Episode. Most likely 2.2 to Orthostatic Hypotension -Head CT negative in the ER -Pt BP 80's/50's -BP now better after fluids -Will monitor at this time -PT/OT consult for ambulation -Will Recheck home medication and make changes to help with BP (2) CAD (coronary artery disease) Onset Date: 01/20/18 Current Visit: No Status: Chronic Qualifiers: Coronary Disease-Associated Artery/Lesion type: [place] artery [place] vs. transplanted heart: [place] heart Associated angina: without angina Qualified Code(s): I25.10 - Atherosclerotic heart disease of [place] coronary artery without angina pectoris (3) Chronic a-fib Current Visit: No Status: Chronic (4) Essential hypertension Onset Date: 01/20/18 Current Visit: No Status: Chronic (5) Mixed hyperlipidemia Onset Date: 01/20/18 Current Visit: No Status: Chronic - Plan Admit to med surg for further care. - Advance Directives Does patient have a Living Will: No Does patient have a Durable POA for Healthcare: No
[2018-11-27] MEDS ORDERED: POTASSIUM CL SA 10 MEQ TAB PO ONE (18:00)
[2018-11-27 18:34] VITALS: BMI 31.9
[2018-11-27] MEDS ORDERED: HOME MED 1 EA UNK (Rosuvastatin [Crestor*] 5 MG) PO SCH (21:00)
[2018-11-27] MEDS ORDERED: RIVAROXABAN 20 MG TABLET PO SCH (21:00)
[2018-11-27] MEDS ORDERED: AMLODIPINE 5 MG TAB PO SCH (21:00)
[2018-11-27] MEDS ORDERED: ROSUVASTATIN 10 MG TAB PO SCH (21:00)
[2018-11-27] MEDS: METOPROLOL XL 25 MG TAB PO SCH (21:06)
[2018-11-28] MEDS ORDERED: LEVOTHYROXINE SOD 0.1 MG TAB PO SCH (06:00)
[2018-11-28 06:13] LABS: Albumin 3.3 g/dL (3.4-5.0); Bilirubin Total 0.7 mg/dL (0.2-1.0); Magnesium 1.7 mg/dL (1.8-2.4); Phosphorus 3.2 mg/dL (2.5-4.9); Potassium 3.2 mmol/L (3.5-5.1); Protein, Total 7.4 g/dL (6.4-8.2)
[2018-11-28 06:14] LABS: Absolute Lymphocytes (CBC) 1.7 K/uL (0.7-4.9); Hematocrit 33.8 % (39.6-49.0); Lymphocytes % 20.4 % (15.3-44.8); MPV 11.1 fL (7.6-11.3); RBC Red Blood Cell Count 3.62 M/uL (4.33-5.43)
[2018-11-28 07:21] LABS: Blood Morphology Comment NOT SEEN (NOT SEEN); Platelet Estimate ADEQ
[2018-11-28] MEDS: MAGNESIUM SULFATE 1 gm IVPB 1 GM/100 ML BAG IV ONE ×2 (08:00→09:24)
[2018-11-28] MEDS ORDERED: POTASSIUM CL SA 10 MEQ TAB PO ONE (09:00)
[2018-11-28] MEDS ORDERED: ASPIRIN EC 81 MG TAB PO SCH (09:00)
[2018-11-28] MEDS ORDERED: hydroCHLOROthiazide 25 MG TAB PO SCH (09:00)
[2018-11-28] MEDS ORDERED: FAMOTIDINE 20 MG TAB PO SCH (09:00)
[2018-11-28 09:05] VITALS: BP 140/79; TEMP 97.3
[2018-11-28] MEDS: METOPROLOL XL 25 MG TAB PO SCH (09:28)
[2018-11-28] MEDS ORDERED: NA CHLORIDE 0.9% 250 ML ONE (09:38)
[2018-11-28 11:53] VITALS: O2SAT 93
--- NOTE | 2018-11-28 13:01 | P.SSS ---
Patient History Date of Service: 11/28/18 Primary Care Provider: In [place] History of Present Illness: Mr Caldera is a 78 years old male with history of HTN, Chronic A.Fib rated controlled with metoprolol, anticoagulated with xarelto, CAD, dyslipidemia, BPH on Flomax, who came to ED after having a near syncopal Episode at the house. EMS states: pt got up to breakfast and walked to bathroom, while he was sitting on toilet he was unable to get himself off toilet, pt was slumped to left/ Pt does have hx of left sided weakness, however this was different. 911 was called. EMS arrived and assisted pt to stand but pt was very weak, got pt up to chair and then he had a near syncopal episode. EMS got the vitals and BP 80's/60 's. Pt also had fall 2 [address] ago in driveway and sustained bruising to right arm. He had similar episodes in the past, assumed as orthostatic hypotension episode. At arrival, his BP was on the lower side, 81/42 HR 115. He was afebrile. Initial trop was negative, EKG A.fib without ST-T abnormalities. CT head shows no acute abnormalities either. WBC WNL Allergies No Known Allergies Allergy (Verified 08/18/18 22:20) Home Medications: Rivaroxaban [Xarelto*] 20 mg PO BEDTIME 04/29/16 Rosuvastatin [Crestor*] 5 mg PO BEDTIME 04/29/16 Levothyroxine Sodium 1 tab PO [id number] 01/19/18 Metoprolol Succinate [Toprol Xl*] 1 tab PO BID 08/19/18 Amlodipine Besylate 5 mg PO BEDTIME 11/27/18 Aspirin [Aspirin EC 81 MG] 1 tab PO DAILY 11/27/18 Famotidine [Pepcid*] 20 mg PO DAILY 11/27/18 Tamsulosin [Flomax*] 1 tab PO BID 11/27/18 hydroCHLOROthiazide [Hydrodiuril*] 1 tab PO DAILY 11/27/18 - Past Medical/Surgical History Has patient received pneumonia vaccine in the past: Yes Diabetic: No -: HTN -: High Cholesterol -: AFIB -: [place] with cardiac stents -: Skin Cancer -: Umbilical hernia -: Bladder Cancer -: Ez Knee surgery -: Back surgery -: Umbilical Hernia repair -: Bladder Surgery - Family History Father -: Other (see notes) Notes: [place] Mother -: Other (see notes) Notes: [place] Brother Notes: Prostate Cancer - Social History Smoking Status: Never smoker Alcohol use: No CD- Drugs: No Caffeine use: Yes Place of Residence: Home Review of Systems 10-point ROS is otherwise unremarkable Physical Examination - Vital Signs Temperature: 97.3 F Blood Pressure: 140/79 Pulse: 61 Respirations: 18 Pulse Ox (%): 93 - Physical Exam General: Alert, In no apparent distress HEENT: Atraumatic, PERRLA, Mucous membr. moist/pink, EOMI, Sclerae nonicteric Neck: Supple, 2+ carotid pulse no bruit, No LAD, Without JVD or thyroid abnormality Respiratory: Clear to auscultation bilaterally, Normal air movement Cardiovascular: Regular rate/rhythm, Normal S1 S2 Gastrointestinal: Normal bowel sounds, No tenderness Musculoskeletal: No tenderness Integumentary: No rashes Neurological: Normal gait, Normal speech, Normal strength at 5/5 x4 extr, Normal tone, Normal affect Lymphatics: No axilla or inguinal lymphadenopathy - Studies Laboratory Data (last 24 hrs) 11/27/18 11:49: Sodium 140, Potassium 3.5, BUN 27 H, Creatinine 1.49 H, Glucose 169 H, Total Bilirubin 0.8, AST 28, ALT 22, Alkaline Phosphatase 60, Lipase 152 - Diagnosis (Problem(s)) (1) Near syncope Current Visit: No Status: Acute Plan: Near syncope with possible syncopal Episode. Most likely 2.2 to Orthostatic Hypotension -Head CT negative in the ER -BP now better after fluids -worked with physical therapy -advice to stop taking lisinopril/hydrochlorothiazide -advised to take Flomax at night time before going to bed -advised to also get in and out of bed slowly to adjust for orthostatics hypertension (2) CAD (coronary artery disease) Onset Date: 01/20/18 Current Visit: No Status: Chronic Qualifiers: Coronary Disease-Associated Artery/Lesion type: douglas artery [place] vs. transplanted heart: douglas heart Associated angina: without angina Qualified Code(s): I25.10 - Atherosclerotic heart disease of douglas coronary artery without angina pectoris (3) Chronic a-fib Current Visit: No Status: Chronic (4) Essential hypertension Onset Date: 01/20/18 Current Visit: No Status: Chronic Plan: Stop taking lisinopril/hydrochlorothiazide (5) Mixed hyperlipidemia Onset Date: 01/20/18 Current Visit: No Status: Chronic Treatment Summary: Will discharge patient home after patient was seen by physical therapy and occupational therapy here in the hospital. Patient blood pressure medication were adjusted. Son at bedside was explained regarding taking blood pressure every single day and educating patient regarding slow movements after has been laying down for a long amount of time. Patient and son both demonstrated understanding and thus discharged home under stable condition - Disposition Disposition: ROUTINE DISCHARGE Condition: GOOD Patient Discharge Instructions: Please f.u with PCP in 1 to 2 week post discharge. Stop Lisinopril/hctz Diet: Regular Activity: Ad jordan
--- NOTE | 2018-11-28 13:40 | EKG ---
Test Date: 2018-11-27 Test Time: 10:41:00 [employer] Disabled: MEASUREMENT RESULTS: Intervals: Rate: 81 AR: 170 QRSD: 102 QT: 402 QTc: 466 [place]: P: 35 AR: 170 QRS: -2 T: 46 INTERPRETIVE STATEMENTS: Normal sinus rhythm Normal ECG Compared to ECG 08/19/2018 01:07:20 Sinus bradycardia no longer present Electronically Signed On 11-28-18 13:39:32 CDT by Panda Chambers
== END 2018-11-28 16:08 | disposition home health service (06) ==
LOC: ER 10:33 → ERHOLD 12:46 → 2ND 14:35
PROVIDERS: ADMIT Family Medicine; ATTEND Family Medicine
DX: R55 Syncope and collapse (principal); I25.10 Atherosclerotic heart disease of native coronary artery without angina pectoris; E78.2 Mixed hyperlipidemia; I48.2 Chronic atrial fibrillation; I10 Essential (primary) hypertension
CPT/HCPCS: 36415; 70450; 71045; 80048; 80053; 80076; 81003; 81015; 82550; 82553; 83605; 83690; 83735; 84100; 84132; 84145; 84443; 84484; 85025; 85610; 85730; 87040; 87086; 87088; 93005; 96361; 96365; 96366; 96374; 96375; 97112; 97116; 97161; 99285; G0378; J0696; J3475; J7030

== ENCOUNTER 2018-11-30 10:52 | Inpatient (IN) | payer OTHER, MEDICARE ==
--- NOTE | 2018-11-30 11:42 | RAD REPORT ---
EXAM DESCRIPTION: Derrick Single View11/30/2018 11:29 am CLINICAL HISTORY: Dizziness/hypertension COMPARISON: November 27, 2018 FINDINGS: The lungs appear clear of acute infiltrate. The heart is normal size IMPRESSION: No acute abnormalities displayed
--- NOTE | 2018-11-30 12:09 | RAD REPORT ---
EXAM DESCRIPTION: CT - Head Brain Wo Cont - 11/30/2018 11:49 am CLINICAL HISTORY: Alteration of awareness/confusion COMPARISON: November 27, 2018 TECHNIQUE: Computed axial tomography of the head was obtained. IV contrast was not requested. All CT scans are performed using dose optimization technique as appropriate and may include automated exposure control or mA/KV adjustment according to patient size. FINDINGS: An intracranial bleed is not seen . The ventricles are normal in caliber. No extra-axial fluid collection is noted. Mild to moderate low-density areas within periventricular, deep and subcortical white matter likely r epresent ischemic changes secondary to small vessel disease. Fluid within the sinuses/ mastoids is not seen. IMPRESSION: No acute intracranial abnormality is seen. If patient's symptoms persist MRI of the bra in would be recommended.
[2018-11-30 12:10] LABS: Absolute Lymphocytes (CBC) 1.2 K/uL (0.7-4.9); Basophils % 0.9 % (0-1.3); Lymphocytes % 13.9 % (15.3-44.8); RBC Red Blood Cell Count 3.73 M/uL (4.33-5.43)
[2018-11-30 12:12] LABS: Protime INR 1.82
[2018-11-30 12:24] LABS: ALT/SGPT 28 U/L (12-78); AST/SGOT 33 U/L (15-37); Albumin 3.3 g/dL (3.4-5.0); Alkaline Phosphatase 53 U/L (45-117); BUN Blood Urea Nitrogen 25 mg/dL (7-18); Bicarbonate 28 mmol/L (21-32); Bilirubin Direct 0.3 mg/dL (0-0.2); Bilirubin Total 0.8 mg/dL (0.2-1.0); Glucose Level 170 mg/dL (74-106); Magnesium 1.9 mg/dL (1.8-2.4); NT PRO-BNP 515 pg/mL (<450); Potassium 3.3 mmol/L (3.5-5.1); Protein, Total 7.5 g/dL (6.4-8.2); Sodium Level 140 mmol/L (136-145); Troponin (Emerg Dept Use Only) < 0.02 ng/mL (0.0-0.045)
[2018-11-30] MEDS ORDERED: POTASSIUM CL SA 10 MEQ TAB PO ONE (13:09)
[2018-11-30 13:46] LABS: Blood Morphology Comment NOT SEEN (NOT SEEN); Platelet Estimate DECR; Urine White Blood Cell Casts OK
--- NOTE | 2018-11-30 14:14 | ER ---
Nurse's Notes [facility] Name: Jose Armando Caldera Age: 78 yrs Sex: Male : 1940 Arrival Date: 11/30/2018 Time: 10:55 Bed 3 Private MD: Diagnosis: Weakness;Syncope and collapse;Orthostatic Hypotension Presentation: 11/30 10:51 Presenting complaint: EMS states: dizziness, headache and generalized weakness started sv about an hour ago. 94% RA placed on O2 \T\ 2L per NC, and reports headache is gone. Transition of care: patient was not received from another setting of care. Onset of symptoms was November 30, 2018. Risk Assessment: Do you want to hurt yourself or someone else? Patient reports no desire to harm self or others. Care prior to arrival: None. 10:51 Method Of Arrival: EMS: [facility] sv 10:51 Acuity: HARPER 3 sv 11:23 Initial Sepsis Screen: Does the patient meet any 2 criteria? No. Patient's initial sv sepsis screen is negative. Does the patient have a suspected source of infection? No. Patient's initial sepsis screen is negative. Triage Assessment: 10:55 General: Appears in no apparent distress. comfortable, well developed, Behavior is sv calm, cooperative, appropriate for age. Pain: Denies pain. Neuro: Level of Consciousness is awake, alert, obeys commands, Oriented to person, place, time, situation, Moves all extremities. Speech is normal, Reports dizziness, weakness Denies headache. Respiratory: Respiratory effort is even, unlabored, Respiratory pattern is regular, symmetrical. Derm: Skin with poor turgor Skin is normal, Bruising that is dark purple, on right arm and left arm. Historical: - Allergies: 10:58 No Known Allergies; sv - PMHx: 10:58 Atrial Fib; Hyperlipidemia; CVA; Hypertension; Hypothyroidism; Myocardial infarction; sv UTI; - PSHx: 10:58 Heart stents; sv - Immunization history:: Adult Immunizations up to date. - Social history:: Smoking status: Patient/guardian denies using tobacco. - Ebola Screening: : No symptoms or risks identified at this time. Screenin:05 Abuse screen: Denies threats or abuse. Denies injuries from another. Nutritional sv screening: No deficits noted. Tuberculosis screening: No symptoms or risk factors identified. Fall Risk None identified. Assessment: 11:24 Reassessment: Patient appears in no apparent distress at this time. No changes from sv previously documented assessment. Patient and/or family updated on plan of care and expected duration. Pain level reassessed. 13:00 Reassessment: Patient appears in no apparent distress at this time. No changes from sv previously documented assessment. Patient and/or family updated on plan of care and expected duration. Pain level reassessed. Patient is alert, oriented x 3, equal unlabored respirations, skin warm/dry/pink. 14:00 Reassessment: Patient appears in no apparent distress at this time. No changes from sv previously documented assessment. Patient and/or family updated on plan of care and expected duration. Pain level reassessed. 14:30 Reassessment: assisted patient to standing, to use urinal, pt became light headed and iw dizzy, assisted pt to sitting, HR up to 140's, BP=90/45, pt assisted to lying position, pt stared off with blank stare, was not speaking or responding to tactile stimuli, episode lasted approx 30 seconds, repeat BP 87/49, Dr. Wilson at bedside to assess patient, family at beside. 15:52 Reassessment: Patient appears in no apparent distress at this time. Patient and/or sv family updated on plan of care and expected duration. Pain level reassessed. Patient is alert, oriented x 3, equal unlabored respirations, skin warm/dry/pink. 16:20 Reassessment: Patient appears in no apparent distress at this time. No changes from sv previously documented assessment. Patient and/or family updated on plan of care and expected duration. Pain level reassessed. Patient is alert, oriented x 3, equal unlabored respirations, skin warm/dry/pink. Vital Signs: 10:58 BP 117 / 63; Pulse 105; Resp 15; Temp 97.9(O); Pulse Ox 92% on R/A; sv 11:41 BP 125 / 67; Pulse 96; Resp 16; Pulse Ox 95% on 3 lpm NC; sv 12:30 BP 131 / 98; Pulse 99; Resp 26; Pulse Ox 100% on 2 lpm NC; sv 13:29 BP 135 / 97; Pulse 91; Resp 15; Pulse Ox 98% on 3 lpm NC; sv 14:30 BP 87 / 49; Pulse 125; Resp 20 S; Pulse Ox 94% on 2 lpm NC; iw 15:00 BP 104 / 93; Pulse 110; Resp 20 S; Pulse Ox 95% on 2 lpm NC; iw 16:00 BP 98 / 69; Pulse 100; Resp 16; Pulse Ox 96% on 2 lpm NC; sv 16:30 BP 129 / 88; Pulse 90; Resp 18; Pulse Ox 95% on 2 lpm NC; sv 10:58 Pt placed on O2 \T\ 2L per NC. O2 sat up to 96%. sv ED Course: 10:55 Patient arrived in ED. sv 10:56 Odilia Botello, RN is Primary Nurse. sv 10:57 Triage completed. sv 10:58 Arm band placed on. sv 11:05 Patient has correct armband on for positive identification. Placed in gown. Bed in low sv position. Call light in reach. Side rails up X2. nurse monitoring on. Pulse ox on. NIBP on. Door closed. Head of bed elevated. 11:05 Inserted saline lock: 20 gauge in left forearm, using aseptic technique. Blood sv collected. Flushed left forearm with 5 ml normal saline. 11:08 Simon Wilson MD is Attending Physician. kdr 11:32 XRAY Chest (1 view) In Process Unspecified. EDMS 11:[address] via stretcher. sv 11:50 CT Head Brain wo Cont In Process Unspecified. EDMS 12:00 Lab(s) recollected, by ED staff, sent to lab. sv 12:05 Awaiting lab results, Awaiting radiology results. sv 14:43 Sarita Seals MD is Hospitalizing Provider. kdr 16:30 No provider procedures requiring assistance completed. Patient admitted, IV remains in sv place. intact. Administered Medications: 14:00 Drug: Potassium Chloride 40 mEq Route: PO; sv 14:30 Follow up: Response: No adverse reaction sv 15:52 Drug: NS 0.9% 1000 ml Route: IV; Rate: 1 bolus; Site: left forearm; sv 16:30 Follow up: Response: No adverse reaction; IV Status: Infusion continued upon admission sv 15:52 Drug: midodrine 5 mg Route: PO; sv 16:30 Follow up: Response: No adverse reaction sv Outcome: 14:13 Discharge ordered by . kdr 14:46 Decision to Hospitalize by Provider. kdr 16:30 Admitted to Tele accompanied by tech, family with patient, via stretcher, room 228, sv with oxygen, with chart, Report called to Brit REES 16:30 Condition: stable 16:30 Instructed on the need for admit. 16:50 Patient left the ED. sv Signatures: Dispatcher [employer] Odilia Palmer RN RN sv Simon Wilson MD MD kdr Williams, Irene, RN RN iw Corrections: (The following items were deleted from the chart) 17:19 17:02 Patient left the ED. sv sv
--- NOTE | 2018-11-30 14:14 | EDPHYS ---
Physician Documentation [facility] Name: Jose Armando Caldera Age: 78 yrs Sex: Male : 1940 Arrival Date: 11/30/2018 Time: 10:55 Bed 3 Private MD: ED Physician Simon Wilson HPI: 11/30 14:46 This 78 yrs old Male presents to ER via EMS with complaints of Dizziness, kdr General Weakness. 14:46 The patient presents with dizziness, generalized weakness, AMS. Onset: The kdr symptoms/episode began/occurred suddenly, just prior to arrival. Context: states that the patient was sitting on the toilet when he became unresponsive and for a few minutes his eyes were open but he was not responding. He finally started to come around and return to baseline but c/o a ORTIZ. States that when EMS put oxygen on, his ORTIZ resolved. Modifying factors: The symptoms are alleviated by nothing, Antivert, the symptoms are aggravated by standing up, changing position. Associated signs and symptoms: Pertinent positives: confusion, headache. Severity of symptoms: At their worst the symptoms were moderate incapacitating in the emergency department the symptoms have resolved. The patient has experienced similar episodes in the past, several times, today's symptoms are similar. The patient has been recently seen by a physician: The patient has been recently been admitted at [facility], was discharged last week. Historical: - Allergies: 10:58 No Known Allergies; sv - PMHx: 10:58 Atrial Fib; Hyperlipidemia; CVA; Hypertension; Hypothyroidism; Myocardial infarction; sv UTI; - PSHx: 10:58 Heart stents; sv - Immunization history:: Adult Immunizations up to date. - Social history:: Smoking status: Patient/guardian denies using tobacco. - Ebola Screening: : No symptoms or risks identified at this time. ROS: 14:46 Constitutional: Negative for fever, chills, and weight loss, Eyes: Negative for injury, kdr pain, redness, and discharge, ENT: Negative for injury, pain, and discharge, Neck: Negative for injury, pain, and swelling, Cardiovascular: Negative for chest pain, palpitations, and edema, Respiratory: Negative for shortness of breath, cough, wheezing, and pleuritic chest pain, Abdomen/GI: Negative for abdominal pain, nausea, vomiting, diarrhea, and constipation, Back: Negative for injury and pain, : Negative for injury, bleeding, discharge, and swelling, MS/Extremity: Negative for injury and deformity, Skin: Negative for injury, rash, and discoloration, Psych: Negative for depression, anxiety, suicide ideation, homicidal ideation, and hallucinations, Allergy/Immunology: Negative for hives, rash, and allergies, Endocrine: Negative for neck swelling, polydipsia, polyuria, polyphagia, and marked weight changes, Hematologic/Lymphatic: Negative for swollen nodes, abnormal bleeding, and unusual bruising. 14:46 Neuro: Positive for altered mental status, dizziness, headache, near syncope, weakness. Exam: 14:46 Constitutional: This is a well developed, well nourished patient who is awake, alert, kdr and in no acute distress. Head/Face: Normocephalic, atraumatic. Eyes: Pupils equal round and reactive to light, extra-ocular motions intact. Lids and lashes normal. Conjunctiva and sclera are non-icteric and not injected. Cornea within normal limits. Periorbital areas with no swelling, redness, or edema. Neck: Trachea midline, no thyromegaly or masses palpated, and no cervical lymphadenopathy. Supple, full range of motion without nuchal rigidity, or vertebral point tenderness. No Meningismus. Chest/axilla: Normal chest wall appearance and motion. Nontender with no deformity. No lesions are appreciated. Cardiovascular: Regular rate and rhythm with a normal S1 and S2. No gallops, murmurs, or rubs. Normal PMI, no JVD. No pulse deficits. Respiratory: Lungs have equal breath sounds bilaterally, clear to auscultation and percussion. No rales, rhonchi or wheezes noted. No increased work of breathing, no retractions or nasal flaring. Abdomen/GI: Soft, non-tender, with normal bowel sounds. No distension or tympany. No guarding or rebound. No evidence of tenderness throughout. Back: No spinal tenderness. No costovertebral tenderness. Full range of motion. Skin: Warm, dry with normal turgor. Normal color with no rashes, no lesions, and no evidence of cellulitis. MS/ Extremity: Pulses equal, no cyanosis. Neurovascular intact. Full, normal range of motion. Neuro: Awake and alert, GCS 15, oriented to person, place, time, and situation. Cranial nerves II-XII grossly intact. Motor strength 5/5 in all extremities. Sensory grossly intact. Cerebellar exam normal. Normal gait. Psych: Awake, alert, with orientation to person, place and time. Behavior, mood, and affect are within normal limits. Vital Signs: 10:58 BP 117 / 63; Pulse 105; Resp 15; Temp 97.9(O); Pulse Ox 92% on R/A; sv 11:41 BP 125 / 67; Pulse 96; Resp 16; Pulse Ox 95% on 3 lpm NC; sv 12:30 BP 131 / 98; Pulse 99; Resp 26; Pulse Ox 100% on 2 lpm NC; sv 13:29 BP 135 / 97; Pulse 91; Resp 15; Pulse Ox 98% on 3 lpm NC; sv 14:30 BP 87 / 49; Pulse 125; Resp 20 S; Pulse Ox 94% on 2 lpm NC; iw 15:00 BP 104 / 93; Pulse 110; Resp 20 S; Pulse Ox 95% on 2 lpm NC; iw 16:00 BP 98 / 69; Pulse 100; Resp 16; Pulse Ox 96% on 2 lpm NC; sv 16:30 BP 129 / 88; Pulse 90; Resp 18; Pulse Ox 95% on 2 lpm NC; sv 10:58 Pt placed on O2 \T\ 2L per NC. O2 sat up to 96%. sv MDM: 13:00 Data reviewed: vital signs, nurses notes. Counseling: I had a detailed discussion with kdr the patient and/or guardian regarding: the historical points, exam findings, and any diagnostic results supporting the discharge/admit diagnosis, lab results, radiology results. ED course: D/w Dr. Seals - since she had seen the patient on an admission recently, she will see the patient in the ED and consider possible discharge vs admission.. 14:13 Patient medically screened. kdr 14:46 ED course: When the patient stood to be get on bed side commode, the patient became kdr light headed and dizzy. HE then became unresponsive with eyes open for a few minutes. Then he slowly returned to baseline. 11/30 11:04 Order name: Basic Metabolic Panel; Complete Time: 12:50 sv 11/30 11:04 Order name: CBC with Diff; Complete Time: 14:38 sv 11/30 11:04 Order name: LFT's; Complete Time: 12:50 sv 11/30 11:04 Order name: Magnesium; Complete Time: 12:50 sv 11/30 11:04 Order name: NT PRO-BNP; Complete Time: 12:50 sv 11/30 11:04 Order name: PT-INR; Complete Time: 12:50 sv 11/30 11:04 Order name: Troponin (emerg Dept Use Only); Complete Time: 12:50 sv 11/30 11:04 Order name: XRAY Chest (1 view); Complete Time: 12:50 sv 11/30 11:22 Order name: CT Head Brain wo Cont; Complete Time: 12:50 kdr 11/30 13:47 Order name: CBC Smear Scan; Complete Time: 14:38 EDMS 11/30 15:04 Order name: Basic Metabolic Panel EDMS 11/30 15:04 Order name: Basic Metabolic Panel EDMS 11/30 15:04 Order name: CBC with Automated Diff EDMS 11/30 15:04 Order name: CBC with Automated Diff EDMS 11/30 11:04 Order name: EKG; Complete Time: 11:05 sv 11/30 11:04 Order name: Cardiac monitoring; Complete Time: 11:41 sv 11/30 11:04 Order name: EKG - Nurse/Tech; Complete Time: 11:41 sv 11/30 11:04 Order name: IV Saline Lock; Complete Time: 11:41 sv 11/30 11:04 Order name: Labs collected and sent; Complete Time: 11:41 sv 11/30 11:04 Order name: O2 Per Protocol; Complete Time: 11:41 sv 11/30 11:04 Order name: O2 Sat Monitoring; Complete Time: 11:41 sv 11/30 11:29 Order name: Labs - recollect needed; Complete Time: 12:05 bd 11/30 15:03 Order name: Regular EDMS Administered Medications: 14:00 Drug: Potassium Chloride 40 mEq Route: PO; sv 14:30 Follow up: Response: No adverse reaction sv 15:52 Drug: NS 0.9% 1000 ml Route: IV; Rate: 1 bolus; Site: left forearm; sv 16:30 Follow up: Response: No adverse reaction; IV Status: Infusion continued upon admission sv 15:52 Drug: midodrine 5 mg Route: PO; sv 16:30 Follow up: Response: No adverse reaction sv Disposition: 11/30/18 14:46 Hospitalization ordered by Sarita Seals for Observation. Preliminary diagnosis are Weakness, Syncope and collapse, Orthostatic Hypotension. - Bed requested for Telemetry/MedSurg (observation). - Status is Observation. sv - Condition is Fair. - Problem is an acute exacerbation. - Symptoms have improved. UTI on Admission? No - Notes: Please follow-up with your doctor in the next few days. Signatures: Dispatcher [employer] EDMS Liz King Stephanie, RN RN Fauzia Rogers RN RN dw Simon Wilson MD MD kdr Corrections: (The following items were deleted from the chart) 14:42 14:13 11/30/2018 14:13 Discharged to Home. Impression: Weakness; Syncope and collapse. kdr Condition is Fair. Forms are Medication Reconciliation Form, Thank You Letter, Antibiotic Education, Prescription Opioid Use. Follow up: Private Physician; When: 2 - 3 days; Reason: If symptoms return, Further diagnostic work-up, Recheck today's complaints, Continuance of care, Re-evaluation by your physician. Problem is an acute exacerbation. Symptoms have improved. kdr 15:56 14:46 Hospitalization Ordered by Sarita Seals MD for Observation. Preliminary dw diagnosis is Weakness; Syncope and collapse; Orthostatic Hypotension. Bed requested for Telemetry/MedSurg (observation). Status is Observation. Condition is Fair. Problem is an acute exacerbation. Symptoms have improved. UTI on Admission? No. kdr 17:02 15:56 11/30/2018 14:46 Hospitalization Ordered by Sarita Seals MD for Observation. sv Preliminary diagnosis is Weakness; Syncope and collapse; Orthostatic Hypotension. Bed requested for Telemetry/MedSurg (observation). Status is Observation. Condition is Fair. Problem is an acute exacerbation. Symptoms have improved. UTI on Admission? No. dw
--- NOTE | 2018-11-30 14:42 | EKG ---
Test Date: 2018-11-30 Test Time: 10:55:57 Transport Assistant: BERNADINE MEASUREMENT RESULTS: Intervals: Rate: 126 [place]: QRSD: 96 QT: 354 QTc: 512 [place]: P: FL: QRS: 10 T: 36 INTERPRETIVE STATEMENTS: Atrial fibrillation with rapid ventricular response Nonspecific ST abnormality, probably digitalis effect Abnormal ECG Compared to ECG 11/27/2018 10:41:00 ST (T wave) deviation now present Sinus rhythm no longer present Electronically Signed On 11-30-18 14:41:24 CDT by Panda Chambers
[2018-11-30] MEDS ORDERED: ONDANSETRON 4 MG/2 ML VIAL IV PRN (14:57)
[2018-11-30] MEDS ORDERED: NA CHLORIDE 0.9% 1,000 ML ONE (15:24)
--- NOTE | 2018-11-30 15:41 | P.HP ---
Certification for Inpatient Patient admitted to: Observation With expected LOS: <2 Midnights Patient will require the following post-hospital care: None Practitioner: I am a practitioner with admitting privileges, knowledge of patient current condition, hospital course, and medical plan of care. Services: Services provided to patient in accordance with Admission requirements found in Title 42 Section 412.3 of the Code of Federal Regulations Patient History Date of Service: 11/30/18 History of Present Illness: Mr Caldera is a 78 years old male with history of HTN, Chronic A.Fib rated controlled with metoprolol, anticoagulated with xarelto, CAD, dyslipidemia, BPH on Flomax, who came to ED after having a near syncopal Episode at the house. Pt was recently admitted to the hospital for similar Complains 2 days ago and was DC after working with PT and monitoring. Pt this time has similar symptoms where he got up to go to breakfast and walked to bathroom and while he was sitting on toilet had a near syncopal episode. 911 was called and pt was transfered here for further care. EMS got the vitals and BP 80's/60's. He had similar episodes in the past, assumed as orthostatic hypotension episode. Allergies No Known Allergies Allergy (Verified 08/18/18 22:20) Home Medications: Rivaroxaban [Xarelto*] 20 mg PO BEDTIME 04/29/16 Rosuvastatin [Crestor*] 5 mg PO BEDTIME 04/29/16 Levothyroxine Sodium 1 tab PO [id number] 01/19/18 Metoprolol Succinate [Toprol Xl*] 1 tab PO BID 08/19/18 Amlodipine Besylate 5 mg PO BEDTIME 11/27/18 Aspirin [Aspirin EC 81 MG] 1 tab PO DAILY 11/27/18 Famotidine [Pepcid*] 20 mg PO DAILY 11/27/18 Tamsulosin [Flomax*] 1 tab PO BID 11/27/18 hydroCHLOROthiazide [Hydrodiuril*] 1 tab PO DAILY 11/27/18 - Past Medical/Surgical History Diabetic: No -: HTN -: High Cholesterol -: AFIB -: ND with cardiac stents -: Skin Cancer -: Umbilical hernia -: Bladder Cancer -: Ez Knee surgery -: Back surgery -: Umbilical Hernia repair -: Bladder Surgery - Family History Father -: Other (see notes) Notes: ND Mother -: Other (see notes) Notes: ND Brother Notes: Prostate Cancer - Social History Alcohol use: No CD- Drugs: No Caffeine use: Yes Review of Systems 10-point ROS is otherwise unremarkable Physical Examination - Physical Exam General: Alert, In no apparent distress HEENT: Atraumatic, PERRLA, Mucous membr. moist/pink, EOMI, Sclerae nonicteric Neck: Supple, 2+ carotid pulse no bruit, No LAD, Without JVD or thyroid abnormality Respiratory: Clear to auscultation bilaterally, Normal air movement Cardiovascular: Regular rate/rhythm, Normal S1 S2 Gastrointestinal: Normal bowel sounds, No tenderness Musculoskeletal: No tenderness Integumentary: No rashes Neurological: Normal gait, Normal speech, Normal strength at 5/5 x4 extr, Normal tone, Normal affect Lymphatics: No axilla or inguinal lymphadenopathy - Studies Laboratory Data (last 24 hrs) 11/30/18 12:00: PT 21.0 H, INR 1.82 11/30/18 12:00: WBC 9.0, Hgb 12.2 L, Hct 35.0 L, Plt Count 171 11/30/18 12:00: Sodium 140, Potassium 3.3 L, BUN 25 H, Creatinine 1.47 H, Glucose 170 H, Magnesium 1.9, Total Bilirubin 0.8, AST 33, ALT 28, Alkaline Phosphatase 53 Assessment and Plan - Problems (Diagnosis) (1) Near syncope Current Visit: No Status: Acute Plan: Syncopal Episode due to orthostatic Hypotension -Head Ct Negative in the ER -Orthostatic + -Will start on Midodrine at this time -Will restart home medication as well -PT/OT may need placement (2) CAD (coronary artery disease) Onset Date: 01/20/18 Current Visit: No Status: Chronic Qualifiers: Coronary Disease-Associated Artery/Lesion type: [place] artery [place] vs. transplanted heart: [place] heart Associated angina: without angina Qualified Code(s): I25.10 - Atherosclerotic heart disease of [place] coronary artery without angina pectoris (3) Chronic a-fib Current Visit: No Status: Chronic (4) Essential hypertension Onset Date: 01/20/18 Current Visit: No Status: Chronic (5) Mixed hyperlipidemia Onset Date: 01/20/18 Current Visit: No Status: Chronic Discharge Plan: Home Plan to discharge in: 48 Hours - Advance Directives Does patient have a Living Will: No Does patient have a Durable POA for Healthcare: No - Code Status/Comfort Care Code Status Assessed: Yes Critical Care: No
[2018-11-30] MEDS ORDERED: MIDODRINE HCL 5 MG TABLET PO ONE (16:00)
[2018-11-30 17:28] VITALS: BMI 31.8
[2018-11-30] MEDS ORDERED: INFLUENZA VACCINE (for 3y+) 0.5 ML DOSE IMVAC ONE (18:00)
[2018-11-30] MEDS ORDERED: PNEUMOCOCCAL VACCINE 0.5 ML IMVAC ONE (18:00)
[2018-11-30] MEDS: MIDODRINE HCL 5 MG TABLET PO SCH (21:14)
[2018-11-30 23:53] LABS: Urine Appearance CLEAR; Urine Bilirubin NEGATIVE (NEG); Urine Blood NEGATIVE (NEG); Urine Color YELLOW; Urine Glucose 2+ (NEG); Urine Protein NEGATIVE (NEG); Urine Specific Gravity 1.015 (1.005-1.030)
[2018-11-30 23:55] LABS: Urine Microscopic Reflex NO UMIC
[2018-12-01 05:50] LABS: Absolute Lymphocytes (CBC) 2.3 K/uL (0.7-4.9); Basophils % 1.1 % (0-1.3); Hematocrit 34.9 % (39.6-49.0); Lymphocytes % 26.3 % (15.3-44.8); MPV 11.1 fL (7.6-11.3); RBC Red Blood Cell Count 3.75 M/uL (4.33-5.43)
[2018-12-01 05:55] LABS: Potassium 3.4 mmol/L (3.5-5.1)
[2018-12-01] MEDS: MIDODRINE HCL 5 MG TABLET PO SCH ×3 (08:47→20:54)
[2018-12-01] MEDS: ACETAMINOPHEN 500 MG TAB PO PRN (12:57)
--- NOTE | 2018-12-01 14:07 | P.PN ---
Subjective Date of Service: 12/01/18 Subjective: No C/O voiced, Ambulating, Improving, Working w/ PT, Doing well Review of Systems 10-point ROS is otherwise unremarkable Physical Examination - Vital Signs Temperature: 98.7 F Blood Pressure: 120/73 Pulse: 89 Respirations: 18 Pulse Ox (%): 94 - Physical Exam General: Alert, In no apparent distress HEENT: Atraumatic, PERRLA, EOMI Neck: Supple, JVD not distended Respiratory: Clear to auscultation bilaterally, Normal air movement Cardiovascular: Regular rate/rhythm, Normal S1 S2 Gastrointestinal: Normal bowel sounds, No tenderness Musculoskeletal: No tenderness Integumentary: No rashes Neurological: Normal speech, Normal tone, Normal affect Lymphatics: No axilla or inguinal lymphadenopathy - Studies Medications List Reviewed: Yes Assessment And Plan - Current Problems (Diagnosis) (1) Near syncope Current Visit: No Status: Acute Plan: Syncopal Episode due to orthostatic Hypotension -Head Ct Negative in the ER -Orthostatic + -Starte on Midodrine at this time -PT/OT Consulted. Awaiting Reccs -May need placement (2) CAD (coronary artery disease) Onset Date: 01/20/18 Current Visit: No Status: Chronic Qualifiers: Coronary Disease-Associated Artery/Lesion type: [place] artery [place] vs. transplanted heart: [place] heart Associated angina: without angina Qualified Code(s): I25.10 - Atherosclerotic heart disease of [place] coronary artery without angina pectoris (3) Chronic a-fib Current Visit: No Status: Chronic (4) Essential hypertension Onset Date: 01/20/18 Current Visit: No Status: Chronic (5) Mixed hyperlipidemia Onset Date: 01/20/18 Current Visit: No Status: Chronic - Plan pending Clinical improvement Discharge Plan: Home Plan to discharge in: Greater than 2 days - Code Status/Comfort Care Code Status Assessed: Yes Critical Care: No
--- NOTE | 2018-12-01 15:11 | RAD REPORT ---
EXAM DESCRIPTION: RAD - Elbow Right 2 View - 12/01/2018 1:32 pm CLINICAL HISTORY: Fall, elbow pain COMPARISON: None. FINDINGS: No fracture is identified and no elevated posterior fat pad. There is no dislocation or pe riosteal reaction noted. Mild degenerative changes are present at the elbow joint. Prominent soft tissues are present posterior to the elbow joint and proximal forearm. Baseline for t he patient is unknown. This could be chronic soft tissue thickening, acute contusion/edema or a combi [place]. No foreign body. IMPRESSION: Mild degenerative change with no fracture or acute bone finding. Prominent posterior soft tissues with the baseline unknown. No foreign body or air in the soft tissue s.
[2018-12-01] MEDS: ROSUVASTATIN 10 MG TAB PO SCH (20:54)
[2018-12-01] MEDS: METOPROLOL XL 25 MG TAB PO SCH (20:55)
[2018-12-01] MEDS: RIVAROXABAN 20 MG TABLET PO SCH (20:55)
[2018-12-01] MEDS ORDERED: RIVAROXABAN 10 MG TABLET PO SCH (21:00)
[2018-12-02] MEDS: LEVOTHYROXINE SOD 0.1 MG TAB PO SCH (05:41)
[2018-12-02] MEDS: MIDODRINE HCL 5 MG TABLET PO SCH ×3 (08:41→21:42)
[2018-12-02] MEDS: METOPROLOL XL 25 MG TAB PO SCH (08:41)
[2018-12-02] MEDS ORDERED: HOME MED 1 EA UNK (Rosuvastatin [Crestor*] 5 MG) PO SCH (09:00)
--- NOTE | 2018-12-02 12:30 | P.PN ---
Subjective Date of Service: 12/02/18 Subjective: No C/O voiced, Improving, Working w/ PT (But having orthostatic Hypotension), Doing well Review of Systems 10-point ROS is otherwise unremarkable Physical Examination - Vital Signs Temperature: 97.9 F Blood Pressure: 111/56 Pulse: 110 Respirations: 18 Pulse Ox (%): 96 - Physical Exam General: Alert, In no apparent distress HEENT: Atraumatic, PERRLA, EOMI Neck: Supple, JVD not distended Respiratory: Clear to auscultation bilaterally, Normal air movement Cardiovascular: Regular rate/rhythm, Normal S1 S2 Gastrointestinal: Normal bowel sounds, No tenderness Musculoskeletal: No tenderness Integumentary: No rashes Neurological: Normal speech, Normal tone, Normal affect Lymphatics: No axilla or inguinal lymphadenopathy - Studies Medications List Reviewed: Yes Assessment And Plan - Current Problems (Diagnosis) (1) Near syncope Current Visit: No Status: Acute Plan: Syncopal Episode due to orthostatic Hypotension -Head Ct Negative in the ER -Orthostatic + at this time -Started on Midodrine 5mg TID at this time -PT/OT Consulted. Reccs Appreciated -Will continue to work with PT here (2) CAD (coronary artery disease) Onset Date: 01/20/18 Current Visit: No Status: Chronic Qualifiers: Coronary Disease-Associated Artery/Lesion type: [place] artery [place] vs. transplanted heart: [place] heart Associated angina: without angina Qualified Code(s): I25.10 - Atherosclerotic heart disease of [place] coronary artery without angina pectoris (3) Chronic a-fib Current Visit: No Status: Chronic (4) Essential hypertension Onset Date: 01/20/18 Current Visit: No Status: Chronic (5) Mixed hyperlipidemia Onset Date: 01/20/18 Current Visit: No Status: Chronic - Plan pending Clinical improvement Discharge Plan: Home Plan to discharge in: 48 Hours - Code Status/Comfort Care Code Status Assessed: Yes Critical Care: No
[2018-12-02] MEDS: SOTALOL HCL 80 MG TAB PO SCH (18:17)
--- NOTE | 2018-12-02 20:45 | CON ---
Identification: A 78-year-old man. Reason For Consult: Atrial fib. History Of Present Illness: Mr. Caldera has a remote history of a stent. More recently, he has had AF ib and severe dementia. He has been orthostatic and attempts have been made to give him midodrine, b ut with him in atrial fib, he came to the hospital in sinus rhythm, now is in AFib. I think the mido drine is not going to be helpful for him. I think we need to try and get him in sinus rhythm and the n use midodrine along with an antiarrhythmic. All the antiarrhythmics we could try, flecainide and R ythmol are contraindicated because of the history of CAD. Amiodarone, I would rather not use in his situation, so we will go to Betapace, use a small amount. He is fully anticoagulated, so we could sh ock him tomorrow if we fail to revert him chemically in which case I think midodrine would probably c ontinue to work very well to keep him upright. His orthostasis is going to prove to be a severe prob taylor. Family does not seem to be ready to give him the kind of care he needs to keep from falling wit h this severe problem, so hopefully with the establishment of sinus rhythm, appropriate dose of midod rine, maybe we can keep him out of blood pressure falling minimal from orthostatic changes. ROGERS/CLEMENTINE Voice ID: [id number] Report ID: [id number]
[2018-12-02] MEDS: ROSUVASTATIN 10 MG TAB PO SCH (21:42)
[2018-12-02] MEDS: RIVAROXABAN 20 MG TABLET PO SCH (21:43)
[2018-12-03] MEDS: SOTALOL HCL 80 MG TAB PO SCH ×2 (05:28→18:42)
[2018-12-03] MEDS: LEVOTHYROXINE SOD 0.1 MG TAB PO SCH (05:28)
[2018-12-03] MEDS: MIDODRINE HCL 5 MG TABLET PO SCH ×3 (09:00→21:00)
[2018-12-03] MEDS ORDERED: MIDAZOLAM HCL 2 MG/2 ML INJ ONE (10:01)
[2018-12-03] MEDS ORDERED: FENTANYL CITR 100 MCG/2 ML ONE (10:06)
--- NOTE | 2018-12-03 12:37 | P.PN ---
Subjective Date of Service: 12/03/18 Pt seen and examined at bedside. This AM was scheduled for cardioversion. Now S.p Cardioversion in Sinus Rhythm. Doing well overall. Will need placement for Rehab. Will be a good candidate for Inpatient Rehab to work on Orthostatic Hypotension and Deconditioning and frequent Falls. Review of Systems 10-point ROS is otherwise unremarkable Physical Examination - Vital Signs Temperature: 97.3 F Blood Pressure: 154/74 Pulse: 60 Respirations: 17 Pulse Ox (%): 100 - Physical Exam General: Alert, In no apparent distress HEENT: Atraumatic, PERRLA, EOMI Neck: Supple, JVD not distended Respiratory: Clear to auscultation bilaterally, Normal air movement Cardiovascular: Regular rate/rhythm, Normal S1 S2 Gastrointestinal: Normal bowel sounds, No tenderness Musculoskeletal: No tenderness Integumentary: No rashes Neurological: Normal speech, Normal tone, Normal affect Lymphatics: No axilla or inguinal lymphadenopathy - Studies Medications List Reviewed: Yes Assessment And Plan - Current Problems (Diagnosis) (1) Chronic a-fib Current Visit: No Status: Acute Plan: Pt was on sinus rhythm on admission and switched to AFib yesterday -Cardiology consulted. -S/O Cardioversion now -Started on Betapace 40mg BID for now -Will continue xarelto -Will monitor patient closely (2) Near syncope Current Visit: No Status: Acute Plan: Syncopal Episode due to orthostatic Hypotension with Recurrent Falls at the house. -Head Ct Negative in the ER -Orthostatic + at this time -On Midodrine 5mg TID at this time -PT/OT Consulted. Reccs Appreciated -Will Need placement to Inpatient Rehab vs SNF (3) CAD (coronary artery disease) Onset Date: 01/20/18 Current Visit: No Status: Chronic Qualifiers: Coronary Disease-Associated Artery/Lesion type: [place] artery [place] vs. transplanted heart: [place] heart Associated angina: without angina Qualified Code(s): I25.10 - Atherosclerotic heart disease of [place] coronary artery without angina pectoris (4) Essential hypertension Onset Date: 01/20/18 Current Visit: No Status: Chronic (5) Mixed hyperlipidemia Onset Date: 01/20/18 Current Visit: No Status: Chronic - Plan Pending Clinical improvement at this time. Continue with PT/OT. Will need placement to Inpatient Rehab vs SNF now Discharge Plan: Other Plan to discharge in: Greater than 2 days - Code Status/Comfort Care Code Status Assessed: Yes Critical Care: No
--- NOTE | 2018-12-03 21:02 | OP ---
Surgeon: Panda Chambers MD Procedure: Direct current cardioversion. Indication: Atrial fib with worsening of his underlying orthostatic hypotension. Procedure In Detail: The patient was brought to the cardiac tutorial laboratory supervisor in a fasting state. He had bee n sedated with 5 mg of Versed. Anterior-posterior paddles were applied to his chest. A single shock of 200 joules was given. This resulted in sinus rhythm. No complications. A total of 5 mg of Vers ed was used. No fentanyl. He will continue to take sotalol and rivaroxaban and midodrine. He will be able to be transferred to his room on second floor again to resume care for orthostatic hypotensio n. ROGERS/CLEMENTINE Voice ID: [id number] Report ID: [id number]
[2018-12-03] MEDS: RIVAROXABAN 20 MG TABLET PO SCH (21:34)
[2018-12-03] MEDS: ROSUVASTATIN 10 MG TAB PO SCH (21:34)
[2018-12-04] MEDS: SOTALOL HCL 80 MG TAB PO SCH ×2 (05:18→17:52)
[2018-12-04] MEDS: LEVOTHYROXINE SOD 0.1 MG TAB PO SCH (05:19)
[2018-12-04] MEDS: MIDODRINE HCL 5 MG TABLET PO SCH ×3 (09:00→20:34)
--- NOTE | 2018-12-04 13:07 | P.PN ---
Subjective Date of Service: 12/04/18 Pt seen and examined at bedside. This AM was scheduled for cardioversion. Now S.p Cardioversion in Sinus Rhythm. Doing well overall. Will need placement for Rehab. Will be a good candidate for Inpatient Rehab to work on Orthostatic Hypotension and Deconditioning and frequent Falls. Review of Systems 10-point ROS is otherwise unremarkable Physical Examination - Vital Signs Temperature: 97.4 F Blood Pressure: 141/65 Pulse: 61 Respirations: 18 Pulse Ox (%): 93 - Physical Exam General: Alert, In no apparent distress HEENT: Atraumatic, PERRLA, EOMI Neck: Supple, JVD not distended Respiratory: Clear to auscultation bilaterally, Normal air movement Cardiovascular: Regular rate/rhythm, Normal S1 S2 Gastrointestinal: Normal bowel sounds, No tenderness Musculoskeletal: No tenderness Integumentary: No rashes Neurological: Normal speech, Normal tone, Normal affect Lymphatics: No axilla or inguinal lymphadenopathy - Studies Medications List Reviewed: Yes Assessment And Plan - Current Problems (Diagnosis) (1) Chronic a-fib Current Visit: No Status: Acute Plan: Pt was on sinus rhythm on admission and switched to AFib yesterday -Cardiology consulted. -S/O Cardioversion now -Started on Betapace 40mg BID for now -Will continue xarelto -Will monitor patient closely (2) Near syncope Current Visit: No Status: Acute Plan: Syncopal Episode due to orthostatic Hypotension with Recurrent Falls at the house. -Head Ct Negative in the ER -Orthostatic + at this time -On Midodrine 5mg TID at this time -PT/OT Consulted. Reccs Appreciated -Will Need placement to Inpatient Rehab vs SNF (3) CAD (coronary artery disease) Onset Date: 01/20/18 Current Visit: No Status: Chronic Qualifiers: Coronary Disease-Associated Artery/Lesion type: [place] artery [place] vs. transplanted heart: [place] heart Associated angina: without angina Qualified Code(s): I25.10 - Atherosclerotic heart disease of [place] coronary artery without angina pectoris (4) Essential hypertension Onset Date: 01/20/18 Current Visit: No Status: Chronic (5) Mixed hyperlipidemia Onset Date: 01/20/18 Current Visit: No Status: Chronic - Plan Pending Clinical improvement at this time. Continue with PT/OT. Will need placement to Inpatient Rehab vs SNF now Discharge Plan: Home Plan to discharge in: 48 Hours - Code Status/Comfort Care Code Status Assessed: Yes Critical Care: No
--- NOTE | 2018-12-04 15:00 | PN ---
Mr. Caldera remains in sinus rhythm. His orthostatic hypotension is much more manageable. He is no lo nger falling. I think he could be discharged home, taking the low-dose Betapace and ProAmatine. SH/MODL Voice ID: [id number] Report ID: [id number]
[2018-12-04] MEDS: ROSUVASTATIN 10 MG TAB PO SCH (20:37)
[2018-12-04] MEDS: RIVAROXABAN 20 MG TABLET PO SCH (20:38)
[2018-12-05] MEDS: LEVOTHYROXINE SOD 0.1 MG TAB PO SCH (05:07)
[2018-12-05] MEDS: SOTALOL HCL 80 MG TAB PO SCH ×2 (05:07→18:16)
[2018-12-05] MEDS: MIDODRINE HCL 5 MG TABLET PO SCH ×3 (09:00→21:00)
[2018-12-05] MEDS: ACETAMINOPHEN 500 MG TAB PO PRN (09:56)
[2018-12-05 15:51] LABS: Absolute Lymphocytes (CBC) 1.6 K/uL (0.7-4.9); Basophils % 1.2 % (0-1.3); Hematocrit 35.3 % (39.6-49.0); Lymphocytes % 19.4 % (15.3-44.8); MPV 10.1 fL (7.6-11.3); RBC Red Blood Cell Count 3.72 M/uL (4.33-5.43)
[2018-12-05 16:11] LABS: Albumin 3.3 g/dL (3.4-5.0); Bilirubin Total 0.8 mg/dL (0.2-1.0); Protein, Total 7.9 g/dL (6.4-8.2)
--- NOTE | 2018-12-05 19:57 | PN ---
Date of Progress Note: 12/05/2018 Subjective: Patient is seen and examined. Chart reviewed and case discussed with RN. Granddaughter at the bedside. Treatment plan explained, all questions answered. Patient seems to be more confuse d this morning. Medications: List reviewed. Physical Examination: Vital Signs: Temperature 97.4, heart rate 50, blood pressure 182/88, respirations 18, O2 92% on room air. General: Awake, alert, oriented x1 only. Mildly confused, elderly male, obese, BMI 31.9. CV: S1 and S2. Regular rate and rhythm. Peripheral pulses present. Respiratory: Moving air well bilaterally. No wheezing or stridor. No use of accessory muscles. Gastrointestinal: Abdomen is soft, nontender, nondistended. Positive bowel sounds. No guarding or rigidity. Extremities: No clubbing or cyanosis. Patient does have pedal edema. Neurologic: Nonfocal. Cranial nerves 2 through 12 intact grossly. No facial asymmetry. Speech is normal. Laboratory Data: Pending. Assessment And Plan: A 78-year-old male with; 1.Acute metabolic encephalopathy, unclear etiology. Patient confused, which is a change in his base line status per granddaughter. He is usually oriented x3, fairly independent. We will check CBC, CM P. Head CT scan done in the ER was negative. Patient does have history of transient ischemic attack s and may need to obtain MRI of the brain. 2.Near syncopal episode due to orthostatic hypotension with recurrent falls. We will continue to mo nitor orthostatic vital signs. Continue midodrine. Continue PT and OT eval, awaiting SNF versus [facility] placement. 3.Chronic atrial fibrillation status post cardioversion, now back in sinus rhythm. Appreciate Dr. Phan staples' input. Continue Betapace and Xarelto. 4.Generalized weakness secondary to above, improved. 5.Coronary artery disease, [place] artery, [place] heart without angina, stable. Continue home medica tions. 6.Essential hypertension. Blood pressure is not well controlled. We will adjust medications as nee ded. 7.Mixed hyperlipidemia. Continue statin. 8.Obesity, body mass index 31.9. 9.Hypothyroidism. Continue Synthroid. Plan; obtain CBC, CMP, may need to obtain MRI of the brain for mental status, not improving. SA/MODL Voice ID: [id number] Report ID: [id number]
--- NOTE | 2018-12-05 20:07 | P.PN ---
Subjective Date of Service: 12/05/18 Subjective: Other (BP running high.) Physical Examination - Vital Signs Temperature: 98.8 F Blood Pressure: 189/88 Pulse: 50 Respirations: 18 Pulse Ox (%): 97 - Studies Medications List Reviewed: Yes Assessment & Plan Discharge Plan: Home Plan to discharge in: Unknown Physician Review Additional Text: Nurses report that BP running high. Previous BP trend reviewed. Patient on Midodrine, Betapace and anticoagulation. I will restart Norvasc 5 mg BID. I will place order to HOLD Midodrine if BP sys greater than 120. Will need to monitor his BP on medication. May need to further adjust his meds. Daytime hospitalistt can review and monitor. Time Spent Managing Pts Care (In Minutes): 15
[2018-12-05] MEDS: RIVAROXABAN 20 MG TABLET PO SCH (20:57)
[2018-12-05] MEDS: ROSUVASTATIN 10 MG TAB PO SCH (20:57)
[2018-12-05] MEDS: AMLODIPINE 5 MG TAB PO SCH (20:58)
[2018-12-06] MEDS: LEVOTHYROXINE SOD 0.1 MG TAB PO SCH (05:38)
[2018-12-06] MEDS: SOTALOL HCL 80 MG TAB PO SCH ×2 (05:38→16:50)
--- NOTE | 2018-12-06 06:14 | RAD REPORT ---
EXAM DESCRIPTION: MRI - Brain Wo Cont - 12/05/2018 9:23 pm CLINICAL HISTORY: AMS, hx of TIA. rule out CVA COMPARISON: CT head November 30, MRI 2007 TECHNIQUE: Sagittal T1-weighted images were obtained along with axial PD, heavily T2-weighted and T2 -FLAIR images. Axial DWI and ADC mapping sequences were also obtained along with coronal heavily T2-w eighted images. FINDINGS: No intracranial hemorrhage, mass or acute infarction. There is no edema or shift of midlin e structures. No extra-axial fluid collections. Humphries-matter/white matter junction is preserved. Signa l voids are seen as a normal finding in the major intracranial vessels. Atrophy changes are mild. Mod erate degree of white matter signal abnormalities present in each cerebral hemisphere. Brainstem is s pared. This is most commonly chronic ischemic change. Vasculitis, migraine headache and demyelination etiologies are on likely. White matter pattern has shown mild progression since 2008. No sella or supra sella abnormality. No globe or orbital content abnormality. Mastoid air cells and paranasal sinuses are clear. IMPRESSION: No acute infarction. No mass, hemorrhage or acute intracranial finding. Moderate severity chronic ischemic change and minimal atrophy.
--- NOTE | 2018-12-06 07:31 | EKG ---
Test Date: 2018-12-03 Test Time: 10:17:23 Category Specialist: SOTO MEASUREMENT RESULTS: Intervals: Rate: 61 OH: 190 QRSD: 94 QT: 450 QTc: 453 [place]: P: 54 [place]: 190 QRS: 10 T: 31 INTERPRETIVE STATEMENTS: Normal sinus rhythm Possible Left atrial enlargement Borderline ECG Compared to ECG 11/30/2018 10:55:57 Atrial fibrillation no longer present ST (T wave) deviation no longer present Electronically Signed On 12-06-18 07:30:05 CDT by Panda Chambers
[2018-12-06] MEDS: MIDODRINE HCL 5 MG TABLET PO SCH ×3 (09:00→21:00)
[2018-12-06] MEDS: AMLODIPINE 5 MG TAB PO SCH ×3 (09:00→22:20)
[2018-12-06] MEDS: ROSUVASTATIN 10 MG TAB PO SCH (21:13)
[2018-12-06] MEDS: RIVAROXABAN 20 MG TABLET PO SCH (21:14)
[2018-12-07] MEDS: SOTALOL HCL 80 MG TAB PO SCH (05:56)
[2018-12-07] MEDS: LEVOTHYROXINE SOD 0.1 MG TAB PO SCH (05:57)
--- NOTE | 2018-12-07 07:57 | DS ---
[employer] Developer: Dr. Chambers, Cardiology. Procedure: On 12/03/2018, cardioversion. Indication: Atrial fibrillation. Admitting Diagnoses: 1. Near syncopal episode. 2. Coronary artery disease. 3. [place] artery and [place] heart without angina. 4. Chronic atrial fibrillation. 5. Essential hypertension. 6. Mixed hyperlipidemia. 7. Obesity, BMI 31.9. Discharge Diagnoses: 1. Acute metabolic encephalopathy, resolved. 2. Near syncopal episode due to orthostatic hypotension with recurrent falls. 3. Chronic atrial fibrillation, status post cardioversion, now in sinus rhythm. 4. Generalized weakness, improved. 5. Coronary artery disease, [place] artery and [place] heart without angina, stable. 6. Essential hypertension, not well controlled. 7. Mixed hyperlipidemia, on statin. 8. Obesity, BMI 31.9. 9. Hypothyroidism, on Synthroid. Hospital Course: The patient is a 78-year-old male with past medical history of hypertension; atrial fibrillation, on metoprolol and Xarelto; coronary artery disease; dyslipidemia; BPH, on Flomax, comes in with near syncopal episode at home. Patient has had similar events previously, requiring admission to the hospital. Patient's blood pressure was found to be in the 80s over 60s. He was admitted to the hospital for further evaluation. Cardiology was consulted regarding his atrial fibrillation. Patient underwent direct cardioversion as mentioned above and has remained in the sinus rhythm. The patient was switched to Betapace to keep him in sinus rhythm. Patient did have positive orthostatic blood pressure, especially from lying to sitting. He was initially started on midodrine. However, his blood pressure began to elevate significantly. Therefore, midodrine was stopped. Patient's blood pressure has been in the 200s with midodrine after midodrine has been in the 130s to 160s, however, still remains orthostatic. He was encouraged to increase his fluid intake. Patient did have some confusion. His head CT scan was done, which was negative. MRI of the brain was also done, which ruled out CVA. Apparently, patient has history of TIA. Elbow x-ray did not show any fractures. This was done due to his fall at home. Overall, patient did well over the course of hospital stay. He was still having dizziness and had generalized weakness. Therefore, he was referred to alf facility and was accepted to [facility]. Patient was then discharged to [facility] in a stable condition. Activity: Fall precautions. Patient is to follow precautions for orthostatic hypotension when changing positions, especially before getting up, ambulate with assist. Diet: Heart healthy. Followup: Follow up with primary care physician in 2-3 days. Follow up with mechanical engineering lecturer, Dr. Chambers in 2 weeks. Return to ER for worsening condition. Medications: As per medication reconciliation list. Physical Examination: General: Awake, alert, oriented, not in acute distress. Elderly male, obese, BMI 31.9. Cardiovascular: S1 and S2. Regular rate and rhythm. Peripheral pulses present. Respiratory: Moving air well bilaterally. No wheezing. Gastrointestinal: Abdomen is soft, nontender, nondistended. Positive bowel sounds. Extremities: No clubbing, cyanosis, or edema. Neurologic: Nonfocal. Total time spent DC patient was 36 minutes. JOSE L Voice ID: [id number] Report ID: [id number] MTDD
[2018-12-07] MEDS: AMLODIPINE 5 MG TAB PO SCH (08:47)
[2018-12-07] MEDS: MIDODRINE HCL 5 MG TABLET PO SCH (09:00)
[2018-12-07 12:19] VITALS: BP 103/55; TEMP 97
[2018-12-07 13:26] VITALS: O2SAT 96
--- NOTE | 2018-12-07 17:30 | PN ---
Date of Progress Note: 12/07/2018 Subjective: Patient was discharged yesterday for [facility] transfer, but family had not signed pap erwork at the nursing facility. I spoke at length with the patient's son regarding his condition. Medications: List reviewed. Physical Examination: Vital Signs: Temperature 97.4, heart rate 59, blood pressure 166/83, respirations 18, O2 92% on room air. GENERAL: Awake, alert, oriented x3. Elderly male, obese, not in any acute distress. CV: S1, S2. No murmurs. RESPIRATORY: Moving air well bilaterally. No wheezing. GASTROINTESTINAL: Abdomen is soft, nontender, nondistended. Positive bowel sounds. Extremities: No clubbing, cyanosis, edema. Neurologic: Nonfocal. Assessment: A 78-year-old male with: 1.Acute metabolic encephalopathy, resolved. 2.Near syncopal episode due to orthostatic hypotension with frequent falls, improved. 3.Chronic atrial fibrillation, status post cardioversion, now in sinus rhythm. 4.Generalized weakness, improved. 5.Coronary artery disease, [place] artery and [place] heart without angina, stable. 6.Essential hypertension, stable. 7.Mixed hyperlipidemia. Continue statin. 8.Obesity, BMI 31. 9.Hypothyroidism. Continue Synthroid. Plan: DC to [facility]. /CLEMENTINE Voice ID: [id number] Report ID: [id number]
== END 2018-12-07 14:15 | DRG 312 ==
LOC: ER 10:52 → ERHOLD 15:21 → 2ND 16:33 → 3RD-ICU 12-03 09:50 → OBSVTOIN 12-03 12:17 → 2ND 12-03 12:32
PROVIDERS: ADMIT Family Medicine; ATTEND Family Medicine
PROC: 5A2204Z Restoration of Cardiac Rhythm, Single (ICD-10-PCS; principal; 2018-12-03)
DX: I95.1 Orthostatic hypotension (principal); G93.41 Metabolic encephalopathy; I48.20 Chronic atrial fibrillation, unspecified; R53.1 Weakness; I25.10 Atherosclerotic heart disease of native coronary artery without angina pectoris; E78.2 Mixed hyperlipidemia; I10 Essential (primary) hypertension; E66.9 Obesity, unspecified; Z68.31 Body mass index [BMI] 31.0-31.9, adult; E03.9 Hypothyroidism, unspecified
CPT/HCPCS: 36415; 70450; 70551; 71045; 80048; 80053; 80076; 81003; 83735; 83880; 84132; 84484; 85025; 85610; 93005; 96360; 97110; 97112; 97116; 97161; 97530; 99285; G0378; J2250; J3010; J7030

== ENCOUNTER 2019-03-18 14:19 | Emergency (ER) | payer OTHER, MEDICARE ==
--- OUTSIDE RECORDS SUMMARY | 2019-03-18 14:23 | XMS REPORT ---
:1940 [facility] [address] [place] [address] Care Team Providers Name Role Phone VAN [...] CALCIUM (test code=CA) 8.2 MG/DL 8.5-10.1 PROTHROMBIN [id number] 04:36:00 Test Item Value Reference Range Comments PT PATIENT (test code=PTP) 13.7 SECONDS 9.3-12.9 INTERNATIONAL NORMAL RATIO (test code=INR) 1.19 INR Unit 0.8-1.2 CBC W/AUTO [id number] 04:33:00 Test Item Value Reference Range Comments [...] NO DIFF/SCN CRITERIA - MRI BRAIN W/O [id number] 21:39:00 FAX: Boogie Tineo MD [phone] Camps: PM St: ADM FAX: Hannah Hu FAX: Mat Estrada MD [phone] Name: KATY DSOUZA [facility] : 1940 Age/S: 78/M [address] Unit #: [id number] Loc: [address] [place] [address] Phys: Mat Estrada MD Acct: [id number] Dis Date: Status: ADM IN PHONE #: [phone] Exam Date: 10/19/20182044 FAX #: Reason: AMS/CVA EXAMS: CPT: [id number] MRI BRAIN W/O CONTRAST 77859 Dictation location: [facility]. MRI BRAIN WITHOUT CONTRAST HISTORY: AMS/CVA TECHNIQUE: [...] chronic microvascular ischemic changes and atrophy. at 6464 Reported and signed by: Salvador Dotson M.D. CC: Boogie Briscoe MD ; Hannah Hu MD; Mat Estrada MD Technologist: Katiuska White, RT(R)(MR) Transcribed Date/Time/By: 10/19/2018 (0285) : Savannah.[email or web address] Orig Print D/T: S: 10/20/2018 (003) PAGE 1 Signed ReportGLUCOSE BEDSIDE [id number] 12:26:00 Test Item Value Reference Range Comments GLUCOSE BEDSIDE TESTING (test code=GLUBED) 148 mg/dL 70-110 GLUCOSE BEDSIDE [id number] 08:52:00 Test Item Value Reference Range Comments GLUCOSE BEDSIDE TESTING (test code=GLUBED) 122 mg/dL 70-110 GLUCOSE BEDSIDE [id number] 08:48:00 Test Item Value Reference Range Comments GLUCOSE BEDSIDE TESTING (test code=GLUBED) 117 mg/dL 70-110 [id number] 04:11:00 Test Item Value Reference Range Comments GLYCOSYLATED HEMOGLOBIN (HA1C) (test 7.4 % A1C 4.2-6.3 code=GLYHGB) ESTIMATED AVERAGE GLUCOSE (test code=EAG) 166 MG/DLest BASIC METABOLIC [id number] 03:55:00 Test Item Value Reference Range Comments [...] 1.48-3.22 Avg Comment: FASTING IN AMTHYROID STIMULATING [id number] 03:55:00 Test Item Value Reference Range Comments THYROID STIMULATING HORMONE (test code=TSH) 1.490 mcIU/ML 0.340-4.820 Comment: FASTING IN AMCBC W/AUTO [id number] 03:49:00 Test Item Value Reference Range Comments [...] REQUIRED (test code=MDIFF) NO DIFF/SCN CRITERIA PROTHROMBIN [id number] 03:39:00 Test Item Value Reference Range Comments PT PATIENT (test code=PTP) 17.6 SECONDS 9.3-12.9 INTERNATIONAL NORMAL RATIO (test code=INR) 1.52 INR Unit 0.8-1.2 - XR ABDOMEN 1 [id number] 20:16:00 Name: MEETKATY [facility] : 1940 Age/S: 78 / M [address] Unit #: [id number] Loc: [place] [address] Phys: Mat Estrada MD Acct: [id number] Dis Date: Status: ADM IN PHONE #: [phone] Exam Date: 10/18/20181929 FAX #: Reason: MRI SCREENING EXAMS: CPT: [id number] XR ABDOMEN 1 V 89509 Fluoro Time: DAP (Gy m2): Air Kerma [...] PAGE 1 Signed Report Name: KATY DSOUZA [place] : [birth year] Age/S: 78 / M [address] Unit #: [id number] Loc: [place] [address] Phys: Bennett Estrada MD Acct: [id number] Dis Date: Status: ADM IN PHONE #: [phone] Exam Date: 10/18/2018 1930 FAX #: Reason: MRI SCREENING EXAMS: CPT: [id number] XR ABDOMEN 1 V 15005 Fluoro Time: DAP (Gy m2): Air Kerma ( mGy): <Continued> Technologist: Yandel Gorman RT(R)(CT)(MRI) TrnscbDate/Time: 10/18/2018 (2015) Debbie Orig Print D/T: S: 10/18/2018 (2018) PAGE 2 Signed Report- CT ANGIO [id number] 17: 03:00 Name: KATY DSOUZA [place] : 1940 Age/S: 78 / M [address] Unit # : [id number] Loc: [place] [address] Phys: Mat Estrada MD Acct: [id number] Dis Date: Status: ADM IN PHONE #: [phone] Exam Date: 10/18/2018 1610 FAX #: Reason: AMS/CVA Report Has Been Amended EXAMS: CPT: [id number] CT ANGIO HEAD [address] Addendum - 10/18/2018 SIGNED 10/18/[address]: [id number]/CTANHDWWO ADDENDUM: Findingsof this code stroke case has been reviewed with Dr. Estrada the referring physician on 10/18/18 at 5:01 PM FOR INTERNAL CODING PURPOSES ONLY RESULT CODE: CVRMD at 1703 Reported and signed by: Marleny Serrato M.D. Transcribed: 10/18/2018 (6633) [email or web address].[email or web address] Report Location: T 18 CTA neck, [...] 1 Signed Report (CONTINUED) Name: KATY DSOUZA [facility] : 1940 Age/S: 78 / M [address] Unit #: [id number] Loc: [place] [address] Phys: Mat Estrada MD Acct: [id number] Dis Date: Status: ADM IN PHONE #: [phone] Exam Date: 10/18/2018 1610 FAX #: Reason: AMS/CVA Report Has Been Amended EXAMS: CPT: [id number] CT ANGIO HEAD [address] <Continued> vascular dissection. No hemodynamically significant stenosis [...] brain 10/18/18 TECHNIQUE: CTA examination of the ngzonl-tw-Vfskyr was performed on a helical scannerwith patient [...] DSOUZA : 1940 Age/S: 78 / M [address] Unit #: [id number] Loc: [place] [address] Phys: Mat Estrada MD Acct: [id number] Dis Date: Status: ADM IN PHONE #: [phone] Exam Date: 10/18/2018 1610 FAX #: Reason: AMS/ CVA Report Has Been Amended EXAMS: CPT: [id number] CT ANGIO HEAD [address] < Continued> is seen. Minimal calcific plaque [...] (1653) [email or web address] Orig Print D/T: S: 10/18/2018 (1950) PAGE 3 Signed Report- CT ANGIO [id number] 17:03:00 Name: KATY DSOUZA : 1940 Age/S: 78 / M [address] Unit #: [id number] Loc: [place] [address] Phys: Mat Estrada MD Acct: [id number] Dis Date: Status: ADM IN PHONE #: [phone] Exam Date: 10/18/2018 1613 FAX #: Reason: AMS/ CVA Report Has Been Amended EXAMS: CPT: [id number] CT ANGIO NECK [address] Addendum - 10/18/2018 SIGNED 10/18/2018 ADDENDUM: [id number] CT/CTANNKWWO ADDENDUM: Findingsof this code stroke case has been reviewed with Dr. Estrada the referring physician on 10/18/18 at 5:01 PM FOR INTERNAL CODING PURPOSES ONLY RESULT CODE: CVRMD at 1703 Reported and signed by: Marleny Serrato M.D. Transcribed: (3548) [email or web address] Report Location: T 18 CTA neck, [...] DSOUZA : 1940 Age/S: 78 / M [address] Unit #: [id number] Loc: [place] [address] Phys: Mat Estrada MD Acct: [id number] Dis Date: Status: ADM IN PHONE #: [phone] Exam Date: 10/18/2018 1613 FAX #: Reason : AMS/CVA Report Has Been Amended EXAMS: CPT: [id number] CT ANGIO NECK [address]311 <Continued> vascular dissection. No hemodynamically significant stenosis [...] brain 10/18/18 TECHNIQUE: CTA examination of the egosmj-ha-Lyyctx was performed on a helical scannerwith patient [...] DSOUZA : 1940 Age/S: 78 / M [address] Unit #: [id number] Loc: [place] [address] Phys: Mat Estrada MD Acct: [id number] Dis Date: Status: ADM IN PHONE #: [phone] Exam Date: 10/18/2018 1613 FAX #: Reason: AMS/ CVA Report Has Been Amended EXAMS: CPT: [id number] CT ANGIO NECK 10180 < Continued> is seen. Minimal calcific plaque [...] (1653) t.[email or web address] Orig Print D/T: S: 10/18/2018 (3859) PAGE 3 Signed Report- CT ANGIO [id number] 16:53:00 Name: KATY DSOUZA [facility] [place] : 1940 Age/S: 78 / M [address] Unit #: [id number] Loc: [place] [address] Phys: Mat Estrada MD Acct: [id number] Dis Date: Status: ADM IN PHONE #: [phone] Exam Date: 10/18/2018 1610 FAX #: Reason: AMS/ CVA EXAMS: CPT: [id number] CT ANGIO HEAD [address] Location: T18 CTA neck, TECHNIQUE: CTA examination [...] 1 Signed Report (CONTINUED) [facility] 1940 Age/S: 78 / M [address] [facility] Unit #: [id number] Loc: [place] [address] Phys: Mat Estrada MD Acct: [id number] Dis Date: Status: ADM IN PHONE #: [phone] Exam Date: 10/18/2018 1610 FAX #: Reason: AMS/CVA EXAMS: CPT: [id number] CT ANGIO HEAD [address] <Continued& gt; TECHNIQUE: CTA examination of the tjijef-br-Ezwwii was performed on a helical scanner with [...] Signed Report ( CONTINUED) Name: KATY DSOUZA [facility] : 1940 Age/S: 78 / M [address] Unit #: [id number] Loc: [place] [address] Phys: Mat Estrada MD Acct: [id number] Dis Date: Status: ADM IN PHONE #: [phone] Exam Date: 10/18/2018 1610 FAX #:Reason: AMS/CVA EXAMS: CPT: [id number] CT ANGIO HEAD 119[address] <Continued> at 1653 Reported and signed by: Marleny Serrato M.D. CC: Boogie Briscoe MD; Hannah Hu MD; Mat Estrada MD Technologist:Yandel Gorman RT(R)(CT)(MRI) CTDI: DLP: Trnscb Date/Time: 10/18/2018 (1652) [email or web address] Orig Print D/T: S: 10/18/2018 (1656) PAGE 3 Signed Report- CT ANGIO [id number] 16:53:00 Name: KATY DSOUZA [facility] : 1940 Age/S: 78 / M [address] Unit #: [id number] Loc: [place] [address] Phys: Mat Estrada MD Acct: [id number] Dis Date: Status : ADM IN PHONE #: [phone] Exam Date: 10/18/2018 1613 FAX #: Reason: AMS/CVA EXAMS: CPT: [id number] CT ANGIO NECK [address] Location: T18 CTA neck, 10/18/18 TECHNIQUE: CTA [...] 1 Signed Report (CONTINUED) Name: KATY DSOUZA [facility] 1940 Age/S: 78 / M [address] [address] Unit #: [id number] Loc: [place] [address] Phys: Mat Estrada MD Acct: [id number] Dis Date: Status: ADM IN PHONE #: [phone] Exam Date: 10/18/2018 1613 FAX #: Reason: AMS/CVA EXAMS: CPT: [id number] CT ANGIO NECK [address] <Continued& gt; TECHNIQUE: CTA examination of the fjqewj-kt-Wolkdo was performed on a helical scanner with [...] DSOUZA : 1940 Age/S: 78 / M [address] [facility] Unit #: [id number] Loc: [place] [address] Phys: Mat Estrada MD Acct: [id number] Dis Date: Status: ADM IN PHONE #: [phone] Exam Date: 10/18/2018 1613 FAX #:Reason: AMS/CVA EXAMS: CPT: [id number] CT ANGIO NECK [address] <Continued> at 1653 Reported and signed by: Marleny Serrato M.D. CC: Boogie Briscoe MD; Hannah Hu MD; Mat Estrada MD Technologist:Yandel Gorman, RT(R)(CT)(MRI) CTDI: DLP: Trnscb Date/Time: 10/18/2018 (6950) [email or web address] Orig Print D/T: S: 10/18/2018 (0344) PAGE 3 Signed ReportCHEMISTRY 8 [id number] 14:58:00 Test Item Value Reference Range Comments ISTAT-SODIUM (test code=NAP) mmol/L 135-146 ISTAT-POTASSIUM (test code=KP) mmol/L 3.5-4.9 ISTAT-CHLORIDE (test code=CLP) mmol/L 98-109 ISTAT-CARBON DIOXIDE (test code=ISTAT-CO2) mmol/L 24-29 ISTAT CALCIUM IONIZED (test code=ISTAT-JUSTIN) mmol/L 1.12-1.32 ISTAT-GLUCOSE (test code=GLUP) mg/dL 70-105 ISTAT-BUN (test code=BUNP) mg/dL 8-26 BEDSIDE CREATININE (test code=CREATBED) mg/dL 0.6-1.3 GLOMERULAR FILTRATION RATE POC (test code=GFRBED) 87 42-98 CHEMISTRY 8 [id number] 14:58:00 Test Item Value Reference Range Comments [...] RATE POC (test 87 42-98 code=GFRBED) PROTHROMBIN [id number] 14:35:00 Test Item Value Reference Range Comments PT PATIENT (test code=PTP) 31.2 SECONDS 9.3-12.9 INTERNATIONAL NORMAL RATIO (test code=INR) 2.66 INR Unit 0.8-1.2 THROMBOPLASTIN TIME [id number] 14:35:00 Test Item Value Reference Range Comments THROMBOPLASTIN TIME PARTIAL (test code=PTT) 42.0 SECONDS 26-35 TROPONIN I [id number] 14:17:00 Test Item Value Reference Range Comments TROPONIN I RAPID (test 0.00 ng/mL 0.00-0.08 - The use of serial sampling code=TROPIRAP) and testing protocol is a recommended practice- An elevated troponin level alone is often not sufficient for diagnosis of myocardial infarction. CBC W/O [id number] 14:10:00 Test Item Value Reference Range Comments [...] 12.60 fL 7.0-9.6 - CT HEAD/BRAIN W/O [id number] 14:10:00 Name: KATY DSOUZA [facility] : 1940 Age/S: 78 / M [address] Unit #: [id number] Loc: [place] [address] Phys: Hannah Hu MD Acct: [id number] Dis Date: Status : REG ER PHONE #: [phone] Exam Date: 10/18/2018 1405 FAX #: Reason: Code Stroke EXAMS: CPT: [id number] CT HEAD/BRAIN W/O CONT 01344 C3 TIME OF STUDY: 10/18/2018 2:00 PM [...] 1 Signed Report (CONTINUED) Name: KATY DSOUZA [facility] : 1940 Age/S: 78 / M [address] [facility] [address] Unit #: [id number] Loc: [place] [address] Phys: Hannah Hu MD Acct: [id number] Dis Date: Status: REG ER PHONE #: [phone] Exam Date: 10/18/2018 1405 FAX #: Reason: Code Stroke EXAMS: CPT: [id number] CT HEAD/BRAIN W/O CONT 66413 <Continued> at 1410 Reported and signed by: Cirilo Petty M.D. CC: Boogie Briscoe MD; Hannah Hu MD; Kell INTERIANO Technologist:ALANA MeridaR)(CT); Chilo CTDI: DLP: Trnscb Date/Time: 10/18/2018 (1410) Savannah.SI1 Orig Print D/T: S : 10/18/2018 (3495) PAGE 2 Signed ReportMR, BRAIN, WITHOUT [id number] 11:09:00Reason for exam:->StrokeWhat is the patient's sedation [...] Verified Date/Time: 05/20/2018 11:09: 50 Reading Location: [address] Neuro Reading Room RAD, ABDOMEN/KUB, 1 VIEW [id number] 19:20:00Reason for exam:->for eval for metal [...] MDReport Verified Date/Time: 05/19/2018 19:20:29 Reading Location: [facility] C013 Consult Reading Room RAD, CHEST, 1 VIEW, NON [id number] 17 :21:00Reason for exam:->for eval for metal [...] MDReport Verified Date/Time: 05/19/2018 17:21:53 Reading Location: [facility] C013W Consult Reading Room URINALYSIS W/ REFLEX URINE [id number] 09:06:00 Test Item Value Reference Range Comments COLOR (BEAKER) (test dsqg=902) Light Yellow CLARITY (BEAKER) (test ujbw=001) Hazy SPECIFIC GRAVITY UA (BEAKER) (test iosl=260) 1.021 1.001-1.035 PH UA (BEAKER) (test wtdf=978) 5.0 5.0-8.0 PROTEIN UA (BEAKER) (test icvf=542) Negative Negative GLUCOSE UA (BEAKER) (test ibhw=710) Negative Negative KETONES UA (BEAKER) (test cpaw=696) Negative Negative BILIRUBIN UA (BEAKER) (test ymnj=767) Negative Negative BLOOD UA (BEAKER) (test flpj=240) Trace Negative NITRITE UA (BEAKER) (test okjy=803) Positive Negative LEUKOCYTE ESTERASE UA (BEAKER) (test qefn=964) Large Negative UROBILINOGEN UA (BEAKER) (test ezao=350) 0.2 mg/dL 0.2-1.0 RBC UA (BEAKER) (test ztht=713) 2 /HPF WBC UA (BEAKER) (test gpzw=619) 50 /HPF BACTERIA (BEAKER) (test gfei=407) Few SQUAMOUS EPITHELIAL (BEAKER) (test bcwo=259) < /HPF HYALINE CASTS (BEAKER) (test rerw=981) 2 /LPF SOURCE(BEAKER) (test skfe=5246) BASIC METABOLIC [id number] 07:48:00 Test Item Value Reference Range Comments SODIUM (BEAKER) (test 140 meq/L 136-145 dhjo=565) POTASSIUM (BEAKER) (test 3.4 meq/L 3.5-5.1 ydga=091) CHLORIDE (BEAKER) (test 103 meq/L 98-107 oeri=349) CO2 (BEAKER) (test 25 meq/L 22-29 ynxg=361) BLOOD UREA NITROGEN 18 mg/dL 7-21 (BEAKER) (test lzro=284) CREATININE (BEAKER) (test 0.83 mg/dL 0.57-1.25 ildi=975) GLUCOSE RANDOM (BEAKER) 134 mg/dL 70-105 (test ulun=398) CALCIUM (BEAKER) (test 9.2 mg/dL 8.4-10.2 wwab=289) EGFR (BEAKER) (test 90 mL/min/1.73 sq m ESTIMATED GFR IS NOT ryjs=1172) ACCURATE CREATININE CLEARANCE IN PREDICTING GLOMERULAR FILTRATION RATE. ESTIMATED GFR IS NOT APPLICABLE FOR DIALYSIS PATIENTS. TSH/FREE T4 IF [id number] 04:16:00 Test Item Value Reference Range Comments THYROID STIMULATING HORMONE (BEAKER) (test 1.94 uIU/mL 0.35-4.94 ylak=651) CBC W/PLT COUNT & AUTO [id number] 03:07:00 Test Item Value Reference Range Comments WHITE BLOOD CELL COUNT (BEAKER) (test popa=180) 7.3 K/ L 3.5-10.5 RED BLOOD CELL COUNT (BEAKER) (test xgvp=563) 3.91 M/ L 4.63-6.08 HEMOGLOBIN (BEAKER) (test bpec=945) 12.3 GM/DL 13.7-17.5 HEMATOCRIT (BEAKER) (test efjq=362) 37.7 % 40.1-51.0 MEAN CORPUSCULAR VOLUME (BEAKER) (test wyfh=677) 96.4 fL 79.0-92.2 MEAN CORPUSCULAR HEMOGLOBIN (BEAKER) (test 31.5 pg 25.7-32.2 ujgn=364) MEAN CORPUSCULAR HEMOGLOBIN CONC (BEAKER) (test 32.6 GM/DL 32.3-36.5 pihc=144) RED CELL DISTRIBUTION WIDTH (BEAKER) (test 14.5 % 11.6-14.4 tyoa=444) PLATELET COUNT (BEAKER) (test vokk=573) 161 K/CU MM 150-450 MEAN PLATELET VOLUME (BEAKER) (test pmvj=864) 12.0 fL 9.4-12.4 NUCLEATED RED BLOOD CELLS (BEAKER) (test 0 /100 WBC 0-0 dzkg=654) NEUTROPHILS RELATIVE PERCENT (BEAKER) (test 58 % rvtk=951) LYMPHOCYTES RELATIVE PERCENT (BEAKER) (test 26 % zvqg=649) MONOCYTES RELATIVE PERCENT (BEAKER) (test 12 % rcxi=540) EOSINOPHILS RELATIVE PERCENT (BEAKER) (test 2 % kpvf=413) BASOPHILS RELATIVE PERCENT (BEAKER) (test 1 % ryqf=009) NEUTROPHILS ABSOLUTE COUNT (BEAKER) (test 4.27 K/ L 1.78-5.38 rslt=175) LYMPHOCYTES ABSOLUTE COUNT (BEAKER) (test 1.91 K/ L 1.32-3.57 oxer=644) MONOCYTES ABSOLUTE COUNT (BEAKER) (test 0.88 K/ L 0.30-0.82 wlvj=429) EOSINOPHILS ABSOLUTE COUNT (BEAKER) (test 0.13 K/ L 0.04-0.54 rdkf=124) BASOPHILS ABSOLUTE COUNT (BEAKER) (test 0.07 K/ L 0.01-0.08 jkzb=359) IMMATURE GRANULOCYTES-RELATIVE PERCENT (BEAKER) 1 % 0-1 (test bhch=9250) CT, CTANGIO [id number] 18:21:00Addendum BeginsREPORT STATUS:A Technique: Additional 3D imaging series were created using volume rendering technique on an independent workstation for optimal visualization of cervical and intracranial vasculature. Signed: Stone Rivera MDReport Verified Date/ Time: 05/11/2018 18:21:26 Reading Location: [address] Ortho Consult Reading RoomAddendum EndsFINAL REPORT [...] the leftvertebral artery origin. 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 Multifocal mild narrowing of the carotid siphons. Involutional, and chronic microvascular ischemic changes of the brain. Small exophytic skin lesion arising from the right frontal scalp. Signed: Stone Rivera Verified Date/Time: 05/02/2018 18:07:55 Reading Location: [facility] Reading Room 06: 21 PMCT, CAROTID, [id number] 18:21:00Addendum BeginsREPORT STATUS:A Technique: Additional 3D imaging series were created using volume rendering technique on an independent workstation for optimal visualization of cervical and intracranial vasculature. Signed: Stone Rivera MDReport Verified Date/Time: 05/11/2018 18:21:26 Reading Location: [facility] C013X Ortho Consult Reading RoomAddendum [...] the leftvertebral artery origin. 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 Multifocal mild narrowing of the carotid siphons. Involutional, and chronic microvascular ischemic changes of the brain. Small exophytic skin lesion arising from the right frontal scalp. Signed: Stone Rivera MDReport Verified Date/Time: 05/02/2018 18:07:55 Reading Location: [facility] Radiology Reading Room EEG AWAKE AND [id number] 14:01:00Reason for exam:-> syncope vs seizure DATE OF REPORT: 05/05/18 Date(s) of Study: 05/05/18 ACC: [id number] Start time: 0913 hrs on 05/05/18 Stop time: 0934 hrs on ICD-10: R56.9 CPT Code: 63116 HISTORY: 77 yo male with PMHx of AFib, HTN , HLD, SC admitted for syncope vs seizure. [...] M.D., FACNS, FAAN, MARY Professor of Neurology, [facility] Director, [facility] Head, [facility] Neurophysiology Lab URINALYSIS W/ [id number] 10:55:00 Test Item Value Reference Range Comments COLOR (BEAKER) (test owyh=375) Yellow CLARITY (BEAKER) (test khzw=295) Hazy SPECIFIC GRAVITY UA (BEAKER) (test euve=320) 1.014 1.001-1.035 PH UA (BEAKER) (test ttea=257) 5.0 5.0-8.0 PROTEIN UA (BEAKER) (test pnfk=161) 10 mg/dL Negative GLUCOSE UA (BEAKER) (test adtw=709) 50 mg/dL Negative KETONES UA (BEAKER) (test afki=586) Negative Negative BILIRUBIN UA (BEAKER) (test hcjk=185) Negative Negative BLOOD UA (BEAKER) (test yqcl=503) Trace Negative NITRITE UA (BEAKER) (test wldo=638) Positive Negative LEUKOCYTE ESTERASE UA (BEAKER) (test iewo=925) Large Negative UROBILINOGEN UA (BEAKER) (test llxf=022) 0.2 mg/dL 0.2-1.0 RBC UA (BEAKER) (test aqfo=394) 1 /HPF WBC UA (BEAKER) (test tscp=479) 127 /HPF BACTERIA (BEAKER) (test izaq=489) Occasional SQUAMOUS EPITHELIAL (BEAKER) (test ickj=507) < /HPF SOURCE(BEAKER) (test glzg=3787) Urine, Voided [id number] 06:06:00 Test Item Value Reference Range Comments MAGNESIUM (BEAKER) (test xqok=501) 1.8 mg/dL 1.6-2.6 BASIC METABOLIC [id number] 06:06:00 Test Item Value Reference Range Comments SODIUM (BEAKER) (test 140 meq/L 136-145 bxrp=574) POTASSIUM (BEAKER) (test 3.5 meq/L 3.5-5.1 gtfs=050) CHLORIDE (BEAKER) (test 104 meq/L 98-107 wauz=968) CO2 (BEAKER) (test 25 meq/L 22-29 dxvo=327) BLOOD UREA NITROGEN 22 mg/dL 7-21 (BEAKER) (test ipwq=766) CREATININE (BEAKER) (test 0.87 mg/dL 0.57-1.25 kjgb=149) GLUCOSE RANDOM (BEAKER) 155 mg/dL 70-105 (test pher=104) CALCIUM (BEAKER) (test 9.1 mg/dL 8.4-10.2 qqnp=992) EGFR (BEAKER) (test 85 mL/min/1.73 sq m ESTIMATED GFR IS NOT mxkc=8872) ACCURATE CREATININE CLEARANCE IN PREDICTING GLOMERULAR FILTRATION RATE. ESTIMATED GFR IS NOT APPLICABLE FOR DIALYSIS PATIENTS. CBC (HEMOGRAM ONLY)2018-05-05 05:36:00 Test Item Value Reference Range Comments WHITE BLOOD CELL COUNT (BEAKER) (test jhup=204) 7.3 K/ L 3.5-10.5 RED BLOOD CELL COUNT (BEAKER) (test ywtl=935) 4.40 M/ L 4.63-6.08 HEMOGLOBIN (BEAKER) (test fclw=708) 13.6 GM/DL 13.7-17.5 HEMATOCRIT (BEAKER) (test tfcq=531) 42.3 % 40.1-51.0 MEAN CORPUSCULAR VOLUME (BEAKER) (test urqu=619) 96.1 fL 79.0-92.2 MEAN CORPUSCULAR HEMOGLOBIN (BEAKER) (test 30.9 pg 25.7-32.2 bqou=888) MEAN CORPUSCULAR HEMOGLOBIN CONC (BEAKER) (test 32.2 GM/DL 32.3-36.5 vhyd=809) RED CELL DISTRIBUTION WIDTH (BEAKER) (test 14.4 % 11.6-14.4 mkdp=983) PLATELET COUNT (BEAKER) (test pbkb=480) 180 K/CU MM 150-450 MEAN PLATELET VOLUME (BEAKER) (test yukb=525) 12.6 fL 9.4-12.4 NUCLEATED RED BLOOD CELLS (BEAKER) (test 0 /100 WBC 0-0 qgbj=224) POCT-GLUCOSE [id number] 22:13:00 Test Item Value Reference Range Comments POC-GLUCOSE METER (BEAKER) 151 mg/dL 70-[address] [facility] [address] (test uvco=3996) [facility] [id number] BASIC METABOLIC [id number] 05:43:00 Test Item Value Reference Range Comments SODIUM (BEAKER) (test 141 meq/L 136-145 yqit=422) POTASSIUM (BEAKER) (test 3.8 meq/L 3.5-5.1 vdkv=774) CHLORIDE (BEAKER) (test 106 meq/L 98-107 aqkm=626) CO2 (BEAKER) (test 25 meq/L 22-29 pxse=571) BLOOD UREA NITROGEN 21 mg/dL 7-21 (BEAKER) (test pnde=454) CREATININE (BEAKER) (test 0.96 mg/dL 0.57-1.25 xgxc=859) GLUCOSE RANDOM (BEAKER) 150 mg/dL 70-105 (test zrkh=753) CALCIUM (BEAKER) (test 9.1 mg/dL 8.4-10.2 wqgc=421) EGFR (BEAKER) (test 76 mL/min/1.73 sq m ESTIMATED GFR IS NOT moqt=2543) ACCURATE CREATININE CLEARANCE IN PREDICTING GLOMERULAR FILTRATION RATE. ESTIMATED GFR IS NOT APPLICABLE FOR DIALYSIS PATIENTS. HEMOGLOBIN [id number] 10:54:00 Test Item Value Reference Range Comments HEMOGLOBIN A1C (BEAKER) (test wcsb=800) 8.0 % 4.3-6.1 LIPID [id number] 07:20:00 Test Item Value Reference Range Comments TRIGLYCERIDES (BEAKER) (test ghgo=236) 93 mg/dL CHOLESTEROL (BEAKER) (test xyxi=659) 137 mg/dL HDL CHOLESTEROL (BEAKER) (test acqo=437) 43 mg/dL LDL CHOLESTEROL CALCULATED (BEAKER) (test 75 mg/dL mglq=868) Triglyceride Reference Range: Low Risk <150 Borderline 150- 199 High Risk 200-499 Very High Risk >=500Cholesterol Reference Range: Low Risk <200 Borderline 200-239 High Risk > 240HDL Cholesterol Reference Range: Low Risk >=60 High Risk <40LDL Cholesterol Reference Range: Optimal <100 Near Optimal 100-129 Borderline 130-159 High 160-189 Very High >=190BASIC METABOLIC [id number] 07:20:00 Test Item Value Reference Range Comments SODIUM (BEAKER) (test 141 meq/L 136-145 qord=670) POTASSIUM (BEAKER) (test 3.7 meq/L 3.5-5.1 dgdu=386) CHLORIDE (BEAKER) (test 107 meq/L 98-107 afqn=445) CO2 (BEAKER) (test 22 meq/L 22-29 qdcg=044) BLOOD UREA NITROGEN 15 mg/dL 7-21 (BEAKER) (test nkxy=384) CREATININE (BEAKER) (test 0.82 mg/dL 0.57-1.25 vcmh=760) GLUCOSE RANDOM (BEAKER) 157 mg/dL 70-105 (test xvpg=475) CALCIUM (BEAKER) (test 9.2 mg/dL 8.4-10.2 orbx=917) EGFR (BEAKER) (test 91 mL/min/1.73 sq m ESTIMATED GFR IS NOT nbcf=9691) ACCURATE CREATININE CLEARANCE IN PREDICTING GLOMERULAR FILTRATION RATE. ESTIMATED GFR IS NOT APPLICABLE FOR DIALYSIS PATIENTS. MR, BRAIN, WITHOUT [id number] 01:55:00FINAL REPORT MRI Brain without contrast Clinical [...] Enri[place]ort Verified Date/Time: 05/02/2018 01:55:42 Reading Location: [facility] [facility] Transitional Reading Room COMPREHENSIVE METABOLIC [id number] 19:13:00 Test Item Value Reference Range Comments TOTAL PROTEIN (BEAKER) 8.0 gm/dL 6.0-8.3 (test rzxo=599) ALBUMIN (BEAKER) (test 4.0 g/dL 3.5-5.0 ppff=4713) ALKALINE PHOSPHATASE 59 U/L 40-150 (BEAKER) (test amgr=220) BILIRUBIN TOTAL (BEAKER) 0.6 mg/dL 0.2-1.2 (test cyyd=325) SODIUM (BEAKER) (test 143 meq/L 136-145 rehw=154) POTASSIUM (BEAKER) (test 3.5 meq/L 3.5-5.1 mgqx=874) CHLORIDE (BEAKER) (test 106 meq/L 98-107 rlpm=414) CO2 (BEAKER) (test 24 meq/L 22-29 riai=045) BLOOD UREA NITROGEN 14 mg/dL 7-21 (BEAKER) (test lrcp=863) CREATININE (BEAKER) (test 0.81 mg/dL 0.57-1.25 fvuv=157) GLUCOSE RANDOM (BEAKER) 136 mg/dL 70-105 (test gknn=747) CALCIUM (BEAKER) (test 9.3 mg/dL 8.4-10.2 czdl=176) AST (SGOT) (BEAKER) (test 17 U/L 5-34 wguf=278) ALT (SGPT) (BEAKER) (test 17 U/L 6-55 kszf=468) EGFR (BEAKER) (test 92 mL/min/1.73 sq m ESTIMATED GFR IS NOT pfdj=3157) ACCURATE CREATININE CLEARANCE IN PREDICTING GLOMERULAR FILTRATION RATE. ESTIMATED GFR IS NOT APPLICABLE FOR DIALYSIS PATIENTS. CBC W/PLT COUNT & AUTO [id number] 18:54:00 Test Item Value Reference Range Comments WHITE BLOOD CELL COUNT (BEAKER) (test yatm=823) 11.0 K/ L 3.5-10.5 RED BLOOD CELL COUNT (BEAKER) (test ovcu=082) 4.30 M/ L 4.63-6.08 HEMOGLOBIN (BEAKER) (test mfbx=253) 13.5 GM/DL 13.7-17.5 HEMATOCRIT (BEAKER) (test vgby=155) 41.0 % 40.1-51.0 MEAN CORPUSCULAR VOLUME (BEAKER) (test ewrv=624) 95.3 fL 79.0-92.2 MEAN CORPUSCULAR HEMOGLOBIN (BEAKER) (test 31.4 pg 25.7-32.2 foaq=181) MEAN CORPUSCULAR HEMOGLOBIN CONC (BEAKER) (test 32.9 GM/DL 32.3-36.5 tbkk=625) RED CELL DISTRIBUTION WIDTH (BEAKER) (test 14.3 % 11.6-14.4 uxqp=424) PLATELET COUNT (BEAKER) (test dsvf=844) 179 K/CU MM 150-450 MEAN PLATELET VOLUME (BEAKER) (test enhd=196) 12.1 fL 9.4-12.4 NUCLEATED RED BLOOD CELLS (BEAKER) (test 0 /100 WBC 0-0 mgjf=620) NEUTROPHILS RELATIVE PERCENT (BEAKER) (test 73 % prrk=175) LYMPHOCYTES RELATIVE PERCENT (BEAKER) (test 15 % exgj=885) MONOCYTES RELATIVE PERCENT (BEAKER) (test 10 % yuub=738) EOSINOPHILS RELATIVE PERCENT (BEAKER) (test 1 % aaos=601) BASOPHILS RELATIVE PERCENT (BEAKER) (test 1 % kpgw=991) NEUTROPHILS ABSOLUTE COUNT (BEAKER) (test 7.95 K/ L 1.78-5.38 kxys=745) LYMPHOCYTES ABSOLUTE COUNT (BEAKER) (test 1.66 K/ L 1.32-3.57 iper=047) MONOCYTES ABSOLUTE COUNT (BEAKER) (test 1.12 K/ L 0.30-0.82 ypxj=171) EOSINOPHILS ABSOLUTE COUNT (BEAKER) (test 0.09 K/ L 0.04-0.54 yudd=341) BASOPHILS ABSOLUTE COUNT (BEAKER) (test 0.08 K/ L 0.01-0.08 agie=920) IMMATURE GRANULOCYTES-RELATIVE PERCENT (BEAKER) 1 % 0-1 (test isev=7513)
[2019-03-18] MEDS ORDERED: TETANUS & DIPHTHERIA TOX,ADULT 0.5 ML VIAL ONE (14:45)
[2019-03-18 15:12] LABS: Protime INR 1.18
[2019-03-18 15:15] LABS: Absolute Lymphocytes (CBC) 1.3 K/uL (0.7-4.9); Basophils % 1.1 % (0-1.3); Hematocrit 38.4 % (39.6-49.0); Lymphocytes % 23.3 % (15.3-44.8); RBC Red Blood Cell Count 3.97 M/uL (4.33-5.43)
[2019-03-18 15:20] LABS: Potassium 3.9 mmol/L (3.5-5.1)
--- NOTE | 2019-03-18 15:47 | RAD REPORT ---
EXAM DESCRIPTION: CT - Abdomen Pelvis Wo Contrast - 03/18/2019 2:46 pm CLINICAL HISTORY: puncture with deer antlers, right groin/inguinal region Abdominal pain COMPARISON: Abdomen Pelvis W/Wo Contrast dated 05/17/2017 TECHNIQUE: Axial [address] imaging of the abdomen and pelvis was performed without IV contrast. No IV contrast was given because of allergy, abnormal renal function, patient refusal or physician re quest. No oral contrast given All CT scans are performed using dose optimization technique as appropriate and may include automated exposure control or mA/KV adjustment according to patient size. FINDINGS: No suspicious findings in the lung bases. The liver, spleen and pancreas show no suspicious findings on non-contrast imaging. Gallbladder and b iliary tree are also without suspicious finding. No hydronephrosis or suspicious renal mass. No significant adrenal finding. Isodense renal masses an d pyelonephritis cannot be excluded in the absence of IV contrast. The urinary bladder is without sig nificant finding. No dilated bowel loops or bowel wall thickening. No acute bowel finding seen. No intraperitoneal free air or free fluid seen. No hematoma, mass or bulky lymphadenopathy. Patient has a few punctate air d ensities in the deep subcutaneous fatty tissues near the lateral lower right abdominal wall. This is near the inferior iliac spine junction with the lateral fascia and musculature. A few punctate air de nsities extend into the musculature. No breech of the peritoneal or retroperitoneal spaces can be con firmed. No measurable hematoma in the soft tissues and only trace amount of stranding is present. Disc and bony degenerative changes are present. No acute bony process. IMPRESSION: No breech of the peritoneal or retroperitoneal spaces identified at the lateral lower ri ght abdomen puncture site. A few punctate air densities with trace stranding and no hematoma noted in the musculature and deep s ubcutaneous fatty tissues near the anterior inferior iliac spine junction with the lateral abdominal wall fascia and musculature. Full assessment is limited is the absence of IV contrast.
[2019-03-18] MEDS ORDERED: LIDOCAINE 1% W/EPI 1:100,000 MDV 20 ML VIAL ONE (15:57)
--- NOTE | 2019-03-18 16:56 | EDPHYS ---
Physician Documentation [facility] Name: Jose Armando Caldera Age: 78 yrs Sex: Male : 1940 Arrival Date: 03/18/2019 Time: 14:20 Bed 5 Private MD: ED Physician Jack Espinosa HPI: 03/18 14:35 This 78 yrs old Male presents to ER via Unassigned with complaints of Fall rn Injury, puncture. 14:35 Trauma demographics: Location of Injury: The injury occurred. Mechanism of injury: rn Fall:. Associated injuries: The patient sustained right groin. Onset: The symptoms/episode began/occurred just prior to arrival. The patient has not experienced similar symptoms in the past. Reports at a shop, tripped, fell onto deer antlers, puncture to right groin/lower abdomen, only pain to site, no other injuries, does take blood thinners. Reports did not fall on antlers with full weight, thinks went in about 3/4" inch. Historical: - Allergies: 14:27 No Known Allergies; tw2 - Home Meds: 14:27 Xarelto 20 mg Oral tab 1 tab once daily [Active]; tamsulosin 0.4 mg Oral cp24 1 cap tw2 twice a day [Active]; Crestor 5 mg Oral tab 1 tab once daily [Active]; levothyroxine 100 mcg tab 1 tab once daily [Active]; 15:06 [place] Thyroid Oral [Active]; atorvastatin 10 mg oral tab 1 tab once daily [Active]; tw2 amlodipine 5 mg tab 1 tab once daily [Active]; 15:10 lisinopril-hydrochlorothiazide 20-25 mg oral tab 1 tab once daily [Active]; sotalol 80 tw2 mg Oral tab 1 tab 2 times per day [Active]; Bactrim DS 800-160 mg Oral tab 1 tab 4 times per day [Active]; Betapace 40 mg oral tab 1 tab 2 times per day [Active]; - PMHx: 14:27 cardiac stent; CVA; Hyperlipidemia; Hypertension; Hypothyroidism; Myocardial tw2 infarction; UTI; Atrial Fib; - PSHx: 14:27 Heart stents; tw2 - Immunization history: Last tetanus immunization: unknown. - Social history:: Smoking status: Patient/guardian denies using tobacco. - Family history:: not pertinent. - Ebola Screening: : Patient denies exposure to infectious person Patient denies travel to an Ebola-affected area in the 21 days before illness onset. - Hospitalizations: : No recent hospitalization is reported. ROS: 14:35 Constitutional: Negative for fever, chills, and weight loss, Cardiovascular: Negative rn for chest pain, palpitations, and edema, Respiratory: Negative for shortness of breath, cough, wheezing, and pleuritic chest pain, Abdomen/GI: + right groin and lower abd puncture wound with pain to site : Negative for injury, bleeding, discharge, and swelling, Neuro: Negative for headache, weakness, numbness, tingling, and seizure. Exam: 14:35 Constitutional: This is a well developed, well nourished patient who is awake, alert, rn and in no acute distress. Cardiovascular: Regular, bradycardic. No pulse deficits. Abdomen/GI: soft, non-distended, + right inguinal region with 2 cm puncture wound, fascia at base seems intact, no arterial bleeding, no rebound, abd soft. Male : Normal genitalia MS/ Extremity: Pulses equal, no cyanosis. Neurovascular intact. Full, normal range of motion. Equal circumference. Strong and equal bilateral femoral pulses. Vital Signs: 14:20 BP 149 / 76; Pulse 56; Resp 23; Temp 97.1(TE); Pulse Ox 95% on R/A; Weight 100.7 kg; ss Height 5 ft. 8 in. (172.72 cm); Pain 2/10; 15:14 BP 149 / 82; Pulse 51; Resp 17; Pulse Ox 96% on R/A; tw2 16:09 BP 160 / 61; Pulse 58; Resp 17; Pulse Ox 98% on R/A; tw2 14:20 Body Mass Index 33.75 (100.70 kg, 172.72 cm) ss Seng Coma Score: 14:20 Eye Response: spontaneous(4). Verbal Response: oriented(5). Motor Response: obeys ss commands(6). Total: 15. Trauma Score (Adult): 14:20 Eye Response: spontaneous(1); Verbal Response: oriented(1); Motor Response: obeys ss commands(2); Systolic BP: > 89 mm Hg(4); Respiratory Rate: 10 to 29 per min(4); Seng Score: 15; Trauma Score: 12 Laceration: 16:27 Wound Repair of 2cm ( 0.8in ) subcutaneous laceration to right inguinal region. Distal rn neuro/vascular/tendon intact. Anesthesia: Wound infiltrated with 3 mls of 1% lidocaine w/ Epi. Wound prep: Extensive cleansing by nurse, Wound irrigation by nurse. Skin closed with 3 3-0 Prolene using interrupted sutures and sterile technique. Dressed with pressure dressing. Patient tolerated well. MDM: 14:22 Patient medically screened. rn 16:02 ED course: No evidence of peritoneal perforation, seems superficial to fascia and rn muscle, will numb, explore, and suture. Tetanus updated, will put on abx given antler caused perforation.. 16:53 Differential diagnosis: intra-abdominal injury, puncture wound to leg, puncture wound rn to abdomen. Data reviewed: vital signs, nurses notes, lab test result(s), radiologic studies, CT scan, and as a result, I will discharge patient. Counseling: I had a detailed discussion with the patient and/or guardian regarding: the historical points, exam findings, and any diagnostic results supporting the discharge/admit diagnosis, lab results, radiology results, the need for outpatient follow up, to return to the emergency department if symptoms worsen or persist or if there are any questions or concerns that arise at home. Response to treatment: the patient's symptoms have markedly improved after treatment, and as a result, I will discharge patient. Special discussion: I discussed with the patient/guardian in detail that at this point there is no indication for admission to the hospital. It is understood, however, that if the symptoms persist or worsen the patient needs to return immediately for re-evaluation. 03/18 14:34 Order name: CBC with Diff; Complete Time: 15:20 03/18 14:34 Order name: Basic Metabolic Panel; Complete Time: 15:21 03/18 14:34 Order name: CT Abd/Pelvis - Without Contrast; Complete Time: 15:50 03/18 14:34 Order name: Protime (+inr); Complete Time: 15:20 03/18 14:34 Order name: Ptt, Activated; Complete Time: 15:20 03/18 14:34 Order name: IV Start; Complete Time: 15:02 03/18 14:34 Order name: NPO; Complete Time: 14:36 03/18 14:34 Order name: Wound Care; Complete Time: 14:36 rn 03/18 14:34 Order name: Wound dressing; Complete Time: 14:36 rn Administered Medications: 14:55 Drug: Tetanus-Diphtheria Toxoid Adult 0.5 ml {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 Exp: 02/03/2021. Lot #: [id number]. } Route: IM; Site: right deltoid; 15:14 Follow up: Response: No adverse reaction tw2 16:05 Drug: Lidocaine-Epinephrine -1%: (1:100,000) 20 ml {Note: by Dr. Espinosa.} Volume: 20 ml; tw2 Route: Infiltration; Disposition: 03/18/19 16:55 Discharged to Home. Impression: Puncture wound of abdominal wall without foreign body, right lower quadrant without penetration into peritoneal cavity. - Condition is Stable. - Discharge Instructions: Puncture Wound, Sutured Wound Care. - Prescriptions for Keflex 500 mg Oral Capsule - take 1 capsule by ORAL route every 12 hours for 10 days; 20 capsule. - Medication Reconciliation Form, Thank You Letter, Antibiotic Education, Prescription Opioid Use, SBAR form form. - Follow up: Private Physician; When: 14 days; Reason: Wound Recheck, Staple/Suture removal. - Problem is new. - Symptoms have improved. Signatures: Dispatcher [employer] EDHaley Jackson RN RN aj1 Jack Espinosa MD MD rn Smirch, Shelby, RN RN ss Wise, Tara, RN RN tw2 Corrections: (The following items were deleted from the chart) 15:10 14:27 Home Meds: rosuvastatin 5 mg Oral tab 1 tab once daily; 15:10 14:27 Home Meds: nitrofurantoin macrocrystal 50 mg Oral cap 1 cap once daily; tw 15:10 14:27 Home Meds: metoprolol tartrate 50 mg Oral tab 1 tab 2 times per day; 15:10 14:27 Home Meds: lisinopril-hydrochlorothiazide 20-25 mg Oral tab 1 tab once daily; tw tw 17:13 16:55 03/18/2019 16:55 Discharged to Home. Impression: Puncture wound of abdominal wall aj1 without foreign body, right lower quadrant without penetration into peritoneal cavity. Condition is Stable. Forms are SBAR form, Medication Reconciliation Form, Thank You Letter, Antibiotic Education, Prescription Opioid Use. Follow up: Private Physician; When: 14 days; Reason: Wound Recheck, Staple/Suture removal. Problem is new. Symptoms have improved. rn
--- NOTE | 2019-03-18 16:56 | ER ---
Nurse's Notes [facility] Name: Jose Armando Caldera Age: 78 yrs Sex: Male : 1940 Arrival Date: 03/18/2019 Time: 14:20 Bed 5 Private MD: Diagnosis: Puncture wound of abdominal wall without foreign body, right lower quadrant without penetration into peritoneal cavity Presentation: 03/18 14:20 Presenting complaint: Patient states: fell from a standing position onto a deer antler ss 30 minutes ago. 1 cm puncture wound to R groin noted. No active bleeding or bruising noted at this time. Care prior to arrival: None. Mechanism of Injury: Fall from standing position. Trauma event details: Injury occurred in the [facility], Injury occurred: at home. Injury occurred: March 18, 2019. 14:20 Acuity: HARPER 2 ss 14:20 Method Of Arrival: Wheelchair ss 14:20 Transition of care: patient was not received from another setting of care. Onset of ss symptoms was March 18, 2019. Risk Assessment: Do you want to hurt yourself or someone else? Patient reports no desire to harm self or others. Initial Sepsis Screen: Does the patient meet any 2 criteria? No. Patient's initial sepsis screen is negative. Does the patient have a suspected source of infection? No. Patient's initial sepsis screen is negative. Trauma Activation: Alert Physician: ED Physician; Name: ; Notified At: ; Arrived At: Physician: General Surgeon; Name: ; Notified At: ; Arrived At: Physician: Radiology; Name: ; Notified At: ; Arrived At: Physician: Respiratory; Name: ; Notified At: ; Arrived At: Physician: Lab; Name: ; Notified At: ; Arrived At: Historical: - Allergies: 14:27 No Known Allergies; tw2 - Home Meds: 14:27 Xarelto 20 mg Oral tab 1 tab once daily [Active]; tamsulosin 0.4 mg Oral cp24 1 cap tw2 twice a day [Active]; Crestor 5 mg Oral tab 1 tab once daily [Active]; levothyroxine 100 mcg tab 1 tab once daily [Active]; 15:06 [place] Thyroid Oral [Active]; atorvastatin 10 mg oral tab 1 tab once daily [Active]; tw2 amlodipine 5 mg tab 1 tab once daily [Active]; 15:10 lisinopril-hydrochlorothiazide 20-25 mg oral tab 1 tab once daily [Active]; sotalol 80 tw2 mg Oral tab 1 tab 2 times per day [Active]; Bactrim DS 800-160 mg Oral tab 1 tab 4 times per day [Active]; Betapace 40 mg oral tab 1 tab 2 times per day [Active]; - PMHx: 14:27 cardiac stent; CVA; Hyperlipidemia; Hypertension; Hypothyroidism; Myocardial tw2 infarction; UTI; Atrial Fib; - PSHx: 14:27 Heart stents; tw2 - Immunization history: Last tetanus immunization: unknown. - Social history:: Smoking status: Patient/guardian denies using tobacco. - Family history:: not pertinent. - Ebola Screening: : Patient denies exposure to infectious person Patient denies travel to an Ebola-affected area in the 21 days before illness onset. - Hospitalizations: : No recent hospitalization is reported. Screenin:20 Abuse screen: Denies threats or abuse. Denies injuries from another. Tuberculosis ss screening: Never had TB. 14:45 Nutritional screening: No deficits noted. Fall Risk Secondary diagnosis (15 points) tw2 impaired mobility. Primary Survey: 14:36 NO uncontrolled hemorrhage observed. A: The patient is alert. Airway: patent. tw2 Breathing/Chest: Respiratory pattern: regular, Respiratory effort: spontaneous, unlabored, Breath sounds: clear, bilaterally. Chest inspection: symmetrical rise and fall of the chest. Circulation: Heart tones present. Skin color: pink, Skin temperature: warm, dry. Disability Alert. Exposure/Environment: All clothing and personal items were removed. Forensic evidence collection is not deemed to be indicated at this time. Items placed in patient belonging bag. There is no evidence of uncontrolled external bleeding. Obvious injury(ies) are noted at this time: 1cm laceration noted to RIGHT lower abdomen, minimal drainage noted A warming method has been applied: A warm blanket has been provided to the patient. 16:10 Reassessment Airway Airway Patent Breathing/Chest Respiratory pattern Regular tw2 Respiratory effort Spontaneous Unlabored Breath sounds Clear Chest inspection Symmetrical Circulation Heart tones Present Color Guffey Temperature Warm Dry Disability Alert. Secondary Survey: 14:20 HEENT: No deficits noted. Gastrointestinal: Abdomen is soft, Bowel sounds present in tw2 all quadrants. : No signs and/or symptoms were reported regarding the genitourinary system. Musculoskeletal: Range of motion: intact in all extremities. Assessment: 14:20 General: Appears in no apparent distress. Behavior is calm, cooperative, appropriate tw2 for age. Pain: Complains of pain in right lower quadrant. Neuro: Level of Consciousness is awake, alert, obeys commands, Oriented to person, place, time, situation. EENT: No signs and/or symptoms were reported regarding the EENT system. Cardiovascular: Heart tones S1 S2 Patient's skin is warm and dry. Respiratory: Airway is patent Respiratory effort is even, unlabored, Respiratory pattern is regular, symmetrical, Breath sounds are clear bilaterally. GI: Abdomen is round non-distended, obese, Bowel sounds present X 4 quads. : No signs and/or symptoms were reported regarding the genitourinary system. Derm: No signs and/or symptoms reported regarding the dermatologic system. Musculoskeletal: Range of motion: intact in all extremities. Injury Description: Puncture sustained to right lower quadrant is gaping, was sustained 30-60 minutes ago. 15:14 Reassessment: Patient appears in no apparent distress at this time. No changes from tw2 previously documented assessment. Patient and/or family updated on plan of care and expected duration. Pain level reassessed. Patient is alert, oriented x 3, equal unlabored respirations, skin warm/dry/pink. 16:09 Reassessment: Patient appears in no apparent distress at this time. No changes from tw2 previously documented assessment. Patient and/or family updated on plan of care and expected duration. Pain level reassessed. Patient is alert, oriented x 3, equal unlabored respirations, skin warm/dry/pink. Vital Signs: 14:20 BP 149 / 76; Pulse 56; Resp 23; Temp 97.1(TE); Pulse Ox 95% on R/A; Weight 100.7 kg; ss Height 5 ft. 8 in. (172.72 cm); Pain 2/10; 15:14 BP 149 / 82; Pulse 51; Resp 17; Pulse Ox 96% on R/A; tw2 16:09 BP 160 / 61; Pulse 58; Resp 17; Pulse Ox 98% on R/A; tw2 14:20 Body Mass Index 33.75 (100.70 kg, 172.72 cm) ss Seng Coma Score: 14:20 Eye Response: spontaneous(4). Verbal Response: oriented(5). Motor Response: obeys ss commands(6). Total: 15. Trauma Score (Adult): 14:20 Eye Response: spontaneous(1); Verbal Response: oriented(1); Motor Response: obeys ss commands(2); Systolic BP: > 89 mm Hg(4); Respiratory Rate: 10 to 29 per min(4); [place] Score: 15; Trauma Score: 12 ED Course: 14:20 Patient arrived in ED. as 14:20 Patient has correct armband on for positive identification. Bed in low position. Call ss light in reach. 14:20 Patient maintains SpO2 saturation greater than 95% on room air. ss 14:20 Thermoregulation: warm blanket given to patient. tw2 14:22 Jack Espinosa MD is Attending Physician. rn 14:22 Mary Bahena RN is Primary Nurse. tw2 14:37 Triage completed. ss 14:45 Arm band placed on. tw2 14:46 CT Abd/Pelvis - Without Contrast In Process Unspecified. EDMS 14:46 CT completed. Patient tolerated procedure well. Patient moved back from CT. mw3 17:13 No provider procedures requiring assistance completed. IV discontinued, intact, aj1 bleeding controlled, No redness/swelling at site. Pressure dressing applied. 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 Exp: tw2 02/03/2021. Lot #: [id number]. } Route: IM; Site: right deltoid; 15:14 Follow up: Response: No adverse reaction tw2 16:05 Drug: Lidocaine-Epinephrine -1%: (1:100,000) 20 ml {Note: by Dr. Espinosa.} Volume: 20 ml; tw2 Route: Infiltration; Intake: 14:46 PO: 0ml; Total: 0ml. tw2 Outcome: 16:10 Patient's length of stay in the Emergency Department was greater than 2 hours. imaging tw2 resultsPatient's length of stay extended due to 16:55 Discharge ordered by . rn 17:13 Discharged to home ambulatory, with family. aj1 17:13 Condition: good 17:13 Discharge instructions given to patient, Instructed on discharge instructions, follow up and referral plans. medication usage, Demonstrated understanding of instructions, follow-up care, medications, Prescriptions given X 1. 17:13 Patient left the ED. aj1 Signatures: Dispatcher [employer] EDMS Haley Alex RN RN aj1 Deb Zambrano Roman, MD MD rn Smirch, Shelby, RN RN ss Wise, Tara, RN RN tw2 Kyara Sandoval 3 Corrections: (The following items were deleted from the chart) 15: 14: Home Meds: rosuvastatin 5 mg Oral tab 1 tab once daily; 15: 14: Home Meds: nitrofurantoin macrocrystal 50 mg Oral cap 1 cap once daily; 15: 14: Home Meds: metoprolol tartrate 50 mg Oral tab 1 tab 2 times per day; 15: 14:27 Home Meds: lisinopril-hydrochlorothiazide 20-25 mg Oral tab 1 tab once daily;
[2019-03-18 17:25] VITALS: TEMP 97.1
[2019-03-18 17:28] VITALS: BP 160/61; O2SAT 98
== END 2019-03-18 17:13 | disposition home or self-care (01) ==
LOC: ER 14:19
PROC: 0JQ80ZZ Repair Abdomen Subcutaneous Tissue and Fascia, Open Approach (ICD-10-PCS; principal; 2019-03-18)
DX: S31.133A Puncture wound of abdominal wall without foreign body, right lower quadrant without penetration into peritoneal cavity, initial encounter (principal); W01.198A Fall on same level from slipping, tripping and stumbling with subsequent striking against other object, initial encounter; Y93.9 Activity, unspecified; Y92.512 Supermarket, store or market as the place of occurrence of the external cause; Z23 Encounter for immunization; Z79.01 Long term (current) use of anticoagulants; Z95.818 Presence of other cardiac implants and grafts; I10 Essential (primary) hypertension; E03.9 Hypothyroidism, unspecified; I48.91 Unspecified atrial fibrillation
CPT/HCPCS: 36415; 74176; 80048; 85025; 85610; 85730; 90471; 90714; 99284